=== PATIENT | male | born 1940 | race Caucasian/White ===

== ENCOUNTER 2016-08-28 15:28 | Outpatient (CLI) | payer MEDICARE, BC, OTHER | END 2016-08-28 15:29 | disposition home or self-care (01) | DX: I25.10 Atherosclerotic heart disease of native coronary artery without angina pectoris (principal); C61 Malignant neoplasm of prostate ==

== ENCOUNTER 2017-08-19 16:10 | Inpatient (IN) | payer MEDICARE, OTHER, BC ==
[2017-08-19 17:09] LABS: BASOPHILS % (AUTO) 1.3 %; EOSINOPHILS % (AUTO) 0.7 %; HGB - HEMOGLOBIN 10.3 g/dL (14.0-18.0); LYMPHOCYTES # (AUTO) 0.6 10^3/uL (1.5-3.5); LYMPHOCYTES % (AUTO) 43.7 %; MEAN CORPUSCULAR HEMOGLOBIN 32.7 pg (27.0-31.0); MEAN CORPUSCULAR HGB CONC 35.9 g/dL (32.0-36.0); MEAN PLATELET VOLUME 7.6 fL (7.4-11.4); MONOCYTES # (AUTO) 0.5 10^3/uL (0.0-1.0); MONOCYTES % (AUTO) 40.3 %; PLT - PLATELET COUNT 195 10^3/uL (130-450); RED BLOOD COUNT 3.16 10^6/uL (4.70-6.10); RED CELL DISTRIBUTION WIDTH 15.1 % (12.0-15.0)
[2017-08-19 17:10] LABS: ALBUMIN 3.8 g/dL (3.2-5.5); ALBUMIN/GLOBULIN RATIO 1.2 (1.0-2.2); BILIRUBIN,TOTAL 0.9 mg/dL (0.2-1.0); CALCIUM 8.9 mg/dL (8.5-10.3); CREATININE 0.6 mg/dL (0.6-1.2); TOTAL PROTEIN 6.9 g/dL (6.7-8.2)
[2017-08-19 17:12] LABS: NEUTROPHILS # (AUTO) 0.2 10^3/uL (1.5-6.6); WHITE BLOOD COUNT 1.3 x10^3/uL (4.8-10.8)
[2017-08-19] MEDS ORDERED: SODIUM CHLORIDE 0.9% 1,000 ML IV ONE ×2 (17:19)
[2017-08-19] MEDS ORDERED: PIPERACILLIN/TAZOBACTAM 4.5 GM in SODIUM CHLORIDE 0.9% MINIBAG 100 ML IV STA (17:21)
[2017-08-19 17:37] LABS: PLATELET ESTIMATE, MANUAL NORMAL (130-450,000) (NORMAL); PLATELET MORPHOLOGY 2+ GIANT PLATELETS (NORMAL)
--- NOTE | 2017-08-19 17:37 | XRAY Report ---
EXAM: CHEST RADIOGRAPHY EXAM DATE: 08/19/2017 04:30 PM. CLINICAL HISTORY: Fever, status post chemotherapy. COMPARISON: 04/02/2017. TECHNIQUE: 2 views. FINDINGS: Lungs/Pleura: Patchy bilateral lower lobe opacities are noted. No large effusions or pneumothorax. Mediastinum: Stable cardiac silhouette and previous sternotomy. Other: None. IMPRESSION: 1. Stable sternotomy and cardiac silhouette. 2. Platelike densities at both lung bases may represent atelectasis. However, given fever, unable to exclude infiltrates. No large effusions or pneumothorax are noted. [facility] Referring Provider Line: [phone] SITE ID: [id number]
--- NOTE | 2017-08-19 17:44 | ED Physician Documentation ---
History of Present Illness - Stated complaint Stated Complaint: HIGH TEMP/HOT COLD FLASHES - Chief complaint Chief Complaint: Fever - History obtained from History obtained from: Patient, Family - History of Present Illness Timing: Today Pain level max: 0 Pain level now: 0 Improved by: nothing Worsened by: nothing - Additonal information Additional information: Patient is a 76-year-old gentleman with a history of prostate cancer, currently undergoing chemotherapy. Last chemotherapy was 10 days ago. Had a fever of 101 at home today. Has had cough as well. Sent in for evaluation by Dr. Gallegos, oncology. Review of Systems Ten Systems: 10 systems reviewed and negative Constitutional: reports: Fever, Chills Nose: reports: Rhinorrhea / runny nose, Congestion Respiratory: reports: Cough GI: denies: Abdominal Pain, Vomiting, Diarrhea Skin: denies: Rash Musculoskeletal: denies: Neck pain, Back pain Neurologic: reports: Generalized weakness. denies: Focal weakness, Numbness, Headache PD PAST MEDICAL HISTORY - Past Medical History Past Medical History: Yes Cardiovascular: High cholesterol, Coronary artery disease Respiratory: None Neuro: None Endocrine/Autoimmune: None GI: None : Benign prostate hypertrophy, Frequency HEENT: None, Other Psych: None Musculoskeletal: Chronic back pain Derm: None Other Past Medical History: no teeth - Past Surgical History Past Surgical History: Yes HEENT: Tonsil/Adenoidectomy - Present Medications Home Medications: Ambulatory Orders Medication Instructions Recorded Confirmed Aspirin [Aspirin EC] 81 mg PO DAILY 09/03/16 08/19/17 Atorvastatin [Lipitor] 40 mg PO QPM 09/03/16 08/19/17 Metoprolol Succinate [Toprol Xl] 12.5 mg PO DAILY 09/03/16 08/19/17 Ropinirole HCl [Requip] 3 mg PO DAILY 09/03/16 08/19/17 - Allergies Allergies/Adverse Reactions: Allergies Allergy/AdvReac Type Severity Reaction Status Date / Time No Known Drug Allergies Allergy Verified 12/03/16 13:35 - Social History Does the pt smoke?: No Smoking Status: Former smoker Does the pt drink ETOH?: Yes Does the pt have substance abuse?: No - Immunizations Immunizations are current?: No - POLST Patient has POLST: No PD ED PE NORMAL - Vitals Vital signs reviewed: Yes - General General: Alert and oriented X 3, No acute distress - HEENT HEENT: PERRL, Moist mucous membranes - Neck Neck: Supple, no meningeal sign - Cardiac Cardiac: RRR, Strong equal pulses - Respiratory Respiratory: No respiratory distress (rhonchi B) - Abdomen Abdomen: Soft, Non tender, Non distended - Back Back: No CVA TTP - Derm Derm: Warm and dry, No rash - Extremities Extremities: No edema, No calf tenderness / cord - Neuro Neuro: Alert and oriented X 3 - Psych Psych: Normal mood, Normal affect Results - Vitals Vitals: Vital Signs - 24 hr 08/19/17 08/19/17 16:23 16:53 Temperature 37.9 C H 37.2 C Heart Rate 100 100 Respiratory 20 20 Rate Blood Pressure 140/58 H 134/65 H O2 Saturation 94 97 Oxygen O2 Source Room air - Labs Labs: Laboratory Tests 08/19/17 08/19/17 08/19/17 16:45 16:45 16:51 WBC 1.3 L* RBC 3.16 L Hgb 10.3 L Hct 28.8 L MCV 91.0 MCH 32.7 H MCHC 35.9 RDW 15.1 H Plt Count 195 MPV 7.6 Neut # 0.2 L* Lymph # 0.6 L [place] # 0.5 Eos # 0.0 Baso # 0.0 Absolute Nucleated RBC 0.00 Nucleated RBC % 0.3 Manual Slide Review Indicated Platelet Estimate NORMAL (130-450,000) Platelet Morphology 2+ GIANT PLATELETS RBC Morph Micro Appear 1+ POIKILOCYTOSIS Sodium 136 Potassium 3.3 L Chloride 105 Carbon Dioxide 24 Anion Gap 7.0 BUN 11 Creatinine 0.6 Estimated GFR (MDRD) 132 Glucose 171 H Lactic Acid 2.3 H Calcium 8.9 Total Bilirubin 0.9 AST 22 ALT 34 Alkaline Phosphatase 84 Total Protein 6.9 Albumin 3.8 Globulin 3.1 Albumin/Globulin Ratio 1.2 Lipase 33 - Rads (name of study) cxr Radiology: Prelim report reviewed, EMP read contemporaneously, See rad report ( Stable sternotomy and cardiac silhouette. Platelike densities at both lung bases may represent atelectasis. However, given fever, unable to exclude infiltrates. No large effusions or pneumothorax are noted. ) PD MEDICAL DECISION MAKING - ED course Complexity details: reviewed old records, reviewed results, re-evaluated patient , considered differential, d/w patient, d/w family, d/w technology applications consultant ED course: Patient is a 76-year-old gentleman who presents to the emergency department with neutropenic fever. Appears to have pneumonia on chest x-ray. Given Zosyn 4.5 g IV. Blood cultures drawn. IV fluids given. Discussed the case with the hospitalist who accepts. This document was made in part using voice recognition software. While efforts are made to proofread this document, sound alike and grammatical errors may occur. Departure - Departure Disposition: 66 [facility] DC/Xfer Clinical Impression: Neutropenic fever Pneumonia Qualifiers: Pneumonia type: due to unspecified organism Laterality: right Lung location: lower lobe of lung Qualified Code(s): J18.1 - Lobar pneumonia, unspecified organism Condition: Stable Discharge Date/Time: 08/19/17 19:09
[2017-08-19] MEDS ORDERED: TEMAZEPAM 15 MG CAPSULE PO PRN (18:14)
[2017-08-19] MEDS ORDERED: oxyCODONE 5 MG TABLET PO PRN (18:14)
[2017-08-19 18:25] LABS: BILIRUBIN,URINE NEGATIVE (NEGATIVE); GLUCOSE, URINE (UA) NEGATIVE (NEGATIVE); KETONES,URINE (UA) NEGATIVE (NEGATIVE); LEUKOCYTE ESTERASE, URINE NEGATIVE (NEGATIVE); NITRITE,URINE NEGATIVE (NEGATIVE); OCCULT BLOOD,URINE NEGATIVE (NEGATIVE); PH,URINE 5.5 PH (5.0-7.5); PROTEIN,URINE NEGATIVE (NEGATIVE); UROBILINOGEN,URINE 0.2 (NORMAL) E.U./dL (NORMAL)
[2017-08-19 18:37] LABS: CLARITY,URINE CLEAR (CLEAR)
[2017-08-19] MEDS ORDERED: CEFEPIME 1 GM in SODIUM CHLORIDE 0.9% MINIBAG 100 ML IV SCH (19:00)
[2017-08-19] MEDS ORDERED: VANCOMYCIN WEIGHT BASED (PHA COMPOUNDING) IV SCH (19:00)
--- NOTE | 2017-08-19 19:34 | HISTORY & PHYSICAL EXAMINATION ---
Chief Complaint - Chief Complaint Chief Complaint: fever, chills History of Present Illness - Admitted From Admitted From:: Home - History Obtained From Records Reviewed: yes History obtained from: patient, ER Physician - History of Present Illness HPI Comment/Other: Mr Miguel Negrete is a pleasant 76 year old gentleman with a history of hypertension and hypercholesterolemia as well as restless leg syndrome who unfortunately also has prostate cancer. He has been receiving chemotherapy for his prostate cancer and his last dose of chemotherapy was 10 days ago. Patient noticed that he had some bleeding per rectum secondary to hemorrhoids about 3 days ago and then the next day he developed a fever. He took some aspirin and the fever went away but the fever came back today along with chills and spiking temperature so the patient came to the emergency department. He was found to be severely neutropenic with a white blood cell count of 1.3 and a neutrophil count of 300. He will be admitted for the neutropenic fever and placed on IV antibiotics. History - Past Medical History Cardiovascular: reports: High cholesterol, Coronary artery disease Respiratory: reports: None Neuro: reports: None Endocrine/Autoimmune: reports: None GI: reports: None : reports: Benign prostate hypertrophy, Frequency, Other (Prostate cancer) HEENT: reports: None, Other Psych: reports: None Musculoskeletal: reports: Chronic back pain Derm: reports: None MRSA Hx?: No Other Past Medical History: no teeth - Past Surgical History HEENT: reports: Tonsil/Adenoidectomy - Family & Social History Family History: Mother: (Mother of old age), Father: , Cancer (Father of prostate cancer), Brother: , Cancer, Other family : Hyperlipidemia, Hypertension Living arrangement: At home Living Situation: With family - Substance History Use: Uses substance without health or social issues: NONE Abuse: Recurrent use of substance despite neg consequences: NONE Dependence: Experiences withdrawal or developed tolerances: NONE - POLST Patient has POLST: No POLST Status: Full Code Meds/Allgy - Home Medications Home Medications: Ambulatory Orders Medication Instructions Recorded Confirmed Aspirin [Aspirin EC] 81 mg PO DAILY 09/03/16 08/19/17 Atorvastatin [Lipitor] 40 mg PO QPM 09/03/16 08/19/17 Metoprolol Succinate [Toprol Xl] 12.5 mg PO DAILY 09/03/16 08/19/17 Ropinirole HCl [Requip] 3 mg PO DAILY 09/03/16 08/19/17 - Allergies Allergies/Adverse Reactions: Allergies Allergy/AdvReac Type Severity Reaction Status Date / Time No Known Drug Allergies Allergy Verified 12/03/16 13:35 Review of Systems - Constitutional Constitutional: reports: Fever, Chills, Malaise, Poor appetite. denies: Fatigue , Weakness, Diaphoresis - Eyes Eyes: denies: Pain, Irritation, Blurred vision, Dipolpia - Ears, Nose & Throat Ears, Nose & Throat: denies: Ear pain, Hearing loss, Hearing aids, Tinnitus, Vertigo, Nasal pain, Nasal discharge - Cardiovascular Cariovascular: denies: Palpitations, Chest pain, Edema, Syncope - Respiratory Respiratory: denies: Cough, Sputum production, Wheezing, Hemoptysis, Orthopnea - Gastrointestinal Gastrointestinal: denies: Abdominal pain, Abdominal distention, Constipation, Diarrhea, Change in bowel habits, Rectal bleeding - Genitourinary Genitourinary: denies: Dysuria, Frequency, Urgency, Hematuria - Musculoskeletal Musculoskeletal: denies: Muscle pain, Back pain, Muscle aches, Stiffness - Integumentary Integumentary: denies: Rash, Pruritis, Lesions, Dryness - Neurological Neurological: denies: General weakness, Focal weakness, Headache, Dizziness - Psychiatric Psychiatric: denies: Depression, Anxiety, Suicidal, Hallucinations - Endocrine Endocrine: denies: Polyuria, Polydypsia, Polyphagia - Hematologic/Lymphatic Hematologic/Lymphatic: denies: Anemia, Bruising, Petechiae, Lymphadenopathy - All Other Systems All Other Systems: reports: Reviewed and negative Exam - Vital Signs Reviewed Vital Signs: Yes Vital Signs: Vital Signs x48h Pulse Resp BP Pulse Ox 08/19/17 19:03 91 30 H 134/65 H 95 - Physical Exam General Appearance: positive: No acute distress, Alert Eyes Bilateral: positive: Normal inspection, PERRL, EOMI, No lid inflammation, No scleral icterus, Other (Conjunctiva is pale) ENT: positive: ENT inspection nml, Pharynx nml, No signs of dehydration Neck: positive: Nml inspection, Thyroid nml, No JVD, Trachea midline. negative : Thyromegaly Respiratory: positive: Chest non-tender, No respiratory distress, Breath sounds nml. negative: Wheezes, Rales, Rhonchi Cardiovascular: positive: Regular rate & rhythm, No murmur, No gallop Peripheral Pulses: positive: 1+ Abdomen: positive: Non-tender, No organomegaly, Nml bowel sounds, No distention. negative: Guarding, Rebound Back: positive: Nml inspection. negative: CVA tenderness (R), CVA tenderness (L ) Skin: positive: Color nml, No rash, Warm, Dry. negative: Cyanosis Extremities: positive: Non-tender, Full ROM, Nml appearance Neurologic/Psychiatric: positive: Oriented x3, CN's nml (2-12), Motor nml, Sensation nml, Mood/affect nml Conclusion/Plan - Problem List (1) Neutropenic fever Conclusion/Plan: The patient's white blood cell count is 1.3 and his neutrophil count is 300. We will start the patient on cefepime and vancomycin for the neutropenic fever. If it is allowed, we will give the patient a dose of Granix to help boost his immune system. (2) Pneumonia Conclusion/Plan: The chest x-ray is not positive for pneumonia but cannot be ruled out. We will be treating the patient with cefepime and vancomycin which should cover any type of pneumonia the patient has. We will repeat chest x-ray in a day or 2. Qualifiers: Pneumonia type: due to unspecified organism Laterality: right Lung location: lower lobe of lung Qualified Code(s): J18.1 - Lobar pneumonia, unspecified organism (3) Hypertension Conclusion/Plan: Fairly well-managed, continue metoprolol (4) Hyperlipidemia Conclusion/Plan: Presumably well-managed, continue Lipitor (5) Restless leg syndrome Conclusion/Plan: Continue ropinirole. - Lab Results Lab results reviewed: Yes Fish Bones: 08/19/17 16:45 08/19/17 16:45 - Diagnostic Imaging Results Diagnostic Imaging Results: positive: Final report reviewed Diagnostic Imaging Results Comments: EXAM: CHEST RADIOGRAPHY EXAM DATE: 08/19/2017 04:30 PM. CLINICAL HISTORY: Fever, status post chemotherapy. COMPARISON: 04/02/2017. TECHNIQUE: 2 views. FINDINGS: Lungs/Pleura: Patchy bilateral lower lobe opacities are noted. No large effusions or pneumothorax. Mediastinum: Stable cardiac silhouette and previous sternotomy. Other: None. IMPRESSION: 1. Stable sternotomy and cardiac silhouette. 2. Platelike densities at both lung bases may represent atelectasis. However, given fever, unable to exclude infiltrates. No large effusions or pneumothorax are noted. Core Measures - Anticipated LOS I expect patient to be DC'd or transferred within 96 hours.: Yes - DVT/VTE - Prophylaxis VTE/DVT Device ordered at admit?: Yes
[2017-08-19] MEDS ORDERED: VANCOMYCIN INJ 1 GM, VANCOMYCIN INJ 250 MG in SODIUM CHLORIDE 0.9% 250 ML IV SCH (20:00)
[2017-08-19] MEDS: CEFEPIME 2 GM in SODIUM CHLORIDE 0.9% MINIBAG 100 ML IV SCH (20:20)
[2017-08-19] MEDS: D5.45NS W/20 MEQ KCL 1,000 ML IV SCH (20:20)
[2017-08-19] MEDS: SODIUM CHLORIDE FLUSH 0.9% 10 ML SYRINGE IVP PRN (20:21)
[2017-08-19] MEDS: VANCOMYCIN INJ 1 GM, VANCOMYCIN INJ 250 MG in SODIUM CHLORIDE 0.9% 250 ML IV SCH (21:31)
[2017-08-19] MEDS: ATORVASTATIN 10 MG TABLET PO SCH (21:34)
[2017-08-20] MEDS: SODIUM CHLORIDE FLUSH 0.9% 10 ML SYRINGE IVP SCH ×3 (00:44→17:12)
[2017-08-20] MEDS: CEFEPIME 2 GM in SODIUM CHLORIDE 0.9% MINIBAG 100 ML IV SCH ×3 (03:15→18:46)
[2017-08-20] MEDS ORDERED: SODIUM CHLORIDE 0.9% 250 ML IV ONE (08:14)
[2017-08-20] MEDS: METOPROLOL SUCCINATE 25 MG TABLET PO SCH (08:22)
[2017-08-20] MEDS: ASPIRIN EC 81 MG TABLET PO SCH (08:22)
[2017-08-20] MEDS: VANCOMYCIN INJ 1 GM, VANCOMYCIN INJ 250 MG in SODIUM CHLORIDE 0.9% 250 ML IV SCH ×2 (08:22→20:03)
[2017-08-20] MEDS: POLYETHYLENE GLYCOL 3350 17 GM PACKET PO SCH (08:43)
[2017-08-20 08:57] LABS: BASOPHILS % (AUTO) 1.4 %; EOSINOPHILS % (AUTO) 1.8 %; HGB - HEMOGLOBIN 9.5 g/dL (14.0-18.0); LYMPHOCYTES # (AUTO) 0.7 10^3/uL (1.5-3.5); LYMPHOCYTES % (AUTO) 49.2 %; MEAN CORPUSCULAR HEMOGLOBIN 31.8 pg (27.0-31.0); MEAN CORPUSCULAR HGB CONC 34.8 g/dL (32.0-36.0); MEAN CORPUSCULAR VOLUME 91.6 fL (80.0-94.0); MEAN PLATELET VOLUME 7.4 fL (7.4-11.4); MONOCYTES # (AUTO) 0.5 10^3/uL (0.0-1.0); MONOCYTES % (AUTO) 35.1 %; NEUTROPHILS % (AUTO) 12.5 %; PLT - PLATELET COUNT 188 10^3/uL (130-450); RED BLOOD COUNT 2.97 10^6/uL (4.70-6.10)
[2017-08-20 09:01] LABS: NEUTROPHILS # (AUTO) 0.2 10^3/uL (1.5-6.6); WHITE BLOOD COUNT 1.5 x10^3/uL (4.8-10.8)
[2017-08-20 09:13] LABS: MAGNESIUM 1.8 mg/dL (1.7-2.8); PHOSPHORUS 2.2 mg/dL (2.5-4.6)
[2017-08-20 09:36] LABS: ALBUMIN 3.4 g/dL (3.2-5.5); ALBUMIN/GLOBULIN RATIO 1.2 (1.0-2.2); ALKALINE PHOSPHATASE 61 IU/L (42-121); ALT ALANINE AMINOTRANSFERASE 28 IU/L (10-60); AST ASPARTATE AMINOTRANSFERASE 19 IU/L (10-42); BILIRUBIN,TOTAL 0.9 mg/dL (0.2-1.0); BUN - BLOOD UREA NITROGEN 7 mg/dL (6-20); CALCIUM 8.4 mg/dL (8.5-10.3); CARBON DIOXIDE - CO2 24 mmol/L (21-32); CHLORIDE 106 mmol/L (101-111); CREATININE 0.5 mg/dL (0.6-1.2); GFR - MDRD 163 (>89); GLUCOSE 124 mg/dL (70-100); SODIUM 135 mmol/L (135-145); TOTAL PROTEIN 6.2 g/dL (6.7-8.2)
[2017-08-20] MEDS: D5.45NS W/20 MEQ KCL 1,000 ML IV SCH (10:10)
[2017-08-20 10:46] LABS: DIFFERENTIAL COMMENT MANUAL=AUTO DIFF; PLATELET ESTIMATE, MANUAL NORMAL (130-450,000) (NORMAL)
[2017-08-20] MEDS ORDERED: ACETAMINOPHEN 325 MG TABLET PO PRN (10:53)
[2017-08-20] MEDS: POTASSIUM CHLORIDE 20 MEQ TABLET PO SCH (11:13)
[2017-08-20] MEDS: NEUTRA-PHOS 250 MG TABLET PO SCH ×3 (11:13→17:11)
--- NOTE | 2017-08-20 16:13 | PROVIDER PROGRESS NOTE ---
Assessment/Plan - Problem List (1) Neutropenic fever Assessment/Plan: The patient's white blood cell count is 1.3 and his neutrophil count is 200. Patient was started on cefepime and vancomycin for the neutropenic fever. No fevers overnight last fever was 14:30 on 08/19/17 and was 37.9 WBC improved this am but neutophil count still 200 Continue IV cefepime and vancomycin till patient is afebrile for 24 hours and neutrophil count trending up LIkely source of infection is pneumonia (2) Pneumonia Conclusion/Plan: The chest x-ray is not positive for pneumonia but cannot be ruled out. We will be treating the patient with cefepime and vancomycin which should cover any type of pneumonia the patient has. We will repeat chest x-ray in a day or 2. No O2 requirements but neutropenic fever and cough Qualifiers: Pneumonia type: due to unspecified organism Laterality: right Lung location: lower lobe of lung Qualified Code(s): J18.1 - Lobar pneumonia, unspecified organism (3) Hypertension Conclusion/Plan: Fairly well-managed, continue metoprolol (4) Hyperlipidemia Conclusion/Plan: Presumably well-managed, continue Lipitor (5) Restless leg syndrome Conclusion/Plan: Continue ropinirole. - Current Meds Current Meds: Current Medications Generic Name Dose Route Start Last Admin Trade Name Freq PRN Reason Stop Dose Admin Acetaminophen 650 mg 08/20/17 10:53 08/20/17 11:13 Tylenol PO 650 mg Q4HR PRN Administration Pain or Fever > 38C (100.4F) Aspirin 81 mg 08/20/17 09:00 08/20/17 08:22 Ecotrin PO 81 mg DAILY EMPERATRIZ Administration Atorvastatin Calcium 40 mg 08/19/17 21:00 08/19/17 21:34 Lipitor PO 40 mg QPM EMPERATRIZ Administration Potassium Chloride/Dextrose/Sod Cl 1,000 mls @ 100 mls/hr 08/19/17 19:00 10:10 D5.45ns W/20 Meq Kcl IV 100 mls/hr .Q10H EMPERATRIZ Administration Cefepime HCl 2 gm/ Sodium 100 mls @ 200 mls/hr 08/19/17 19:00 08/20/17 11:45 Chloride IV Infused Q8H EMPERATRIZ Infusion Vancomycin HCl 1 gm/ 250 mls @ 167 mls/hr 08/19/17 20:00 04/17/18 10:10 Vancomycin HCl 250 mg/ Sodium IV Infused Chloride Q12H EMPERATRIZ Infusion Metoprolol Succinate 12.5 mg 08/20/17 09:00 08/20/17 08:22 Toprol Xl PO 12.5 mg DAILY EMPERATRIZ Administration Polyethylene Glycol 17 gm 08/20/17 09:00 08/20/17 08:43 Miralax PO 17 gm DAILY EMPERATRIZ Administration Potassium Chloride 20 meq 08/20/17 11:00 08/20/17 11:13 K-Dur PO 20 meq DAILYWM EMPERATRIZ Administration Sodium Chloride 10 ml 08/19/17 18:14 08/19/17 20:21 Normal Saline Flush 0.9% IVP 10 ml PRN PRN Administration NEEDED PER PROVIDER ORDERS Sodium Chloride 10 ml 08/20/17 01:00 08/20/17 08:22 Normal Saline Flush 0.9% IVP 10 ml 0100,0900,1700 EMPERATRIZ Administration Sodium Phosphate 250 mg 08/20/17 11:00 08/20/17 13:01 K-Phos Neutral PO Not Given TIDWM EMPERATRIZ - Lab Result Lab results reviewed: Yes Fish Bone Diagrams: 08/20/17 08:47 08/20/17 08:47 - Diagnostic Imaging Results Diagnostic Imaging Results: Final report reviewed - Additional Planning Condition/Complexity: Guarded My Orders: My Active Orders 08/20/17 10:53 Acetaminophen [Tylenol] 650 mg PO Q4HR PRN 08/20/17 11:00 Neutra-Phos [K-Phos Neutral] 250 mg PO TIDWM Potassium Chloride [K-Dur] 20 meq PO DAILYWM 08/20/17 Lunch Neutropenic (Low Microbial) Diet [DIET] 08/21/17 05:00 CBC - COMP BLD CT W/AUTO DIFF [HEME] DAILYLAB CMP, RFLX TO IONIZED CA IF [CHEM] DAILYLAB MAGNESIUM [CHEM] DAILYLAB PHOSPHORUS [CHEM] DAILYLAB 08/21/17 06:00 PSA FREE AND TOTAL [IAI] Routine 08/22/17 05:00 CBC - COMP BLD CT W/AUTO DIFF [HEME] DAILYLAB CMP, RFLX TO IONIZED CA IF [CHEM] DAILYLAB MAGNESIUM [CHEM] DAILYLAB PHOSPHORUS [CHEM] DAILYLAB 08/23/17 05:00 CBC - COMP BLD CT W/AUTO DIFF [HEME] DAILYLAB CMP, RFLX TO IONIZED CA IF [CHEM] DAILYLAB MAGNESIUM [CHEM] DAILYLAB PHOSPHORUS [CHEM] DAILYLAB 08/24/17 05:00 CBC - COMP BLD CT W/AUTO DIFF [HEME] DAILYLAB CMP, RFLX TO IONIZED CA IF [CHEM] DAILYLAB MAGNESIUM [CHEM] DAILYLAB PHOSPHORUS [CHEM] DAILYLAB Plan Discussed with:: Patient, Family Time Spent: 31-60 minutes Subjective - Subjective Patient Reports: Feeling Better, Cough, Fever (None since yesterday), Other (No shortness of breath) Nursing Reports: No Complaints Objective Vital Signs: Vital Signs - 24 hr 08/19/17 08/19/17 08/20/17 19:03 19:20 00:00 Temperature 37.1 C 36.7 C Heart Rate 91 Heart Rate [ 91 83 Brachial] Respiratory 30 H 20 20 Rate Blood Pressure 134/65 H Blood Pressure 107/60 117/56 L [Right Brachial artery] O2 Saturation 95 96 96 08/20/17 08/20/17 08:00 15:13 Temperature 36.8 C 36.7 C Heart Rate Heart Rate [ 76 71 Brachial] Respiratory 20 18 Rate Blood Pressure Blood Pressure 110/57 L 119/69 [Right Brachial artery] O2 Saturation 96 96 Oxygen O2 Source Room air I&O (Last 24 Hrs): Intake and Output Totals x24h 08/18/17 08/19/17 08/20/17 23:59 23:59 23:59 Intake Total 3839.496 9690.001 Balance 6475.045 9344.001 General: Alert, Oriented x3, Cooperative, No acute distress HEENT: Atraumatic, PERRLA, EOMI, Other (Dry) Neck: Supple, No JVD, No thyromegaly, +2 carotid pulse wo bruit, No LAD Lymphatic: no adenopathy Neuro: Alert, Non Focal, CN 2-12 Grossly Intact, Oriented Times 3 Cardiovascular: Regular rate, Normal S1, Normal S2, No murmurs Respiratory: Chest non-tender, No respiratory distress, Breath sounds nml Abdomen: Normal bowel sounds, Soft, No tenderness, No hepatospenomegaly Extremities: No clubbing, No cyanosis, No edema, Normal pulses Skin: No rashes, No breakdown - Results Results: Laboratory Results WBC 1.5 x10^3/uL (4.8-10.8) L* 08/20/17 08:47 RBC 2.97 10^6/uL (4.70-6.10) L 08/20/17 08:47 Hgb 9.5 g/dL (14.0-18.0) L 08/20/17 08:47 Hct 27.2 % (42.0-52.0) L 08/20/17 08:47 MCV 91.6 fL (80.0-94.0) 08/20/17 08:47 MCH 31.8 pg (27.0-31.0) H 08/20/17 08:47 MCHC 34.8 g/dL (32.0-36.0) 08/20/17 08:47 RDW 15.0 % (12.0-15.0) 08/20/17 08:47 Plt Count 188 10^3/uL (130-450) 08/20/17 08:47 MPV 7.4 fL (7.4-11.4) 08/20/17 08:47 Neut # 0.2 10^3/uL (1.5-6.6) L* 08/20/17 08:47 Lymph # 0.7 10^3/uL (1.5-3.5) L 08/20/17 08:47 [place] # 0.5 10^3/uL (0.0-1.0) 08/20/17 08:47 Eos # 0.0 10^3/uL (0.0-0.7) 08/20/17 08:47 Baso # 0.0 10^3/uL (0.0-0.1) 08/20/17 08:47 Absolute Nucleated RBC 0.00 x10^3/uL 08/20/17 08:47 Band Neuts % (Manual) Not Reportable 08/20/17 08:47 Abnorm Lymph % (Manual) Not Reportable 08/20/17 08:47 Nucleated RBC % 0.1 /100WBC 08/20/17 08:47 Neutrophils # (Manual) Not Reportable 08/20/17 08:47 Lymphocytes # (Manual) Not Reportable 08/20/17 08:47 Monocytes # (Manual) Not Reportable 08/20/17 08:47 Eosinophils # (Manual) Not Reportable 08/20/17 08:47 Basophils # (Manual) Not Reportable 08/20/17 08:47 Differential Comment MANUAL=AUTO DIFF 08/20/17 08:47 Manual Slide Review Indicated 08/19/17 16:45 Platelet Estimate NORMAL (130-450,000) (NORMAL) 08/20/17 08:47 Platelet Morphology 1+ GIANT PLATELETS (NORMAL) 1+ LARGE PLATELETS (NORMAL) 08/20/17 08:47 Platelet Morphology 1+ GIANT PLATELETS (NORMAL) 1+ LARGE PLATELETS (NORMAL) 08/20/17 08:47 RBC Morph Micro Appear 1+ ANISOCYTOSIS (NORMAL) 1+ POIKILOCYTOSIS (NORMAL) 08/19/17 16:45 RBC Morph Micro Appear 2+ ANISOCYTOSIS (NORMAL) 1+ TEARDROP CELLS (NORMAL) 1 + OVALOCYTES (NORMAL) 08/20/17 08:47 RBC Morph Micro Appear 2+ ANISOCYTOSIS (NORMAL) 1+ TEARDROP CELLS (NORMAL) 1 + OVALOCYTES (NORMAL) 08/20/17 08:47 RBC Morph Micro Appear 2+ ANISOCYTOSIS (NORMAL) 1+ TEARDROP CELLS (NORMAL) 1 + OVALOCYTES (NORMAL) 08/20/17 08:47 Sodium 135 mmol/L (135-145) 08/20/17 08:47 Potassium 3.2 mmol/L (3.5-5.0) L 08/20/17 08:47 Chloride 106 mmol/L (101-111) 08/20/17 08:47 Carbon Dioxide 24 mmol/L (21-32) 08/20/17 08:47 Anion Gap 5.0 (6-13) L 08/20/17 08:47 BUN 7 mg/dL (6-20) 08/20/17 08:47 Creatinine 0.5 mg/dL (0.6-1.2) L 08/20/17 08:47 Estimated GFR (MDRD) 163 (>89) 08/20/17 08:47 Glucose 124 mg/dL (70-100) H 08/20/17 08:47 Lactic Acid 1.7 mmol/L (0.5-2.2) 08/20/17 08:47 Calcium 8.4 mg/dL (8.5-10.3) L 08/20/17 08:47 Ionized Calcium NO 08/20/17 08:47 Phosphorus 2.2 mg/dL (2.5-4.6) L 08/20/17 08:47 Magnesium 1.8 mg/dL (1.7-2.8) 08/20/17 08:47 Total Bilirubin 0.9 mg/dL (0.2-1.0) 08/20/17 08:47 AST 19 IU/L (10-42) 08/20/17 08:47 ALT 28 IU/L (10-60) 08/20/17 08:47 Alkaline Phosphatase 61 IU/L (42-121) 08/20/17 08:47 Total Protein 6.2 g/dL (6.7-8.2) L 08/20/17 08:47 Albumin 3.4 g/dL (3.2-5.5) 08/20/17 08:47 Globulin 2.8 g/dL (2.1-4.2) 08/20/17 08:47 Albumin/Globulin Ratio 1.2 (1.0-2.2) 08/20/17 08:47 Lipase 33 U/L (22-51) 08/19/17 16:45 Urine Color YELLOW 08/19/17 18:22 Urine Clarity CLEAR (CLEAR) 08/19/17 18:22 Urine pH 5.5 PH (5.0-7.5) 08/19/17 18:22 Ur Specific [place] >=1.030 (1.002-1.030) H 08/19/17 18:22 Urine Protein NEGATIVE mg/dL (NEGATIVE) 08/19/17 18:22 Urine Glucose (UA) NEGATIVE mg/dL (NEGATIVE) 08/19/17 18:22 Urine Ketones NEGATIVE mg/dL (NEGATIVE) 08/19/17 18:22 Urine Occult Blood NEGATIVE (NEGATIVE) 08/19/17 18:22 Urine Nitrite NEGATIVE (NEGATIVE) 08/19/17 18:22 Urine Bilirubin NEGATIVE (NEGATIVE) 08/19/17 18:22 Urine Urobilinogen 0.2 (NORMAL) E.U./dL (NORMAL) 08/19/17 18:22 Ur Leukocyte Esterase NEGATIVE (NEGATIVE) 08/19/17 18:22 Ur Microscopic Review NOT INDICATED 08/19/17 18:22 Urine Culture Comments NOT INDICATED 08/19/17 18:22
[2017-08-20] MEDS ORDERED: ONDANSETRON 4 MG/2 ML VIAL IVP PRN (18:29)
[2017-08-20] MEDS ORDERED: PROCHLORPERAZINE 10 MG/2 ML VIAL IVP PRN (18:29)
[2017-08-20] MEDS: rOPINIRole 1 MG TABLET PO SCH (20:02)
[2017-08-20] MEDS: ATORVASTATIN 10 MG TABLET PO SCH (20:02)
[2017-08-21] MEDS: D5.45NS W/20 MEQ KCL 1,000 ML IV SCH ×4 (00:23→21:38)
[2017-08-21] MEDS: SODIUM CHLORIDE FLUSH 0.9% 10 ML SYRINGE IVP SCH ×3 (00:24→08:06)
[2017-08-21] MEDS: CEFEPIME 2 GM in SODIUM CHLORIDE 0.9% MINIBAG 100 ML IV SCH ×3 (03:17→19:26)
[2017-08-21 07:52] LABS: VANCOMYCIN,TROUGH 11.5 ug/mL (5.0-15.0)
[2017-08-21 07:54] LABS: BASOPHILS % (AUTO) 1.4 %; EOSINOPHILS % (AUTO) 1.1 %; HGB - HEMOGLOBIN 10.5 g/dL (14.0-18.0); LYMPHOCYTES % (AUTO) 37.5 %; MEAN CORPUSCULAR HEMOGLOBIN 32.1 pg (27.0-31.0); MEAN CORPUSCULAR HGB CONC 34.8 g/dL (32.0-36.0); MEAN PLATELET VOLUME 7.3 fL (7.4-11.4); MONOCYTES % (AUTO) 39.7 %; NEUTROPHILS % (AUTO) 20.3 %; PLT - PLATELET COUNT 241 10^3/uL (130-450); RED BLOOD COUNT 3.28 10^6/uL (4.70-6.10); RED CELL DISTRIBUTION WIDTH 14.5 % (12.0-15.0)
[2017-08-21 07:55] LABS: ALBUMIN 3.7 g/dL (3.2-5.5); ALBUMIN/GLOBULIN RATIO 1.3 (1.0-2.2); ALKALINE PHOSPHATASE 63 IU/L (42-121); ALT ALANINE AMINOTRANSFERASE 31 IU/L (10-60); AST ASPARTATE AMINOTRANSFERASE 22 IU/L (10-42); BILIRUBIN,TOTAL 0.9 mg/dL (0.2-1.0); BUN - BLOOD UREA NITROGEN 5 mg/dL (6-20); CALCIUM 8.8 mg/dL (8.5-10.3); CARBON DIOXIDE - CO2 23 mmol/L (21-32); CHLORIDE 109 mmol/L (101-111); CREATININE 0.5 mg/dL (0.6-1.2); GFR - MDRD 163 (>89); GLUCOSE 104 mg/dL (70-100); MAGNESIUM 1.6 mg/dL (1.7-2.8); PHOSPHORUS 2.9 mg/dL (2.5-4.6); SODIUM 140 mmol/L (135-145); TOTAL PROTEIN 6.5 g/dL (6.7-8.2)
[2017-08-21] MEDS ORDERED: VANCOMYCIN INJ 1 GM, VANCOMYCIN INJ 500 MG in SODIUM CHLORIDE 0.9% 250 ML IV SCH (08:00)
[2017-08-21] MEDS ORDERED: VANCOMYCIN INJ 1 GM, VANCOMYCIN INJ 500 MG in SODIUM CHLORIDE 0.9% 500 ML IV SCH (08:29)
[2017-08-21 08:31] LABS: WHITE BLOOD COUNT 1.7 x10^3/uL (4.8-10.8)
[2017-08-21 08:36] LABS: BAND NEUTROPHILS % (MANUAL) 0 %
[2017-08-21 08:37] LABS: ABNORMAL LYMPHS % (MANUAL) 2 %; BASOPHILS % (MANUAL) 1 %; LYMPHOCYTES # (MANUAL) 0.7 10^3/uL (1.5-3.5); LYMPHOCYTES % (MANUAL) 40 %; MONOCYTES # (MANUAL) 0.6 10^3/uL (0.0-1.0); NEUTROPHILS # (MANUAL) 0.3 10^3/uL (1.5-6.6); NEUTROPHILS % (MANUAL) 17 %
[2017-08-21 08:38] LABS: DIFFERENTIAL COMMENT MANUAL DIFFERENTIAL; OTHER CELLS % (MANUAL) 2 %; PLATELET ESTIMATE, MANUAL NORMAL (130-450,000) (NORMAL); PLATELET MORPHOLOGY NORMAL APPEARANCE (NORMAL)
[2017-08-21] MEDS: VANCOMYCIN INJ 1 GM, VANCOMYCIN INJ 500 MG in SODIUM CHLORIDE 0.9% 500 ML IV SCH ×2 (08:45→20:14)
[2017-08-21] MEDS: NEUTRA-PHOS 250 MG TABLET PO SCH ×3 (09:01→15:59)
[2017-08-21] MEDS: POLYETHYLENE GLYCOL 3350 17 GM PACKET PO SCH (09:02)
[2017-08-21] MEDS: POTASSIUM CHLORIDE 20 MEQ TABLET PO SCH (09:02)
[2017-08-21] MEDS: METOPROLOL SUCCINATE 25 MG TABLET PO SCH (09:02)
[2017-08-21] MEDS: ASPIRIN EC 81 MG TABLET PO SCH (09:02)
[2017-08-21 09:03] LABS: PSA FREE 2.06 ng/mL (0.16-2.81); PSA TOTAL 27.58 ng/mL (0.000-2.000)
--- NOTE | 2017-08-21 17:57 | PROVIDER PROGRESS NOTE ---
Assessment/Plan - Problem List (1) Neutropenic fever Assessment/Plan: The patient's white blood cell count is 1.7 and his neutrophil count is 300 this am. Patient was started on cefepime and vancomycin for the neutropenic fever. Last fever was 14:30 on 08/19/17 and was 37.9 Neutophil count improved to 300 today but would still like to see it higher before patient is discharged Continue IV cefepime and vancomycin till neutrophil count trending up higher LIkely source of infection is pneumonia (2) Pneumonia Conclusion/Plan: The chest x-ray is not positive for pneumonia but cannot be ruled out. We will be treating the patient with cefepime and vancomycin which should cover any type of pneumonia the patient has. We will repeat chest x-ray tomorrow am No O2 requirements but neutropenic fever and cough Stable Qualifiers: Pneumonia type: due to unspecified organism Laterality: right Lung location: lower lobe of lung Qualified Code(s): J18.1 - Lobar pneumonia, unspecified organism (3) Hypertension Conclusion/Plan: Fairly well-managed, continue metoprolol (4) Hyperlipidemia Conclusion/Plan: Presumably well-managed, continue Lipitor (5) Restless leg syndrome Conclusion/Plan: Continue ropinirole. - Current Meds Current Meds: Current Medications Generic Name Dose Route Start Last Admin Trade Name Freq PRN Reason Stop Dose Admin Acetaminophen 650 mg 08/20/17 10:53 08/20/17 11:13 Tylenol PO 650 mg Q4HR PRN Administration Pain or Fever > 38C (100.4F) Aspirin 81 mg 08/20/17 09:00 08/21/17 09:02 Ecotrin PO 81 mg DAILY EMPERATRIZ Administration Potassium Chloride/Dextrose/Sod Cl 1,000 mls @ 100 mls/hr 08/19/17 19:00 15:54 D5.45ns W/20 Meq Kcl IV Not Given .Q10H EMPERATRIZ Cefepime HCl 2 gm/ Sodium 100 mls @ 200 mls/hr 08/19/17 19:00 08/21/17 13:25 Chloride IV Infused Q8H EMPERATRIZ Infusion Vancomycin HCl 1 gm/ 500 mls @ 167 mls/hr 08/21/17 08:00 08/21/17 11:45 Vancomycin HCl 500 mg/ Sodium IV Infused Chloride Q12H EMPERATRIZ Infusion Metoprolol Succinate 12.5 mg 08/20/17 09:00 08/21/17 09:02 Toprol Xl PO 12.5 mg DAILY EMPERATRIZ Administration Polyethylene Glycol 17 gm 08/20/17 09:00 08/21/17 09:02 Miralax PO 17 gm DAILY EMPERATRIZ Administration Potassium Chloride 20 meq 08/20/17 11:00 08/21/17 09:02 K-Dur PO 20 meq DAILYWM EMPERATRIZ Administration Prochlorperazine Edisylate 10 mg 08/20/17 18:29 08/20/17 18:43 Compazine Inj IVP 10 mg Q4HR PRN Administration Nausea / Vomiting Ropinirole HCl 3 mg 08/20/17 21:00 08/20/17 20:02 Requip PO 3 mg QPM EMPERATRIZ Administration Sodium Chloride 10 ml 08/19/17 18:14 08/19/17 20:21 Normal Saline Flush 0.9% IVP 10 ml PRN PRN Administration NEEDED PER PROVIDER ORDERS Sodium Chloride 10 ml 08/20/17 01:00 08/21/17 08:06 Normal Saline Flush 0.9% IVP Not Given 0100,0900,1700 EMPERATIRZ Sodium Phosphate 250 mg 08/20/17 11:00 08/21/17 15:59 K-Phos Neutral PO 250 mg TIDWM EMPERATRIZ Administration - Lab Result Lab results reviewed: Yes Fish Bone Diagrams: 08/21/17 07:33 08/21/17 07:33 - Diagnostic Imaging Results Diagnostic Imaging Results: Final report reviewed - Additional Planning Condition/Complexity: Stable My Orders: My Active Orders 08/20/17 18:29 Ondansetron Inj [Zofran Inj] 4 mg IVP Q4HR PRN Prochlorperazine Inj [Compazine Inj] 10 mg IVP Q4HR PRN 08/22/17 05:00 CBC - COMP BLD CT W/AUTO DIFF [HEME] DAILYLAB CMP, RFLX TO IONIZED CA IF [CHEM] DAILYLAB MAGNESIUM [CHEM] DAILYLAB PHOSPHORUS [CHEM] DAILYLAB 08/22/17 19:30 VANCOMYCIN TROUGH [CHEM] Timed 08/23/17 05:00 CBC - COMP BLD CT W/AUTO DIFF [HEME] DAILYLAB CMP, RFLX TO IONIZED CA IF [CHEM] DAILYLAB MAGNESIUM [CHEM] DAILYLAB PHOSPHORUS [CHEM] DAILYLAB 08/24/17 05:00 CBC - COMP BLD CT W/AUTO DIFF [HEME] DAILYLAB CMP, RFLX TO IONIZED CA IF [CHEM] DAILYLAB MAGNESIUM [CHEM] DAILYLAB PHOSPHORUS [CHEM] DAILYLAB Plan Discussed with:: Patient Time Spent: 31-60 minutes Subjective - Subjective Patient Reports: Other (No fevers last night. No diarrhea. Cough is stable. Feels weak but better every day.) Nursing Reports: No Complaints Objective Vital Signs: Vital Signs - 24 hr 08/21/17 08/21/17 08/21/17 00:00 09:36 15:54 Temperature 37.1 C 36.4 C L 37.0 C Heart Rate [ 84 77 68 Brachial] Respiratory 20 20 18 Rate Blood Pressure 117/61 133/61 H 135/97 H [Right Brachial artery] O2 Saturation 94 97 98 Oxygen O2 Source Room air I&O (Last 24 Hrs): Intake and Output Totals x24h 08/19/17 08/20/17 08/21/17 23:59 23:59 23:59 Intake Total 1982.669 8829.001 2630.000 Output Total 575 Balance 7075.963 1924.001 2055.000 General: Alert, Oriented x3, Cooperative, No acute distress HEENT: Atraumatic, PERRLA, EOMI, Mucous membr. moist/pink Neck: Supple, No JVD, No thyromegaly, +2 carotid pulse wo bruit, No LAD Lymphatic: no adenopathy Neuro: Alert, Non Focal, CN 2-12 Grossly Intact, Oriented Times 3 Cardiovascular: Regular rate, Normal S1, Normal S2, No murmurs Respiratory: Chest non-tender, No respiratory distress, Rhonchi (Bases) Abdomen: Normal bowel sounds, Soft, No tenderness, No hepatospenomegaly, No masses Extremities: No clubbing, No cyanosis, No edema, Normal pulses Skin: No rashes, No breakdown - Results Results: Laboratory Results WBC 1.7 x10^3/uL (4.8-10.8) L* 08/21/17 07:33 RBC 3.28 10^6/uL (4.70-6.10) L 08/21/17 07:33 Hgb 10.5 g/dL (14.0-18.0) L 08/21/17 07:33 Hct 30.2 % (42.0-52.0) L 08/21/17 07:33 MCV 92.0 fL (80.0-94.0) 08/21/17 07:33 MCH 32.1 pg (27.0-31.0) H 08/21/17 07:33 MCHC 34.8 g/dL (32.0-36.0) 08/21/17 07:33 RDW 14.5 % (12.0-15.0) 08/21/17 07:33 Plt Count 241 10^3/uL (130-450) 08/21/17 07:33 MPV 7.3 fL (7.4-11.4) L 08/21/17 07:33 Neut # Not Reportable 08/21/17 07:33 Lymph # Not Reportable 08/21/17 07:33 [place] # Not Reportable 08/21/17 07:33 Eos # Not Reportable 08/21/17 07:33 Baso # Not Reportable 08/21/17 07:33 Absolute Nucleated RBC Not Reportable 08/21/17 07:33 Total Counted 100 08/21/17 07:33 Band Neuts % (Manual) 0 % (0-10) 08/21/17 07:33 Abnorm Lymph % (Manual) 2 % 08/21/17 07:33 Other Cells % 2 % 08/21/17 07:33 Nucleated RBC % Not Reportable 08/21/17 07:33 Neutrophils # (Manual) 0.3 10^3/uL (1.5-6.6) L* 08/21/17 07:33 Lymphocytes # (Manual) 0.7 10^3/uL (1.5-3.5) L 08/21/17 07:33 Monocytes # (Manual) 0.6 10^3/uL (0.0-1.0) 08/21/17 07:33 Eosinophils # (Manual) 0.0 10^3/uL (0-0.7) 08/21/17 07:33 Basophils # (Manual) 0.0 10^3/uL (0-0.1) 08/21/17 07:33 Differential Comment MANUAL DIFFERENTIAL 08/21/17 07:33 Manual Slide Review Indicated 08/21/17 07:33 Platelet Estimate NORMAL (130-450,000) (NORMAL) 08/21/17 07:33 Platelet Morphology 1+ GIANT PLATELETS (NORMAL) 1+ LARGE PLATELETS (NORMAL) 08/20/17 08:47 Platelet Morphology NORMAL APPEARANCE (NORMAL) 08/21/17 07:33 RBC Morph Micro Appear 2+ ANISOCYTOSIS (NORMAL) 1+ TEARDROP CELLS (NORMAL) 1 + OVALOCYTES (NORMAL) 08/20/17 08:47 RBC Morph Micro Appear 2+ ANISOCYTOSIS (NORMAL) 1+ TEARDROP CELLS (NORMAL) 1 + OVALOCYTES (NORMAL) 08/20/17 08:47 RBC Morph Micro Appear 2+ ANISOCYTOSIS (NORMAL) 1+ TEARDROP CELLS (NORMAL) 1 + OVALOCYTES (NORMAL) 08/20/17 08:47 RBC Morph Micro Appear 1+ ANISOCYTOSIS (NORMAL) 1+ POLYCHROMASIA (NORMAL) 08/21/17 07:33 RBC Morph Micro Appear 1+ ANISOCYTOSIS (NORMAL) 1+ POLYCHROMASIA (NORMAL) 08/21/17 07:33 Sodium 140 mmol/L (135-145) 08/21/17 07:33 Potassium 3.2 mmol/L (3.5-5.0) L 08/21/17 07:33 Chloride 109 mmol/L (101-111) 08/21/17 07:33 Carbon Dioxide 23 mmol/L (21-32) 08/21/17 07:33 Anion Gap 8.0 (6-13) 08/21/17 07:33 BUN 5 mg/dL (6-20) L 08/21/17 07:33 Creatinine 0.5 mg/dL (0.6-1.2) L 08/21/17 07:33 Estimated GFR (MDRD) 163 (>89) 08/21/17 07:33 Glucose 104 mg/dL (70-100) H 08/21/17 07:33 Lactic Acid 1.7 mmol/L (0.5-2.2) 08/20/17 08:47 Calcium 8.8 mg/dL (8.5-10.3) 08/21/17 07:33 Ionized Calcium NO 08/21/17 07:33 Phosphorus 2.9 mg/dL (2.5-4.6) 08/21/17 07:33 Magnesium 1.6 mg/dL (1.7-2.8) L 08/21/17 07:33 Total Bilirubin 0.9 mg/dL (0.2-1.0) 08/21/17 07:33 AST 22 IU/L (10-42) 08/21/17 07:33 ALT 31 IU/L (10-60) 08/21/17 07:33 Alkaline Phosphatase 63 IU/L (42-121) 08/21/17 07:33 Total Protein 6.5 g/dL (6.7-8.2) L 08/21/17 07:33 Albumin 3.7 g/dL (3.2-5.5) 08/21/17 07:33 Globulin 2.8 g/dL (2.1-4.2) 08/21/17 07:33 Albumin/Globulin Ratio 1.3 (1.0-2.2) 08/21/17 07:33 Lipase 33 U/L (22-51) 08/19/17 16:45 Prostate Specific Ag 27.580 ng/mL (0.000-2.000) H 08/21/17 07:33 Free PSA 2.060 ng/mL (0.16-2.81) 08/21/17 07:33 % Free PSA Calc 7 % (25-100) L 08/21/17 07:33 Urine Color YELLOW 08/19/17 18:22 Urine Clarity CLEAR (CLEAR) 08/19/17 18:22 Urine pH 5.5 PH (5.0-7.5) 08/19/17 18:22 Ur Specific [place] >=1.030 (1.002-1.030) H 08/19/17 18:22 Urine Protein NEGATIVE mg/dL (NEGATIVE) 08/19/17 18:22 Urine Glucose (UA) NEGATIVE mg/dL (NEGATIVE) 08/19/17 18:22 Urine Ketones NEGATIVE mg/dL (NEGATIVE) 08/19/17 18:22 Urine Occult Blood NEGATIVE (NEGATIVE) 08/19/17 18:22 Urine Nitrite NEGATIVE (NEGATIVE) 08/19/17 18:22 Urine Bilirubin NEGATIVE (NEGATIVE) 08/19/17 18:22 Urine Urobilinogen 0.2 (NORMAL) E.U./dL (NORMAL) 08/19/17 18:22 Ur Leukocyte Esterase NEGATIVE (NEGATIVE) 08/19/17 18:22 Ur Microscopic Review NOT INDICATED 08/19/17 18:22 Urine Culture Comments NOT INDICATED 08/19/17 18:22 Last Dose Date UNK 08/21/17 07:33 Last Dose Time K 08/21/17 07:33 Vancomycin Trough 11.5 ug/mL (5.0-15.0) 08/21/17 07:33
[2017-08-21] MEDS: rOPINIRole 1 MG TABLET PO SCH (20:14)
[2017-08-21] MEDS ORDERED: ATORVASTATIN 40 MG TABLET PO SCH (21:00)
[2017-08-22] MEDS: CEFEPIME 2 GM in SODIUM CHLORIDE 0.9% MINIBAG 100 ML IV SCH ×2 (03:32→13:00)
[2017-08-22 04:46] LABS: BASOPHILS % (AUTO) 0.9 %; EOSINOPHILS % (AUTO) 0.9 %; HGB - HEMOGLOBIN 10.1 g/dL (14.0-18.0); LYMPHOCYTES % (AUTO) 38.7 %; MEAN CORPUSCULAR HEMOGLOBIN 31.8 pg (27.0-31.0); MEAN CORPUSCULAR HGB CONC 34.7 g/dL (32.0-36.0); MEAN CORPUSCULAR VOLUME 91.8 fL (80.0-94.0); MEAN PLATELET VOLUME 7.3 fL (7.4-11.4); NEUTROPHILS % (AUTO) 20.5 %; PLT - PLATELET COUNT 268 10^3/uL (130-450); RED BLOOD COUNT 3.18 10^6/uL (4.70-6.10); RED CELL DISTRIBUTION WIDTH 15.2 % (12.0-15.0); WHITE BLOOD COUNT 2.5 x10^3/uL (4.8-10.8)
[2017-08-22] MEDS: SODIUM CHLORIDE FLUSH 0.9% 10 ML SYRINGE IVP SCH ×2 (04:54→09:04)
[2017-08-22 04:59] LABS: NEUTROPHILS # (AUTO) 0.5 10^3/uL (1.5-6.6)
[2017-08-22 05:02] LABS: ALBUMIN 3.4 g/dL (3.2-5.5); ALBUMIN/GLOBULIN RATIO 1.2 (1.0-2.2); ALKALINE PHOSPHATASE 59 IU/L (42-121); ALT ALANINE AMINOTRANSFERASE 30 IU/L (10-60); AST ASPARTATE AMINOTRANSFERASE 21 IU/L (10-42); BUN - BLOOD UREA NITROGEN 5 mg/dL (6-20); CALCIUM 8.8 mg/dL (8.5-10.3); CARBON DIOXIDE - CO2 24 mmol/L (21-32); CHLORIDE 109 mmol/L (101-111); CREATININE 0.6 mg/dL (0.6-1.2); GFR - MDRD 132 (>89); GLUCOSE 102 mg/dL (70-100); MAGNESIUM 1.6 mg/dL (1.7-2.8); PHOSPHORUS 3.6 mg/dL (2.5-4.6); SODIUM 142 mmol/L (135-145); TOTAL PROTEIN 6.3 g/dL (6.7-8.2)
[2017-08-22 06:00] LABS: PLATELET ESTIMATE, MANUAL NORMAL (130-450,000) (NORMAL); PLATELET MORPHOLOGY NORMAL APPEARANCE (NORMAL)
[2017-08-22] MEDS: D5.45NS W/20 MEQ KCL 1,000 ML IV SCH (06:00)
[2017-08-22] MEDS: SODIUM CHLORIDE FLUSH 0.9% 10 ML SYRINGE IVP PRN (06:10)
--- NOTE | 2017-08-22 07:14 | XRAY Report ---
EXAM: CHEST RADIOGRAPHY EXAM DATE: 08/22/2017 06:19 AM. CLINICAL HISTORY: Follow up on pneumonia. COMPARISON: 08/19/2017. TECHNIQUE: 1 view. FINDINGS: Lungs/Pleura: Mild bibasilar linear opacities have not significantly changed compared to prior allowi ng for differences in technique. No focal dense consolidation. No pneumothorax or definite pleural ef fusion. Mediastinum: Cardiac silhouette is normal in size. Other: Postsurgical changes from median sternotomy and CABG. IMPRESSION: No significant change from prior. [facility] Referring Provider Line: [phone] SITE ID: [id number]
--- NOTE | 2017-08-22 07:59 | Discharge Plan ---
Discharge Plan Disposition: Home, Self Care Condition: Fair Prescriptions: Levofloxacin [Levaquin] 500 mg PO DAILY #7 tablet Diet: Regular Activity Restrictions: No Restrictions Shower Restrictions: No Driving Restrictions: No Weight Bearing: Full Weight Additional Instructions or Follow Up instructions: You were hospitalized for neutropenic fever and the source of your fever was found to be a pneumonia. You have not had any further fevers for more than 24 hours and your neutrophil count is up to 500 now. You are well enough to go home. I am prescribing you 7 additional days of oral antibiotics with levaquin which you will take daily for 7 days. I recommend that you see your PCP once you have completed your course of treatment and that you follow up with your oncologist as previously scheduled. Please take full precautions when you go back home to avoid any sick contacts and wear a mask when you go out in public as you are still neutropenic. No Smoking: If you smoke, Please STOP! Call for help. Follow-up with: Ty Tejeda MD [Primary Care Provider] -
[2017-08-22] MEDS: VANCOMYCIN INJ 1 GM, VANCOMYCIN INJ 500 MG in SODIUM CHLORIDE 0.9% 500 ML IV SCH (09:05)
[2017-08-22] MEDS: NEUTRA-PHOS 250 MG TABLET PO SCH ×2 (09:12→12:23)
[2017-08-22] MEDS: ASPIRIN EC 81 MG TABLET PO SCH (09:13)
[2017-08-22] MEDS: METOPROLOL SUCCINATE 25 MG TABLET PO SCH (09:13)
[2017-08-22] MEDS: POTASSIUM CHLORIDE 20 MEQ TABLET PO SCH (09:13)
[2017-08-22] MEDS: POLYETHYLENE GLYCOL 3350 17 GM PACKET PO SCH (09:14)
--- NOTE | 2017-08-22 11:26 | DISCHARGE SUMMARY ---
Discharge Summary Admit Date: 08/19/17 Discharge Date: 08/22/17 Discharging Provider: Douglas Landon MD Primary Care Provider: Ty Tejeda MD Code Status: Attempt Resuscitation Condition at Discharge: Fair Discharge Disposition: 01 Home, Self Care - DIAGNOSES Admission Diagnoses: 1. Neutropenic fever 2. Lobar pneumonia, unspecified organism 3. Hypertension 4. Hyperlipidemia 5. Restless leg syndrome Discharge Diagnoses with Status of Each Condition: 1. Neutropenic fever: Improving 2. Lobar pneumonia, unspecified organism: Stable 3. Hypertension: Stable 4. Hyperlipidemia: Stable 5. Restless leg syndrome: Stable - HPI History of Present Illness: Mr Miguel Negrete is a pleasant 76 year old gentleman with a history of hypertension and hypercholesterolemia as well as restless leg syndrome who unfortunately also has prostate cancer. He has been receiving chemotherapy for his prostate cancer and his last dose of chemotherapy was 10 days ago. Patient noticed that he had some bleeding per rectum secondary to hemorrhoids about 3 days ago and then the next day he developed a fever. He took some aspirin and the fever went away but the fever came back today along with chills and spiking temperature so the patient came to the emergency department. He was found to be severely neutropenic with a white blood cell count of 1.3 and a neutrophil count of 300. He will be admitted for the neutropenic fever and placed on IV antibiotics. - HOSPITAL COURSE Hospital Course: The patient was hospitalized for neutropenic fever as he had a neutrophil count of 200 on presentation with a fever of 37.9. The patient's source of neutropenic fever was felt to be a pneumonia. The patient was placed on broad- spectrum antibiotics with IV vancomycin and IV cefepime. Over the course of his hospitalization the patient had no further episodes of fever. The patient' s neutrophil count slowly improved to 500 over the course of 3 days. Given that the patient's coughing had improved and neutrophil count was adequately improving the patient was discharged home on oral antibiotics to continue treatment for 7 days. The patient's blood cultures were negative. While the patient was hospitalized he was seen by his oncologist Dr. Gallegos and will continue with treatment for his metastatic prostate cancer as an outpatient. The patient was in stable condition at the time of discharge. - ALLERGIES Allergies/Adverse Reactions: Allergies Allergy/AdvReac Type Severity Reaction Status Date / Time No Known Drug Allergies Allergy Verified 07/31/17 13:35 - MEDICATIONS Home Medications: Ambulatory Orders Medication Instructions Recorded Confirmed Aspirin [Aspirin EC] 81 mg PO DAILY 09/03/16 08/19/17 Atorvastatin [Lipitor] 40 mg PO QPM 09/03/16 08/19/17 Metoprolol Succinate [Toprol Xl] 12.5 mg PO DAILY 09/03/16 08/19/17 Ropinirole HCl [Requip] 3 mg PO DAILY 09/03/16 08/19/17 Levofloxacin [Levaquin] 500 mg PO DAILY #7 tablet 08/22/17 - PHYSICAL EXAM AT DISCHARGE General Appearance: positive: No acute distress, Alert Eyes Bilateral: positive: Normal inspection, PERRL, EOMI, No lid inflammation, Conjunctivae nml, No scleral icterus ENT: positive: ENT inspection nml, Pharynx nml, No signs of dehydration. negative: Purulent nasal drainage, Pharyngeal erythema, Oral lesions Neck: positive: Nml inspection, Thyroid nml, No JVD, Trachea midline. negative : Lymphadenopathy (R), Lymphadenopathy (L), Carotid bruit Respiratory: positive: Chest non-tender, No respiratory distress, Rhonchi ( Bibasilar) Cardiovascular: positive: Regular rate & rhythm, No murmur, No gallop Peripheral Pulses: positive: 2+ Abdomen: positive: Non-tender, No organomegaly, Nml bowel sounds, No distention. negative: Guarding, Rebound, Hepatomegaly Back: positive: Nml inspection. negative: CVA tenderness (R), CVA tenderness (L ) Skin: positive: No rash, Warm. negative: Cyanosis, Diaphoresis, Pallor Extremities: positive: Non-tender, Full ROM, Nml appearance, No pedal edema Neurologic/Psychiatric: positive: Oriented x3, CN's nml (2-12), Motor nml, Sensation nml, Mood/affect nml - LABS Result Diagrams: 08/22/17 04:18 08/22/17 04:18 Other Lab Results: Laboratory Results WBC 2.5 x10^3/uL (4.8-10.8) L 08/22/17 04:18 RBC 3.18 10^6/uL (4.70-6.10) L 08/22/17 04:18 Hgb 10.1 g/dL (14.0-18.0) L 08/22/17 04:18 Hct 29.1 % (42.0-52.0) L 08/22/17 04:18 MCV 91.8 fL (80.0-94.0) 08/22/17 04:18 MCH 31.8 pg (27.0-31.0) H 08/22/17 04:18 MCHC 34.7 g/dL (32.0-36.0) 08/22/17 04:18 RDW 15.2 % (12.0-15.0) H 08/22/17 04:18 Plt Count 268 10^3/uL (130-450) 08/22/17 04:18 MPV 7.3 fL (7.4-11.4) L 08/22/17 04:18 Neut # 0.5 10^3/uL (1.5-6.6) L* 08/22/17 04:18 Lymph # 1.0 10^3/uL (1.5-3.5) L 08/22/17 04:18 [place] # 1.0 10^3/uL (0.0-1.0) 08/22/17 04:18 Eos # 0.0 10^3/uL (0.0-0.7) 08/22/17 04:18 Baso # 0.0 10^3/uL (0.0-0.1) 08/22/17 04:18 Absolute Nucleated RBC 0.00 x10^3/uL 08/22/17 04:18 Total Counted 100 08/21/17 07:33 Band Neuts % (Manual) 0 % (0-10) 08/21/17 07:33 Abnorm Lymph % (Manual) 2 % 08/21/17 07:33 Other Cells % 2 % 08/21/17 07:33 Nucleated RBC % 0.2 /100WBC 08/22/17 04:18 Neutrophils # (Manual) 0.3 10^3/uL (1.5-6.6) L* 08/21/17 07:33 Lymphocytes # (Manual) 0.7 10^3/uL (1.5-3.5) L 08/21/17 07:33 Monocytes # (Manual) 0.6 10^3/uL (0.0-1.0) 08/21/17 07:33 Eosinophils # (Manual) 0.0 10^3/uL (0-0.7) 08/21/17 07:33 Basophils # (Manual) 0.0 10^3/uL (0-0.1) 08/21/17 07:33 Differential Comment MANUAL DIFFERENTIAL 08/21/17 07:33 Manual Slide Review Indicated 08/22/17 04:18 Platelet Estimate NORMAL (130-450,000) (NORMAL) 08/22/17 04:18 Platelet Morphology NORMAL APPEARANCE (NORMAL) 08/21/17 07:33 Platelet Morphology NORMAL APPEARANCE (NORMAL) 08/22/17 04:18 RBC Morph Micro Appear 2+ ANISOCYTOSIS (NORMAL) 1+ TEARDROP CELLS (NORMAL) 1 + OVALOCYTES (NORMAL) 08/20/17 08:47 RBC Morph Micro Appear 2+ ANISOCYTOSIS (NORMAL) 1+ TEARDROP CELLS (NORMAL) 1 + OVALOCYTES (NORMAL) 08/20/17 08:47 RBC Morph Micro Appear 1+ ANISOCYTOSIS (NORMAL) 1+ POLYCHROMASIA (NORMAL) 08/21/17 07:33 RBC Morph Micro Appear 1+ ANISOCYTOSIS (NORMAL) 1+ POLYCHROMASIA (NORMAL) 08/21/17 07:33 RBC Morph Micro Appear 1+ ANISOCYTOSIS (NORMAL) 1+ POLYCHROMASIA (NORMAL) 1+ OVALOCYTES (NORMAL) 08/22/17 04:18 RBC Morph Micro Appear 1+ ANISOCYTOSIS (NORMAL) 1+ POLYCHROMASIA (NORMAL) 1+ OVALOCYTES (NORMAL) 08/22/17 04:18 RBC Morph Micro Appear 1+ ANISOCYTOSIS (NORMAL) 1+ POLYCHROMASIA (NORMAL) 1+ OVALOCYTES (NORMAL) 08/22/17 04:18 Sodium 142 mmol/L (135-145) 08/22/17 04:18 Potassium 3.4 mmol/L (3.5-5.0) L 08/22/17 04:18 Chloride 109 mmol/L (101-111) 08/22/17 04:18 Carbon Dioxide 24 mmol/L (21-32) 08/22/17 04:18 Anion Gap 9.0 (6-13) 08/22/17 04:18 BUN 5 mg/dL (6-20) L 08/22/17 04:18 Creatinine 0.6 mg/dL (0.6-1.2) 08/22/17 04:18 Estimated GFR (MDRD) 132 (>89) 08/22/17 04:18 Glucose 102 mg/dL (70-100) H 08/22/17 04:18 Lactic Acid 1.7 mmol/L (0.5-2.2) 08/20/17 08:47 Calcium 8.8 mg/dL (8.5-10.3) 08/22/17 04:18 Ionized Calcium NO 08/22/17 04:18 Phosphorus 3.6 mg/dL (2.5-4.6) 08/22/17 04:18 Magnesium 1.6 mg/dL (1.7-2.8) L 08/22/17 04:18 Total Bilirubin 1.0 mg/dL (0.2-1.0) 08/22/17 04:18 AST 21 IU/L (10-42) 08/22/17 04:18 ALT 30 IU/L (10-60) 08/22/17 04:18 Alkaline Phosphatase 59 IU/L (42-121) 08/22/17 04:18 Total Protein 6.3 g/dL (6.7-8.2) L 08/22/17 04:18 Albumin 3.4 g/dL (3.2-5.5) 08/22/17 04:18 Globulin 2.9 g/dL (2.1-4.2) 08/22/17 04:18 Albumin/Globulin Ratio 1.2 (1.0-2.2) 08/22/17 04:18 Lipase 33 U/L (22-51) 08/19/17 16:45 Prostate Specific Ag 27.580 ng/mL (0.000-2.000) H 08/21/17 07:33 Free PSA 2.060 ng/mL (0.16-2.81) 08/21/17 07:33 % Free PSA Calc 7 % (25-100) L 08/21/17 07:33 Urine Color YELLOW 08/19/17 18:22 Urine Clarity CLEAR (CLEAR) 08/19/17 18:22 Urine pH 5.5 PH (5.0-7.5) 08/19/17 18:22 Ur Specific [place] >=1.030 (1.002-1.030) H 08/19/17 18:22 Urine Protein NEGATIVE mg/dL (NEGATIVE) 08/19/17 18:22 Urine Glucose (UA) NEGATIVE mg/dL (NEGATIVE) 08/19/17 18:22 Urine Ketones NEGATIVE mg/dL (NEGATIVE) 08/19/17 18:22 Urine Occult Blood NEGATIVE (NEGATIVE) 08/19/17 18:22 Urine Nitrite NEGATIVE (NEGATIVE) 08/19/17 18:22 Urine Bilirubin NEGATIVE (NEGATIVE) 08/19/17 18:22 Urine Urobilinogen 0.2 (NORMAL) E.U./dL (NORMAL) 08/19/17 18:22 Ur Leukocyte Esterase NEGATIVE (NEGATIVE) 08/19/17 18:22 Ur Microscopic Review NOT INDICATED 08/19/17 18:22 Urine Culture Comments NOT INDICATED 08/19/17 18: Last Dose Date UNK 08/21/17 07:33 Last Dose Time UNK 08/21/17 07:33 Vancomycin Trough 11.5 ug/mL (5.0-15.0) 08/21/17 07:33 - DIAGNOSTIC IMAGING Diagnostic Imaging Results: Final report reviewed Diagnostic Imaging Results Comments: Chest x-ray Impression: 1. Stable sternotomy and cardiac silhouette 2. Platelike densities at both lung bases may represent atelectasis. However given fever unable to exclude infiltrates. No large effusion or pneumothorax is noted Chest x-ray 08/22/2017 Impression: No significant change from prior x-ray. - FOLLOW UP Follow Up: The patient was admitted for neutropenic fever secondary to pneumonia. The patient was treated with IV antibiotics while hospitalized until patient's neutrophil count improved to 500. He is now being discharged with oral antibiotics and will continue treatment with Levaquin for 7 additional days. The patient will follow up with his primary care physician and oncologist as previously scheduled. - TIME SPENT Time Spent in Discharge (Minutes): 45
[2017-08-22 15:59] VITALS: BP 153/71
--- NOTE | 2017-08-29 14:27 | ONCOLOGY / HEMATOLOGY ---
DATE OF SERVICE: 08/21/2017 Physician: Jaz Gallegos MD [facility] MEDICAL ONCOLOGY/HEMATOLOGY INPATIENT CONSULT NOTE ASSESSMENT AND PLAN 1. 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 Patient was recently started on docetaxel. He received his second dose of the treatment on 08/09/2017. Unfortunately patient developed neutropenia and now is admitted in the hospital for neutropenic fever. Patient's PSA has declined, which is a good sign as well. 2. Neutropenic fever. Management per primary team. Agree with continuing on cefepime until patient defervesces. Plan: Patient will return to clinic in a week with labs if patient is discharged. Going forward, he will need G-CSF support with future cycles, which would include Neulasta or Neupogen. 3. Anemia secondary to chemotherapy. We will continue to follow. 4. Osteonecrosis, stable at this point. CHIEF COMPLAINT/HISTORY OF PRESENT ILLNESS: Patient has been admitted to the hospital for neutropenic fever. Reports that his fevers are much better since admission. He denies any diarrhea or constipation. He denies any cough at this time. He denies any shortness of breath on exertion. REVIEW OF SYSTEMS: As per HPI. All others negative. PHYSICAL EXAMINATION VITAL SIGNS: Reviewed as per chart. HEENT: Pallor present. Oral mucosa moist. No ulcerations. LYMPHATIC: No cervical or supraclavicular lymphadenopathy noted. LUNGS: Clear to auscultation bilaterally. HEART: S1, S2 heard. Regular rhythm. EXTREMITIES: Arthritic changes present. No clubbing or cyanosis. CARDIOVASCULAR: No lower extremity edema present. SKIN: Dry. No bruising. NEUROLOGIC: No focal findings. PAST MEDICAL HISTORY, FAMILY HISTORY: Reviewed and unchanged. I spent 40 minutes, more than 50% of which was to face in direct patient consultation and formulating a treatment plan for his known history of castration-resistant prostate cancer and the recent neutropenic fever. TD: 08/27/2017 02:55
== END 2017-08-22 16:00 | disposition home or self-care (01) | DRG 808 ==
LOC: ED 16:10 → MS3 18:14
PROVIDERS: ADMIT Hospitalist; ATTEND Internal Medicine
DX: D70.9 Neutropenia, unspecified (principal); D70.3 Neutropenia due to infection; J18.1 Lobar pneumonia, unspecified organism; R50.81 Fever presenting with conditions classified elsewhere; I10 Essential (primary) hypertension; E78.5 Hyperlipidemia, unspecified; Z87.891 Personal history of nicotine dependence; G25.81 Restless legs syndrome; C61 Malignant neoplasm of prostate; I25.10 Atherosclerotic heart disease of native coronary artery without angina pectoris; Z79.899 Other long term (current) drug therapy; Z79.82 Long term (current) use of aspirin
CPT/HCPCS: 36415; 71045; 71046; 80053; 81001; 81003; 83605; 83690; 83735; 84100; 84154; 85025; 87040; 87086; 96365; 99233; 99284; 99285

== ENCOUNTER 2017-12-19 09:59 | Day surgery (SDC) | payer MEDICARE, OTHER ==
[~2017-12-19 09:59] MED LIST: BRIMONIDINE 0.2% OPHTH DROPS 5 ML ONE; BSS/LIDOCAINE/EPINEPHRINE 1 ML SYRINGE ONE; EPINEPHrine 1 MG/ML AMP ONE; TIMOLOL 0.5% OPHTH DROPS ONE; TRIAMCIN/MOXIFLOX OPHTHALMIC 0.6 ML VIAL IO ONE; VANCOMYCIN OPHTHALMI 8MG/0.8ML 8 MG/0.8 ML SYRINGE IO ONE
[2017-12-19] MEDS ORDERED: LACTATED RINGERS 500 ML IV ONE (10:38)
[2017-12-19] MEDS ORDERED: PROPARACAINE 0.5% OPHTH DROPS 15 ML ONE (12:17)
[2017-12-19] MEDS ORDERED: MIDAZOLAM 2 MG/2 ML VIAL IVP ONE (12:30)
[2017-12-19] MEDS ORDERED: PROPOFOL 200 MG/20 ML VIAL IVP ONE (12:30)
[2017-12-19] MEDS ORDERED: PROPARACAINE 0.5% OPHTH DROPS 15 ML RIGHTEYE ONE (12:44)
[2017-12-19] MEDS ORDERED: CHONDR SULF/HYALURONATE SYRINGE IO ONE (12:44)
[2017-12-19] MEDS ORDERED: BSS/LIDOCAINE/EPINEPHRINE 1 ML SYRINGE IO ONE (12:44)
[2017-12-19] MEDS ORDERED: TRIAMCIN/MOXIFLOX/VANCO 1 ML VIAL IO ONE (12:45)
[2017-12-19 13:17] VITALS: BP 123/68
--- NOTE | 2017-12-19 23:47 | OPERATIVE REPORT ---
DATE OF SERVICE: 12/19/2017 Physician: Alejandro Soler MD PREOPERATIVE DIAGNOSIS: Traumatic hyphema right eye not clearing since a little over a week ago. POSTOPERATIVE DIAGNOSIS: Traumatic hyphema right eye not clearing since a little over a week ago. PROCEDURE PERFORMED: Anterior chamber washout with use of vitrector. SURGEON: Alejandro Soler MD ANESTHESIA: Monitored anesthesia care. COMPLICATIONS: None. OPERATIVE INDICATIONS: This is a 77-year-old man who experienced a traumatic hyphema early last week and was seen by me later in the week for vision loss. He had light perception vision only and a near 8 ball hyphema with just a little bit of anterior chamber clear superiorly. By earlier this week, it was determined that his chamber was not going to clear and he was also having some high pressures. There's the additional concern for corneal staining from blood breakdown products, so it was elected to do an anterior chamber washout. He consented concerning risks and benefits and he expressed a desire to proceed with the procedure. OPERATIVE PROCEDURE: The patient was taken to OR #3 and placed under monitored anesthesia care. A surgical timeout was conducted confirming correct patient, correct procedure, and correct surgical site. Two 1.0mm side ports were created with a 1.0mm Keratome superiorly and inferiorly through which Shugarcaine was injected. There was some small amount of clearing near the wound sites. Viscoat was also injected and that cleared a little bit more, but there was obviously some parts that were more clotted. A larger 2.4 mm wound was made temporally through which the coaxial I&A handpiece was placed and this cleared some loose blood. There was still a large clot that would not come out , so the vitrector was used through the 2 side ports and, using the I/A cut setting, removed the clot that would not come out through the wounds. Once that was accomplished, we went back to I/A to remove the viscoelastic materials in the eye and remove any remaining liquid blood. There did not appear to be any active bleeding. There were clumps of pigment on the lens and there was not a very good view through the lens. I think there was already some yellow staining of the cornea and there also appears to be a cataract. Approximately 0.4 mL of a mixture of triamcinolone, moxifloxacin and vancomycin was injected subconjunctivally in the superior quadrant for infection and inflammation prophylaxis. The patient was then taken from the operating room in good condition and given postop instructions. His daughter was also advised to have him continue all drops and pills being taken prior to surgery. TD: 12/19/2017 13:03 RENNY
== END 2017-12-19 10:00 | disposition home or self-care (01) ==
LOC: SDS 09:59
PROVIDERS: ATTEND Ophthalmology
PROC: 08923ZZ Drainage of Right Anterior Chamber, Percutaneous Approach (ICD-10-PCS; principal; 2017-12-19 11:00)
DX: S05.11XA Contusion of eyeball and orbital tissues, right eye, initial encounter (principal); I25.10 Atherosclerotic heart disease of native coronary artery without angina pectoris; C61 Malignant neoplasm of prostate; N40.0 Benign prostatic hyperplasia without lower urinary tract symptoms; E78.5 Hyperlipidemia, unspecified; G25.81 Restless legs syndrome; M54.9 Dorsalgia, unspecified; G89.29 Other chronic pain; Z79.52 Long term (current) use of systemic steroids; Z79.891 Long term (current) use of opiate analgesic; Z79.899 Other long term (current) drug therapy; Z87.891 Personal history of nicotine dependence; Z95.5 Presence of coronary angioplasty implant and graft
CPT/HCPCS: 65930; A9270; J3490

== ENCOUNTER 2018-02-27 08:10 | Day surgery (SDC) | payer MEDICARE, OTHER ==
[~2018-02-27 08:10] MED LIST changes: +CYCLOPENTOLATE 1% OPHTH DROPS 2 ML ONE; +KETOROLAC 0.45% OPHTH DROPS ONE; +PHENYLEPHRINE 2.5% OPHTH 2 ML DROPS ONE; +PROPARACAINE 0.5% OPHTH DROPS 15 ML ONE; -VANCOMYCIN OPHTHALMI 8MG/0.8ML 8 MG/0.8 ML SYRINGE IO ONE
[2018-02-27] MEDS ORDERED: KETOROLAC 0.45% OPHTH DROPS RIGHTEYE ONE (09:05)
[2018-02-27] MEDS ORDERED: CYCLOPENTOLATE 1% OPHTH DROPS 2 ML RIGHTEYE ONE (09:05)
[2018-02-27] MEDS ORDERED: PHENYLEPHRINE 2.5% OPHTH 2 ML DROPS RIGHTEYE ONE (09:05)
[2018-02-27] MEDS ORDERED: PROPARACAINE 0.5% OPHTH DROPS 15 ML RIGHTEYE ONE ×2 (09:05→10:06)
--- NOTE | 2018-02-27 09:14 | ANESTHESIA ---
Pre-Anesthesia VS, & Labs - Diagnosis Right senile combined cataract - Procedure Right phaco with IOL implant Height 5 ft 5 in Body Mass Index 36.6 - NPO >8 hours - Lab Results Lab results reviewed: No Home Medications and Allergies Atorvastatin [Lipitor] 40 mg PO QPM 09/03/16 Metoprolol Succinate [Toprol Xl] 12.5 mg PO DAILY 09/03/16 Ropinirole HCl [Requip] 3 mg PO DAILY 09/03/16 oxyCODONE [Roxicodone] 5 mg PO DAILY 12/18/17 Allergies/Adverse Reactions: Allergies Allergy/AdvReac Type Severity Reaction Status Date / Time No Known Drug Allergies Allergy Verified 12/19/17 10:44 Anes History & Medical History - Anesthetic History Anesthesia Complications: reports: No previous complications Family history of Anesthesia Complications: Denies Family history of Malignant Hyperthermia: Denies - Medical History Cardiovascular: reports: High cholesterol, Coronary artery disease Pulmonary: reports: None Gastrointestinal: reports: None Urinary: reports: Benign prostate hypertrophy, Frequency Neuro: reports: None Musculoskeletal: reports: Chronic back pain Endocrine/Autoimmune: reports: None Blood Disorders: reports: None Skin: reports: None Smoking Status: Former smoker Psychosocial: reports: No issues indicated - Surgical History Eyes Ears Nose Throat (EENT): Tonsil/Adenoidectomy Cardiothoracic: CABG - Other History Other History: Currently receiving chemo Exam General: Alert, Oriented x3 Dental: Other (Edentulous) Mouth Opening: Greater than 4 Fingerbreadths Neck Mobility: Normal Mallampati classification: II Plan Anesthesia Type: MAC Consent for Procedure(s) Verified and Reviewed: Yes Code Status: Attempt Resuscitation ASA classification: 3-Severe systemic disease Is this case an emergency?: No
[2018-02-27] MEDS ORDERED: LACTATED RINGERS 500 ML IV ONE (09:15)
[2018-02-27] MEDS ORDERED: MIDAZOLAM 2 MG/2 ML VIAL IVP ONE (10:00)
[2018-02-27] MEDS ORDERED: VANCOMYCIN OPHTHALMI 8MG/0.8ML 8 MG/0.8 ML SYRINGE IO ONE ×2 (10:04→10:30)
[2018-02-27] MEDS ORDERED: BRIMONIDINE 0.2% OPHTH DROPS 5 ML OPTH ONE (10:05)
[2018-02-27] MEDS ORDERED: TIMOLOL 0.5% OPHTH DROPS OPTH ONE (10:05)
[2018-02-27] MEDS ORDERED: CHONDR SULF/HYALURONATE SYRINGE IO ONE (10:05)
[2018-02-27] MEDS ORDERED: EPINEPHrine 1 MG/ML AMP IR ONE (10:05)
[2018-02-27] MEDS ORDERED: BSS/LIDOCAINE/EPINEPHRINE 1 ML SYRINGE IO ONE ×2 (10:06)
[2018-02-27 10:42] VITALS: BP 114/65
--- NOTE | 2018-02-27 12:15 | OPERATIVE REPORT ---
DATE OF SERVICE: 02/27/2018 Physician: Alejandro Soler MD PREOPERATIVE DIAGNOSIS: Visually significant cataract right eye following a a spontaneous hyphema in early December 2017, requiring anterior chamber washout in the OR. This was his first cataract surgery. POSTOPERATIVE DIAGNOSIS: Visually significant cataract right eye following a a spontaneous hyphema in early December 2017, requiring anterior chamber washout in the OR. This was his first cataract surgery. PROCEDURE: Phacoemulsification with posterior chamber intraocular lens implant, right eye. SURGEON: Alejandro Soler MD ANESTHESIA: Monitored anesthesia care. COMPLICATIONS: None. OPERATIVE INDICATIONS: This is a 77-year-old man with progressive vision loss in the right eye due to a 3+ nuclear sclerotic, 2+ anterior capsular cataract, an epiretinal membrane, and corneal blood staining from hyphema. Best corrected visual acuity was 20/200 with glare to count fingers vision in the right eye. Indications for surgery were overall decrease in vision, difficulty seeing words on the computer screen, difficulty reading, difficulty driving in low light or at night, difficulty driving at night because of headlights from other vehicles, difficulty with glare or bright lights in any situation, difficulty tracking a golf ball and decreased acuity with firearms. He was consented at length concerning risks and benefits of cataract surgery, after which he expressed a desire to proceed with surgery. OPERATIVE PROCEDURE: The patient was taken to OR #3 and placed under monitored anesthesia care. A surgical timeout was conducted confirming correct patient, correct procedure, and correct surgical site. He was given topical anesthesia and prepped and draped in the usual sterile fashion. The eye was entered at the 12 and 9 o'clock positions. Intracameral Shugarcaine was injected into the anterior chamber, followed by Viscoat. The pupil dilated very well despite what appeared to be several iris/lens synechae. There was a little bit of visualization challenge due to blood staining in the inferonasal quadrant, but it was adequate and there was a good red reflex. A continuous-tear curvilinear capsulorrhexis was performed. The nucleus was hydrodissected and phacoemulsified. Cortex was evacuated using automated infusion and aspiration. Provisc was injected into the capsular bag and an 18.0 diopter intraocular lens inserted into the bag. Approximately 0.8 mL of a mixture of triamcinolone, moxifloxacin, and vancomycin was injected subconjunctivally into the superior quadrant for infection and inflammation prophylaxis. I and A was used to evacuate the viscoelastic material. The eye was inflated to physiologic pressure using balanced salt solution and found to be watertight. The patient was taken from the operating room in good condition and given postop instructions. TD: 02/27/2018 10:32 MTDD
== END 2018-02-27 08:11 | disposition home or self-care (01) ==
LOC: SDS 08:10
PROVIDERS: ATTEND Ophthalmology
PROC: 08RJ3JZ Replacement of Right Lens with Synthetic Substitute, Percutaneous Approach (ICD-10-PCS; principal; 2018-02-27 10:00)
DX: H25.811 Combined forms of age-related cataract, right eye (principal); I25.10 Atherosclerotic heart disease of native coronary artery without angina pectoris; N40.1 Benign prostatic hyperplasia with lower urinary tract symptoms; R35.0 Frequency of micturition; C61 Malignant neoplasm of prostate; E78.00 Pure hypercholesterolemia, unspecified; Z95.5 Presence of coronary angioplasty implant and graft
CPT/HCPCS: 66984; A9270; J3490; V2632

== ENCOUNTER 2018-03-24 09:04 | Outpatient (CLI) | payer MEDICARE, OTHER ==
[2018-03-24] MEDS ORDERED: IOPAMIDOL-300 100 ML VIAL ONE (09:12)
[2018-03-24] MEDS ORDERED: IOVERSOL 320 50 ML VIAL ONE (09:12)
[2018-03-24] MEDS ORDERED: IOPAMIDOL-300 100 ML VIAL IVP ONE (10:11)
[2018-03-24] MEDS ORDERED: IOVERSOL 320 50 ML VIAL PO ONE (10:17)
--- NOTE | 2018-03-24 12:31 | CT Report ---
Reason: PROSTATE CANCER Procedure Date: 03/24/2018 Accession Number: [id number] / [id number] Procedure: CT - Abdomen/Pelvis W/ CPT Code: FULL RESULT: EXAM: CT ABDOMEN AND PELVIS EXAM DATE: 03/24/2018 10:07 AM. CLINICAL HISTORY: Prostate cancer. COMPARISONS: ABDOMEN/PELVIS W/ 10/19/2017 9:05 AM. TECHNIQUE: Routine helical CT imaging was performed through the abdomen and pelvis. IV contrast: ISOVUE 300 100mL. Enteric contrast: Yes. Reconstructions: Coronal and sagittal. In accordance with CT protocol optimization, one or more of the following dose reduction techniques were utilized for this exam: automated exposure control, adjustment of mA and/or KV based on patient size, or use of iterative reconstructive technique. FINDINGS: Lung Bases: Unremarkable. Liver: Normal. No masses. Gallbladder/Bile Ducts: Unremarkable. Spleen: Normal. Pancreas: Normal. Adrenal Glands: Normal. Kidneys: Normal. No masses or hydronephrosis. Peritoneal Cavity/Bowel: Normal. No free fluid, free air or adenopathy. No masses or acute inflammatory process. Pelvic Organs: Normal. The bladder and visualized pelvic organs are within normal limits. Vasculature: No aneurysms or other significant abnormality. Bones: Redemonstration of osteoblastic skeletal metastases, similar in size and distribution to before. Other: None. IMPRESSION: Redemonstration of skeletal osteoblastic metastases, similar to prior. No visceral metastatic disease. RADIA
--- NOTE | 2018-03-24 14:12 | Nuclear Medicine Report ---
Reason: PROSTATE CANCER Procedure Date: 03/24/2018 Accession Number: [id number] / [id number] Procedure: NM - Bone Whole Body CPT Code: FULL RESULT: EXAM: BONE SCAN EXAM DATE: 03/24/2018 12:35 PM. CLINICAL HISTORY: PROSTATE CANCER. COMPARISON: BONE SCAN 04/02/2017 1:17 PM CHEST W/ 03/24/2018 10:02 AM ABDOMEN/PELVIS W/ 03/24/2018 10:02 AM CHEST W/ 10/19/2017 9:05 AM. TECHNIQUE: Following the intravenous administration of 33.4 mCi of technetium 99m MDP and an appropriate delay, a whole-body scan was performed in anterior and posterior projections. Site-specific spot views of the region of interest were obtained in various projections. FINDINGS: Normal renal radiotracer uptake and bladder activity. Normal soft tissue activity. Overall normal osseous uptake. Moderate mandibular uptake may relate to dental disease. Similar tiny focus of increased uptake at the anterior right sixth rib costochondral margin. Similar subtle focal uptake at the left posterior fifth rib. New mild focal uptake at the medial left posterior fourth rib. Overall similar multifocal thoracic and lumbar spinal uptake most pronounced at T12 and L3. Similar intensely increased uptake at the left sacrum and posterior iliac bone. IMPRESSION: 1. Evidence of multifocal osseous metastatic disease as before. 2. New mild focal uptake at the medial left posterior fourth rib. Otherwise largely stable disease. RADIA
--- NOTE | 2018-03-24 15:45 | CT Report ---
Reason: PROSTATE CANCER Procedure Date: 03/24/2018 Accession Number: [id number] / [id number] Procedure: CT - Chest W/ CPT Code: FULL RESULT: EXAM: CT CHEST EXAM DATE: 03/24/2018 10:07 AM. CLINICAL HISTORY: Prostate cancer. COMPARISONS: ABDOMEN/PELVIS W/ 10/19/2017 9:05 AM CHEST W/ 10/19/2017 9:05 AM. TECHNIQUE: Routine helical CT imaging was performed through the chest. IV contrast: 100 mL Isovue 300. Reconstructions: Coronal and sagittal. In accordance with CT protocol optimization, one or more of the following dose reduction techniques were utilized for this exam: automated exposure control, adjustment of mA and/or KV based on patient size, or use of iterative reconstructive technique. FINDINGS: Lungs/Pleura: Posterior pleural thickening versus dependent changes are again noted. Previously followed 3 mm right basilar nodularity is not seen on image 52 series 4, stable. Previously followed 2 mm left apical nodule is now found on image 10 and stable. No suspicious nodules, bronchial thickening, consolidation, or edema. Pulmonary vasculature is normal. No pericardial or pleural effusion. No pneumothorax. Mediastinum: Calcifications of the aortic arch as well as post-CABG changes are stable. Cardiac size is unchanged. There is no pericardial effusion. There is no mediastinal, axillary or thoracic lymphadenopathy. Bones: Osteoblastic metastases are similar in size and distribution to the previous study. Visualized Abdomen: See separate dictation. Other: None. IMPRESSION: Redemonstration of skeletal metastatic disease. No evidence of soft tissue metastases to the thorax. RADIA
== END 2018-03-24 09:05 | disposition home or self-care (01) ==
LOC: DI 09:04
PROVIDERS: ATTEND Internal Medicine
DX: C61 Malignant neoplasm of prostate (principal); C79.51 Secondary malignant neoplasm of bone
CPT/HCPCS: 71260; 74177; 78306; Q9967

== ENCOUNTER 2018-04-02 10:28 | Outpatient (CLI) | payer MEDICARE, OTHER ==
[2018-04-02 19:15] LABS: BASOPHILS # (AUTO) 0.1 10^3/uL (0.0-0.1); BASOPHILS % (AUTO) 0.9 %; EOSINOPHILS % (AUTO) 0.1 %; LYMPHOCYTES # (AUTO) 0.8 10^3/uL (1.5-3.5); LYMPHOCYTES % (AUTO) 9.5 %; MEAN CORPUSCULAR HEMOGLOBIN 32.9 pg (27.0-31.0); MEAN CORPUSCULAR HGB CONC 32.6 g/dL (32.0-36.0); MEAN PLATELET VOLUME 7.7 fL (7.4-11.4); MONOCYTES # (AUTO) 1.1 10^3/uL (0.0-1.0); NEUTROPHILS # (AUTO) 6.4 10^3/uL (1.5-6.6); NEUTROPHILS % (AUTO) 76.5 %; PLT - PLATELET COUNT 226 10^3/uL (130-450); RED BLOOD COUNT 3.35 10^6/uL (4.70-6.10); RED CELL DISTRIBUTION WIDTH 18.2 % (12.0-15.0); WHITE BLOOD COUNT 8.4 x10^3/uL (4.8-10.8)
[2018-04-02 19:28] LABS: ALBUMIN 4.1 g/dL (3.2-5.5); ALBUMIN/GLOBULIN RATIO 1.6 (1.0-2.2); ALKALINE PHOSPHATASE 74 IU/L (42-121); ALT ALANINE AMINOTRANSFERASE 21 IU/L (10-60); AST ASPARTATE AMINOTRANSFERASE 20 IU/L (10-42); BILIRUBIN,TOTAL 0.5 mg/dL (0.2-1.0); BUN - BLOOD UREA NITROGEN 22 mg/dL (6-20); CALCIUM 9.8 mg/dL (8.5-10.3); CARBON DIOXIDE - CO2 25 mmol/L (21-32); CHLORIDE 105 mmol/L (101-111); CHOL/HDL RATIO 3.8 (<5.0); CHOLESTEROL 169 mg/dL; CREATININE 0.7 mg/dL (0.6-1.2); GFR - MDRD 110 (>89); GLUCOSE 103 mg/dL (70-100); HDL CHOLESTEROL 44 mg/dL; LDL CHOLESTEROL,CALCULATED 89 mg/dL; SODIUM 138 mmol/L (135-145); TOTAL PROTEIN 6.6 g/dL (6.7-8.2); VLDL CHOLESTEROL 36 mg/dL
== END 2018-04-02 23:59 | disposition home or self-care (01) ==
LOC: LAB.WCP 10:28
PROVIDERS: ATTEND Family Medicine
DX: E87.1 Hypo-osmolality and hyponatremia (principal); I25.10 Atherosclerotic heart disease of native coronary artery without angina pectoris
CPT/HCPCS: 36415; 80053; 80061; 83721; 85025

== ENCOUNTER 2018-04-03 08:00 | Outpatient (CLI) | payer MEDICARE, OTHER ==
[2018-04-03 20:30] LABS: FERRITIN 579.8 ng/mL (23.9-336.2)
[2018-04-03 20:34] LABS: FOLATE 9.77 ng/mL (5.90 - >24.8)
[2018-04-03 20:49] LABS: % IRON SATURATION 12 % (20-50); IRON 43 ug/dL (45-182); TOTAL IRON BINDING CAPACITY 358 ug/dL (250-450); TRANSFERRIN 256 mg/dL (180-329)
== END 2018-04-03 23:59 | disposition home or self-care (01) ==
LOC: LAB.WCP 08:00
PROVIDERS: ATTEND Family Medicine
DX: D64.9 Anemia, unspecified (principal)
CPT/HCPCS: 36415; 82607; 82728; 82746; 83540; 84466

== ENCOUNTER 2018-04-07 11:04 | Outpatient (CLI) | payer MEDICARE, OTHER ==
[2018-04-07 20:01] LABS: % IRON SATURATION 11 % (20-50); IRON 39 ug/dL (45-182); TOTAL IRON BINDING CAPACITY 365 ug/dL (250-450); TRANSFERRIN 261 mg/dL (180-329)
== END 2018-04-07 11:05 | disposition home or self-care (01) ==
LOC: LAB.WCP 11:04
PROVIDERS: ATTEND Family Medicine
DX: D64.9 Anemia, unspecified (principal)
CPT/HCPCS: 36415; 83540; 84466

== ENCOUNTER 2018-07-17 07:28 | Day surgery (SDC) | payer MEDICARE, OTHER ==
[~2018-07-17 07:28] MED LIST changes: -CYCLOPENTOLATE 1% OPHTH DROPS 2 ML ONE; -EPINEPHrine 1 MG/ML AMP ONE; -KETOROLAC 0.45% OPHTH DROPS ONE; -PHENYLEPHRINE 2.5% OPHTH 2 ML DROPS ONE; -PROPARACAINE 0.5% OPHTH DROPS 15 ML ONE; +VANCOMYCIN OPHTHALMI 8MG/0.8ML 8 MG/0.8 ML SYRINGE IO ONE
[2018-07-17] MEDS ORDERED: CYCLOPENTOLATE 1% OPHTH DROPS 2 ML LEFTEYE ONE (07:46)
[2018-07-17] MEDS ORDERED: KETOROLAC 0.45% OPHTH DROPS LEFTEYE ONE (07:46)
[2018-07-17] MEDS ORDERED: PHENYLEPHRINE 2.5% OPHTH 2 ML DROPS LEFTEYE ONE (07:46)
[2018-07-17] MEDS ORDERED: PROPARACAINE 0.5% OPHTH DROPS 15 ML LEFTEYE ONE (07:46)
--- NOTE | 2018-07-17 07:47 | ANESTHESIA ---
Pre-Anesthesia VS, & Labs - Diagnosis left nuclear sclerotic cataract - Procedure left extraction cataract with lens implant Vital Signs: Temp Pulse Resp BP Pulse Ox 37.3 C 64 18 105/67 98 07/17/18 07:34 07/17/18 07:34 07/17/18 07:34 07/17/18 07:34 07/17/18 07:34 Height 5 ft 5 in Weight (kg) 81.8 kg Body Mass Index 34.7 - NPO >8 hours Home Medications and Allergies Atorvastatin [Lipitor] 40 mg PO QPM 09/03/16 Metoprolol Succinate [Toprol Xl] 12.5 mg PO DAILY 09/03/16 Ropinirole HCl [Requip] 3 mg PO DAILY 09/03/16 oxyCODONE [Roxicodone] 5 mg PO DAILY 12/18/17 Morphine Sulfate [Ms Contin] 15 mg PO BID 05/14/18 Allergies/Adverse Reactions: Allergies Allergy/AdvReac Type Severity Reaction Status Date / Time No Known Drug Allergies Allergy Verified 12/19/17 10:44 Anes History & Medical History - Anesthetic History Anesthesia Complications: reports: No previous complications Family history of Anesthesia Complications: Denies Family history of Malignant Hyperthermia: Denies - Medical History Cardiovascular: reports: High cholesterol, Coronary artery disease Pulmonary: reports: None Gastrointestinal: reports: None Urinary: reports: Benign prostate hypertrophy, Frequency Neuro: reports: None Musculoskeletal: reports: Chronic back pain Endocrine/Autoimmune: reports: None Blood Disorders: reports: None Skin: reports: None Smoking Status: Former smoker - Surgical History Eyes Ears Nose Throat (EENT): Tonsil/Adenoidectomy Cardiothoracic: CABG Exam General: Alert Dental: Other (no teeth) Mouth Openin Fingerbreadth Neck Mobility: Normal Mallampati classification: II Thyromental Distance: greater than 6 cm Respiratory: Lungs clear, Normal breath sounds, No respiratory distress, No accessory muscle use Cardiovascular: Normal S1, Normal S2 Mental/Cognitive Status: Alert/Oriented X3, Normal for patient Plan Anesthesia Type: MAC Consent for Procedure(s) Verified and Reviewed: No Code Status: Attempt Resuscitation ASA classification: 2-Mild systemic disease Is this case an emergency?: No
[2018-07-17] MEDS ORDERED: LACTATED RINGERS 500 ML IV ONE (07:57)
[2018-07-17] MEDS ORDERED: CHONDR SULF/HYALURONATE SYRINGE IO ONE (08:08)
[2018-07-17] MEDS ORDERED: EPINEPHrine 1 MG/ML AMP IVP ONE (08:08)
[2018-07-17] MEDS ORDERED: BRIMONIDINE 0.2% OPHTH DROPS 5 ML OPTH ONE (08:08)
[2018-07-17] MEDS ORDERED: BSS/LIDOCAINE/EPINEPHRINE 1 ML SYRINGE IO ONE (08:09)
[2018-07-17] MEDS ORDERED: TRIAMCIN/MOXIFLOX OPHTHALMIC 0.6 ML VIAL IO ONE (08:09)
[2018-07-17] MEDS ORDERED: TIMOLOL 0.5% OPHTH DROPS OPTH ONE (08:09)
[2018-07-17] MEDS ORDERED: MIDAZOLAM 2 MG/2 ML VIAL IVP ONE (08:09)
[2018-07-17] MEDS ORDERED: VANCOMYCIN OPHTHALMI 8MG/0.8ML 8 MG/0.8 ML SYRINGE IO ONE (08:13)
--- NOTE | 2018-07-17 09:01 | OPERATIVE REPORT ---
DATE OF SERVICE: 07/17/2018 Physician: Alejandro Soler MD PREOPERATIVE DIAGNOSIS: Complex, visually significant cataract, left eye. Complex due to poorly dilated pupil requiring mechanical expansion. Cataract surgery was performed on the right eye on 02/27/2018. POSTOPERATIVE DIAGNOSIS: Complex, visually significant cataract, left eye. Complex due to poorly dilated pupil requiring mechanical expansion. Cataract surgery was performed on the right eye on 02/27/2018. PROCEDURE: Phacoemulsification with posterior chamber intraocular lens implant, left eye. SURGEON: Alejandro Soler MD ANESTHESIA: Monitored anesthesia care. COMPLICATIONS: None. OPERATIVE INDICATIONS: This is a 77-year-old man with progressive vision loss in the left eye due to 2+ nuclear sclerotic cataract. Best corrected visual acuity was 20/25 with glare to 20/60 in the left eye. Indications for surgery were overall decrease in vision, difficulty seeing words on a computer screen, difficulty reading, difficulty seeing words, closed captions or game scores on TV, difficulty driving in low light or night, difficulty driving at night because of headlights from other vehicles, difficulty with glare or bright lights in any situation, and decrease of acuity with firearms. He was consented at length concerning the risks and benefits of cataract surgery, after which he expressed a desire to proceed with surgery. OPERATIVE PROCEDURE: The patient was taken to OR #3 and placed under monitored anesthesia care. A surgical timeout was conducted confirming correct patient, correct procedure, and correct surgical site. He was given topical anesthesia and prepped and draped in the usual sterile fashion. The eye was entered at the 6 and 3 o'clock positions. Intracameral Shugarcaine was injected into the anterior chamber followed by Viscoat. A 7.0 mm Malyugin ring was injected into the anterior chamber and engaged the pupil margin at four points in order to expand the pupil. A continuous-tear curvilinear capsulorrhexis was performed. The nucleus was hydrodissected and phacoemulsified. The cortex was evacuated using automated infusion and aspiration (I&A). Provisc was injected in the capsular bag and an 18.0 diopter intraocular lens inserted in the bag. Approximately 0.8 mL of a mixture of triamcinolone, moxifloxacin and vancomycin was injected subconjunctivally in the superior quadrant for infection and inflammation prophylaxis. The Malyugin ring was then disengaged from the pupil margin and removed from the anterior chamber. I&A was used to evacuate the viscoelastic materials. The eye was inflated to physiologic pressure using balanced salt solution and found to be watertight. The patient was taken from the operating room in good condition and given postoperative instructions. TD: 07/17/2018 08:38 MTDMable
[2018-07-17 09:34] VITALS: BP 122/72
== END 2018-07-17 07:29 | disposition home or self-care (01) ==
LOC: SDS 07:28
PROVIDERS: ATTEND Ophthalmology
PROC: 08RK3JZ Replacement of Left Lens with Synthetic Substitute, Percutaneous Approach (ICD-10-PCS; principal; 2018-07-17 08:30)
DX: E11.36 Type 2 diabetes mellitus with diabetic cataract (principal); H25.12 Age-related nuclear cataract, left eye; N40.1 Benign prostatic hyperplasia with lower urinary tract symptoms; R35.0 Frequency of micturition; E78.00 Pure hypercholesterolemia, unspecified; I25.10 Atherosclerotic heart disease of native coronary artery without angina pectoris; G89.29 Other chronic pain; M54.9 Dorsalgia, unspecified; Z87.891 Personal history of nicotine dependence; Z95.1 Presence of aortocoronary bypass graft
CPT/HCPCS: 66982; A9270; V2632

== ENCOUNTER 2018-08-20 10:46 | Emergency (ER) | payer MEDICARE, OTHER ==
[2018-08-20] MEDS ORDERED: BUFFERED LIDOCAINE 10 ML SYRINGE SUBQ STA (11:27)
--- NOTE | 2018-08-20 12:15 | ED Physician Documentation ---
PD HPI SKIN - Stated complaint Stated Complaint: CHIN INFECTION - Chief complaint Chief Complaint: Wound - History obtained from History obtained from: Patient - History of Present Illness Timing - onset: How many days ago (4) Timing - duration: Days (4) Timing - details: Gradual onset, Still present Location: Face Quality / character: Painful, Discolored, Swelling Associated symptoms: Facial swelling. No: Fever, Myalgias, Joint pain Contributing factors: Other (prior abscess) Similar symptoms before: Diagnosis (abscess) Recently seen: Clinic - Additional information Additional information: 77-year-old male with history of prostate cancer has not had any chemotherapy over the past 2 months and he is now developed an abscess on his chin. He has had this happen to him one time previously this time he waited to see his oncologist and is sent to the emergency department for incision and drainage. Review of Systems Constitutional: denies: Fever Eyes: denies: Decreased vision Ears: denies: Ear pain Nose: denies: Congestion Throat: denies: Sore throat Respiratory: denies: Cough GI: denies: Vomiting Skin: reports: Other (chin swelling and redness) PD PAST MEDICAL HISTORY - Past Medical History Past Medical History: Yes Cardiovascular: High cholesterol, Coronary artery disease Respiratory: None Neuro: None Endocrine/Autoimmune: None GI: None : Benign prostate hypertrophy, Frequency, Other HEENT: Chronic hearing loss, Other Psych: None Musculoskeletal: Chronic back pain Derm: None Other Past Medical History: prostate cancer - Past Surgical History Past Surgical History: Yes Cardiovascular: CABG HEENT: Tonsil/Adenoidectomy - Present Medications Home Medications: Ambulatory Orders Medication Instructions Recorded Confirmed Atorvastatin [Lipitor] 40 mg PO QPM 09/03/16 08/20/18 Metoprolol Succinate [Toprol Xl] 12.5 mg PO DAILY 09/03/16 08/20/18 Ropinirole HCl [Requip] 3 mg PO DAILY 09/03/16 08/20/18 oxyCODONE [Roxicodone] 5 mg PO DAILY 12/18/17 08/20/18 Morphine Sulfate [Ms Contin] 15 mg PO BID 05/14/18 08/20/18 Sulfamethoxazole/Trimethoprim 20 ml PO BID #280 ml 08/20/18 [Sulfatrim Pediatric Suspension] - Allergies Allergies/Adverse Reactions: Allergies Allergy/AdvReac Type Severity Reaction Status Date / Time No Known Drug Allergies Allergy Verified 08/20/18 10:52 - Social History Does the pt smoke?: No Smoking Status: Former smoker Does the pt drink ETOH?: Yes ETOH Use: Beer Does the pt have substance abuse?: No - Immunizations Immunizations are current?: Yes Immunizations: TDAP current <10years - POLST Patient has POLST: No POLST Status: Full Code PD ED PE NORMAL - Vitals Vital signs reviewed: Yes (normal ) - General General: Alert and oriented X 3, No acute distress, Well developed/nourished - HEENT HEENT: Atraumatic, PERRL, EOMI, Other (There is swelling to the entire chin from mental to mental and to the lower lip. There is a central area to the left that has come to a head and looks like the scar from a prior I&D. The area is firm except for the central head which is fluctuant. ) - Neck Neck: Supple, no meningeal sign, No bony TTP - Respiratory Respiratory: No respiratory distress - Derm Derm: Normal color, Warm and dry - Extremities Extremities: No deformity, No edema - Neuro Neuro: Alert and oriented X 3, inseamer 2-12 intact, No motor deficit, No sensory deficit, Normal speech Eye Opening: Spontaneous Motor: Obeys Commands Verbal: Oriented GCS Score: 15 - Psych Psych: Normal mood, Normal affect Results - Vitals Vitals: Vital Signs - 24 hr 08/20/18 10:50 Temperature 36.5 C Heart Rate 80 Respiratory 18 Rate Blood Pressure 119/66 O2 Saturation 95 Oxygen O2 Source Room air Procedures - Abscess I&D (location) chin Preparation: Confirmed with ultrasound (central head has drainable fluid collection. The rest of the chin is uniform and without fluid collection.), Lidocaine 1% Incision: Incised with scalpel, Purulent drainage, Loculations broken, Irrigated, Culture obtained Other: Pt tolerated well, Dressing applied, Antibiotic prescribed PD MEDICAL DECISION MAKING - ED course Complexity details: reviewed old records, considered differential, d/w patient ED course: 77-year-old male with a abscess on his chin has the abscess incised and drained he tolerates this well a culture is obtained we will place him on some Septra he is not able to swallow pills right now and we will use some liquid. Departure - Departure Disposition: 01 Home, Self Care Clinical Impression: Abscess Condition: Stable Instructions: ED Abscess IandD Follow-Up: Ty Tejeda MD [Primary Care Provider] - Prescriptions: Sulfamethoxazole/Trimethoprim [Sulfatrim Pediatric Suspension] 20 ml PO BID #280 ml
[2018-08-20 12:32] VITALS: BP 122/68
== END 2018-08-20 12:32 | disposition home or self-care (01) ==
LOC: ED 10:46
DX: L02.01 Cutaneous abscess of face (principal); E78.00 Pure hypercholesterolemia, unspecified; C61 Malignant neoplasm of prostate; I25.10 Atherosclerotic heart disease of native coronary artery without angina pectoris; Z95.1 Presence of aortocoronary bypass graft; Z87.891 Personal history of nicotine dependence
CPT/HCPCS: 10060; 87070; 87205; 99283

== ENCOUNTER 2018-08-26 11:59 | Outpatient (CLI) | payer MEDICARE, OTHER ==
[~2018-08-26 11:59] MED LIST changes: -BRIMONIDINE 0.2% OPHTH DROPS 5 ML ONE; -BSS/LIDOCAINE/EPINEPHRINE 1 ML SYRINGE ONE; +IOVERSOL 320 100 ML VIAL IVP ONE; +IOVERSOL 320 50 ML VIAL ONE; -TIMOLOL 0.5% OPHTH DROPS ONE; -TRIAMCIN/MOXIFLOX OPHTHALMIC 0.6 ML VIAL IO ONE; -VANCOMYCIN OPHTHALMI 8MG/0.8ML 8 MG/0.8 ML SYRINGE IO ONE
[2018-08-26] MEDS ORDERED: IOVERSOL 320 50 ML VIAL ONE (12:18)
[2018-08-26] MEDS ORDERED: IOVERSOL 320 100 ML VIAL IVP ONE ×2 (12:18→14:51)
[2018-08-26] MEDS ORDERED: IOVERSOL 320 50 ML VIAL PO ONE (14:51)
--- NOTE | 2018-08-26 15:41 | CT Report ---
Reason: PROSTATE CANCER Procedure Date: 08/26/2018 Accession Number: [id number] / [id number] Procedure: CT - Abdomen/Pelvis W CPT Code: FULL RESULT: EXAM: CT ABDOMEN AND PELVIS EXAM DATE: 08/26/2018 01:22 PM. CLINICAL HISTORY: Prostate cancer. COMPARISONS: ABDOMEN/PELVIS W/ 03/24/2018 10:02 AM. TECHNIQUE: Routine helical CT imaging was performed through the abdomen and pelvis. IV contrast: OptiRay 320 100mL. Enteric contrast: No. Reconstructions: Coronal and sagittal. In accordance with CT protocol optimization, one or more of the following dose reduction techniques were utilized for this exam: automated exposure control, adjustment of mA and/or KV based on patient size, or use of iterative reconstructive technique. FINDINGS: Lung Bases: Unremarkable. Liver: Normal. No masses. Gallbladder/Bile Ducts: Unremarkable. Spleen: Normal. Pancreas: Normal. Adrenal Glands: Normal. Kidneys: Normal. No masses or hydronephrosis. Peritoneal Cavity/Bowel: There is no bowel obstruction, free air or free fluid. No abdominal lymphadenopathy by size criteria. Pelvic Organs: Appearance of the prostate is similar to the previous examination. No pelvic lymphadenopathy is detected. Vasculature: Moderate atherosclerosis without aneurysm. Bones: Diffuse osseous sclerotic metastases are again seen with a similar appearance to the previous exam. Other: None. IMPRESSION: Redemonstration of osteoblastic osseous metastatic disease, similar in appearance to prior. No visceral metastases are detected. RADIA
--- NOTE | 2018-08-26 16:21 | CT Report ---
Reason: PROSTATE CANCER Procedure Date: 08/26/2018 Accession Number: [id number] / [id number] Procedure: CT - CHEST W CPT Code: FULL RESULT: EXAM: CT CHEST EXAM DATE: 08/26/2018 01:31 PM. CLINICAL HISTORY: Prostate cancer. COMPARISONS: ABDOMEN/PELVIS W03/24/2018 10:02 AM CHEST W03/24/2018 10:02 AM. TECHNIQUE: Routine helical CT imaging was performed through the chest. IV contrast: None. Reconstructions: Coronal and sagittal. In accordance with CT protocol optimization, one or more of the following dose reduction techniques were utilized for this exam: automated exposure control, adjustment of mA and/or KV based on patient size, or use of iterative reconstructive technique. FINDINGS: Lungs/Pleura: There is a 2 mm nodule in the right lower lobe image 36 series 3, appearance suggestive of tree-in-bud opacities. Similarly, best seen on image 20 series 11 is a nodular cluster in peribronchovascular distribution in the right upper lobe, also felt to be tree-in-bud opacities and likely infectious/inflammatory, seen on regular images 29 series 3. There is a stable 5 mm nodule in the right upper lobe anteriorly on image 36. There is a new 3 mm nodule in the left upper lobe on image 34. There is a stable 3 mm nodule in the left lower lobe on image 42. There is no pleural effusion or pneumothorax. Mediastinum: While the main pulmonary artery is within normal limits for caliber, the left pulmonary artery measures up to 2.5 cm and the right pulmonary artery up to 2.4 cm, enlarged. The aorta demonstrates moderate atherosclerotic disease, and postsurgical changes including median sternotomy are identified. There are at least mild coronary calcifications. There is no pericardial effusion. There is no hilar, axillary or mediastinal lymphadenopathy by size criteria. Bones: Similar appearance of previously identified metastatic disease. Visualized Abdomen: See separate report. Other: None. IMPRESSION: Scattered small pulmonary nodules as described. The predominant impression is that of a combination of small stable nodules and inflammatory/infectious tree-in-bud opacities, attention on follow-up. RADIA
== END 2018-08-26 12:00 | disposition home or self-care (01) ==
LOC: DI 11:59
PROVIDERS: ATTEND Internal Medicine
DX: C61 Malignant neoplasm of prostate (principal); C79.51 Secondary malignant neoplasm of bone; R91.8 Other nonspecific abnormal finding of lung field
CPT/HCPCS: 71260; 74177; Q9967

== ENCOUNTER 2018-09-01 09:49 | Outpatient (CLI) | payer MEDICARE, OTHER ==
--- NOTE | 2018-09-01 15:13 | Nuclear Medicine Report ---
Reason: PROSTATE CANCER Procedure Date: 09/01/2018 Accession Number: [id number] / [id number] Procedure: NM - Bone Whole Body CPT Code: FULL RESULT: EXAM: BONE SCAN EXAM DATE: 09/01/2018 02:17 PM. CLINICAL HISTORY: PROSTATE CANCER. COMPARISON: BONE SCAN 03/24/2018 12:05 PM ABDOMEN/PELVIS W/ 08/26/2018 1:22 PM CHEST W/ 08/26/2018 1:22 PM. TECHNIQUE: Following the intravenous administration of 32.4 mCi of technetium 99m MDP and an appropriate delay, a whole-body scan was performed in anterior and posterior projections. No spot views are submitted for interpretation. FINDINGS: Exam Quality: Normal overall osseous radiotracer uptake. Physiological tracer uptake in bilateral collecting systems. Skull: Persistent intensely increased uptake in the mandible. Intensely increased activity around the left maxillary sinus shows a greater degree of uptake compared to prior. Thorax: Stable tiny focus of increased uptake at the costosternal junction of the right anterior sixth rib. Stable tiny focus of increased uptake in the left posterior medial fourth rib. Pelvis: Stable intensely increased uptake on the left side of the sacrum and in the left posterior iliac bone. Unchanged moderate to intensely increased activity around the right sacroiliac joint. Spine: Persistent scant. Foci of increased uptake in the spine, most notably in T12 and L3. Extremities: New focal area of intensely increased uptake in the mid shaft of the right femur. IMPRESSION: 1. New focus of intensely increased uptake in the mid shaft of the right femur, presumed metastasis. 2. Other metastatic lesions noted on prior bone scan appear relatively stable. 3. Increased activity around the left maxillary sinus, suspect sinus disease. RADIA ADDENDUM: 09/02/18 09:12 The patient had right femur radiographs taken after this bone scan showing the presence of a fracture, presumed pathologic fracture.
== END 2018-09-01 09:50 | disposition home or self-care (01) ==
LOC: DI 09:49
PROVIDERS: ATTEND Internal Medicine
DX: C61 Malignant neoplasm of prostate (principal); C79.51 Secondary malignant neoplasm of bone
CPT/HCPCS: 78306

== ENCOUNTER 2018-09-01 13:54 | Outpatient (CLI) | payer MEDICARE, OTHER ==
--- NOTE | 2018-09-01 14:46 | XRAY Report ---
Reason: RIGHT FEMUR PAIN Procedure Date: 09/01/2018 Accession Number: [id number] / [id number] Procedure: XR - Femur 2V RT CPT Code: FULL RESULT: EXAM: RIGHT FEMUR RADIOGRAPHY EXAM DATE: 09/01/2018 02:13 PM. CLINICAL HISTORY: RIGHT FEMUR PAIN. Prostate cancer COMPARISON: Bone scan 09/01/2018 and 03/24/2018. TECHNIQUE: 2 views. FINDINGS: Bones: There is a nondisplaced presumed pathologic fracture in the proximal mid shaft right femur with associated periosteal reaction. Joints: The hip and knee joints are anatomically aligned. Soft Tissues: Vascular calcification. IMPRESSION: Nondisplaced probably pathologic fracture proximal mid shaft right femur. Results discussed with the patient and JAZMINE Richards. Patient is directed to the emergency room. RADIA
== END 2018-09-01 13:55 | disposition home or self-care (01) ==
LOC: DI 13:54
PROVIDERS: ATTEND Internal Medicine
DX: R93.7 Abnormal findings on diagnostic imaging of other parts of musculoskeletal system (principal); C61 Malignant neoplasm of prostate; C79.51 Secondary malignant neoplasm of bone; M79.651 Pain in right thigh

== ENCOUNTER 2018-09-01 14:42 | Inpatient (IN) | payer MEDICARE, OTHER ==
--- NOTE | 2018-09-01 16:54 | ED Physician Documentation ---
PD HPI LOWER EXT INJURY - Stated complaint Stated Complaint: RT LEG PAIN - Chief complaint Chief Complaint: Ext Problem - History obtained from History obtained from: Patient - History of Present Illness PD HPI LOW EXT INJURY LOCATION: Right, Hip (Patient states he has had pain in the right hip and thigh for a week or 2 or longer. He states it worsened this past week. Is not aware of any abrupt fall or injury. He does have history of prostate cancer and had been evaluated recently for concern of metastases given not elevating PSA level. He had a CT scan of the trunk last week and today had a scheduled bone scan. There is apparently a abnormality in the right femur and he had a x-ray ordered through the [facility] clinic providers. This found a nondisplaced oblique midshaft femur fracture. He was referred to the ER from imaging department for orthopedic consultation and further treatment.), Upper leg Type of injury: Twist. No: Fall Where injury occurred: Home (He states he is been getting around with a walker at home to help with weightbearing due to pain in the right thigh and hip. He has had back pain chronically. He states he has been unable to get up and down stairs and having to crawl because his right leg hurts too much with that type of pressure on it. This is been for the past week or so.) Timing - onset: How many weeks ago (a few days to a week of worse pain, some pain right thigh for few weeks.) Timing - duration: Weeks Timing - details: Gradual onset, Still present Improved by: Rest, Immobilization Worsened by: Moving, Other (weight bearing) Associated symptoms: No: Weakness, Numbness, Swelling Contributing factors: No: Anticoagulated Similar symptoms before: Has not had sx before Recently seen: Clinic ([facility] Clinic and Oncologist) Review of Systems Constitutional: denies: Fever, Chills Nose: denies: Rhinorrhea / runny nose, Congestion Throat: denies: Sore throat Cardiac: denies: Chest pain / pressure, Palpitations Respiratory: denies: Dyspnea, Cough GI: denies: Abdominal Pain, Nausea, Vomiting, Diarrhea : denies: Incontinent Skin: denies: Lesions, Abrasion (s), Laceration (s) Musculoskeletal: reports: Back pain (ongoing) Neurologic: denies: Generalized weakness, Focal weakness, Numbness PD PAST MEDICAL HISTORY - Past Medical History Cardiovascular: High cholesterol, Coronary artery disease Respiratory: None Neuro: None Endocrine/Autoimmune: None GI: None : Benign prostate hypertrophy, Frequency, Other (porstate cancer for about 12 years. Prior chemo and RT/ implants. Recent increase in PSA so concern of worsening CA or mets.) HEENT: Chronic hearing loss, Other Psych: None Musculoskeletal: Chronic back pain Derm: None - Past Surgical History Past Surgical History: Yes Cardiovascular: CABG HEENT: Tonsil/Adenoidectomy - Present Medications Home Medications: Ambulatory Orders Medication Instructions Recorded Confirmed Atorvastatin [Lipitor] 40 mg PO QPM 09/03/16 09/01/18 Ropinirole HCl [Requip] 3 mg PO DAILY 09/03/16 09/01/18 oxyCODONE [Roxicodone] 5 mg PO DAILY PRN 12/18/17 09/01/18 Morphine Sulfate [Ms Contin] 15 mg PO BID 05/14/18 09/01/18 Brimonidine Tartrate/Timolol 09/01/18 [Combigan 0.2%-0.5% Eye Drops] Dorzolamide HCl 09/01/18 Travoprost 0.004% Ophth Drops 09/01/18 [Travatan Z] - Allergies Allergies/Adverse Reactions: Allergies Allergy/AdvReac Type Severity Reaction Status Date / Time No Known Drug Allergies Allergy Verified 08/20/18 10:52 - Social History Does the pt smoke?: No Smoking Status: Never smoker Does the pt drink ETOH?: Yes Does the pt have substance abuse?: No - Immunizations Immunizations are current?: Yes Immunizations: TDAP current <10years - POLST Patient has POLST: No POLST Status: Full Code PD ED PE NORMAL - Vitals Vital signs reviewed: Yes - General General: Alert and oriented X 3, No acute distress, Well developed/nourished - HEENT HEENT: Moist mucous membranes, Pharynx benign - Neck Neck: Supple, no meningeal sign, No adenopathy - Cardiac Cardiac: RRR, No murmur - Respiratory Respiratory: Clear bilaterally - Abdomen Abdomen: Soft, Non tender - Back Back: No spinal TTP - Derm Derm: Normal color, Warm and dry - Extremities Extremities: No edema, No calf tenderness / cord, Other (right mid thigh with some tenderness to deep palpation. ROM of the thigh and hip not fully examined with known femur fracture. ) - Neuro Neuro: Alert and oriented X 3, No motor deficit, No sensory deficit, Normal speech Results - Vitals Vitals: Vital Signs - 24 hr 09/01/18 15:00 Temperature 36.6 C Heart Rate 88 Respiratory 16 Rate Blood Pressure 110/62 O2 Saturation 99 Oxygen O2 Source Room air - Labs Labs: Laboratory Tests 09/01/18 09/01/18 17:40 17:40 WBC 9.5 RBC 4.19 L Hgb 12.2 L Hct 37.0 L MCV 88.3 MCH 29.0 MCHC 32.9 RDW 15.2 H Plt Count 369 MPV 7.0 L Neut # (Auto) 7.7 H Lymph # (Auto) 1.2 L Steuben # (Auto) 0.6 Eos # (Auto) 0.0 Baso # (Auto) 0.0 Absolute Nucleated RBC 0.00 Nucleated RBC % 0.0 PT 13.1 H INR 1.2 APTT 33.0 - Rads (name of study) right femur xray Radiology: Prelim report reviewed (This showed a spiral midshaft femur fracture with some bony periosteal lifting and some increased density suggestive of pathologic fracture. There may be some early bone healing taken place at the site as well.), See rad report PD MEDICAL DECISION MAKING - ED course Complexity details: reviewed results, considered differential, d/w patient, d/w fitness consultant (I talked with Dr. White who said he would treat the fracture with intramedullary nail as it is unlikely to heal well otherwise. He refers to the medicine service. I talked with the hospitalist who will have the patient in the hospital for general medical care and consult orthopedics.) Departure - Departure Disposition: 66 [facility] DC/Xfer Clinical Impression: Prostate cancer Right femoral shaft fracture Qualifiers: Encounter type: initial encounter Fracture type: closed Fracture morphology: spiral Fracture alignment: nondisplaced Qualified Code(s): S72.344A - Nondisplaced spiral fracture of shaft of right femur, initial encounter for closed fracture Condition: Stable Record reviewed to determine appropriate education?: Yes
[2018-09-01] MEDS ORDERED: HYDROcod/ACETAM 5/325 MG TABLET PO PRN ×2 (17:47→18:49)
[2018-09-01] MEDS ORDERED: HYDROmorphone 0.5 MG/0.5 ML SYRINGE IVP PRN ×2 (17:47→18:49)
[2018-09-01] MEDS ORDERED: TEMAZEPAM 15 MG CAPSULE PO PRN ×2 (17:47→18:49)
[2018-09-01] MEDS ORDERED: SODIUM CHLORIDE FLUSH 0.9% 10 ML SYRINGE IVP PRN ×2 (17:47→18:49)
[2018-09-01] MEDS ORDERED: PROCHLORPERAZINE 10 MG/2 ML VIAL IVP PRN ×2 (17:47→18:49)
[2018-09-01] MEDS ORDERED: ACETAMINOPHEN 325 MG TABLET PO PRN ×2 (17:47→18:49)
[2018-09-01 17:48] LABS: BASOPHILS % (AUTO) 0.4 %; EOSINOPHILS % (AUTO) 0.4 %; HGB - HEMOGLOBIN 12.2 g/dL (14.0-18.0); LYMPHOCYTES # (AUTO) 1.2 10^3/uL (1.5-3.5); LYMPHOCYTES % (AUTO) 12.2 %; MEAN CORPUSCULAR HGB CONC 32.9 g/dL (32.0-36.0); MEAN CORPUSCULAR VOLUME 88.3 fL (80.0-94.0); MONOCYTES # (AUTO) 0.6 10^3/uL (0.0-1.0); MONOCYTES % (AUTO) 6.4 %; NEUTROPHILS # (AUTO) 7.7 10^3/uL (1.5-6.6); NEUTROPHILS % (AUTO) 80.6 %; PLT - PLATELET COUNT 369 10^3/uL (130-450); RED BLOOD COUNT 4.19 10^6/uL (4.70-6.10); RED CELL DISTRIBUTION WIDTH 15.2 % (12.0-15.0); WHITE BLOOD COUNT 9.5 x10^3/uL (4.8-10.8)
[2018-09-01 17:53] LABS: INR 1.2 (0.8-1.2); PT - PROTHROMBIN TIME 13.1 secs (9.9-12.6)
[2018-09-01] MEDS ORDERED: D5NS W/20 MEQ KCL 1,000 ML IV SCH (18:00)
[2018-09-01 18:26] LABS: ALBUMIN 3.8 g/dL (3.2-5.5); ALBUMIN/GLOBULIN RATIO 0.9 (1.0-2.2); BILIRUBIN,TOTAL 0.8 mg/dL (0.2-1.0); CALCIUM 9.7 mg/dL (8.5-10.3); CREATININE 0.6 mg/dL (0.6-1.2); MAGNESIUM 2.3 mg/dL (1.7-2.8); TOTAL PROTEIN 7.9 g/dL (6.7-8.2)
--- NOTE | 2018-09-01 18:47 | XRAY Report ---
Reason: CABG Hx, pre-op for hip surgery Procedure Date: 09/01/2018 Accession Number: [id number] / [id number] Procedure: XR - Chest 1 View X-Ray CPT Code: 90285 FULL RESULT: EXAM: CHEST RADIOGRAPHY EXAM DATE: 09/01/2018 06:21 PM. CLINICAL HISTORY: CABG history. Pre-op for hip surgery. COMPARISON: CHEST 1 VIEW 08/22/2017 6:07 AM. TECHNIQUE: 1 view. FINDINGS: Lungs/Pleura: No focal opacities evident. No pleural effusion. No pneumothorax. Mediastinum: Prior CABG Within exam limitations, the cardiomediastinal contour is normal. Other: No osseous abnormality identified. IMPRESSION: Prior CABG, otherwise unremarkable single view chest. RADIA
[2018-09-01] MEDS: D5NS W/20 MEQ KCL 1,000 ML IV SCH (19:34)
[2018-09-01] MEDS: SODIUM CHLORIDE FLUSH 0.9% 10 ML SYRINGE IVP SCH (19:35)
[2018-09-01] MEDS ORDERED: POTASSIUM CHLORIDE 20 MEQ TABLET PO SCH (19:40)
[2018-09-01 19:46] LABS: BILIRUBIN,URINE NEGATIVE (NEGATIVE); GLUCOSE, URINE (UA) NEGATIVE (NEGATIVE); KETONES,URINE (UA) NEGATIVE (NEGATIVE); LEUKOCYTE ESTERASE, URINE NEGATIVE (NEGATIVE); NITRITE,URINE NEGATIVE (NEGATIVE); OCCULT BLOOD,URINE NEGATIVE (NEGATIVE); PH,URINE 5.5 PH (5.0-7.5); PROTEIN,URINE NEGATIVE (NEGATIVE); UROBILINOGEN,URINE 0.2 (NORMAL) E.U./dL (NORMAL)
[2018-09-01 19:49] LABS: CLARITY,URINE CLEAR (CLEAR)
[2018-09-01] MEDS: MORPHINE ER 15 MG TABLET PO SCH (20:24)
[2018-09-01] MEDS: ATORVASTATIN 40 MG TABLET PO SCH (20:24)
[2018-09-01] MEDS: FAMOTIDINE 20 MG TABLET PO SCH (20:24)
[2018-09-01] MEDS: BRIMONIDINE TARTRATE LEFTEYE SCH (20:30)
[2018-09-01] MEDS: TIMOLOL LEFTEYE SCH (20:30)
[2018-09-01] MEDS ORDERED: MORPHINE ER 15 MG TABLET PO SCH (21:00)
[2018-09-01] MEDS ORDERED: ATORVASTATIN 10 MG TABLET PO SCH (21:00)
[2018-09-01] MEDS ORDERED: rOPINIRole 1 MG TABLET PO SCH (21:00)
[2018-09-01] MEDS ORDERED: FAMOTIDINE 20 MG TABLET PO SCH (21:00)
--- NOTE | 2018-09-01 21:57 | CONSULTATION NOTE ---
Referring Provider Name of Referring Provider:: Donell Paige MD Consult Date: 09/01/18 Chief Complaint - Chief Complaint Chief Complaint: Asked to evaluate patient for right femur fracture History of Present Illness - Admitted From Admitted From:: [facility] - History Obtained From History obtained from: Patient and Dr. Donell Paige - History of Present Illness HPI Comment/Other: Miguel is a 77-year-old gentleman with metastatic prostate cancer who has had a number of days or weeks of right thigh pain. He says that getting around is been somewhat painful and points to the anterior right thigh as the location of that. He says that he was at the [facility] [place] earlier. He had been seeing his oncologist who sees him on a regular basis for his metastatic prostate cancer. He reportedly had a bone scan which was positive and then had an x-ray confirming right femur fracture. Patient denies other right lower extremity complaints at this time denies groin or knee pain on the right side. He says he normally gets around with a walker as a baseline. History - Past Medical History Cardiovascular: reports: High cholesterol, Coronary artery disease Respiratory: reports: None Neuro: reports: None Endocrine/Autoimmune: reports: None GI: reports: None : reports: Benign prostate hypertrophy (Please see medical record for further details.), Frequency, Other (Prostate CA) HEENT: reports: Chronic hearing loss, Other Psych: reports: None Musculoskeletal: reports: Chronic back pain Derm: reports: None MRSA Hx?: No - Past Surgical History Cardiovascular: reports: CABG HEENT: reports: Tonsil/Adenoidectomy - Family & Social History Family History: Mother: , Father: , Cancer, Brother: , Cancer, Other family: Hyperlipidemia, Hypertension - Substance History Use: Uses substance without health or social issues: NONE - POLST Patient has POLST: No POLST Status: Full Code Meds/Allgy - Home Medications Home Medications: Ambulatory Orders Medication Instructions Recorded Confirmed Atorvastatin [Lipitor] 40 mg PO QPM 09/03/16 09/01/18 Ropinirole HCl [Requip] 3 mg PO DAILY 09/03/16 09/01/18 oxyCODONE [Roxicodone] 5 mg PO DAILY PRN 12/18/17 09/01/18 Morphine Sulfate [Ms Contin] 15 mg PO BID 05/14/18 09/01/18 Brimonidine Tartrate/Timolol 1 drops LEFTEYE BID 09/01/18 09/01/18 [Combigan 0.2%-0.5% Eye Drops] Prednisolone Acetate/Pf 1 drops RIGHTEYE BID 09/01/18 09/01/18 [Prednisolone Acet 1% Eye Drop] - Allergies Allergies/Adverse Reactions: Allergies Allergy/AdvReac Type Severity Reaction Status Date / Time No Known Drug Allergies Allergy Verified 08/20/18 10:52 Exam - Vital Signs Vital Signs: Vital Signs x48h Temp Pulse Pulse Resp BP BP Pulse Ox 09/01/18 19:06 36.9 C 87 18 120/71 99 09/01/18 18:22 84 18 117/74 100 09/01/18 15:00 36.6 C 88 16 110/62 99 - Physical Exam Comments/Other: Patient well-developed gentleman examined in his hospital bed. He is in no acute distress. Patient's right lower extremity is able to flex and extend toes ankle knee and hip with no significant pain. He has no pain with logrolling of the right lower extremity. He has moderate tenderness to palpation of the mid femur/thigh on the right side no other thigh tenderness. No pain with hip flexion internal/external rotation no pain with knee exam with comfortable range of motion. Conclusion/Plan - Diagnosis Diagnosis: Right non-/minimally displaced diaphyseal femur fracture, likely pathologic. - Plan Plan: pt seen and examined. right femur pathalogic fracture. recommend right prophylactic cephalomedullary nail femur-likely saturday. plan to collaborate with Hospitalist MD and patients oncologist prior. Discussed risk benefits alternatives of operative and nonoperative treatment. Talked about his overall health conditions and his current treatment for prostate CA. We talked about potential operative risks including but not limited to infection wound problems nerve or blood vessel injury weakness pain stiffness decreased range motion decreased function worsening condition failure to "cure" patient's problem iatrogenic injury bleeding blood loss blood clot blood clot embolus positioning complications anesthetic complications including but not limited to major cardiovascular or neurovascular complications even . We also considered potential for spread of disease and local metastasis and potential risks associate with surgery and this. We will be in touch with the patient's oncologist as well as the hospitalist to get further input. We will await that input prior to proceeding to see if there is any particular recommendations from the oncology perspective. Nonetheless we would plan on proceeding with plans for using a suction irrigating aspirating reamer and collecting reamings for pathology. We discussed proposed plan with patient. His questions were answered. He verbalizes their understanding above verbalized wish to proceed with the treatment above. Informed consent was given. In the meantime would recommend continued hospitalist management pain control toe-touch weightbearing right lower extremity with full assistance and assistive device as necessary. dvt prophylaxis. IS q1h when awake. The procedure is right femur cephalo-medullary nail placement. - Lab Results Fish Bones: 09/02/18 05:33 09/02/18 05:33 - Diagnostic Imaging Results Diagnostic Imaging Results Comments: 2 views right femur x-rays 09/01/2018 showing a non-/minimally displaced mid diaphyseal fracture of the right femur with possible callus formation. Slight mottled appearance near fracture site. May represent pathologic fracture. Please see official report in chart.
--- NOTE | 2018-09-01 22:57 | HISTORY & PHYSICAL EXAMINATION ---
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 He has a history of prostate cancer, diagnosed about 12 years ago. He has had chemotherapy and radiation. The patient underwent new evaluation of the prostate cancer and had a bone scan that lit up on his leg, for which he underwent an x-ray today, and this found a pathologic fracture. He is being admitted electively for orthopedic management of the fracture of his right femur. The patient describes that about three or four months ago, he had severe trouble walking because of pain in that leg at the site, but over the past several days to one week, there has been no pain. He has, however, been on morphine on a scheduled dose for many weeks. The patient also has been compliant with his medications; denies any shortness of breath, chest pain, palpitations, syncope, leg edema. PAST MEDICAL HISTORY 1. CABG surgery 14 years ago. 2. Glaucoma. 3. Restless leg syndrome. 4. Prostate cancer. ALLERGIES: NONE. MEDICATIONS 1. Requip at night. 2. Metoprolol, unknown dose daily in the a.m. 3. Lipitor 40 mg every p.m. 4. Several eyedrops for glaucoma including prednisolone, Combigan. 5. Oxycodone 5 mg daily p.r.n. pain. 6. Morphine sulfate 15 mg b.i.d. scheduled. FAMILY HISTORY: No inherited diseases. SOCIAL HISTORY: He lives with his son and [id number] and several grandchildren. REVIEW OF SYSTEMS: A comprehensive review of systems was performed, and the pertinent positives are listed, the rest are negative. The patient does not remember having a stress test in over 5-10 years and had an angiogram when he was last here, which he thinks was about a year ago. PHYSICAL EXAMINATION GENERAL: Elderly white male. He is in no distress, supine in bed. VITAL SIGNS: Blood pressure 120/70, heart rate 85 in sinus rhythm, afebrile, room air saturation 99%. HEENT: Unremarkable. Moist oral mucosa, but he is edentulous. NECK: No JVD in a supine position. No carotid bruits. He has a scar under his chin where a skin biopsy was done recently. CHEST: Clear. HEART: Heart sounds normal. No murmur. ABDOMEN: Soft, positive bowel sounds, nontender. No organomegaly. EXTREMITIES: No clubbing, cyanosis, or edema. NEUROLOGIC: Grossly intact. LABORATORY DATA: Sodium 138, potassium 3.2, BUN 8, creatinine 0.6, glucose 159, magnesium 2.3. Normal liver tests and lipase. White blood count 9.5, hemoglobin 12.2 with MCV of 37, platelet count 369. INR 1.2. Urinalysis unremarkable. CHEST X-RAY: No active cardio or pulmonary disease. EKG: Normal sinus rhythm with flat T waves in the inferior leads and lateral leads. There is no previous EKG done here. IMPRESSION/DIAGNOSES 1. Pathologic fracture secondary to malignancy. 2. Femur fracture on the right. 3. Prostate cancer. 4. History of coronary artery bypass graft. 5. Glaucoma. 6. Restless leg syndrome. 7. Hypokalemia. 8. Anemia. PLAN 1. Obtain a resting LV evaluation with an Echo, given his history of bypass surgery and abnormal EKG T-waves. 2. Continue with his metoprolol, Lipitor, and glaucoma and restless leg medications. 3. This patient's revised cardiac risk index equals one risk factor; therefore, he is a 1% perioperative major cardiac risk. DEEP VENOUS THROMBOSIS PROPHYLAXIS: TRISTA stockings and SCDs. CODE STATUS: He is a FULL CODE. He specifically says that his daughter only is to make decisions about his code status, he himself will not decide anything. ATTESTATION: The patient is expected to be discharged or transferred to another facility within 96 hours: Yes. cc: MD Ty Mccarthy MD TD: 09/01/2018 21:23 MTDD
[2018-09-02] MEDS ORDERED: SODIUM CHLORIDE FLUSH 0.9% 10 ML SYRINGE IVP SCH (01:00)
[2018-09-02] MEDS: SODIUM CHLORIDE FLUSH 0.9% 10 ML SYRINGE IVP SCH ×3 (04:34→16:25)
[2018-09-02] MEDS: D5NS W/20 MEQ KCL 1,000 ML IV SCH ×2 (04:36→13:21)
[2018-09-02 05:58] LABS: BASOPHILS % (AUTO) 0.4 %; EOSINOPHILS % (AUTO) 0.5 %; HGB - HEMOGLOBIN 11.3 g/dL (14.0-18.0); LYMPHOCYTES # (AUTO) 1.4 10^3/uL (1.5-3.5); LYMPHOCYTES % (AUTO) 19.6 %; MEAN CORPUSCULAR HGB CONC 32.9 g/dL (32.0-36.0); MEAN CORPUSCULAR VOLUME 88.2 fL (80.0-94.0); MEAN PLATELET VOLUME 7.1 fL (7.4-11.4); MONOCYTES # (AUTO) 0.7 10^3/uL (0.0-1.0); MONOCYTES % (AUTO) 10.6 %; NEUTROPHILS # (AUTO) 4.8 10^3/uL (1.5-6.6); NEUTROPHILS % (AUTO) 68.9 %; PLT - PLATELET COUNT 313 10^3/uL (130-450); RED BLOOD COUNT 3.88 10^6/uL (4.70-6.10); RED CELL DISTRIBUTION WIDTH 15.4 % (12.0-15.0)
[2018-09-02 06:06] LABS: ALBUMIN/GLOBULIN RATIO 0.9 (1.0-2.2); BILIRUBIN,TOTAL 0.5 mg/dL (0.2-1.0); CALCIUM 8.8 mg/dL (8.5-10.3); CREATININE 0.6 mg/dL (0.6-1.2); TOTAL PROTEIN 6.2 g/dL (6.7-8.2)
[2018-09-02] MEDS ORDERED: oxyCODONE 5 MG TABLET PO PRN (08:29)
[2018-09-02] MEDS: MORPHINE ER 15 MG TABLET PO SCH ×2 (08:53→20:08)
[2018-09-02] MEDS: FAMOTIDINE 20 MG TABLET PO SCH ×2 (08:53→20:08)
[2018-09-02] MEDS: BRIMONIDINE TARTRATE LEFTEYE SCH ×2 (08:53→20:10)
[2018-09-02] MEDS: METOPROLOL SUCCINATE 25 MG TABLET PO SCH (08:53)
[2018-09-02] MEDS: TIMOLOL LEFTEYE SCH ×2 (08:53→20:10)
[2018-09-02] MEDS: POLYETHYLENE GLYCOL 3350 17 GM PACKET PO SCH (08:54)
[2018-09-02] MEDS ORDERED: POLYETHYLENE GLYCOL 3350 17 GM PACKET PO SCH (09:00)
[2018-09-02] MEDS: MULTIVITAMIN W/MINERALS TABLET PO SCH (12:07)
[2018-09-02] MEDS: CHOLECALCIFEROL 1,000 UNIT TABLET PO SCH (12:07)
[2018-09-02] MEDS: CALCIUM CARBONATE CHEW 500 MG TABLET PO SCH ×3 (12:07→20:17)
[2018-09-02] MEDS: rOPINIRole 1 MG TABLET PO PRN (13:19)
--- NOTE | 2018-09-02 13:43 | MISCELLANEOUS PROVIDER NOTE ---
Miscellaneous Provider Note - - Note: HPI: This is a 77-year-old white male with history of bypass surgery done 14 years ago when he presented with shortness of breath; he states he has no longer followed by nail tech, and he was even told recently to stop his lifelong aspirin. He has a history of prostate cancer, diagnosed about 12 years ago. He has had chemotherapy and radiation. The patient underwent new evaluation of the prostate cancer had a bone scan that lit up on his On his right leg which x-rays revealed a pathological fracture. He is being admitted electively for orthopedic management of the fracture of his right femur. The patient described that about 3 or 4 months ago, he had severe trouble walking because of pain in that leg at the site, but over the past several days to 1 week, there has been no pain. He has, however been on morphine on a scheduled dose for many weeks. The patient also has been compliant with his medications; denies any shortness of breath, chest pain, palpitations, syncope, leg edema, joint effusion, or micropapular rash. Subjective: Patient seen at bedside with low back pain and minimal to no right lower extremity pain at least for the most part is being addressed with his MS Contin and oxycodone without any acute events. Objective: Vital signs are hemodynamically stable afebrile slightly hypotensive with variable rates of 100/58 (89/43). RR 1890% O2 saturation on room air. Heart rate of 73 bpm. General: Patient in no acute respiratory distress speaking in full sentences malnourished. HEENT: Pupils equal round react light accommodation extraocular muscles are bilateral intact. NCAT. No buccal lesions. Neck: No JVD/trachea midline/no lesions CV/lungs: S1-S2 within normal limits. RRR. CTA BL Abdomen: Soft nontender nondistended possible sounds all quadrants no HSM next Extremities/skin: Right lower extremity is limited range of motion to abduction/adduction with some pain on elicitation of movement. Neuro: Grossly intact x-ray labs: Reviewed next BRAF imaging studies: Reviewed next Assessment/plan: 1. Pathological fracture secondary to malignancy 2. Femur fracture of the right secondary to #1 3. Metastatic prostate cancer next 4. History of coronary artery bypass graft next 5. Glaucoma 6. Restless leg syndrome 7. Anemia 8. Severe protein/calorie deficiency malnutrition (POA) he Plan: We will continue with medical management. Patient's cardiac risk stratification has been performed and patient is cleared for surgery. Patient will likely require nailing/pinning procedure to be done by Dr. Brown tomorrow a.m. N.p.o. after midnight, IV fluids and preoperative management. DVT prophylaxis with TRISTA stockings. Will continue with metoprolol, Lipitor and glaucoma and restless leg medications. Resting LV evaluation with an echo given the history of bypass surgery and abnormal EKG T waves. Optimize medical management, Nutritional management as patient is seen with severe protein calorie deficiency malnutrition with a weight loss and bedridden and reduced functional capacity as deemed for criteria (16% wt. loss in 5 months)-BMI of 28, along with serial CBCs for anemia. Control pain with existing MS Contin plus oxycodone which may play a factor in some hypotensive events. Postoperative management as deemed necessary and possible SNF/TCU plcmt. CODE STATUS full code. Daughter is the decision-maker about his CODE STATUS
[2018-09-02] MEDS: ZINC SULFATE 220 MG CAPSULE PO SCH (19:43)
[2018-09-02] MEDS: MIRTAZAPINE 15 MG TABLET PO SCH (20:08)
[2018-09-02] MEDS: ATORVASTATIN 40 MG TABLET PO SCH (20:08)
[2018-09-03] MEDS: D5NS W/20 MEQ KCL 1,000 ML IV SCH ×3 (00:03→14:47)
[2018-09-03] MEDS: SODIUM CHLORIDE FLUSH 0.9% 10 ML SYRINGE IVP SCH ×3 (00:04→19:05)
[2018-09-03 05:18] LABS: BASOPHILS % (AUTO) 0.5 %; EOSINOPHILS % (AUTO) 0.3 %; HGB - HEMOGLOBIN 10.5 g/dL (14.0-18.0); LYMPHOCYTES # (AUTO) 1.4 10^3/uL (1.5-3.5); LYMPHOCYTES % (AUTO) 25.6 %; MEAN CORPUSCULAR HEMOGLOBIN 29.1 pg (27.0-31.0); MEAN CORPUSCULAR HGB CONC 33.1 g/dL (32.0-36.0); MEAN CORPUSCULAR VOLUME 87.8 fL (80.0-94.0); MEAN PLATELET VOLUME 7.2 fL (7.4-11.4); MONOCYTES # (AUTO) 0.6 10^3/uL (0.0-1.0); NEUTROPHILS # (AUTO) 3.5 10^3/uL (1.5-6.6); NEUTROPHILS % (AUTO) 62.6 %; PLT - PLATELET COUNT 282 10^3/uL (130-450); RED CELL DISTRIBUTION WIDTH 15.4 % (12.0-15.0); WHITE BLOOD COUNT 5.5 x10^3/uL (4.8-10.8)
[2018-09-03 05:20] LABS: INR 1.1 (0.8-1.2); PT - PROTHROMBIN TIME 12.8 secs (9.9-12.6)
[2018-09-03 05:26] LABS: ALBUMIN 2.9 g/dL (3.2-5.5); CALCIUM 8.9 mg/dL (8.5-10.3); CREATININE 0.5 mg/dL (0.6-1.2); PHOSPHORUS 3.4 mg/dL (2.5-4.6)
[2018-09-03] MEDS: TIMOLOL LEFTEYE SCH ×2 (08:06→21:14)
[2018-09-03] MEDS: BRIMONIDINE TARTRATE LEFTEYE SCH ×2 (08:06→21:14)
[2018-09-03] MEDS: METOPROLOL SUCCINATE 25 MG TABLET PO SCH (08:10)
[2018-09-03] MEDS: MORPHINE ER 15 MG TABLET PO SCH ×2 (08:10→21:13)
[2018-09-03] MEDS: MAGNESIUM OXIDE 400 MG TABLET PO SCH (08:11)
[2018-09-03] MEDS: CALCIUM CARBONATE CHEW 500 MG TABLET PO SCH ×2 (08:12→21:13)
[2018-09-03] MEDS: MEGESTROL 400 MG/10 ML UDC PO SCH (08:12)
[2018-09-03] MEDS: CHOLECALCIFEROL 1,000 UNIT TABLET PO SCH (08:12)
[2018-09-03] MEDS: MULTIVITAMIN W/MINERALS TABLET PO SCH (08:12)
[2018-09-03] MEDS: FAMOTIDINE 20 MG TABLET PO SCH ×2 (08:12→21:13)
[2018-09-03] MEDS: POLYETHYLENE GLYCOL 3350 17 GM PACKET PO SCH (08:12)
[2018-09-03] MEDS: ZINC SULFATE 220 MG CAPSULE PO SCH (08:13)
--- NOTE | 2018-09-03 09:00 | ANESTHESIA ---
Pre-Anesthesia VS, & Labs - Diagnosis Diagnosis Right non-/minimally displaced diaphyseal femur fracture, likely pathologic. - Procedure Right femur nailing Vital Signs: Temp Pulse Resp BP Pulse Ox 36.9 C 63 18 104/57 L 96 09/03/18 08:00 09/03/18 08:00 09/03/18 08:00 09/03/18 08:00 09/03/18 08:00 Height 5 ft 5 in Weight (kg) 76.5 kg Body Mass Index 28.0 - NPO >8 hours - Lab Results Current Lab Results: Laboratory Tests 09/03/18 04:40: Sodium 142, Potassium 3.9, Chloride 107, Carbon Dioxide 26, Anion Gap 9.0, BUN 8, Creatinine 0.5 L, Estimated GFR (MDRD) 162, Glucose 126 H, Calcium 8.9, Phosphorus 3.4, Albumin 2.9 L 09/03/18 04:40: PT 12.8 H, INR 1.1 09/03/18 04:40: WBC 5.5, RBC 3.60 L, Hgb 10.5 L, Hct 31.6 L, MCV 87.8, MCH 29.1, MCHC 33.1, RDW 15.4 H, Plt Count 282, MPV 7.2 L, Neut # (Auto) 3.5, Lymph # (Aut o) 1.4 L, Wheeler # (Auto) 0.6, Eos # (Auto) 0.0, Baso # (Auto) 0.0, Absolute Nucleated RBC 0.00, Nucleated RBC % 0.0 09/02/18 05:33: Sodium 139, Potassium 3.7, Chloride 107, Carbon Dioxide 24, Anion Gap 8.0, BUN 8, Creatinine 0.6, Estimated GFR (MDRD) 131, Glucose 123 H, Calcium 8.8, Total Bilirubin 0.5, AST 19, ALT 19, Alkaline Phosphatase 62, Total Protein 6.2 L, Albumin 3.0 L, Globulin 3.2, Albumin/Globulin Ratio 0.9 L 09/02/18 05:33: WBC 7.0, RBC 3.88 L, Hgb 11.3 L, Hct 34.2 L, MCV 88.2, MCH 29.0, MCHC 32.9, RDW 15.4 H, Plt Count 313, MPV 7.1 L, Neut # (Auto) 4.8, Lymph # (Auto) 1.4 L, Wheeler # (Auto) 0.7, Eos # (Auto) 0.0, Baso # (Auto) 0.0, Absolute Nucleated RBC 0.01, Nucleated RBC % 0.1 09/01/18 17:40: Phosphorus 2.8 09/01/18 17:40: Sodium 138, Potassium 3.2 L, Chloride 99 L, Carbon Dioxide 25, Anion Gap 14.0 H, BUN 8, Creatinine 0.6, Estimated GFR (MDRD) 131, Glucose 159 H , Calcium 9.7, Magnesium 2.3, Total Bilirubin 0.8, AST 21, ALT 20, Alkaline Phosphatase 75, Total Protein 7.9, Albumin 3.8, Globulin 4.1, Albumin/Globulin Ratio 0.9 L, Lipase 47 09/01/18 17:40: PT 13.1 H, INR 1.2, APTT 33.0 09/01/18 17:40: WBC 9.5, RBC 4.19 L, Hgb 12.2 L, Hct 37.0 L, MCV 88.3, MCH 29.0, MCHC 32.9, RDW 15.2 H, Plt Count 369, MPV 7.0 L, Neut # (Auto) 7.7 H, Lymph # (Auto) 1.2 L, Wheeler # (Auto) 0.6, Eos # (Auto) 0.0, Baso # (Auto) 0.0, Absolute Nucleated RBC 0.00, Nucleated RBC % 0.0 Fish Bones: 09/03/18 04:40 09/03/18 04:40 Home Medications and Allergies Home Medications: Ambulatory Orders Brimonidine Tartrate/Timolol [Combigan 0.2%-0.5% Eye Drops] 1 drops LEFTEYE BID 09/01/18 Prednisolone Acetate/Pf [Prednisolone Acet 1% Eye Drop] 1 drops RIGHTEYE BID 09/01/18 Active Medications Acetaminophen (Tylenol) 650 mg PO Q4HR PRN PRN Reason: Pain or Fever > 38C (100.4F) Hydrocodone Bitart/Acetaminophen ([place] 5/325) 1 tab PO Q4HR PRN PRN Reason: Pain 5 to 7 Atorvastatin Calcium (Lipitor) 40 mg PO QPM EMPERATRIZ Last Admin: 09/02/18 20:08 Dose: 40 mg Calcium Carbonate/Glycine (Tums) 500 mg PO BID [facility] Last Admin: 09/03/18 08:12 Dose: Not Given Cholecalciferol (Vitamin D3) 1,000 unit PO DAILY [facility] Last Admin: 09/03/18 08:12 Dose: Not Given Famotidine (Pepcid) 20 mg PO BID [facility] Last Admin: 09/03/18 08:12 Dose: Not Given Hydromorphone HCl (Dilaudid Inj Syringe) 0.5 mg IVP Q2H PRN PRN Reason: Pain 8 to 10 Potassium Chloride/Dextrose/Sod Cl () 1,000 mls @ 100 mls/hr IV .Q10H [facility] Last Admin: 09/03/18 00:03 Dose: 100 mls/hr Magnesium Oxide (Mag Ox) 400 mg PO DAILYWM [facility] Last Admin: 09/03/18 08:11 Dose: Not Given Megestrol Acetate (Megace) 800 mg PO DAILY [facility] Last Admin: 09/03/18 08:12 Dose: Not Given Metoprolol Succinate (Toprol Xl) 25 mg PO DAILY [facility] Last Admin: 09/03/18 08:10 Dose: 25 mg Mirtazapine (Remeron) 15 mg PO QPM [facility] Last Admin: 09/02/18 20:08 Dose: 15 mg Morphine Sulfate () 15 mg PO BID [facility] Last Admin: 09/03/18 08:10 Dose: 15 mg Multivitamins/Minerals (Theragran M) 1 tab PO DAILYWM [facility] Last Admin: 09/03/18 08:12 Dose: Not Given (Brimonidine Tartrate/Timolol [ Combigan 0.2%-0.5% Eye Drops] Drops) 1 drops LEFTEYE BID [facility] Last Admin: 09/03/18 08:06 Dose: 1 drops [Prednisolone Acet 1 (% Eye Drop] 1 Drops)) 1 drops RIGHTEYE BID [facility] Last Admin: 09/03/18 08:07 Dose: 1 drops Oxycodone HCl (Roxicodone) 5 mg PO DAILY PRN PRN Reason: PAIN Polyethylene Glycol (Miralax) 17 gm PO DAILY [facility] Last Admin: 09/03/18 08:12 Dose: Not Given Prochlorperazine Edisylate (Compazine Inj) 10 mg IVP Q6HR PRN PRN Reason: Nausea / Vomiting Ropinirole HCl (Requip) 3 mg PO PRN PRN PRN Reason: Restlessness Last Admin: 09/02/18 13:19 Dose: 3 mg Sodium Chloride (Normal Saline Flush 0.9%) 10 ml IVP PRN PRN PRN Reason: NEEDED PER PROVIDER ORDERS Sodium Chloride (Normal Saline Flush 0.9%) 10 ml IVP 0100,0900,1700 [facility] Last Admin: 09/03/18 08:13 Dose: Not Given Temazepam (Restoril) 7.5 mg PO QPM PRN PRN Reason: Insomnia Zinc Sulfate () 220 mg PO DAILY [facility] Last Admin: 09/03/18 08:13 Dose: Not Given Atorvastatin [Lipitor] 40 mg PO QPM 09/03/16 Ropinirole HCl [Requip] 3 mg PO DAILY 09/03/16 oxyCODONE [Roxicodone] 5 mg PO DAILY PRN 12/18/17 Morphine Sulfate [Ms Contin] 15 mg PO BID 05/14/18 Brimonidine Tartrate/Timolol [Combigan 0.2%-0.5% Eye Drops] 1 drops LEFTEYE BID 09/01/18 Prednisolone Acetate/Pf [Prednisolone Acet 1% Eye Drop] 1 drops RIGHTEYE BID 09/01/18 Allergies/Adverse Reactions: Allergies Allergy/AdvReac Type Severity Reaction Status Date / Time No Known Drug Allergies Allergy Verified 08/20/18 10:52 Anes History & Medical History - Anesthetic History Anesthesia Complications: reports: No previous complications - Medical History Cardiovascular: reports: High cholesterol, Coronary artery disease Pulmonary: reports: None Gastrointestinal: reports: None Urinary: reports: Benign prostate hypertrophy (Please see medical record for further details.), Frequency, Other (Prostate CA) Neuro: reports: None Musculoskeletal: reports: Chronic back pain Endocrine/Autoimmune: reports: None Blood Disorders: reports: None Skin: reports: None Smoking Status: Former smoker (Quit 15 years ago) Psychosocial: reports: Alcohol (occassional), Other (chronic opioid use) - Surgical History Eyes Ears Nose Throat (EENT): Tonsil/Adenoidectomy Cardiothoracic: CABG Results - EKG Results EKG Comparison: Reviewed EKG - Echo Results Echo Results: Report reviewed Exam General: Alert, Oriented x3, Cooperative, No acute distress Dental: Other (edentulous) Mouth Openin Fingerbreadth Neck Mobility: Normal Mallampati classification: II Thyromental Distance: 4-6 cm Respiratory: Lungs clear, Normal breath sounds, No respiratory distress, No accessory muscle use Cardiovascular: Regular rate, Normal S1, Normal S2, No murmurs Mental/Cognitive Status: Alert/Oriented X3, Normal for patient Plan Anesthesia Type: General, Femoral Block (right) Regional Block: Per Surgeon's request for Post Op pain control Consent for Procedure(s) Verified and Reviewed: Yes Code Status: Attempt Resuscitation ASA classification: 3-Severe systemic disease Is this case an emergency?: No
--- NOTE | 2018-09-03 09:56 | MISCELLANEOUS PROVIDER NOTE ---
Miscellaneous Provider Note - - Note: HPI: This is a 77-year-old white male with history of bypass surgery done 14 years ago when he presented with shortness of breath; he states he has no longer followed by tin cutter, and he was even told recently to stop his lifelong aspirin. He has a history of prostate cancer, diagnosed about 12 years ago. He has had chemotherapy and radiation. The patient underwent new evaluation of the prostate cancer had a bone scan that lit up on his On his right leg which x-rays revealed a pathological fracture. He is being admitted electively for orthopedic management of the fracture of his right femur. The patient described that about 3 or 4 months ago, he had severe trouble walking because of pain in that leg at the site, but over the past several days to 1 week, there has been no pain. He has, however been on morphine on a scheduled dose for many weeks. The patient also has been compliant with his medications; denies any shortness of breath, chest pain, palpitations, syncope, leg edema, joint effusion, or micropapular rash. Subjective: Patient seen at bedside with no acute events and is scheduled for surgical correction of right femur pathological fracture. Objective: Vital signs are hemodynamically stable afebrile slightly hypotensive Blood pressure 104/57 (97/55), RR 18, 96% O2 saturation on room air, heart rate of 63 bpm. General: Patient in no acute respiratory distress speaking in full sentences, m alnourished. HEENT: Pupils equal round react light accommodation extraocular muscles are bilateral intact. NCAT. No buccal lesions. Neck: No JVD/trachea midline/no lesions CV/lungs: S1-S2 within normal limits. RRR. CTA BL Abdomen: Soft nontender nondistended possible sounds all quadrants no HSM next Extremities/skin: Right lower extremity is limited range of motion to abduction/adduction with some pain on elicitation of movement. Neuro: Grossly intact x-ray labs: Reviewed next BRAF imaging studies: Reviewed next Assessment/plan: 1. 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 Metastatic prostate cancer 4. History of CAD/CABG 5. Glaucoma 6. Restless leg syndrome 7. Anemia 8. Severe protein/calorie deficiency malnutrition (POA) 9. DVT prophylaxis, postoperatively Plan: We will continue with medical management. Patient's cardiac risk stratification has been performed and patient is cleared for surgery. Patient will likely require nailing/pinning procedure to be done by Dr. Brown this a.m. Post-op mgmt to be anticipated. IV fluids and preoperative management. DVT prop hylaxis with TRISTA stockings. Will continue with metoprolol, Lipitor and glaucoma and restless leg medications. Cardiac cabello the history of bypass surgery and abnormal EKG T wave flattening w/ essentially normal Echocardiogram on 09/01 shows EF of 60 to 65% with no valvular heart disease., in addition there is no MWA. Optimize medical management, Nutritional management as patient is seen with severe protein calorie deficiency malnutrition with a weight loss and bedridden and reduced functional capacity as deemed for criteria (16% wt. loss in 5 months)-BMI of 28, along with serial CBCs for anemia. Control pain with existing MS Contin plus oxycodone which may play a factor in some hypotensive events. Postoperative management as deemed necessary and possible SNF/TCU plcmt. Patient to be placed on Lovenox preferable for people that have cancer for DVT prophylaxis postoperatively. CODE STATUS full code. Daughter is the decision-maker about his CODE STATUS
[2018-09-03] MEDS ORDERED: LACTATED RINGERS 1,000 ML IV ONE ×2 (11:16→13:10)
--- NOTE | 2018-09-03 11:24 | PROVIDER PROGRESS NOTE ---
Objective - Vital Signs/Intake & Output Vital Signs: Vital Signs x48h Temp Pulse Resp BP Pulse Ox 09/03/18 08:00 36.9 C 63 18 104/57 L 96 Intake & Output: Intake & Output 08/31/18 09/01/18 09/02/18 09/03/18 23:59 23:59 23:59 23:59 Intake Total 150 3275.000 961.667 Output Total 390 2275 300 Balance -240 1000.000 661.667 - Lab Results Fish Bones: 09/03/18 04:40 09/03/18 04:40 Other Labs: Lab Results x24hrs 09/03/18 09/03/18 09/03/18 Range/Units 09:21 04:40 04:40 WBC (4.8-10.8) x10^3/uL RBC (4.70-6.10) 10^6/uL Hgb (14.0-18.0) g/dL Hct (42.0-52.0) % MCV (80.0-94.0) fL MCH (27.0-31.0) pg MCHC (32.0-36.0) g/dL RDW (12.0-15.0) % Plt Count (130-450) 10^3/uL MPV (7.4-11.4) fL Neut # (Auto) (1.5-6.6) 10^3/uL Lymph # (Auto) (1.5-3.5) 10^3/uL Teller # (Auto) (0.0-1.0) 10^3/uL Eos # (Auto) (0.0-0.7) 10^3/uL Baso # (Auto) (0.0-0.1) 10^3/uL Absolute Nucleated RBC x10^3/uL Nucleated RBC % /100WBC PT (9.9-12.6) secs INR (0.8-1.2) Sodium 142 (135-145) mmol/L Potassium 3.9 (3.5-5.0) mmol/L Chloride 107 (101-111) mmol/L Carbon Dioxide 26 (21-32) mmol/L Anion Gap 9.0 (6-13) BUN 8 (6-20) mg/dL Creatinine 0.5 L (0.6-1.2) mg/dL Estimated GFR (MDRD) 162 (>89) Glucose 126 H (70-100) mg/dL Calcium 8.9 (8.5-10.3) mg/dL Phosphorus 3.4 (2.5-4.6) mg/dL Albumin 2.9 L (3.2-5.5) g/dL Blood Type O POSITIVE Blood Type Recheck O POSITIVE Antibody Screen NEGATIVE 09/03/18 09/03/18 Range/Units 04:40 04:40 WBC 5.5 (4.8-10.8) x10^3/uL RBC 3.60 L (4.70-6.10) 10^6/uL Hgb 10.5 L (14.0-18.0) g/dL Hct 31.6 L (42.0-52.0) % MCV 87.8 (80.0-94.0) fL MCH 29.1 (27.0-31.0) pg MCHC 33.1 (32.0-36.0) g/dL RDW 15.4 H (12.0-15.0) % Plt Count 282 (130-450) 10^3/uL MPV 7.2 L (7.4-11.4) fL Neut # (Auto) 3.5 (1.5-6.6) 10^3/uL Lymph # (Auto) 1.4 L (1.5-3.5) 10^3/uL Teller # (Auto) 0.6 (0.0-1.0) 10^3/uL Eos # (Auto) 0.0 (0.0-0.7) 10^3/uL Baso # (Auto) 0.0 (0.0-0.1) 10^3/uL Absolute Nucleated RBC 0.00 x10^3/uL Nucleated RBC % 0.0 /100WBC PT 12.8 H (9.9-12.6) secs INR 1.1 (0.8-1.2) Sodium (135-145) mmol/L Potassium (3.5-5.0) mmol/L Chloride (101-111) mmol/L Carbon Dioxide (21-32) mmol/L Anion Gap (6-13) BUN (6-20) mg/dL Creatinine (0.6-1.2) mg/dL Estimated GFR (MDRD) (>89) Glucose (70-100) mg/dL Calcium (8.5-10.3) mg/dL Phosphorus (2.5-4.6) mg/dL Albumin (3.2-5.5) g/dL Blood Type Blood Type Recheck Antibody Screen Assessment/Plan - Problem List (1) 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 He is indicated for cephalo-medullary nail placement. Appropriate precautions will be planned with reamer wet process assistant head miller aspirator. Biopsy will be sent. Risk benefits alternatives highlighted again with the patient and reviewed with the patient's daughter Marie and Marie's who is a. Questions were answered they verbalized their understanding agreement satisfaction the plan as outlined.
[2018-09-03] MEDS ORDERED: ceFAZolin 1 GM VIAL IV ONE (12:00)
[2018-09-03] MEDS ORDERED: MIDAZOLAM 2 MG/2 ML VIAL IVP ONE (12:00)
[2018-09-03] MEDS ORDERED: LIDOCAINE-MPF 2% 5 ML VIAL IM ONE (12:00)
[2018-09-03] MEDS ORDERED: fentaNYL 250 MCG/5 ML VIAL IVP ONE (12:00)
[2018-09-03] MEDS ORDERED: ACETAMINOPHEN 1,000 MG/100 ML 100 ML IV ONE (12:00)
[2018-09-03] MEDS ORDERED: ePHEDrine 50 MG/ML VIAL IVP ONE (12:00)
[2018-09-03] MEDS ORDERED: fentaNYL 100 MCG/2 ML VIAL IVP ONE (12:00)
[2018-09-03] MEDS ORDERED: PROPOFOL 200 MG/20 ML VIAL IVP ONE (12:00)
[2018-09-03] MEDS ORDERED: BUPIVACAINE 0.25%-EPI 1:200000 PF 30 ML VIAL SUBQ ONE (12:29)
[2018-09-03] MEDS ORDERED: SODIUM CHLORIDE FLUSH 0.9% 10 ML SYRINGE IVP PRN (13:35)
[2018-09-03] MEDS ORDERED: ACETAMINOPHEN 325 MG TABLET PO PRN (13:35)
[2018-09-03] MEDS ORDERED: PROCHLORPERAZINE 10 MG/2 ML VIAL IVP PRN (13:35)
[2018-09-03] MEDS ORDERED: ACETAMINOPHEN 1,000 MG/100 ML 100 ML IV PRN (13:35)
[2018-09-03] MEDS ORDERED: ONDANSETRON 4 MG/2 ML VIAL IVP PRN (13:35)
--- NOTE | 2018-09-03 14:58 | XRAY Report ---
Reason: FX FEMUR Procedure Date: 09/03/2018 Accession Number: [id number] / [id number] Procedure: XR - Femur 2V RT CPT Code: FULL RESULT: EXAM: RIGHT FEMUR RADIOGRAPHY EXAM DATE: 09/03/2018 01:11 PM. CLINICAL HISTORY: Right femur pathologic fracture. COMPARISON: 09/01/2018. TECHNIQUE: 2 views. FINDINGS: There is a long intramedullary brielle transfixing the shaft of the right femur. Periosteal reaction and new bone formation seen at the site of the pathologic fracture. Fracture appears anatomically aligned. IMPRESSION: No procedural related complications identified status post ORIF right femur. RADIA
--- NOTE | 2018-09-03 17:17 | IMMEDIATE POSTOPERATIVE NOTE ---
Immediate Postoperative Note - Procedure Note Procedure Date: 09/03/18 Pre-Op Diagnosis: Right pathologic diaphyseal femur fracture Procedure: Right femur cephalo-medullary nailing, intramedullary biopsy Post-Op Diagnosis: Same Primary Surgeon: Markel VELAZQUEZ Medical Records Secretary: SHARON Anesthesia Type: General LMA Complications: No complications Estimated Blood Loss (in cc): 150 Specimens and Cultures: Intramedullary bone reamings biopsy sent Plan of Care: Patient will return to hospital service. Have close orthopedic management. He will be foot flat partial weightbearing with ambulation assistance and assistive device right lower extremity. Dressings will be kept clean dry intact. He be on perioperative DVT prophylaxis and antibiotics. Incentive spirometer SCD boots also advised.
[2018-09-03] MEDS: rOPINIRole 1 MG TABLET PO PRN (18:04)
[2018-09-03] MEDS: ceFAZolin 2 GM in SODIUM CHLORIDE 0.9% MINIBAG 100 ML IV SCH (20:05)
[2018-09-03] MEDS: ATORVASTATIN 40 MG TABLET PO SCH (21:13)
[2018-09-03] MEDS: MIRTAZAPINE 15 MG TABLET PO SCH (21:13)
[2018-09-04] MEDS: SODIUM CHLORIDE FLUSH 0.9% 10 ML SYRINGE IVP SCH ×4 (00:33→23:55)
[2018-09-04] MEDS: D5NS W/20 MEQ KCL 1,000 ML IV SCH (01:13)
[2018-09-04] MEDS: ceFAZolin 2 GM in SODIUM CHLORIDE 0.9% MINIBAG 100 ML IV SCH (03:48)
[2018-09-04 05:02] LABS: BASOPHILS % (AUTO) 0.1 %; HGB - HEMOGLOBIN 9.8 g/dL (14.0-18.0); LYMPHOCYTES # (AUTO) 0.6 10^3/uL (1.5-3.5); MEAN CORPUSCULAR HEMOGLOBIN 29.8 pg (27.0-31.0); MEAN CORPUSCULAR HGB CONC 33.8 g/dL (32.0-36.0); MEAN CORPUSCULAR VOLUME 88.3 fL (80.0-94.0); MONOCYTES # (AUTO) 0.6 10^3/uL (0.0-1.0); MONOCYTES % (AUTO) 5.7 %; NEUTROPHILS # (AUTO) 9.4 10^3/uL (1.5-6.6); NEUTROPHILS % (AUTO) 88.2 %; PLT - PLATELET COUNT 287 10^3/uL (130-450); RED CELL DISTRIBUTION WIDTH 15.5 % (12.0-15.0); WHITE BLOOD COUNT 10.6 x10^3/uL (4.8-10.8)
[2018-09-04 05:13] LABS: ALBUMIN 2.8 g/dL (3.2-5.5); CREATININE 0.5 mg/dL (0.6-1.2); PHOSPHORUS 2.6 mg/dL (2.5-4.6)
[2018-09-04] MEDS ORDERED: MIDODRINE 2.5 MG TABLET PO PRN (07:17)
--- NOTE | 2018-09-04 08:40 | MISCELLANEOUS PROVIDER NOTE ---
Miscellaneous Provider Note - - Note: HPI: This is a 77-year-old white male with history of bypass surgery done 14 years ago when he presented with shortness of breath; he states he has no longer followed by surgical device sales representative, and he was even told recently to stop his lifelong aspirin. He has a history of prostate cancer, diagnosed about 12 years ago. He has had chemotherapy and radiation. The patient underwent new evaluation of the prostate cancer had a bone scan that lit up on his On his right leg which x-rays revealed a pathological fracture. He is being admitted electively for orthopedic management of the fracture of his right femur. The patient described that about 3 or 4 months ago, he had severe trouble walking because of pain in that leg at the site, but over the past several days to 1 week, there has been no pain. He has, however been on morphine on a scheduled dose for many weeks. The patient also has been compliant with his medications; denies any shortness of breath, chest pain, palpitations, syncope, leg edema, joint effusion, or maculopapular rash. Subjective: Patient seen at bedside with no acute events and is scheduled for surgical correction of right femur pathological fracture. Objective: Vital signs are hemodynamically stable afebrile slightly hypotensive Blood pressure 103/57 (96/54) RR 18, 96% O2 saturation on room air, heart rate of 64 bpm. General: Patient in no acute respiratory distress speaking in full sentences, malnourished. HEENT: Pupils equal round react light accommodation extraocular muscles are bilateral intact. NCAT. No buccal lesions. Neck: No JVD/trachea midline/no lesions CV/lungs: S1-S2 within normal limits. RRR. CTA BL Abdomen: Soft nontender nondistended possible sounds all quadrants no HSM next Extremities/skin: Right lower extremity Surgical site appears to be clean dry and intact with limited range of motion with no lesions present. Neuro: Grossly intact Imaging studies: Reviewed Labs: Reviewed Assessment/plan: 1. 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 Metastatic prostate cancer 4. History of CAD/CABG 5. Glaucoma 6. Restless leg syndrome 7. Anemia, decreased H/H 8. Severe protein/calorie deficiency malnutrition (POA) 9. DVT prophylaxis, postoperatively Plan: We will continue with Postoperative care with medical management. CBC monitoring for anemia which may have been some losses intraoperatively. Will transfuse under a liberal protocol of less than 8 g/dL. Optimize medical management for patient's underlying coronary artery disease with a history of C ABG in the past, daily aspirin Lipitor to continue. Nutritional management as patient is seen with severe protein calorie deficiency malnutrition with a weight loss and bedridden and reduced functional capacity as deemed for criteria (16% wt. loss in 5 months)-BMI of 28. H/H trending as this has been downtrending and likely intraoperative losses. Control pain with existing MS Contin plus oxycodone which may play a factor in some hypotensive events. Postoperative management as deemed necessary and possible SNF/TCU plcmt. Lovenox for DVT prophylaxis. CODE STATUS full code. Daughter is the decision-maker about his CODE STATUS
[2018-09-04] MEDS: FAMOTIDINE 20 MG TABLET PO SCH ×2 (09:21→20:23)
[2018-09-04] MEDS: CALCIUM CARBONATE CHEW 500 MG TABLET PO SCH ×2 (09:21→20:24)
[2018-09-04] MEDS: CHOLECALCIFEROL 1,000 UNIT TABLET PO SCH (09:21)
[2018-09-04] MEDS: METOPROLOL SUCCINATE 25 MG TABLET PO SCH (09:22)
[2018-09-04] MEDS: ZINC SULFATE 220 MG CAPSULE PO SCH (09:22)
[2018-09-04] MEDS: MAGNESIUM OXIDE 400 MG TABLET PO SCH (09:22)
[2018-09-04] MEDS: BRIMONIDINE TARTRATE LEFTEYE SCH ×2 (09:23→20:24)
[2018-09-04] MEDS: TIMOLOL LEFTEYE SCH ×2 (09:23→20:24)
[2018-09-04] MEDS: MEGESTROL 400 MG/10 ML UDC PO SCH (09:23)
[2018-09-04] MEDS: MULTIVITAMIN W/MINERALS TABLET PO SCH (09:23)
[2018-09-04] MEDS: MORPHINE ER 15 MG TABLET PO SCH ×2 (09:26→20:23)
[2018-09-04] MEDS: ENOXAPARIN 40 MG/0.4 ML SYRINGE SUBQ SCH (09:26)
[2018-09-04] MEDS: POLYETHYLENE GLYCOL 3350 17 GM PACKET PO SCH (09:26)
[2018-09-04 11:31] LABS: % IRON SATURATION 10 % (20-50); IRON 24 ug/dL (45-182); TOTAL IRON BINDING CAPACITY 237 ug/dL (250-450); TRANSFERRIN 169 mg/dL (180-329)
[2018-09-04] MEDS: rOPINIRole 1 MG TABLET PO PRN ×2 (13:58→20:23)
--- NOTE | 2018-09-04 17:03 | PROVIDER PROGRESS NOTE ---
Subjective - Prog Note Date Prog Note Date: 09/04/18 Prog Note Time: 07:30 - Subjective Pt reports feeling: Improved (Miguel 77 or gentleman p.o. day #1 after right femur cephalo-medullary nail placement and intramedullary biopsy.) Objective - Vital Signs/Intake & Output Vital Signs: Vital Signs x48h Temp Pulse Pulse Resp BP BP Pulse Ox 09/04/18 16:02 36.8 C 76 24 100/50 L 96 09/04/18 13:02 36.9 C 85 16 104/55 L 94 09/04/18 12:45 81 106/66 Intake & Output: Intake & Output 09/01/18 09/02/18 09/03/18 09/04/18 23:59 23:59 23:59 23:59 Intake Total 150 3275.000 2745.001 2221.667 Output Total 390 2275 800 2050 Balance -240 9343.324 5206.001 171.667 - Lab Results Fish Bones: 09/04/18 04:30 09/04/18 04:30 Other Labs: Lab Results x24hrs 09/04/18 09/04/18 09/04/18 Range/Units 05:00 04:30 04:30 WBC 10.6 (4.8-10.8) x10^3/uL RBC 3.30 L (4.70-6.10) 10^6/uL Hgb 9.8 L (14.0-18.0) g/dL Hct 29.1 L (42.0-52.0) % MCV 88.3 (80.0-94.0) fL MCH 29.8 (27.0-31.0) pg MCHC 33.8 (32.0-36.0) g/dL RDW 15.5 H (12.0-15.0) % Plt Count 287 (130-450) 10^3/uL MPV 7.0 L (7.4-11.4) fL Neut # (Auto) 9.4 H (1.5-6.6) 10^3/uL Lymph # (Auto) 0.6 L (1.5-3.5) 10^3/uL [place] # (Auto) 0.6 (0.0-1.0) 10^3/uL Eos # (Auto) 0.0 (0.0-0.7) 10^3/uL Baso # (Auto) 0.0 (0.0-0.1) 10^3/uL Absolute Nucleated RBC 0.00 x10^3/uL Nucleated RBC % 0.0 /100WBC Sodium 141 (135-145) mmol/L Potassium 4.4 (3.5-5.0) mmol/L Chloride 107 (101-111) mmol/L Carbon Dioxide 26 (21-32) mmol/L Anion Gap 8.0 (6-13) BUN 8 (6-20) mg/dL Creatinine 0.5 L (0.6-1.2) mg/dL Estimated GFR (MDRD) 162 (>89) Glucose 136 H (70-100) mg/dL Calcium 9.0 (8.5-10.3) mg/dL Phosphorus 2.6 (2.5-4.6) mg/dL Iron 24 L (45-182) ug/dL TIBC 237 L (250-450) ug/dL % Saturation 10 L (20-50) % Transferrin 169 L (180-329) mg/dL Albumin 2.8 L (3.2-5.5) g/dL - Other Results/Comments Other Results/Comments: Right lower extremity remains neurovascular unchanged distally thigh calf soft. He has mild mid thigh tenderness his operative dressings thigh and knee clean dry and intact is able to initiate flexion-extension of ankle and knee as well as hip gentle range of motion no pain. 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 He had intramedullary biopsy as well. I recommend foot flat weightbearing right lower extremity ambulating with assistance and assistive device as necessary. I recommend being out of bed with physical therapy and the nursing staff as well. Continue IS, analgesia, mechanical and chemical DVT prophylaxis per hospitalist. We continue to await input from Dr. Gallegos regarding any other adjuvant treatment indicated in this perioperative period.
[2018-09-04] MEDS: ATORVASTATIN 40 MG TABLET PO SCH (20:23)
[2018-09-04] MEDS ORDERED: MIRTAZAPINE 15 MG TABLET PO SCH (21:00)
[2018-09-05 05:12] LABS: BASOPHILS # (AUTO) 0.1 10^3/uL (0.0-0.1); BASOPHILS % (AUTO) 0.7 %; EOSINOPHILS % (AUTO) 0.1 %; HGB - HEMOGLOBIN 9.2 g/dL (14.0-18.0); LYMPHOCYTES # (AUTO) 1.2 10^3/uL (1.5-3.5); LYMPHOCYTES % (AUTO) 10.9 %; MEAN CORPUSCULAR HEMOGLOBIN 29.6 pg (27.0-31.0); MEAN CORPUSCULAR HGB CONC 33.3 g/dL (32.0-36.0); MEAN CORPUSCULAR VOLUME 88.8 fL (80.0-94.0); MEAN PLATELET VOLUME 7.7 fL (7.4-11.4); MONOCYTES # (AUTO) 1.1 10^3/uL (0.0-1.0); MONOCYTES % (AUTO) 10.2 %; NEUTROPHILS # (AUTO) 8.5 10^3/uL (1.5-6.6); NEUTROPHILS % (AUTO) 78.1 %; PLT - PLATELET COUNT 224 10^3/uL (130-450); RED CELL DISTRIBUTION WIDTH 15.5 % (12.0-15.0); WHITE BLOOD COUNT 10.9 x10^3/uL (4.8-10.8)
[2018-09-05 05:32] LABS: ALBUMIN 2.5 g/dL (3.2-5.5); CALCIUM 8.8 mg/dL (8.5-10.3); CREATININE 0.6 mg/dL (0.6-1.2); PHOSPHORUS 2.5 mg/dL (2.5-4.6)
[2018-09-05 07:50] VITALS: BP 118/62
[2018-09-05] MEDS ORDERED: FERROUS SULFATE 325 MG TABLET PO SCH (08:00)
--- NOTE | 2018-09-05 09:02 | Discharge Plan ---
Discharge Plan Disposition: 01 Home, Self Care Condition: Good Prescriptions: Calcium Carbonate [Tums (Calcium Carbonate 500mg)] 500 mg PO BID #60 tablet Cholecalciferol (Vitamin D3) [Vitamin D3] 1,000 unit PO DAILY #30 capsule Ferrous Sulfate 325 mg PO TID #90 tablet Magnesium Oxide [Mag Ox] 400 mg PO DAILYWM #60 tablet Metoprolol Succinate [Toprol Xl] 12.5 mg PO BID #30 tablet Mirtazapine [Remeron] 7.5 mg PO QPM #30 tablet Diet: Regular Shower Restrictions: No Driving Restrictions: Yes Assistance Devices: Wheelchair Weight Bearing: per Ortho orders Instruction Topics: Fx Femur Ch, Anemia, Cancer Prostate Additional Instructions or Follow Up instructions: You were admitted for a pathologic fracture to the right femur which was repaired by orthopedic surgeon Dr. Brown. He will continue on current morphine that you take at home with oxycodone for pain management. He will also continue to follow the postoperative instructions given to you by orthopedic service and continue with outpatient physical therapy to obtain more strength, balance, and improve gait with range of motion to the affected right side of your hip. In addition, multiple medications such as the narcotics that you are taking may cause some sleepiness, dizziness, and may increase risk of your falls. You were also prescribed iron pills as well as other supplementation such as vitamin D, magnesium, as well as calcium as these were deficient throughout your hospital stay. He will return to your regular doctor in about 1 or 2 weeks as well as to see your orthopedic surgeon that operated on you as scheduled. Pt counseled regarding expected course and signs and symptoms for which I believe an urgent re-evaluation would be necessary. Pt with good understanding and agreement to plan. Follow-Up Care: Outpatient Rehab - PT No Smoking: If you smoke, Please STOP! Call for help. Follow-up with: Jaz Gallegos MD [Primary Care Provider] - 2 Weeks (Post hospital discharge follow-up 1 to 2 weeks) Corwin Gaytan MD [Provider Admit Priv/Credential] - (Post hospital discharge follow-up as scheduled)
--- NOTE | 2018-09-05 09:10 | DISCHARGE SUMMARY ---
"Discharge Summary Admit Date: 09/01/18 Discharge Date: 09/05/18 Discharging Provider: Dr. Owens Primary Care Provider: Jaz Gallegos Code Status: Attempt Resuscitation Condition at Discharge: Good Discharge Disposition: 01 Home, Self Care - DIAGNOSES Admission Diagnoses: 1. 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 Metastatic prostate cancer 4. History of CAD/CABG 5. Glaucoma 6. Restless leg syndrome 7. Anemia 8. Severe protein/calorie deficiency malnutrition (POA) Discharge Diagnoses with Status of Each Condition: 1. Pathological fracture secondary to malignancy s/p repair, stable 2. 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 Metastatic prostate cancer, Stable 4. History of CAD/CABG, Stable 5. Glaucoma, Stable 6. Restless leg syndrome, Stable 7. Iron deficiency Anemia, Stable 8. 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 He has a history of prostate cancer, diagnosed about 12 years ago. He has had chemotherapy and radiation. The patient underwent new evaluation of the prostate cancer had a bone scan that lit up on his On his right leg which x-rays revealed a pathological fracture. He is being admitted electively for orthopedic management of the fracture of his right femur. The patient described that about 3 or 4 months ago, he had severe trouble walking because of pain in that leg at the site, but over the past several days to 1 week, there has been no pain. He has, however been on morphine on a scheduled dose for many weeks. The patient also has been compliant with his medications; denies any shortness of breath, chest pain, palpitations, syncope, leg edema, joint effusion, or maculopapular rash. - CONSULTS | PROCEDURES Consultations: Dr Gaytan, orthopedic surgeon Procedures: day #2 after right femur cephalo-medullary nail placement and intramedullary biopsy. - HOSPITAL COURSE Hospital Course: This is a pleasant 77-year-old white male with a remote CABG/CAD history, metastatic prostate cancer for 12 years, recently had a bone scan which il luminated at the femur with an x-ray showing a pathologic right femur fracture. Patient had been somewhat symptomatic for 1 month but pain was blunted with his current morphine and oxycodone that he has been taking at home. He was admitted for cephalo-medullary pending by orthopedic surgeon which performed a right femur fracture repair with this type of procedure along with intramedullary biopsy. Postoperatively patient had some decreased in hemoglobin and was found to be iron deficient. Iron supplementation was initiated. Patient had transient narcotic induced hypotension along with some drug-induced effects of Toprol-XL which was titrated down. Patient had supplementation with vitamin D as well as calcium carbonate and pain control with avoiding drug-induced hypotension which was addressed with midodrine plus IV fluids PRN. Patient did well postoperatively day #2 and physical therapy recommended outpatient physical therapy to continue with improvement of gait, range of motion, balance and strengthening. - ALLERGIES Allergies/Adverse Reactions: Allergies Allergy/AdvReac Type Severity Reaction Status Date / Time No Known Drug Allergies Allergy Verified 08/20/18 10:52 - MEDICATIONS Home Medications: Ambulatory Orders Medication Instructions Recorded Confirmed Atorvastatin [Lipitor] 40 mg PO QPM 09/03/16 09/01/18 Ropinirole HCl [Requip] 3 mg PO DAILY 09/03/16 09/01/18 oxyCODONE [Roxicodone] 5 mg PO DAILY PRN 12/18/17 09/01/18 Morphine Sulfate [Ms Contin] 15 mg PO BID 05/14/18 09/01/18 Brimonidine Tartrate/Timolol 1 drops LEFTEYE BID 09/01/18 09/01/18 [Combigan 0.2%-0.5% Eye Drops] Prednisolone Acetate/Pf 1 drops RIGHTEYE BID 09/01/18 09/01/18 [Prednisolone Acet 1% Eye Drop] Calcium Carbonate [Tums (Calcium 500 mg PO BID #60 tablet 09/05/18 Carbonate 500mg)] Cholecalciferol (Vitamin D3) 1,000 unit PO DAILY #30 capsule 09/05/18 [Vitamin D3] Ferrous Sulfate 325 mg PO TID #90 tablet 09/05/18 Magnesium Oxide [Mag Ox] 400 mg PO DAILYWM #60 tablet 09/05/18 Metoprolol Succinate [Toprol Xl] 12.5 mg PO BID #30 tablet 09/05/18 Mirtazapine [Remeron] 7.5 mg PO QPM #30 tablet 09/05/18 - PHYSICAL EXAM AT DISCHARGE General Appearance: positive: No acute distress, Alert Eyes Bilateral: positive: Normal inspection, PERRL, EOMI ENT: positive: ENT inspection nml, Pharynx nml, No signs of dehydration Neck: positive: Nml inspection, Thyroid nml, No JVD Respiratory: positive: Chest non-tender, No respiratory distress, Breath sounds nml Cardiovascular: positive: Regular rate & rhythm, No murmur, No gallop Peripheral Pulses: positive: 2+ Abdomen: positive: Non-tender Skin: positive: Color nml, No rash Extremities: positive: Nml appearance, Other (Right surgical site is clean dry and intact) Neurologic/Psychiatric: positive: Oriented x3, CN's nml (2-12) - LABS Result Diagrams: 09/05/18 04:50 09/05/18 04:50 - DIAGNOSTIC IMAGING Diagnostic Imaging Results: Final report reviewed - FOLLOW UP Follow Up: Will follow-up with PCP in 1 to 2 weeks. Will follow with orthopedic service and approximately 2 to 3 weeks or as scheduled - TIME SPENT Time Spent in Discharge (Minutes): 35"
[2018-09-05] MEDS: MORPHINE ER 15 MG TABLET PO SCH (09:30)
[2018-09-05] MEDS: MULTIVITAMIN W/MINERALS TABLET PO SCH (11:21)
[2018-09-05] MEDS: FAMOTIDINE 20 MG TABLET PO SCH (11:21)
[2018-09-05] MEDS: CALCIUM CARBONATE CHEW 500 MG TABLET PO SCH (11:21)
[2018-09-05] MEDS: CHOLECALCIFEROL 1,000 UNIT TABLET PO SCH (11:22)
[2018-09-05] MEDS: MAGNESIUM OXIDE 400 MG TABLET PO SCH (11:22)
[2018-09-05] MEDS: ZINC SULFATE 220 MG CAPSULE PO SCH (11:23)
[2018-09-05] MEDS: METOPROLOL SUCCINATE 25 MG TABLET PO SCH (11:23)
[2018-09-05] MEDS: ENOXAPARIN 40 MG/0.4 ML SYRINGE SUBQ SCH (11:23)
[2018-09-05] MEDS: BRIMONIDINE TARTRATE LEFTEYE SCH (11:24)
[2018-09-05] MEDS: TIMOLOL LEFTEYE SCH (11:24)
[2018-09-05] MEDS: MEGESTROL 400 MG/10 ML UDC PO SCH (11:25)
[2018-09-05] MEDS: SODIUM CHLORIDE FLUSH 0.9% 10 ML SYRINGE IVP SCH (11:25)
[2018-09-05] MEDS: POLYETHYLENE GLYCOL 3350 17 GM PACKET PO SCH (11:25)
--- NOTE | 2018-09-05 11:58 | PROVIDER PROGRESS NOTE ---
Subjective - Prog Note Date Prog Note Date: 09/05/18 - Subjective Pt reports feeling: Improved (Miguel says overall he is doing well has occasional soreness but denies significant pain and says he has been up with therapy walking around with assistive device.) Objective - Vital Signs/Intake & Output Vital Signs: Vital Signs x48h Temp Pulse Resp BP Pulse Ox 09/05/18 07:49 36.9 C 73 20 118/62 96 09/05/18 04:40 37.0 C 71 16 106/57 L 95 Intake & Output: Intake & Output 09/02/18 09/03/18 09/04/18 09/05/18 23:59 23:59 23:59 23:59 Intake Total 3275.000 2745.001 2739.667 440 Output Total 2275 800 2750 700 Balance 5437.443 0044.001 -10.333 -260 - Lab Results Fish Bones: 09/05/18 04:50 09/05/18 04:50 Other Labs: Lab Results x24hrs 09/05/18 09/05/18 Range/Units 04:50 04:50 WBC 10.9 H (4.8-10.8) x10^3/uL RBC 3.10 L (4.70-6.10) 10^6/uL Hgb 9.2 L (14.0-18.0) g/dL Hct 27.5 L (42.0-52.0) % MCV 88.8 (80.0-94.0) fL MCH 29.6 (27.0-31.0) pg MCHC 33.3 (32.0-36.0) g/dL RDW 15.5 H (12.0-15.0) % Plt Count 224 (130-450) 10^3/uL MPV 7.7 (7.4-11.4) fL Neut # (Auto) 8.5 H (1.5-6.6) 10^3/uL Lymph # (Auto) 1.2 L (1.5-3.5) 10^3/uL [place] # (Auto) 1.1 H (0.0-1.0) 10^3/uL Eos # (Auto) 0.0 (0.0-0.7) 10^3/uL Baso # (Auto) 0.1 (0.0-0.1) 10^3/uL Absolute Nucleated RBC 0.01 x10^3/uL Nucleated RBC % 0.0 /100WBC Sodium 139 (135-145) mmol/L Potassium 4.1 (3.5-5.0) mmol/L Chloride 103 (101-111) mmol/L Carbon Dioxide 26 (21-32) mmol/L Anion Gap 10.0 (6-13) BUN 10 (6-20) mg/dL Creatinine 0.6 (0.6-1.2) mg/dL Estimated GFR (MDRD) 131 (>89) Glucose 140 H (70-100) mg/dL Calcium 8.8 (8.5-10.3) mg/dL Phosphorus 2.5 (2.5-4.6) mg/dL Albumin 2.5 L (3.2-5.5) g/dL - Other Results/Comments Other Results/Comments: Right lower extremity remains neurovascular unchanged distally he is able to flex and extend ankle and knee as well as do a straight leg raise with no significant pain. Passive hip motion he denies pain with that. Dressings are clean dry and intact. Thigh and calf soft compartment cabello. 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 I recommend foot flat partial weightbearing with assistance and assistive device as necessary. I recommend follow-up in approximately 10 days. Other management per medical hospitalist. Patient should be on DVT prophylaxis as appropriate. He will have appropriate analgesics. They will notify us prior to follow-up visit should problems or questions arise. Patient's questions were answered rationale for the approach reviewed verbalize agreement satisfaction the plan.
--- NOTE | 2018-09-05 12:12 | OPERATIVE REPORT ---
DATE OF SERVICE: 09/03/2018 Physician: Corwin Gaytan MD PREOPERATIVE DIAGNOSIS: Right pathologic femoral diaphysis fracture. POSTOPERATIVE DIAGNOSIS: Right pathologic femoral diaphysis fracture. PROCEDURE 1. Right femur cephalomedullary nailing. 2. Right femur intramedullary biopsy. SURGEON: Corwin Gaytan MD DIETITIAN TEACHING: None. ANESTHESIA PROVIDER: [employer] CRNA ANESTHESIA: General anesthesia, LMA. FLUIDS: 1000 mL lactated Ringer's. ESTIMATED BLOOD LOSS: Less than 50 mL. PREOPERATIVE ANTIBIOTICS: Two grams weight-based IV Ancef. COMPRESSION DEVICE: Contralateral left calf SCD boot. INTRAOPERATIVE COMPLICATIONS: None noted. BIOPSY SENT: Intramedullary reamings of right femoral canal. ORTHOPEDIC IMPLANTS 1. Jaelyn Natural Nail system 5 mm cortical screw x 42.5. 2. Jaelyn Natural Nail CMN femoral nail, 125 degree, 11.5 mm diameter, 36 cm length. 3. Jaelyn Natural Nail lag screw, 10.5 mm x 100 mm length. 4. Jaelyn Natural Nail 5 mm cortical screw, 3.5 mm x 37.5 mm. SPECIAL INSTRUMENTS USED: XGraph device for reaming, irrigating, aspirating and obtaining biopsy, as well as decreasing risk of local spread. HISTORY OF PRESENT ILLNESS AND INDICATIONS: Patient is a 77-year-old gentleman with known metastatic prostate CA. He had a number of days of right thigh pain, is found to have a pathologic right femoral fracture, is indicated for prophylactic right femoral cephalomedullary nailing. Discussed risks, benefits, and alternatives with the patient, as well as the patient's daughter, Marie. I went to good detail regarding risks, benefits, alternatives including potential risks including but not limited to bleeding, wound problems, nerve or blood vessel injury, numbness, tingling, weakness, pain, stiffness, decreased range of motion, decreased function, worsening of condition, iatrogenic injury, blood loss, blood clot, blood clot embolus, positioning complications, anesthetic complications including but not limited to major cardiovascular neurovascular complications or , local or distant spread, increased distribution of disease, need for additional procedures, potential failure of procedure. Patient and patient's daughter verbalized their understanding of the above and verbalized their wish to proceed with operative treatment. Informed consent is given. DESCRIPTION OF PROCEDURE: On 09/03/2018, patient is identified in his hospital room after appropriate preanesthetic evaluation and hospitalist optimization. His right thigh is identified and signed. He is then brought to the operating room. Preoperative antibiotics are given. Patient is placed gently on the operating table. After general anesthesia is administered, then he is placed on a fracture table with head, neck, and extremities positioned safely in anatomically safe positions. This would help avoid peripheral nerve stretch and compression. Patient's contralateral left lower extremity is placed in a maximal safe zone of abduction, internal rotation, and hip flexion on a padded leg rest with SCD boot in place. This is held carefully. Patient's right lower extremity is placed in a well-padded foot rest with no particular traction or reduction maneuver performed. At this time, patient's right thigh all the way down to his knees is prepped first with Hibiclens solution, then ChloraPrep, and prepped and draped in the usual sterile fashion. At this point, surgical pause identifies the right femur as operative site. At this point, a small incision is made just above the greater trochanter, so that a guide pin could be brought to the tip of the trochanter at the junction of the anterior and middle thirds. This guide pin is then driven into the intramedullary aspect of the femur. Incision is extended, and then an entering reamer is used. At this point, a spade-tipped guidewire is placed down to the knee, measured, and then the TESSY device is used for reaming, irrigating and aspirating to decrease the risk of local spread, as well as to obtain an intramedullary biopsy of the reamings, using a suction trap; 13 mm is reamed carefully in a stepwise advance and retract type approach. This is based on preoperative measurements, such that an 11.5 mm nail could be placed. Once the reaming is performed, copious irrigation of the proximal wound and evacuation of this is performed to decrease the risk of bony debris in this area. At this point, the appropriate nail is advanced to the appropriate depth, at which point the additional incision for the head screw is made such that a trocar could be brought up against the lateral aspect of the femur, followed by a guide pin into approximately center-center position in the head, such that the tip apex distance would be less than 25. This is over-reamed, and then a head screw is placed. After this, and after removal of the ball-tipped guidewire, which is prior to placing of the head screw, a locking nut is placed from the top of the nail, at which point the guide is removed. At this point, the hip is abducted and perfect ramona technique is used to place 2 distal locking bolts. Care is taken to avoid over penetration of the second cortex. This is done through small incisions, and once these are placed, appropriate maintenance of fracture position as well as appropriate hardware position, which is extraarticular, is confirmed using fluoroscopic imaging in multiple planes. Final images are taken. The wounds are copiously irrigated and then closed in a layered fashion, distal closed using 2-0 Vicryl and joe; more proximal closed with 0 Vicryl, 2-0 Vicryl, and joe. Skin is washed and dried. Silver-based dressing is applied, and then a Sof-Rol is placed around the knee with Jordi wrap to be removed day #1. Patient tolerated the procedure well. Instrument and sponge counts are correct. Patient is transferred to the recovery room in stable condition. Patient will return to the hospitalist service for close hospitalist management and close orthopedic management. He would be on perioperative antibiotics and perioperative DVT prophylaxis, mechanical and chemical. He would be foot-flat weightbearing with assistance and assistive device regarding right lower extremity. Of note, Dr. Gallegos, the patient's oncologist's office, has also been contacted for input regarding any adjuvant therapy that they would recommend, such as potential radiation in the perioperative period to decrease the risk of spread in the operative area. Patient's family is attempted to be identified after procedure and unavailable. Patient will follow up with postoperative plan as reviewed with the patient and the patient's family preoperatively. TD: 09/05/2018 08:47 RENNY
== END 2018-09-05 12:55 | disposition home or self-care (01) | DRG 477 ==
LOC: ED 14:42 → MS2 17:47 → ED 18:30
PROVIDERS: ADMIT Internal Medicine; ATTEND Family Medicine
PROC: 0QB63ZX Excision of Right Upper Femur, Percutaneous Approach, Diagnostic (ICD-10-PCS; 2018-09-03)
PROC: 0QH606Z Insertion of Intramedullary Internal Fixation Device into Right Upper Femur, Open Approach (ICD-10-PCS; principal; 2018-09-03 09:45)
DX: M84.451A Pathological fracture, right femur, initial encounter for fracture (principal); M84.551A Pathological fracture in neoplastic disease, right femur, initial encounter for fracture; E43 Unspecified severe protein-calorie malnutrition; C79.9 Secondary malignant neoplasm of unspecified site; C61 Malignant neoplasm of prostate; E78.00 Pure hypercholesterolemia, unspecified; I25.10 Atherosclerotic heart disease of native coronary artery without angina pectoris; Z95.1 Presence of aortocoronary bypass graft; N40.1 Benign prostatic hyperplasia with lower urinary tract symptoms; R35.0 Frequency of micturition; Z92.21 Personal history of antineoplastic chemotherapy; H91.90 Unspecified hearing loss, unspecified ear; G89.29 Other chronic pain; M54.9 Dorsalgia, unspecified; H40.9 Unspecified glaucoma; G25.81 Restless legs syndrome; D50.9 Iron deficiency anemia, unspecified; Z68.28 Body mass index [BMI] 28.0-28.9, adult; Z92.3 Personal history of irradiation; E87.6 Hypokalemia
CPT/HCPCS: 36415; 71045; 73552; 78306; 80053; 80069; 81003; 83540; 83690; 83735; 84100; 84466; 85025; 85610; 85730; 86850; 86900; 86901; 93005; 93306; 97116; 97161; 99283; 99284; A9270; J0131; J1650; J3010; J7120; 81001; 87086

== ENCOUNTER 2019-01-20 10:59 | Outpatient (CLI) | payer MEDICARE, OTHER ==
[2019-01-20] MEDS ORDERED: IOVERSOL 320 50 ML VIAL ONE (11:22)
[2019-01-20] MEDS ORDERED: IOVERSOL 320 100 ML VIAL IVP ONE ×2 (11:22→16:17)
[2019-01-20] MEDS ORDERED: IOVERSOL 320 50 ML VIAL PO ONE (16:17)
--- NOTE | 2019-01-21 11:09 | Nuclear Medicine Report ---
Reason: PROSTATE CA Procedure Date: 01/20/2019 Accession Number: [id number] / [id number] Procedure: NM - Bone Whole Body CPT Code: FULL RESULT: EXAM: BONE SCAN EXAM DATE: 01/20/2019 11:02 AM. CLINICAL HISTORY: Prostate CA. COMPARISON: BONE SCAN 09/01/2018 1:00 PM ABDOMEN/PELVIS W/ 01/20/2019 12:27 PM CHEST W/ 01/20/2019 12:27 PM ABDOMEN/PELVIS W/ 08/26/2018 1:22 PM CHEST W/ 08/26/2018 1:22 PM FEMUR 2V RT 09/01/2018 2:00 PM. TECHNIQUE: Following the intravenous administration of 33 mCi of technetium 99m MDP and an appropriate delay, a whole-body scan was performed in anterior and posterior projections. Site-specific spot views of the region of interest were obtained in various projections. FINDINGS: Exam Quality: Normal overall osseous radiotracer uptake. Physiological tracer uptake in bilateral collecting systems. Skull: There is intensely increased uptake in the anterior mandible, similar to prior. Increased uptake in left maxillary sinus region also appears similar to prior. Thorax: Stable small focus of increased uptake in the right anterior sixth rib. Stable tiny focus of increased uptake in the left posterior medial fourth rib. Pelvis: Persistent intensely increased uptake on the left side of the sacrum and in the posterior left iliac bone. No significant change in moderately increased uptake around the right sacroiliac joint. Spine: Persistent scattered foci of increased uptake in the spine, most notably in T12 and L3. Extremities: Persistent focal intensely increased uptake in the midshaft of the right femur. Interval placement of a right femur intramedullary nail with mildly increased uptake around the proximal portion. 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 RADIA
--- NOTE | 2019-01-21 12:18 | CT Report ---
Reason: PROSTATE CA Procedure Date: 01/20/2019 Accession Number: [id number] / [id number] Procedure: CT - CHEST W CPT Code: FULL RESULT: EXAM: CT CHEST EXAM DATE: 01/20/2019 12:35 PM. CLINICAL HISTORY: PROSTATE CA. COMPARISONS: ABDOMEN/PELVIS W/ 08/26/2018 1:22 PM BONE SCAN 01/20/2019 1:56 PM CHEST W/ 08/26/2018 1:22 PM. TECHNIQUE: Routine helical CT imaging was performed through the chest. IV contrast: 120 cc Optiray 320. Reconstructions: Coronal and sagittal. In accordance with CT protocol optimization, one or more of the following dose reduction techniques were utilized for this exam: automated exposure control, adjustment of mA and/or KV based on patient size, or use of iterative reconstructive technique. FINDINGS: Lungs/Pleura: A few 5 mm or smaller nodules are stable, for example series 3 image 34 right upper and lower lobes. No new suspicious nodules are seen. No pleural effusion or pneumothorax. Previously seen tree-in-bud type presumed inflammatory change grossly stable, for example right lung 07/30. Mediastinum: Post CABG. No pathologic adenopathy or masses. Enlarged right and left pulmonary arteries stable to minimally increased. Bones: Widespread blastic metastatic disease as before. IMPRESSION: 1.Stable chest CT compared with 08/26/2018. 2. No significant new findings are noted. 3. 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 4. Prominent right and left main pulmonary arteries stable to minimally increased in size. 5. Stable changes of CABG, a few scattered nonspecific pulmonary nodules measuring under 5 mm, and minimal tree-in-bud inflammatory changes. RADIA
--- NOTE | 2019-01-21 13:05 | CT Report ---
Reason: PROSTATE CA Procedure Date: 01/20/2019 Accession Number: [id number] / [id number] Procedure: CT - Abdomen/Pelvis W CPT Code: FULL RESULT: EXAM: CT ABDOMEN AND PELVIS EXAM DATE: 01/20/2019 12:35 PM. CLINICAL HISTORY: PROSTATE CA. COMPARISONS: ABDOMEN/PELVIS W/ 08/26/2018 1:22 PM ABDOMEN/PELVIS W/ 03/24/2018 10:02 AM. TECHNIQUE: Routine helical CT imaging was performed through the abdomen and pelvis. IV contrast: OPTI 320 100ML. Enteric contrast: No. Reconstructions: Coronal and sagittal. In accordance with CT protocol optimization, one or more of the following dose reduction techniques were utilized for this exam: automated exposure control, adjustment of mA and/or KV based on patient size, or use of iterative reconstructive technique. FINDINGS: Liver: Question new low-attenuation lesions segment 7 measuring 7 mm (07/11, 10/01) and segment 3 measuring 8 mm (07/14, 09/17). Gallbladder/Bile Ducts: Unremarkable. Spleen: Normal. Pancreas: Normal. Adrenal Glands: Stable left adrenal fullness Kidneys: Normal. No masses or hydronephrosis. Peritoneal Cavity/Bowel: No free fluid, free air or adenopathy. No masses or acute inflammatory process. Pelvic Organs: The bladder is unremarkable. Stable prostate. Vasculature: Extensive vascular calcification. No aneurysms. Bones: Extensive blastic metastatic disease to bone similar to previous. Changes of prior ORIF right hip. Other: None. IMPRESSION: Extensive blastic metastatic disease to bone similar to 08/26/2018. Question 2 new sub-centimeter lesions within the liver. Stable left adrenal fullness. No pathologic adenopathy. [facility]
== END 2019-01-20 11:00 | disposition home or self-care (01) ==
LOC: DI 10:59
PROVIDERS: ATTEND Internal Medicine Hematology & Oncology
DX: C61 Malignant neoplasm of prostate (principal); C79.51 Secondary malignant neoplasm of bone; R91.8 Other nonspecific abnormal finding of lung field; Z95.1 Presence of aortocoronary bypass graft; K76.9 Liver disease, unspecified
CPT/HCPCS: 71260; 74177; 78306; Q9967

== ENCOUNTER 2019-02-26 21:50 | Outpatient (CLI) | payer MEDICARE, OTHER | END 2019-02-26 21:51 | disposition critical access hospital (66) | LOC: EMS 21:50 | PROVIDERS: ATTEND Surgery | DX: R55 Syncope and collapse (principal); R53.1 Weakness | CPT/HCPCS: A0425; A0427 ==

== ENCOUNTER 2019-02-26 22:03 | Emergency (ER) | payer MEDICARE, OTHER ==
[2019-02-26 22:34] LABS: BASOPHILS % (AUTO) 0.3 %; EOSINOPHILS # (AUTO) 0.1 10^3/uL (0.0-0.7); EOSINOPHILS % (AUTO) 1.4 %; HGB - HEMOGLOBIN 9.6 g/dL (14.0-18.0); LYMPHOCYTES # (AUTO) 1.1 10^3/uL (1.5-3.5); LYMPHOCYTES % (AUTO) 12.6 %; MEAN CORPUSCULAR HEMOGLOBIN 30.9 pg (27.0-31.0); MEAN CORPUSCULAR HGB CONC 33.1 g/dL (32.0-36.0); MEAN CORPUSCULAR VOLUME 93.2 fL (80.0-94.0); MEAN PLATELET VOLUME 8.9 fL (7.4-11.4); MONOCYTES # (AUTO) 0.9 10^3/uL (0.0-1.0); MONOCYTES % (AUTO) 10.6 %; NEUTROPHILS # (AUTO) 6.5 10^3/uL (1.5-6.6); NEUTROPHILS % (AUTO) 74.5 %; PLT - PLATELET COUNT 183 10^3/uL (130-450); RED BLOOD COUNT 3.11 10^6/uL (4.70-6.10); RED CELL DISTRIBUTION WIDTH 14.3 % (12.0-15.0); WHITE BLOOD COUNT 8.7 x10^3/uL (4.8-10.8)
[2019-02-26 22:49] LABS: ALBUMIN 3.1 g/dL (3.2-5.5); ALBUMIN/GLOBULIN RATIO 1.1 (1.0-2.2); BILIRUBIN,TOTAL 0.4 mg/dL (0.2-1.0); CALCIUM 8.6 mg/dL (8.5-10.3); CREATININE 0.7 mg/dL (0.6-1.2); TOTAL PROTEIN 5.8 g/dL (6.7-8.2)
[2019-02-26] MEDS ORDERED: POTASSIUM CHLORIDE 20 MEQ TABLET PO STA (22:50)
--- NOTE | 2019-02-26 23:35 | CT Report ---
Reason: collapse fall neck pain confusion Procedure Date: 02/26/2019 Accession Number: [id number] / [id number] Procedure: CT - HEAD WO CPT Code: FULL RESULT: EXAM: CT HEAD EXAM DATE: 02/26/2019 11:07 PM. CLINICAL HISTORY: Collapse fall neck pain confusion. COMPARISON: None. TECHNIQUE: Multiaxial CT images were obtained from the foramen magnum to the vertex. Reformats: Sagittal and coronal. IV contrast: None. In accordance with CT protocol optimization, one or more of the following dose reduction techniques were utilized for this exam: automated exposure control, adjustment of mA and/or KV based on patient size, or use of iterative reconstructive technique. FINDINGS: Parenchyma: No intraparenchymal hemorrhage. No evidence of mass, midline shift or CT findings of acute territorial infarction. Cummins-white differentiation is distinct. Extraaxial Spaces: No subdural or epidural collections identified. Ventricles: No hydrocephalus Sinuses: Left maxillary sinus is opacified. Small amount of fluid in the right maxillary sinus. Bones: No evidence of acute fracture or calvarial defect. Other: Left frontal soft tissue hematoma/swelling. IMPRESSION: No acute intracranial abnormalities. Opacification of the left maxillary sinus and air-fluid level in the right maxillary sinus. Correlation as to the presence of sinusitis. [facility]
--- NOTE | 2019-02-26 23:42 | XRAY Report ---
Reason: chest pain Procedure Date: 02/26/2019 Accession Number: [id number] / [id number] Procedure: XR - Chest 1 View X-Ray CPT Code: 67375 FULL RESULT: EXAM: CHEST RADIOGRAPHY EXAM DATE: 02/26/2019 11:19 PM. CLINICAL HISTORY: Chest pain. COMPARISON: CHEST 1 VIEW 09/01/2018 6:06 PM. TECHNIQUE: 1 view. FINDINGS: Lungs/Pleura: No alveolar consolidation or pleural effusion seen. No pneumothorax. Large lung volumes. Mediastinum: Within exam limitations, the cardiomediastinal contour is normal. Other: Status post median sternotomy. IMPRESSION: 1. Large lung volumes. No acute abnormality seen. 2. Median sternotomy. [facility]
--- NOTE | 2019-02-26 23:43 | XRAY Report ---
Reason: pain to upper scapula Procedure Date: 02/26/2019 Accession Number: [id number] / [id number] Procedure: XR - Shoulder 3 View RT CPT Code: FULL RESULT: EXAM: RIGHT SHOULDER RADIOGRAPHY EXAM DATE: 02/26/2019 11:20 PM. CLINICAL HISTORY: Pain to upper scapula. COMPARISON: None. TECHNIQUE: 3 views. FINDINGS: Bones: Irregularity of the acromion on 2 out of the 3 views concerning for fracture. No other fractures identified. Joints: Glenohumeral and acromioclavicular joints congruent. Soft tissues: Calcific focus adjacent to the greater tuberosity of the proximal right humerus which can be seen with calcific tendinosis. IMPRESSION: 1. Irregularity of the acromion on 2 out of the 3 views concerning for fracture. Recommend further evaluation with CT scan of the shoulder to better characterize this finding. 2. No other fractures identified. 3. Calcific focus adjacent to the greater tuberosity of the proximal right humerus which can be seen with calcific tendinosis. [facility]
[2019-02-26] MEDS ORDERED: SODIUM CHLORIDE 0.9% 1,000 ML IV ONE ×2 (23:45)
--- NOTE | 2019-02-27 00:14 | ED Physician Documentation ---
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 He was tended to by his family who notes that earlier in the day he was up making breakfast for the family and feeling quite well. After this fall he is not feeling well and arrives to the emergency department pale and complaining of pain in his right shoulder and elbow. He states that he has developed a cough today and this evening began to feel ill from the cough. The patient does not have a recollection of what happened in the bathroom. He defers history to his daughter. Initially he has complaints only of pain in his right shoulder and denies pain in his neck until this is specifically palpated. Review of Systems Constitutional: reports: Myalgias, Fatigue. denies: Fever Eyes: denies: Decreased vision Ears: denies: Ear pain Nose: denies: Rhinorrhea / runny nose, Congestion Throat: denies: Sore throat Cardiac: denies: Chest pain / pressure, Palpitations Respiratory: reports: Cough. denies: Dyspnea GI: denies: Abdominal Pain, Nausea, Vomiting : denies: Dysuria, Frequency Skin: denies: Rash Musculoskeletal: reports: Neck pain, Joint pain. denies: Back pain Neurologic: reports: Generalized weakness, Numbness, Altered mental status, Head injury, LOC. denies: Focal weakness, Difficulty speaking PD PAST MEDICAL HISTORY - Past Medical History Past Medical History: Yes Cardiovascular: High cholesterol, Coronary artery disease Respiratory: None Neuro: None Endocrine/Autoimmune: None GI: None : Benign prostate hypertrophy, Frequency, Other HEENT: Chronic hearing loss, Other Psych: None Musculoskeletal: Chronic back pain Derm: None - Past Surgical History Past Surgical History: Yes Ortho: Other Cardiovascular: CABG HEENT: Tonsil/Adenoidectomy - Present Medications Home Medications: Ambulatory Orders Medication Instructions Recorded Confirmed Atorvastatin [Lipitor] 40 mg PO QPM 09/03/16 01/27/19 Ropinirole HCl [Requip] 3 mg PO DAILY 09/03/16 01/27/19 oxyCODONE [Roxicodone] 5 mg PO DAILY PRN 12/18/17 01/27/19 Morphine Sulfate [Ms Contin] 15 mg PO BID 05/14/18 01/27/19 Brimonidine Tartrate/Timolol 1 drops LEFTEYE BID 09/01/18 01/27/19 [Combigan 0.2%-0.5% Eye Drops] Prednisolone Acetate/Pf 1 drops RIGHTEYE BID 09/01/18 01/27/19 [Prednisolone Acet 1% Eye Drop] Calcium Carbonate [Tums (Calcium 500 mg PO BID #60 tablet 09/05/18 01/27/19 Carbonate 500mg)] Cholecalciferol (Vitamin D3) 1,000 unit PO DAILY #30 capsule 09/05/18 01/27/19 [Vitamin D3] Ferrous Sulfate 325 mg PO TID #90 tablet 09/05/18 01/27/19 Magnesium Oxide [Mag Ox] 400 mg PO DAILYWM #60 tablet 09/05/18 01/27/19 Metoprolol Succinate [Toprol Xl] 12.5 mg PO BID #30 tablet 09/05/18 01/27/19 Mirtazapine [Remeron] 7.5 mg PO QPM #30 tablet 09/05/18 01/27/19 - Allergies Allergies/Adverse Reactions: Allergies Allergy/AdvReac Type Severity Reaction Status Date / Time No Known Drug Allergies Allergy Verified 02/26/19 22:06 - Social History Does the pt smoke?: No Smoking Status: Never smoker Does the pt drink ETOH?: Yes Does the pt have substance abuse?: No - Immunizations Immunizations are current?: Yes Immunizations: TDAP current <10years - POLST Patient has POLST: No POLST Status: Full Code PD ED PE NORMAL - Vitals Vital signs reviewed: Yes (normal ) - General General: Other (pale appearing male with a vacant stare and flat affect defers to his daughter for history) - HEENT HEENT: Atraumatic, PERRL, EOMI - Neck Neck: Supple, no meningeal sign, Other (There is midline bony point tenderness to the mid cervical spine. ) - Cardiac Cardiac: RRR, No murmur - Respiratory Respiratory: No respiratory distress, Other (diminished breath sounds. ) - Abdomen Abdomen: Soft, Non tender - Back Back: No CVA TTP, No spinal TTP - Derm Derm: Normal color, Warm and dry, No rash - Extremities Extremities: No deformity, No edema - Neuro Neuro: Alert and oriented X 3, balance screwhead polisher 2-12 intact, No motor deficit, Normal speech, Other (The patient is complaining of numbness to his entire body below his neck. ) Eye Opening: Spontaneous Motor: Obeys Commands Verbal: Oriented GCS Score: 15 - Psych Psych: Normal mood, Normal affect Results - Vitals Vitals: Vital Signs - 24 hr 02/26/19 02/26/19 02/27/19 22:06 23:21 00:20 Temperature 36.6 C Heart Rate 62 59 L 53 L Respiratory 16 17 16 Rate Blood Pressure 105/68 94/55 L O2 Saturation 96 100 100 02/27/19 02/27/19 00:24 00:56 Temperature Heart Rate 59 L Respiratory 16 16 Rate Blood Pressure O2 Saturation 100 Oxygen O2 Source Room air - EKG (time done) 2225 Rate: Rate (enter#) (60) Rhythm: NSR Intervals: Prolonged HI, Wide QRS QRS: Low voltage Compare to prior EKG: Changed from prior EKG (SPT 09-01-2018 the lateral T-wave flattening has resolved. ) Computer interpretation: Agree with computer - Labs Labs: Laboratory Tests 02/26/19 02/26/19 02/26/19 22:28 22:28 22:28 WBC 8.7 RBC 3.11 L Hgb 9.6 L Hct 29.0 L MCV 93.2 MCH 30.9 MCHC 33.1 RDW 14.3 Plt Count 183 MPV 8.9 Neut # (Auto) 6.5 Lymph # (Auto) 1.1 L [place] # (Auto) 0.9 Eos # (Auto) 0.1 Baso # (Auto) 0.0 Absolute Nucleated RBC 0.00 Nucleated RBC % 0.0 Sodium 138 Potassium 3.1 L Chloride 109 Carbon Dioxide 22 Anion Gap 7.0 BUN 16 Creatinine 0.7 Estimated GFR (MDRD) 110 Glucose 123 H Lactic Acid 1.3 Calcium 8.6 Total Bilirubin 0.4 AST 16 ALT 14 Alkaline Phosphatase 55 Total Protein 5.8 L Albumin 3.1 L Globulin 2.7 Albumin/Globulin Ratio 1.1 Lipase 40 - Rads (name of study) head CT Radiology: Prelim report reviewed (Impression: No acute intracranial abnormalities. 2 Opacified opacification of the left maxillary sinus and air- fluid levels in the right maxillary sinus. Correlation as to the presence of sinusitis.), EMP read indepedently, See rad report chest Radiology: Prelim report reviewed (Impression: 1. Large lung volumes. No acute abnormality seen. 2. Median sternotomy.), EMP read indepedently, See rad report shoulder Radiology: Prelim report reviewed, EMP read indepedently, See rad report CT cervical spine Radiology: Prelim report reviewed (Impression: 1. Likely unstable acute cervical spine fracture including right C5 C7 posterior tension band disruption. Disruption of the right C5-C6 and right C6-C7 facet joints and fractures involving C6 posterior elements, right C6 inferior facet, and likely posterior C6 vertebral body. Scars2. Displacement of posterior element fractures results in moderate central canal narrowing at the C5-C6 level. 3 Fractures involve right C6 transverse foramen. CT angiogram may be performed to evaluate for vertebral artery injury. 4 Probable nondisplaced fractures involving left superior C6 vertebral body. 5 Possible widening of left C5-C6 disc space may represent anterior ligamentous injury.6. Sclerosis of C4, C5 and C6 vertebral elements concerning for metastatic disease. Sclerosis of mandible with lytic components concerning for chronic osteomyelitis. Anterior wedging of T1 vertebral body (50% height loss anteriorly) may represent remote compression fracture. ), EMP read indepedently, See rad report PD MEDICAL DECISION MAKING - ED course Complexity details: reviewed old records, reviewed results, re-evaluated patient, considered differential, d/w patient, d/w family ED course: 78-year-old male with metastatic prostate cancer with bony metastases and a prior pathologic fracture appears to have fractures of his scapula and cervical spine with some posterior encroachment on the spinal canal and numbness to his entire body And transfer to the trauma center is sought. 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 He is administered decadron and rocephin as well as saline. Departure - Departure Disposition: 02 Transfer Acute Care Hosp Clinical Impression: Prostate cancer Pathologic fracture of cervical vertebra Qualifiers: Encounter type: initial encounter Qualified Code(s): M84.48XA - Pathological fracture, other site, initial encounter for fracture Pathologic fracture of scapula Qualifiers: Encounter type: initial encounter Laterality: right Qualified Code(s): M84.411A - Pathological fracture, right shoulder, initial encounter for fracture Sinusitis Qualifiers: Sinusitis location: maxillary Chronicity: acute Recurrence: not specified as recurrent Qualified Code(s): J01.00 - Acute maxillary sinusitis, unspecified
[2019-02-27] MEDS ORDERED: cefTRIAXone 1 GM in SODIUM CHLORIDE 0.9% MINIBAG 100 ML IV STA (00:28)
[2019-02-27] MEDS ORDERED: DEXAMETHASONE 10 MG/ML VIAL IVP STA (00:28)
--- NOTE | 2019-02-27 00:31 | CT Report ---
Reason: fall neck pain Procedure Date: 02/26/2019 Accession Number: [id number] / [id number] Procedure: CT - CERVICAL SPINE WO CPT Code: FULL RESULT: EXAM: CT CERVICAL SPINE WITHOUT CONTRAST DATE: 02/26/2019 11:07 PM. HISTORY: Fall neck pain, history of prostate cancer with bony metastatic disease. COMPARISONS: BONE SCAN 01/20/2019 1:56 PM. TECHNIQUE: Thin-section axial images were acquired of the cervical spine without contrast. Post-processing: Coronal and sagittal reformats. Other: None. In accordance with CT protocol optimization, one or more of the following dose reduction techniques were utilized for this exam: automated exposure control, adjustment of mA and/or KV based on patient size, or use of iterative reconstructive technique. FINDINGS: Bones: There is sclerosis of the C4, C5, and C6 vertebral bodies. There is sclerosis of right C4 and C5 articular masses. There is sclerosis of anterior mandible with destructive changes in the mental region. Interspace Levels/Facets: There is widening of right C5-C6 facet. There is anterior displacement of right C6 facet on C7. There is a fracture of the C6 spinous process, right lamina, and right facet. There is bone fragment adjacent to posterior aspect of C6 vertebral body. AOspine cervical spine classification system type B2. Fracture lines extend through right C6 transverse process. Probable nondisplaced fractures involving left superior C6 vertebral body (series 7, image 36). Fragments related to C6 posterior element fractures result in moderate central canal narrowing at the C5-C6 level. Fractures result in moderate right C5-C6 neural foraminal narrowing. There is moderate left C2-C3 facet hypertrophy with mild left neural foraminal narrowing. Other disk levels are unremarkable. Other: The paravertebral and prevertebral soft tissues are unremarkable. The lung apices are clear. IMPRESSION: 1. Likely unstable acute cervical spine fractures including right C5-C7 posterior tension band disruption. Disruption of right C5-C6 and right C6-C7 facet joints and fractures involving C6 posterior elements, right C6 inferior facet, and likely posterior C6 vertebral body. Scars 2. Displacement of posterior element fractures results in moderate central canal narrowing at the C5-C6 level. 3. Fractures involve right C6 transverse foramen. CT angiogram may be performed to evaluate for vertebral artery injury. 4. Probable nondisplaced fractures involving left superior C6 vertebral body. 5. Possible widening of left C5-C6 disk space may represent anterior ligamentous injury. 6. Sclerosis of C4, C5, and C6 vertebral elements concerning for metastatic disease. 7. Sclerosis of mandible with lytic components concerning for chronic osteomyelitis. 8. An anterior wedging of T1 vertebral body (15% height loss anteriorly) may represent remote compression fracture. [facility] The call report notification system was initiated by Dr. Riccardo Medina at 12:05 AM on 02/27/2019. The above call report findings were discussed with Dr. Hernandez by Dr. Riccardo Medina at 12:09 AM on 02/27/2019.
[2019-02-27] MEDS ORDERED: ONDANSETRON 4 MG/2 ML VIAL IVP STA (00:41)
[2019-02-27] MEDS ORDERED: ONDANSETRON 4 MG/2 ML VIAL ONE (00:54)
[2019-02-27 02:04] VITALS: BP 93/58
[2019-02-27] MEDS ORDERED: KETOROLAC 30 MG/ML VIAL IVP STA (02:26)
== END 2019-02-27 02:55 | disposition short-term general hospital (02) ==
LOC: EDUNIT# → ED 22:03
DX: M84.58XA Pathological fracture in neoplastic disease, other specified site, initial encounter for fracture (principal); M84.511A Pathological fracture in neoplastic disease, right shoulder, initial encounter for fracture; J01.00 Acute maxillary sinusitis, unspecified; R20.0 Anesthesia of skin; M87.180 Osteonecrosis due to drugs, jaw; T50.995A Adverse effect of other drugs, medicaments and biological substances, initial encounter; W18.30XA Fall on same level, unspecified, initial encounter; Y92.002 Bathroom of unspecified non-institutional (private) residence as the place of occurrence of the external cause; L08.9 Local infection of the skin and subcutaneous tissue, unspecified; L98.8 Other specified disorders of the skin and subcutaneous tissue; C61 Malignant neoplasm of prostate; C79.51 Secondary malignant neoplasm of bone; Z19.2 Hormone resistant malignancy status; Z95.1 Presence of aortocoronary bypass graft; Z79.891 Long term (current) use of opiate analgesic
CPT/HCPCS: 36415; 70450; 71045; 72125; 73030; 80053; 83605; 83690; 85025; 87040; 93005; 96365; 96375; 99285; A9270

== ENCOUNTER 2019-07-31 14:38 | Outpatient (CLI) | payer MEDICARE, OTHER | END 2019-07-31 14:39 | disposition critical access hospital (66) | LOC: EMS 14:38 | PROVIDERS: ATTEND Surgery | DX: R50.9 Fever, unspecified (principal); R05 Cough; R31.9 Hematuria, unspecified | CPT/HCPCS: A0425; A0429 ==

== ENCOUNTER 2019-07-31 14:56 | Inpatient (IN) | payer MEDICARE, OTHER ==
[2019-07-31] MEDS ORDERED: ONDANSETRON 4 MG/2 ML VIAL IVP STA (15:18)
[2019-07-31] MEDS ORDERED: SODIUM CHLORIDE 0.9% 1,000 ML IV ONE ×2 (15:18→16:31)
[2019-07-31 15:33] LABS: BASOPHILS % (AUTO) 0.4 %; EOSINOPHILS % (AUTO) 0.8 %; HGB - HEMOGLOBIN 7.3 g/dL (14.0-18.0); MEAN CORPUSCULAR HEMOGLOBIN 29.8 pg (27.0-31.0); MEAN CORPUSCULAR HGB CONC 31.9 g/dL (32.0-36.0); MEAN CORPUSCULAR VOLUME 93.5 fL (80.0-94.0); MEAN PLATELET VOLUME 8.9 fL (7.4-11.4); MONOCYTES % (AUTO) 21.8 %; NEUTROPHILS % (AUTO) 45.1 %; PLT - PLATELET COUNT 113 10^3/uL (130-450); RED BLOOD COUNT 2.45 10^6/uL (4.70-6.10); RED CELL DISTRIBUTION WIDTH 18.9 % (12.0-15.0)
[2019-07-31 15:35] LABS: ABNORMAL LYMPHS % (MANUAL) 0 %
[2019-07-31 15:44] LABS: ALBUMIN 3.6 g/dL (3.2-5.5); ALBUMIN/GLOBULIN RATIO 1.3 (1.0-2.2); BILIRUBIN,TOTAL 0.4 mg/dL (0.2-1.0); CALCIUM 9.3 mg/dL (8.5-10.3); CREATININE 0.6 mg/dL (0.6-1.2); MAGNESIUM 2.3 mg/dL (1.7-2.8); TOTAL PROTEIN 6.4 g/dL (6.7-8.2)
[2019-07-31 15:49] LABS: BAND NEUTROPHILS % (MANUAL) 20 %; DIFFERENTIAL COMMENT MANUAL DIFFERENTIAL; LYMPHOCYTES # (MANUAL) 1.1 10^3/uL (1.5-3.5); LYMPHOCYTES % (MANUAL) 21 %; MONOCYTES # (MANUAL) 1.1 10^3/uL (0.0-1.0); MYELOCYTES % (MANUAL) 1 %; PLATELET ESTIMATE, MANUAL DECREASED (<130,000) (NORMAL); PLATELET MORPHOLOGY NORMAL APPEARANCE (NORMAL)
[2019-07-31 16:03] LABS: GLUCOSE, URINE (UA) NEGATIVE (NEGATIVE); KETONES,URINE (UA) NEGATIVE (NEGATIVE); LEUKOCYTE ESTERASE, URINE TRACE (NEGATIVE); NITRITE,URINE NEGATIVE (NEGATIVE); OCCULT BLOOD,URINE LARGE (NEGATIVE); PROTEIN,URINE 30 mg/dL (NEGATIVE); UROBILINOGEN,URINE 0.2 (NORMAL) E.U./dL (NORMAL)
[2019-07-31 16:07] LABS: BILIRUBIN,URINE NEGATIVE (NEGATIVE); CLARITY,URINE CLOUDY (CLEAR); ICTOTEST,URINE NEGATIVE
[2019-07-31 16:14] LABS: AMORPHOUS SEDIMENT,UR Few /LPF; BACTERIA,URINE Many /HPF (None Seen); RBC,URINE TNTC /HPF (0-5); SQUAMOUS EPITHELIAL CELL,UR NONE SEEN (<= Few)
--- NOTE | 2019-07-31 16:28 | XRAY Report ---
Reason: chest pain Procedure Date: 07/31/2019 Accession Number: [id number] / [id number] Procedure: XR - Chest 1 View X-Ray CPT Code: 51976 Final Report FULL RESULT: EXAM: CHEST RADIOGRAPHY EXAM DATE: 07/31/2019 03:38 PM. CLINICAL HISTORY: Chest pain. COMPARISON: CHEST 1 VIEW 02/26/2019 11:03 PM. TECHNIQUE: 1 view. FINDINGS: Lungs/Pleura: There is new vascular prominence/congestion and increased interstitial markings. Focal right basilar and probable right infrahilar infiltrate or atelectasis. No pleural effusion. No pneumothorax. Mediastinum: Normal heart size. Changes of median sternotomy redemonstrated. Other: Partial demonstration of lower cervical spine surgical fusion. IMPRESSION: 1. Increased vascular prominence/congestion and increased interstitial markings. 2. Mild focal opacities within the right lower lung could represent atelectasis or infiltrate, pneumonia not excluded. [facility]
[2019-07-31] MEDS ORDERED: FAMOTIDINE 20 MG/2 ML VIAL IVP STA (16:31)
[2019-07-31 16:39] LABS: % IRON SATURATION 9 % (20-50); IRON 26 ug/dL (45-182); TOTAL IRON BINDING CAPACITY 294 ug/dL (250-450); TRANSFERRIN 210 mg/dL (180-329)
[2019-07-31] MEDS ORDERED: AZITHROMYCIN INJ 500 MG in SODIUM CHLORIDE 0.9% 250 ML IV STA (16:49)
[2019-07-31] MEDS ORDERED: cefTRIAXone 1 GM VIAL IVP STA (16:49)
[2019-07-31] MEDS ORDERED: cefTRIAXone 250 MG VIAL ONE (17:01)
--- NOTE | 2019-07-31 17:08 | ED Physician Documentation ---
PD HPI URI - Stated complaint Stated Complaint: COUGH - Chief complaint Chief Complaint: Resp - History obtained from History obtained from: Patient - History of Present Illness Timing - onset: How many days ago (5-6) Timing duration: Days (5-6) Timing details: Gradual onset, Still present (He has had a cough with some fevers and general malaise and poor appetite for 5 or 6 days. This is worsening slowly. He has had increased weakness. He had nausea and vomiting today without diarrhea. He denied any melena. 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 He has good home support with family and a visiting nurse and home health but was referred to the ER for hypoxic and low blood pressure. Blood pressure reportedly 80s at home but it was 90s systolic on arrival here.) Review of Systems Constitutional: reports: Fever, Chills, Myalgias, Fatigue (feeling very tired ri ght now; had not slept well.) Nose: reports: Congestion. denies: Rhinorrhea / runny nose Throat: denies: Sore throat Respiratory: reports: Cough GI: reports: Nausea, Vomiting (today) : reports: Other (indwelling burns.). denies: Dysuria Skin: denies: Rash, Lesions Musculoskeletal: reports: Back pain (chronic from thoracic fracture years ago). denies: Neck pain, Extremity swelling Neurologic: reports: Focal weakness (chronic right arm and leg.), Altered mental status (somnolent) Psychiatric: denies: Depressed Endocrine: reports: Weight loss, Easy bruising / bleeding Immunocompromised: denies: Chemotherapy PD PAST MEDICAL HISTORY - Past Medical History Cardiovascular: High cholesterol, Coronary artery disease, Other (no CHF; had stents/CABG years ago.) Respiratory: None Neuro: None Endocrine/Autoimmune: None GI: None : Benign prostate hypertrophy, Frequency, Other HEENT: Chronic hearing loss, Other Psych: None Musculoskeletal: Paraplegia, Chronic back pain Derm: None - Past Surgical History Past Surgical History: Yes Ortho: Other Cardiovascular: CABG HEENT: Tonsil/Adenoidectomy - Present Medications Home Medications: Ambulatory Orders Medication Instructions Recorded Confirmed Atorvastatin [Lipitor] 40 mg PO QPM 09/03/16 01/27/19 Ropinirole HCl [Requip] 3 mg PO DAILY 09/03/16 01/27/19 Brimonidine Tartrate/Timolol 1 drops LEFTEYE BID 09/01/18 01/27/19 [Combigan 0.2%-0.5% Eye Drops] Calcium Carbonate [Tums (Calcium 500 mg PO BID #60 tablet 09/05/18 01/27/19 Carbonate 500mg)] Cholecalciferol (Vitamin D3) 1,000 unit PO DAILY #30 capsule 09/05/18 01/27/19 [Vitamin D3] Mirtazapine [Remeron] 7.5 mg PO QPM #30 tablet 09/05/18 01/27/19 Aspirin 07/31/19 Baclofen 10 mg PO 07/31/19 Gabapentin 300 mg PO 07/31/19 - Allergies Allergies/Adverse Reactions: Allergies Allergy/AdvReac Type Severity Reaction Status Date / Time No Known Drug Allergies Allergy Verified 07/31/19 15:33 - Social History Does the pt smoke?: No Smoking Status: Never smoker Does the pt drink ETOH?: Yes Does the pt have substance abuse?: No - Family History Family history: denies: CAD, Sudden - Immunizations Immunizations are current?: Yes Immunizations: TDAP current <10years - POLST Patient has POLST: No POLST Status: Full Code PD ED PE NORMAL - Vitals Vital signs reviewed: Yes - General General: Alert and oriented X 3, Well developed/nourished - HEENT HEENT: Ears normal, Moist mucous membranes, Pharynx benign - Neck Neck: Supple, no meningeal sign, No adenopathy - Cardiac Cardiac: RRR, No murmur, No rub - Respiratory Respiratory: No respiratory distress. No: Clear bilaterally (He has congested sounds with coarse breath sounds in the right midlung and lower lung houser. There is some expiratory wheezing noted diffusely but a little bit more on the right. No work of breathing and no retractions.) - Abdomen Abdomen: Soft, Non tender - Rectal Rectal: Other (Brown to slightly cain stool in the vault and its does not appear melanotic. Guaiac test is obtained.) - Back Back: No CVA TTP - Derm Derm: Normal color, Warm and dry - Extremities Extremities: No edema, No calf tenderness / cord - Neuro Neuro: Other (Right arm weakness and contraction in a flexed position. Slight edema in the hand. The right leg also has some flexion and weakness consistent with his prior hemiplegia. The left arm and leg have good range of motion. There is no edema noted in the legs and no calf tenderness.) Eye Opening: Spontaneous Motor: Obeys Commands Verbal: Oriented GCS Score: 15 Results - Vitals Vitals: Vital Signs - 24 hr 07/31/19 07/31/19 07/31/19 15:00 15:32 16:02 Temperature 37.1 C Heart Rate 86 88 82 Respiratory 16 15 17 Rate Blood Pressure 94/44 L 97/48 L 96/66 O2 Saturation 92 94 99 07/31/19 07/31/19 07/31/19 16:09 16:55 16:56 Temperature Heart Rate 88 Respiratory 15 Rate Blood Pressure 95/47 L O2 Saturation 88 L 75 L 94 07/31/19 17:00 Temperature Heart Rate 86 Respiratory 14 Rate Blood Pressure 104/55 L O2 Saturation 94 Oxygen O2 Source Nasal cannula - EKG (time done) 15:38 Rate: Rate (enter#) (85) Rhythm: NSR [place]: Normal Intervals: Normal MT QRS: Normal Ischemia: Normal ST segments. No: ST elevation c/w ischemia, ST depression - Labs Labs: Microbiology 07/31/19 15:50 Occult Blood - Final Stool Laboratory Tests 07/31/19 07/31/19 07/31/19 14:10 14:10 14:10 WBC 5.0 RBC 2.45 L Hgb 7.3 L Hct 22.9 L MCV 93.5 MCH 29.8 MCHC 31.9 L RDW 18.9 H Plt Count 113 L MPV 8.9 Neut # (Auto) Not Reportable Lymph # (Auto) Not Reportable [place] # (Auto) Not Reportable Eos # (Auto) Not Reportable Baso # (Auto) Not Reportable Absolute Nucleated RBC Not Reportable Total Counted 100 Band Neuts % (Manual) 20 H Abnorm Lymph % (Manual) 0 Myelocytes % 1 H Nucleated RBC % Not Reportable Neutrophils # (Manual) 2.9 Lymphocytes # (Manual) 1.1 L Monocytes # (Manual) 1.1 H Eosinophils # (Manual) 0.0 Basophils # (Manual) 0.0 Nucleated RBCs 6 Differential Comment MANUAL DIFFERENTIAL Manual Slide Review Indicated WBC Morphology NORMAL APPEARANCE Platelet Estimate DECREASED (<130,000) Platelet Morphology NORMAL APPEARANCE RBC Morph Micro Appear 1+ POLYCHROMASIA Sodium 135 Potassium 4.0 Chloride 101 Carbon Dioxide 22 Anion Gap 12.0 BUN 23 H Creatinine 0.6 Estimated GFR (MDRD) 131 Glucose 115 H Lactic Acid Calcium 9.3 Magnesium 2.3 Iron TIBC % Saturation Transferrin Total Bilirubin 0.4 AST 41 ALT 37 Alkaline Phosphatase 115 B-Natriuretic Peptide 163 H Total Protein 6.4 L Albumin 3.6 Globulin 2.8 Albumin/Globulin Ratio 1.3 Lipase 32 Urine Color Urine Clarity Urine pH Ur Specific [place] Urine Protein Urine Glucose (UA) Urine Ketones Urine Occult Blood Urine Nitrite Urine Bilirubin Urine Urobilinogen Ur Leukocyte Esterase Urine RBC Urine WBC Ur Squamous Epith Cells Amorphous Sediment Urine Bacteria Ur Microscopic Review Urine Culture Comments Influenza A (Rapid) Influenza B (Rapid) 07/31/19 07/31/19 07/31/19 14:10 14:10 15:20 WBC RBC Hgb Hct MCV MCH MCHC RDW Plt Count MPV Neut # (Auto) Lymph # (Auto) [place] # (Auto) Eos # (Auto) Baso # (Auto) Absolute Nucleated RBC Total Counted Band Neuts % (Manual) Abnorm Lymph % (Manual) Myelocytes % Nucleated RBC % Neutrophils # (Manual) Lymphocytes # (Manual) Monocytes # (Manual) Eosinophils # (Manual) Basophils # (Manual) Nucleated RBCs Differential Comment Manual Slide Review WBC Morphology Platelet Estimate Platelet Morphology RBC Morph Micro Appear Sodium Potassium Chloride Carbon Dioxide Anion Gap BUN Creatinine Estimated GFR (MDRD) Glucose Lactic Acid 2.5 H Calcium Magnesium Iron 26 L TIBC 294 % Saturation 9 L Transferrin 210 Total Bilirubin AST ALT Alkaline Phosphatase B-Natriuretic Peptide Total Protein Albumin Globulin Albumin/Globulin Ratio Lipase Urine Color DARK YELLOW Urine Clarity CLOUDY Urine pH 8.0 H Ur Specific [place] 1.015 Urine Protein 30 H Urine Glucose (UA) NEGATIVE Urine Ketones NEGATIVE Urine Occult Blood LARGE H Urine Nitrite NEGATIVE Urine Bilirubin NEGATIVE Urine Urobilinogen 0.2 (NORMAL) Ur Leukocyte Esterase TRACE H Urine RBC TNTC H Urine WBC 6-10 H Ur Squamous Epith Cells NONE SEEN Amorphous Sediment Few Urine Bacteria Many H Ur Microscopic Review INDICATED Urine Culture Comments INDICATED Influenza A (Rapid) Influenza B (Rapid) 07/31/19 15:38 WBC RBC Hgb Hct MCV MCH MCHC RDW Plt Count MPV Neut # (Auto) Lymph # (Auto) [place] # (Auto) Eos # (Auto) Baso # (Auto) Absolute Nucleated RBC Total Counted Band Neuts % (Manual) Abnorm Lymph % (Manual) Myelocytes % Nucleated RBC % Neutrophils # (Manual) Lymphocytes # (Manual) Monocytes # (Manual) Eosinophils # (Manual) Basophils # (Manual) Nucleated RBCs Differential Comment Manual Slide Review WBC Morphology Platelet Estimate Platelet Morphology RBC Morph Micro Appear Sodium Potassium Chloride Carbon Dioxide Anion Gap BUN Creatinine Estimated GFR (MDRD) Glucose Lactic Acid Calcium Magnesium Iron TIBC % Saturation Transferrin Total Bilirubin AST ALT Alkaline Phosphatase B-Natriuretic Peptide Total Protein Albumin Globulin Albumin/Globulin Ratio Lipase Urine Color Urine Clarity Urine pH Ur Specific [place] Urine Protein Urine Glucose (UA) Urine Ketones Urine Occult Blood Urine Nitrite Urine Bilirubin Urine Urobilinogen Ur Leukocyte Esterase Urine RBC Urine WBC Ur Squamous Epith Cells Amorphous Sediment Urine Bacteria Ur Microscopic Review Urine Culture Comments Influenza A (Rapid) Negative Influenza B (Rapid) Negative - Rads (name of study) chest xray Radiology: Prelim report reviewed (Prior scarring in the right lower lobe, when compared to prior ones. However there is new infiltrate appearing in the right lower lobe. No diffuse changes.), EMP read contemporaneously, See rad report PD MEDICAL DECISION MAKING - ED course Complexity details: re-evaluated patient (Desaturates into the 86 to 88% range without oxygen. Went as low as upper 70s transiently but may have been poor [place]. He does seem to need extra oxygen though he states at home his oxygen level is not typically very high anyway in the low 90s. He is hypotensive as well. He does sound sick with the apparent pneumonia. This could be bacterial or viral so will cover with antibiotics as well. He had been vomiting and likely under hydrated but at least his creatinine is good. He is quite anemic with guaiac negative stool. Given the current respiratory difficulties, would likely benefit from having a higher hemoglobin around 9 rather than 7 but I will defer that to the hospitalist. At this point he seems sick in many ways and needs further care that cannot be provided at home.), considered differential, d/w patient, d/w independent marketing consultant (Hospitalist) Departure - Departure Disposition: 66 [facility] DC/Xfer Clinical Impression: Hypoxemia, Transient hypotension, Severe anemia Pneumonia Qualifiers: Pneumonia type: due to unspecified organism Laterality: right Lung location: lower lobe of lung Qualified Code(s): J18.9 - Pneumonia, unspecified organism Nausea and vomiting Qualifiers: Vomiting type: unspecified Vomiting Intractability: non-intractable Qualified Code(s): R11.2 - Nausea with vomiting, unspecified Condition: Stable Record reviewed to determine appropriate education?: Yes
[2019-07-31] MEDS ORDERED: SODIUM CHLORIDE 0.9% 250 ML IV ONE (17:11)
[2019-07-31] MEDS ORDERED: ONDANSETRON 4 MG/2 ML VIAL IVP PRN (17:32)
--- NOTE | 2019-07-31 17:56 | HISTORY & PHYSICAL EXAMINATION ---
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 Pt has had a cough for a couple weeks, last night he developed a fever. He has a caregiver who has exposure to COVID-unsure of exact contact. Caregiver's Covid 19 test is pending and not confirmed. He has increased weakness. pt report He had nausea and vomiting today without diarrhea and denied any melena or blood stool. He was reported to have lower BP 80 at home. pt has been on wheelchair and bedbound due to prior hemiplegia from a thoracic fracture. CXR reveals increased vascular prominence/congestion and increased interstitial markings, mild focal opacities within the right lower lung could represent atelectasis or infiltrate. Pt's HGB is 7.3 today. pt had 9.6 on 02/2019. pt's occult blood test is negative today. Pt denies vomiting or cough of blood. pt denies chest pain, abdominal pain. pt is afebrile, BP initial was 94/44 with 92% sat on room air. UA indicate UTI. ER ordered Covid 19 test and is pending. pt was admitted in medical floor now for further evaluation and treatment. discussed the care goal with pt, pt request full code for his code status History - Past Medical History Cardiovascular: reports: High cholesterol, Coronary artery disease, Other (no CH F; had stents/CABG years ago.) Respiratory: reports: None Neuro: reports: None Endocrine/Autoimmune: reports: None GI: reports: None : reports: Benign prostate hypertrophy, Frequency, Other HEENT: reports: Chronic hearing loss, Other Psych: reports: None Musculoskeletal: reports: Paraplegia, Chronic back pain Derm: reports: None MRSA Hx?: No - Past Surgical History Ortho: reports: Other Cardiovascular: reports: CABG HEENT: reports: Tonsil/Adenoidectomy - Family & Social History Family History: Mother: , Father: , Cancer, Brother: , Cancer, Other family: Hyperlipidemia, Hypertension Family History Comment/Other: pt report his father and brothe both from cancer, he did not know much about his mother condition. Social History Notes: he denies cigarette smoking, alcohol and drug problem - Substance History Use: Uses substance without health or social issues: NONE - POLST Patient has POLST: No POLST Status: Full Code Meds/Allgy - Home Medications Home Medications: Ambulatory Orders Medication Instructions Recorded Confirmed Atorvastatin [Lipitor] 40 mg PO QPM 09/03/16 01/27/19 Ropinirole HCl [Requip] 3 mg PO DAILY 09/03/16 01/27/19 Brimonidine Tartrate/Timolol 1 drops LEFTEYE BID 09/01/18 01/27/19 [Combigan 0.2%-0.5% Eye Drops] Calcium Carbonate [Tums (Calcium 500 mg PO BID #60 tablet 09/05/18 01/27/19 Carbonate 500mg)] Cholecalciferol (Vitamin D3) 1,000 unit PO DAILY #30 capsule 09/05/18 01/27/19 [Vitamin D3] Mirtazapine [Remeron] 7.5 mg PO QPM #30 tablet 09/05/18 01/27/19 Aspirin 07/31/19 Baclofen 10 mg PO 07/31/19 Gabapentin 300 mg PO 07/31/19 - Allergies Allergies/Adverse Reactions: Allergies Allergy/AdvReac Type Severity Reaction Status Date / Time No Known Drug Allergies Allergy Verified 07/31/19 15:33 Review of Systems - Constitutional Constitutional: reports: Fatigue, Fever, Chills, Malaise. denies: Weakness, Poor appetite, Diaphoresis, Night sweats - Eyes Eyes: denies: Pain, Blurred vision, Spots in vision, Field loss, Vision loss, Dipolpia - Ears, Nose & Throat Ears, Nose & Throat: denies: Ear pain, Vertigo, Nasal discharge, Nosebleeds, Nasal obstruction, Mouth lesions, Bleeding gums - Cardiovascular Cariovascular: reports: Exertional dyspnea, Decr. exercise tolerance. denies: Irregular heart rate, Palpitations, Chest pain, Edema, Lightheadedness, Syncope - Respiratory Respiratory: reports: Cough, SOB with exertion. denies: Sputum production, Wheezing, Snoring, Hemoptysis, Orthopnea, SOB at rest - Gastrointestinal Gastrointestinal: reports: Nausea, Vomiting. denies: Abdominal pain, Abdominal distention, Constipation, Diarrhea, Change in bowel habits, Rectal bleeding, Black stools, Bloody stools, Bile emesis, Dale blood emesis, Coffee grounds emesis, Reflux/heartburn - Genitourinary Genitourinary: denies: Dysuria - Musculoskeletal Musculoskeletal: denies: Muscle pain, Muscle aches - Integumentary Integumentary: denies: Rash, Lesions, Lumps - Neurological Neurological: denies: General weakness, Focal weakness, Headache, Dizziness, Numbness, Pre-existing deficit, Seizures, Incoordination, Slurred speech - Psychiatric Psychiatric: denies: Depression, Suicidal, Delusions, Hallucinations, Homicidal - Endocrine Endocrine: denies: Polyuria - Hematologic/Lymphatic Hematologic/Lymphatic: reports: Anemia. denies: Petechiae, Blood clots Exam - Vital Signs Vital Signs: Vital Signs x48h Temp Pulse Resp BP Pulse Ox 07/31/19 17:00 86 14 104/55 L 94 07/31/19 16:56 88 15 95/47 L 94 07/31/19 16:55 75 L 07/31/19 16:09 88 L 07/31/19 16:02 82 17 96/66 99 07/31/19 15:32 88 15 97/48 L 94 07/31/19 15:00 37.1 C 86 16 94/44 L 92 - Physical Exam General Appearance: positive: No acute distress, Alert. negative: Lethargic Eyes Bilateral: positive: Normal inspection, PERRL, No lid inflammation ENT: positive: ENT inspection nml, Pharynx nml, No signs of dehydration. negative: Purulent nasal drainage Neck: positive: Nml inspection, Thyroid nml, No JVD, Trachea midline. negative: Thyromegaly, Lymphadenopathy (R), Lymphadenopathy (L), Stiff neck, Tracheal deviation Respiratory: positive: Chest non-tender, Rhonchi. negative: No respiratory distress, Breath sounds nml, Wheezes, Rales Cardiovascular: positive: Regular rate & rhythm, No murmur, No gallop. negative : Irregularly irregular, Extrasystoles, Tachycardia, Bradycardia, Systolic murmur, Diastolic murmur Peripheral Pulses: positive: 2+ Abdomen: positive: Non-tender, No organomegaly, Nml bowel sounds, No distention. negative: Tenderness, Guarding, Rebound Back: positive: Nml inspection Skin: positive: Color nml, No rash, Warm, Dry. negative: Cyanosis, Diaphoresis, Pallor Extremities: positive: Non-tender. negative: Calf tenderness, Keely's sign/cords Neurologic/Psychiatric: positive: Oriented x3. negative: Weakness, Sensory loss, Facial droop, Slurred/abnml speech Conclusion/Plan - Problem List (1) Pneumonia Conclusion/Plan: pt report he had fever at home, pt present cough, CXR reveals right lower infiltrate. ER order Covid 19, will followup. Because it is unilateral right lower infiltrate, consult bacterial infection as well. pt was treated with Azithromycin and Rocephin in ER, we will continue to use. Blood culture is ordered. Gently IVF, supplement of O2 as needed Qualifiers: Pneumonia type: due to unspecified organism Laterality: right Lung location: lower lobe of lung Qualified Code(s): J18.9 - Pneumonia, unspecified organism (2) Respiratory failure with hypoxia Conclusion/Plan: pt present 75% in room air in the initial ER admission. Pt has pneumonia, severe anemia, Covid 19 test result is pending. pt also present continue antibiotics, supplement of O2 as needed order ECHO, pt also present pulmonary congestion (3) UTI (urinary tract infection) Conclusion/Plan: UA reveals UTI, pt is treated with Rocephi, UA culture is pending now. (4) Nausea and vomiting Conclusion/Plan: intractable nasuea and vomiting, it may be caused by gastritis, current infection or metastatic prostate cancer. plan: IVF, anti-emetics, lab monitor Qualifiers: Vomiting type: unspecified Vomiting Intractability: non-intractable Qualified Code(s): R11.2 - Nausea with vomiting, unspecified (5) Prostate cancer metastatic to bone Conclusion/Plan: pt has hx of Prostate cancer metastatic to bone, and followup by Dr. Escobar. advise pt continue followup, will resume home meds after confirmed by pharmacy (6) Severe anemia Conclusion/Plan: pt's HGB is 7.3 now, but pt's occult test is negative. Iron study reveal iron deficiency. pt also denies vomiting of blood plan: order iron pill, H&H monitor. (7) Hx of coronary artery disease Conclusion/Plan: stable, pt denies chest pain. pt has hx of CAD, will resume home meds, continue Tele monitor - Lab Results Fish Bones: 07/31/19 14:10 07/31/19 14:10 Core Measures - Anticipated LOS I expect patient to be DC'd or transferred within 96 hours.: Yes - Stroke - Rehab Assessment Rehab services assessment to be ordered?: Yes - AMI - Statin at Admit Aspirin Prescribed on Admit: Yes
[2019-07-31 18:31] LABS: ABG BASE EXCESS -2.2 mmol/L (-2.0-3.0); ABG HCO3 22.2 mmol/L (22.0-26.0); ABG OXYGEN SATURATION 92 % (94-98); ABG PCO2 36 mmHg (34-45); ABG PH 7.41 (7.35-7.45); ABG PO2 66 mmHg (80-100); ABG TCO2 23.3 MMOL/L (21.0-29.0); ALLEN TEST POSITIVE
[2019-07-31] MEDS ORDERED: SODIUM CHLORIDE 0.9% 1,000 ML IV SCH (23:45)
[2019-08-01 01:28] LABS: HGB - HEMOGLOBIN 7.2 g/dL (14.0-18.0)
[2019-08-01] MEDS: SODIUM CHLORIDE 0.9% 1,000 ML IV SCH ×2 (01:37→17:49)
[2019-08-01] MEDS: SODIUM CHLORIDE FLUSH 0.9% 10 ML SYRINGE IVP SCH ×3 (01:45→16:41)
[2019-08-01] MEDS: ACETAMINOPHEN 325 MG TABLET PO PRN ×3 (02:09→19:39)
[2019-08-01 06:34] LABS: BASOPHILS % (AUTO) 0.4 %; EOSINOPHILS % (AUTO) 0.5 %; LYMPHOCYTES % (AUTO) 23.4 %; MEAN CORPUSCULAR HEMOGLOBIN 28.5 pg (27.0-31.0); MEAN CORPUSCULAR HGB CONC 29.8 g/dL (32.0-36.0); MEAN CORPUSCULAR VOLUME 95.5 fL (80.0-94.0); MEAN PLATELET VOLUME 9.2 fL (7.4-11.4); MONOCYTES % (AUTO) 15.9 %; NEUTROPHILS % (AUTO) 52.6 %; PLT - PLATELET COUNT 105 10^3/uL (130-450); RED BLOOD COUNT 2.46 10^6/uL (4.70-6.10); WHITE BLOOD COUNT 5.6 x10^3/uL (4.8-10.8)
[2019-08-01 06:38] LABS: CALCIUM 8.5 mg/dL (8.5-10.3); CREATININE 0.6 mg/dL (0.6-1.2)
[2019-08-01] MEDS: SODIUM CHLORIDE FLUSH 0.9% 10 ML SYRINGE IVP PRN (07:00)
[2019-08-01] MEDS: PANTOPRAZOLE 40 MG VIAL IVP SCH (07:00)
[2019-08-01] MEDS ORDERED: SODIUM CHLORIDE 0.9% 500 ML IV ONE (07:07)
[2019-08-01] MEDS ORDERED: FUROSEMIDE 20 MG/2 ML VIAL IVP PRN (07:10)
[2019-08-01 07:17] LABS: ABNORMAL LYMPHS % (MANUAL) 2 %; BAND NEUTROPHILS % (MANUAL) 28 %; BASOPHILS # (MANUAL) 0.1 10^3/uL (0-0.1); BASOPHILS % (MANUAL) 1 %; EOSINOPHILS # (MANUAL) 0.1 10^3/uL (0-0.7); LYMPHOCYTES # (MANUAL) 1.5 10^3/uL (1.5-3.5); LYMPHOCYTES % (MANUAL) 25 %; MONOCYTES # (MANUAL) 0.5 10^3/uL (0.0-1.0); MYELOCYTES % (MANUAL) 4 %
[2019-08-01 07:23] LABS: DIFFERENTIAL COMMENT MANUAL DIFFERENTIAL; PLATELET ESTIMATE, MANUAL DECREASED (<130,000) (NORMAL); PLATELET MORPHOLOGY NORMAL APPEARANCE (NORMAL)
[2019-08-01] MEDS: GABAPENTIN 300 MG CAPSULE PO SCH ×3 (08:39→21:27)
[2019-08-01] MEDS: FERROUS SULFATE 325 MG TABLET PO SCH (08:39)
[2019-08-01] MEDS: ASPIRIN CHEW 81 MG TABLET PO SCH (08:39)
[2019-08-01] MEDS: ENOXAPARIN 40 MG/0.4 ML SYRINGE SUBQ SCH (08:39)
[2019-08-01] MEDS: cefTRIAXone 1 GM in SODIUM CHLORIDE 0.9% MINIBAG 100 ML IV SCH (11:04)
[2019-08-01] MEDS: AZITHROMYCIN INJ 500 MG in SODIUM CHLORIDE 0.9% 250 ML IV SCH (11:06)
--- NOTE | 2019-08-01 15:28 | PROVIDER PROGRESS NOTE ---
Assessment/Plan - Problem List (1) CAP (community acquired pneumonia) Assessment/Plan: Her had a fever and cough for several days at home, finally came in when got N/V. He is on empiric iv antibx Zithro and Ceftriaxone for a RLL PNA Will add Mucinex for pulm toilet. Await any culture results, if specimen sent (2) Respiratory failure with hypoxia Assessment/Plan: He had a fever and cough for several days at home. His caregiver was exposed to someone that was COVID pos, apparently. COVID testing on this pt is pending, so empiric isolation orders are in place. Continue supplemental O2 Would start Hydroxychloroquin if he is confirmed COVID pos. (3) UTI (urinary tract infection) Assessment/Plan: Ceftriaxone empiric tx Await urine and blood cx results (4) Anemia Assessment/Plan: He got blood transfusion and Lasix Follow H/H daily Transfuse if <7 Will recheck stool with a guiac test (5) Chronic indwelling Echevarria catheter Assessment/Plan: For a neurogenic bladder, which is related to his hemiplegia (6) Hemiplegia Assessment/Plan: From T-spine pathology that occurred many years ago. Isabela has a caregiver for this reason (7) Hx of coronary artery disease Assessment/Plan: Continue his home meds. Daily ASA would be temporarily stopped if stool tests heme pos (8) Prostate cancer metastatic to bone Assessment/Plan: As per Hx (9) Nausea and vomiting Qualifiers: Vomiting type: unspecified Vomiting Intractability: non-intractable Qualified Code(s): R11.2 - Nausea with vomiting, unspecified Assessment/Plan: Resolved and he is requesting a solid diet. Will advance diet today. - Current Meds Current Meds: Current Medications Generic Name Dose Route Start Last Admin Trade Name Freq PRN Reason Stop Dose Admin Acetaminophen 650 mg 07/31/19 17:32 08/01/19 14:20 Tylenol PO 650 mg Q4HR PRN Administration Pain 1 to 4 Aspirin 81 mg 08/01/19 09:00 08/01/19 08:39 St Shiv Aspirin PO 81 mg DAILY EMPERATRIZ Administration Enoxaparin Sodium 40 mg 08/01/19 09:00 08/01/19 08:39 Lovenox SUBQ 40 mg DAILY EMPERATRIZ Administration Ferrous Sulfate 325 mg 08/01/19 08:00 08/01/19 08:39 Feosol PO 325 mg DAILYWM EMPERATRIZ Administration Furosemide 20 mg 08/01/19 07:10 08/01/19 11:04 Lasix Inj 20mg Vial IVP 08/02/19 07:09 20 mg ONCE PRN Administration Between units Gabapentin 300 mg 08/01/19 08:00 08/01/19 13:09 Neurontin PO 300 mg TID EMPERATRIZ Administration Azithromycin 500 mg/ Sodium 250 mls @ 250 mls/hr 08/01/19 09:00 08/01/19 12:15 Chloride IV 08/02/19 09:59 Infused DAILY EMPERATRIZ Infusion Ceftriaxone Sodium 1 gm/ 100 mls @ 200 mls/hr 08/01/19 09:00 08/01/19 11:39 Sodium Chloride IV 08/04/19 09:29 Infused DAILY EMPERATRIZ Infusion Sodium Chloride 1,000 mls @ 83.3 mls/hr 07/31/19 23:45 08/01/19 11:40 Normal Saline 0.9% IV 08/01/19 23:45 83.3 mls/hr .Q12H1M EMPERATRIZ Infusion Ondansetron HCl 4 mg 07/31/19 17:32 08/01/19 01:46 Zofran Inj IVP 4 mg Q6HR PRN Administration Nausea / Vomiting Pantoprazole Sodium 40 mg 08/01/19 07:00 08/01/19 07:00 Protonix IVP 40 mg QDAC EMPERATRIZ Administration Sodium Chloride 10 ml 07/31/19 17:32 08/01/19 07:00 Normal Saline Flush 0.9% IVP 10 ml PRN PRN Administration NEEDED PER PROVIDER ORDERS Sodium Chloride 10 ml 08/01/19 01:00 08/01/19 11:06 Normal Saline Flush 0.9% IVP 10 ml 0100,0900,1700 EMPERATRIZ Administration - Lab Result Fish Bone Diagrams: 08/01/19 06:05 08/01/19 06:05 - Additional Planning My Orders: My Active Orders 08/01/19 11:56 Telemetry-Discontinue [RC] .ONCE 08/01/19 Dinner Cardiac Diet [DIET] Subjective - Subjective Patient Reports: Feeling Better, Cough (spits his phlegm into a basin on his knees), Other (Wanted to know "what all the tubes of blood taken were for".) Objective Vital Signs: Vital Signs - 24 hr 07/31/19 07/31/19 07/31/19 15:32 16:02 16:09 Temperature Heart Rate 88 82 Heart Rate [ Brachial] Heart Rate [ Monitoring electrodes] Respiratory 15 17 Rate Blood Pressure 97/48 L 96/66 Blood Pressure [Left Brachial artery] Blood Pressure [Right Brachial artery] O2 Saturation 94 99 88 L 07/31/19 07/31/19 07/31/19 16:55 16:56 17:00 Temperature Heart Rate 88 86 Heart Rate [ Brachial] Heart Rate [ Monitoring electrodes] Respiratory 15 14 Rate Blood Pressure 95/47 L 104/55 L Blood Pressure [Left Brachial artery] Blood Pressure [Right Brachial artery] O2 Saturation 75 L 94 94 07/31/19 07/31/19 07/31/19 18:25 19:00 20:43 Temperature 36.6 C 37.3 C Heart Rate 71 Heart Rate [ Brachial] Heart Rate [ 99 101 H Monitoring electrodes] Respiratory 24 18 20 Rate Blood Pressure 114/61 Blood Pressure [Left Brachial artery] Blood Pressure 103/51 L 96/62 [Right Brachial artery] O2 Saturation 92 98 95 08/01/19 08/01/19 08/01/19 01:00 03:20 06:28 Temperature 37.5 C 37.8 C H Heart Rate Heart Rate [ 96 92 89 Brachial] Heart Rate [ Monitoring electrodes] Respiratory 16 16 Rate Blood Pressure Blood Pressure 95/45 L 89/41 L 86/37 L [Left Brachial artery] Blood Pressure [Right Brachial artery] O2 Saturation 94 94 08/01/19 08/01/19 08/01/19 08:00 08:33 08:45 Temperature 36.8 C 36.8 C 36.7 C Heart Rate 87 88 Heart Rate [ 87 Brachial] Heart Rate [ Monitoring electrodes] Respiratory 18 18 18 Rate Blood Pressure 88/43 L 91/38 L Blood Pressure [Left Brachial artery] Blood Pressure 92/42 L [Right Brachial artery] O2 Saturation 95 08/01/19 08/01/19 10:53 12:58 Temperature 36.8 C 37.2 C Heart Rate 86 Heart Rate [ 86 Brachial] Heart Rate [ Monitoring electrodes] Respiratory 18 18 Rate Blood Pressure 99/44 L Blood Pressure 97/40 L [Left Brachial artery] Blood Pressure [Right Brachial artery] O2 Saturation 94 Oxygen O2 Source Nasal cannula I&O (Last 24 Hrs): Intake and Output Totals x24h 03/26/20 03/27/20 03/28/20 23:59 23:59 23:59 Intake Total 2300 1626.722 Output Total 400 700 Balance 1900 926.722 General: Alert, Oriented x3 HEENT: Mucous membr. moist/pink Neck: Supple Neuro: Alert, Other (hemiplegia) Cardiovascular: Regular rate Respiratory: No respiratory distress, Other (No stethascope available for exam of lungs) Abdomen: Soft Extremities: No edema - Results Results: Laboratory Results WBC 5.6 x10^3/uL (4.8-10.8) 08/01/19 06:05 RBC 2.46 10^6/uL (4.70-6.10) L 08/01/19 06:05 Hgb 7.0 g/dL (14.0-18.0) L* 08/01/19 06:05 Hct 23.5 % (42.0-52.0) L 08/01/19 06:05 MCV 95.5 fL (80.0-94.0) H 08/01/19 06:05 MCH 28.5 pg (27.0-31.0) 08/01/19 06:05 MCHC 29.8 g/dL (32.0-36.0) L 08/01/19 06:05 RDW 19.0 % (12.0-15.0) H 08/01/19 06:05 Plt Count 105 10^3/uL (130-450) L 08/01/19 06:05 MPV 9.2 fL (7.4-11.4) 08/01/19 06:05 Neut # (Auto) Not Reportable 08/01/19 06:05 Lymph # (Auto) Not Reportable 08/01/19 06:05 [place] # (Auto) Not Reportable 08/01/19 06:05 Eos # (Auto) Not Reportable 08/01/19 06:05 Baso # (Auto) Not Reportable 08/01/19 06:05 Absolute Nucleated RBC Not Reportable 08/01/19 06:05 Total Counted 100 08/01/19 06:05 Band Neuts % (Manual) 28 % (0-10) H 08/01/19 06:05 Abnorm Lymph % (Manual) 2 % 08/01/19 06:05 Myelocytes % 4 % (-0) H 08/01/19 06:05 Nucleated RBC % Not Reportable 08/01/19 06:05 Neutrophils # (Manual) 3.2 10^3/uL (1.5-6.6) 08/01/19 06:05 Lymphocytes # (Manual) 1.5 10^3/uL (1.5-3.5) 08/01/19 06:05 Monocytes # (Manual) 0.5 10^3/uL (0.0-1.0) 08/01/19 06:05 Eosinophils # (Manual) 0.1 10^3/uL (0-0.7) 08/01/19 06:05 Basophils # (Manual) 0.1 10^3/uL (0-0.1) 08/01/19 06:05 Nucleated RBCs 6 % 07/31/19 14:10 Differential Comment MANUAL DIFFERENTIAL 08/01/19 06:05 Manual Slide Review Indicated 07/31/19 14:10 WBC Morphology NORMAL APPEARANCE (NORMAL) 08/01/19 06:05 Platelet Estimate DECREASED (<130,000) (NORMAL) 08/01/19 06:05 Platelet Morphology NORMAL APPEARANCE (NORMAL) 08/01/19 06:05 RBC Morph Micro Appear 1+ ANISOCYTOSIS (NORMAL) 1+ POLYCHROMASIA (NORMAL) 07/31/19 14:10 RBC Morph Micro Appear 1+ MICROCYTOSIS (NORMAL) 1+ POLYCHROMASIA (NORMAL) 08/01/19 06:05 RBC Morph Micro Appear 1+ MICROCYTOSIS (NORMAL) 1+ POLYCHROMASIA (NORMAL) 08/01/19 06:05 Bld Gas Analysis Time 18107/31/19 18:14 Sample Site LEFT RADIAL 07/31/19 18:14 ABG pH 7.41 (7.35-7.45) 07/31/19 18:14 ABG pCO2 36 mmHg (34-45) 07/31/19 18:14 ABG pO2 66 mmHg (80-100) L 07/31/19 18:14 ABG HCO3 22.2 mmol/L (22.0-26.0) 07/31/19 18:14 ABG Total CO2 23.3 MMOL/L (21.0-29.0) 07/31/19 18:14 ABG O2 Saturation 92 % (94-98) L 07/31/19 18:14 ABG Base Excess -2.2 mmol/L (-2.0-3.0) L 07/31/19 18:14 Darin Test POSITIVE 07/31/19 18:14 O2 Delivery Device NASAL CANNULA 07/31/19 18:14 O2 Liters/Min 2.00 LPM 07/31/19 18:14 Sodium 134 mmol/L (135-145) L 08/01/19 06:05 Potassium 3.5 mmol/L (3.5-5.0) 08/01/19 06:05 Chloride 105 mmol/L (101-111) 08/01/19 06:05 Carbon Dioxide 22 mmol/L (21-32) 08/01/19 06:05 Anion Gap 7.0 (6-13) 08/01/19 06:05 BUN 23 mg/dL (6-20) H 08/01/19 06:05 Creatinine 0.6 mg/dL (0.6-1.2) 08/01/19 06:05 Estimated GFR (MDRD) 131 (>89) 08/01/19 06:05 Glucose 114 mg/dL (70-100) H 08/01/19 06:05 Lactic Acid 1.0 mmol/L (0.5-2.2) 08/01/19 01:15 Calcium 8.5 mg/dL (8.5-10.3) 08/01/19 06:05 Magnesium 2.3 mg/dL (1.7-2.8) 07/31/19 14:10 Iron 26 ug/dL (45-182) L 07/31/19 14:10 TIBC 294 ug/dL (250-450) 07/31/19 14:10 % Saturation 9 % (20-50) L 07/31/19 14:10 Transferrin 210 mg/dL (180-329) 07/31/19 14:10 Total Bilirubin 0.4 mg/dL (0.2-1.0) 07/31/19 14:10 AST 41 IU/L (10-42) 07/31/19 14:10 ALT 37 IU/L (10-60) 07/31/19 14:10 Alkaline Phosphatase 115 IU/L (42-121) 07/31/19 14:10 B-Natriuretic Peptide 284 pg/mL (5-100) H 08/01/19 06:05 Total Protein 6.4 g/dL (6.7-8.2) L 07/31/19 14:10 Albumin 3.6 g/dL (3.2-5.5) 07/31/19 14:10 Globulin 2.8 g/dL (2.1-4.2) 07/31/19 14:10 Albumin/Globulin Ratio 1.3 (1.0-2.2) 07/31/19 14:10 Lipase 32 U/L (22-51) 07/31/19 14:10 Urine Color DARK YELLOW 07/31/19 15:20 Urine Clarity CLOUDY (CLEAR) 07/31/19 15:20 Urine pH 8.0 PH (5.0-7.5) H 07/31/19 15:20 Ur Specific [place] 1.015 (1.002-1.030) 07/31/19 15:20 Urine Protein 30 mg/dL (NEGATIVE) H 07/31/19 15:20 Urine Glucose (UA) NEGATIVE mg/dL (NEGATIVE) 07/31/19 15:20 Urine Ketones NEGATIVE mg/dL (NEGATIVE) 07/31/19 15:20 Urine Occult Blood LARGE (NEGATIVE) H 07/31/19 15:20 Urine Nitrite NEGATIVE (NEGATIVE) 07/31/19 15:20 Urine Bilirubin NEGATIVE (NEGATIVE) 07/31/19 15:20 Urine Urobilinogen 0.2 (NORMAL) E.U./dL (NORMAL) 07/31/19 15:20 Ur Leukocyte Esterase TRACE (NEGATIVE) H 07/31/19 15:20 Urine RBC TNTC /HPF (0-5) H 07/31/19 15:20 Urine WBC 6-10 /HPF (0-3) H 07/31/19 15:20 Ur Squamous Epith Cells NONE SEEN (<= Few) 07/31/19 15:20 Amorphous Sediment Few /LPF 07/31/19 15:20 Urine Bacteria Many /HPF (None Seen) H 07/31/19 15:20 Ur Microscopic Review INDICATED 07/31/19 15:20 Urine Culture Comments INDICATED 07/31/19 15:20 Influenza A (Rapid) Negative (Negative) 07/31/19 15:38 Influenza B (Rapid) Negative (Negative) 07/31/19 15:38 Blood Type O POSITIVE 07/31/19 17:25 Antibody Screen NEGATIVE 07/31/19 17:25 Crossmatch IS Only See Detail 07/31/19 17:25 - Procedures Procedures: Procedures DRAINAGE OF RIGHT ANTERIOR CHAMBER, PERCUTANEOUS APPROACH (12/19/17) EXCISION OF RIGHT UPPER FEMUR, PERCUTANEOUS APPROACH, DIAGN (09/01/18) INSERTION OF INTRAMED FIX INTO R UP FEMUR, OPEN APPROACH (09/01/18) REPLACEMENT OF LEFT LENS WITH SYNTH SUB, PERC APPROACH (07/17/18) REPLACEMENT OF RIGHT LENS WITH SYNTH SUB, PERC APPROACH (02/27/18)
[2019-08-01 19:49] LABS: HGB - HEMOGLOBIN 7.7 g/dL (14.0-18.0); MEAN CORPUSCULAR HEMOGLOBIN 29.8 pg (27.0-31.0); MEAN CORPUSCULAR HGB CONC 31.7 g/dL (32.0-36.0); MEAN CORPUSCULAR VOLUME 94.2 fL (80.0-94.0); MEAN PLATELET VOLUME 9.3 fL (7.4-11.4); RED BLOOD COUNT 2.58 10^6/uL (4.70-6.10); RED CELL DISTRIBUTION WIDTH 18.5 % (12.0-15.0); WHITE BLOOD COUNT 6.5 x10^3/uL (4.8-10.8)
[2019-08-01] MEDS ORDERED: ATORVASTATIN 40 MG TABLET PO SCH (21:00)
[2019-08-02] MEDS: ACETAMINOPHEN 325 MG TABLET PO PRN ×2 (00:19→15:03)
[2019-08-02] MEDS ORDERED: LIDOCAINE PATCH 5% TOP PRN ×2 (06:22→06:45)
[2019-08-02 06:25] LABS: BASOPHILS % (AUTO) 0.3 %; EOSINOPHILS % (AUTO) 0.3 %; HGB - HEMOGLOBIN 7.7 g/dL (14.0-18.0); LYMPHOCYTES % (AUTO) 24.7 %; MEAN CORPUSCULAR HEMOGLOBIN 28.5 pg (27.0-31.0); MEAN CORPUSCULAR HGB CONC 30.8 g/dL (32.0-36.0); MEAN CORPUSCULAR VOLUME 92.6 fL (80.0-94.0); MEAN PLATELET VOLUME 8.7 fL (7.4-11.4); MONOCYTES % (AUTO) 14.2 %; NEUTROPHILS % (AUTO) 49.3 %; PLT - PLATELET COUNT 113 10^3/uL (130-450); RED CELL DISTRIBUTION WIDTH 18.6 % (12.0-15.0)
[2019-08-02 06:29] LABS: ABNORMAL LYMPHS % (MANUAL) 0 %
[2019-08-02 06:33] LABS: CALCIUM 8.4 mg/dL (8.5-10.3); CREATININE 0.6 mg/dL (0.6-1.2)
[2019-08-02] MEDS: PANTOPRAZOLE 40 MG VIAL IVP SCH (06:33)
[2019-08-02] MEDS: GABAPENTIN 300 MG CAPSULE PO SCH ×2 (06:33→13:28)
[2019-08-02] MEDS: SODIUM CHLORIDE FLUSH 0.9% 10 ML SYRINGE IVP PRN (06:40)
[2019-08-02] MEDS: SODIUM CHLORIDE FLUSH 0.9% 10 ML SYRINGE IVP SCH ×2 (06:41→09:52)
[2019-08-02 06:46] LABS: BAND NEUTROPHILS % (MANUAL) 16 %; LYMPHOCYTES % (MANUAL) 29 %; METAMYELOCYTES % (MANUAL) 2 %; MONOCYTES # (MANUAL) 0.3 10^3/uL (0.0-1.0); MYELOCYTES % (MANUAL) 6 %
[2019-08-02 06:49] LABS: DIFFERENTIAL COMMENT MANUAL DIFFERENTIAL; PLATELET ESTIMATE, MANUAL NORMAL (130-450,000) (NORMAL); PLATELET MORPHOLOGY NORMAL APPEARANCE (NORMAL)
[2019-08-02] MEDS ORDERED: CHOLECALCIFEROL 1,000 UNIT TABLET PO SCH (09:00)
[2019-08-02] MEDS: cefTRIAXone 1 GM in SODIUM CHLORIDE 0.9% MINIBAG 100 ML IV SCH (09:41)
[2019-08-02] MEDS: ENOXAPARIN 40 MG/0.4 ML SYRINGE SUBQ SCH (09:43)
[2019-08-02] MEDS: ASPIRIN CHEW 81 MG TABLET PO SCH (09:43)
[2019-08-02] MEDS: FERROUS SULFATE 325 MG TABLET PO SCH (09:43)
[2019-08-02] MEDS: AZITHROMYCIN INJ 500 MG in SODIUM CHLORIDE 0.9% 250 ML IV SCH (10:00)
[2019-08-02] MEDS ORDERED: SODIUM CHLORIDE 0.9% 500 ML ONE (10:12)
--- NOTE | 2019-08-02 12:33 | PROVIDER PROGRESS NOTE ---
Assessment/Plan - Problem List (1) CAP (community acquired pneumonia) Assessment/Plan: Will change the antibx coverage, to consolidate antibx for this and his UTI. Will use Levoflaoxacin, which will also treat his CAP. Mucinex for pulm toilet. His COVID test result is still pending, isolation precautions continue (2) Respiratory failure with hypoxia Assessment/Plan: Still requiring O2 supplemental. (3) UTI (urinary tract infection) Assessment/Plan: The urine cx grew Staph epidermidis and sens are avail. Will use Levoflaoxacin, which will also treat his CAP. (4) Anemia Qualifiers: Anemia type: iron deficiency Assessment/Plan: Hgb stable after the transfusion A guaic stool is still pending, in the ER it was apparently done and as neg. Ireon stores are low Will start iron replacement. No B12 and Folate levels were ordered yet, will order. Follow H/H daily. (5) Chronic indwelling Echevarria catheter Assessment/Plan: As per Hx (6) Hemiplegia Assessment/Plan: As per Hx. Wheelchair bound therefore no PT to be ordered here. (7) Restless leg syndrome Assessment/Plan: His Requip was restarted today (8) Hx of coronary artery disease Assessment/Plan: As per Hx. Currently the daily ASA treatment is still on hold in case of heme pos stool. (9) Prostate cancer metastatic to bone Assessment/Plan: As per Hx (10) Nausea and vomiting Qualifiers: Vomiting type: unspecified Vomiting Intractability: non-intractable Qualified Code(s): R11.2 - Nausea with vomiting, unspecified Assessment/Plan: Resolved and tolerated solid foods. Will change to po meds - Current Meds Current Meds: Current Medications Generic Name Dose Route Start Last Admin Trade Name Freq PRN Reason Stop Dose Admin Acetaminophen 650 mg 07/31/19 17:32 08/02/19 00:19 Tylenol PO 650 mg Q4HR PRN Administration Pain 1 to 4 Aspirin 81 mg 08/01/19 09:00 08/02/19 09:43 [facility] Shiv Aspirin PO 81 mg DAILY EMPERATRIZ Administration Atorvastatin Calcium 40 mg 08/01/19 21:00 08/01/19 21:26 Lipitor PO 40 mg QPM EMPERATRIZ Administration Cholecalciferol 1,000 unit 08/02/19 09:00 08/02/19 09:43 Vitamin D3 PO 1,000 unit DAILY EMPERATRIZ Administration Enoxaparin Sodium 40 mg 08/01/19 09:00 08/02/19 09:43 Lovenox SUBQ 40 mg DAILY EMPERATRIZ Administration Ferrous Sulfate 325 mg 08/01/19 08:00 08/02/19 09:43 Feosol PO 325 mg DAILYWM EMPERATRIZ Administration Gabapentin 300 mg 08/01/19 08:00 08/02/19 06:33 Neurontin PO 300 mg TID EMPERATRIZ Administration Lidocaine 1 patch 08/02/19 06:22 08/02/19 06:45 Lidoderm Patch TOP 1 patch DAILY PRN Administration PAIN Lidocaine 1 patch 08/02/19 06:45 08/02/19 06:52 Lidoderm Patch TOP 1 patch DAILY PRN Administration PAIN (Brimonidine 1 drops 08/01/19 21:00 08/02/19 10:26 Tartrate/Timolol [ LEFTEYE Not Given Combigan 0.2%-0.5% BID EMPERATRIZ Eye Drops] Ondansetron HCl 4 mg 07/31/19 17:32 08/01/19 01:46 Zofran Inj IVP 4 mg Q6HR PRN Administration Nausea / Vomiting Sodium Chloride 10 ml 07/31/19 17:32 08/02/19 06:40 Normal Saline Flush 0.9% IVP 10 ml PRN PRN Administration NEEDED PER PROVIDER ORDERS Sodium Chloride 10 ml 08/01/19 01:00 08/02/19 09:52 Normal Saline Flush 0.9% IVP 10 ml 0100,0900,1700 EMPERATRIZ Administration - Lab Result Fish Bone Diagrams: 08/02/19 06:00 08/02/19 06:00 - Additional Planning My Orders: My Active Orders 08/01/19 11:56 Telemetry-Discontinue [RC] .ONCE 08/01/19 21:00 Atorvastatin [Lipitor] 40 mg PO QPM Brimonidine Tartrate/Timolol [Combigan 0.2%-0.5% Eye Drops] 1 drops LEFTEYE BID 08/01/19 Dinner Cardiac Diet [DIET] 08/02/19 09:00 Cholecalciferol [Vitamin D3] 1,000 unit PO DAILY 08/02/19 13:00 Levofloxacin/D5W 750 mg/150 mL q24h levoFLOXacin 750 MG/150 ML [Levaquin 750 mg/150 ml] 750 mg in 150 ml IV Q24H 08/03/19 07:00 Pantoprazole [Protonix] 40 mg PO QDAC 08/03/19 09:00 rOPINIRole [Requip] 4 mg PO DAILY Subjective - Subjective Patient Reports: Other (No new complaints) Objective Vital Signs: Vital Signs - 24 hr 08/01/19 08/01/19 08/01/19 12:58 16:38 19:54 Temperature 37.2 C 37.4 C 36.6 C Heart Rate [ 86 101 H 84 Brachial] Respiratory 18 18 22 Rate Blood Pressure 97/40 L 99/43 L 100/51 L [Left Brachial artery] O2 Saturation 94 96 99 08/01/19 08/02/19 23:55 08:00 Temperature 37.7 C H 37.2 C Heart Rate [ 86 84 Brachial] Respiratory 18 18 Rate Blood Pressure 110/49 L 117/54 L [Left Brachial artery] O2 Saturation 96 95 Oxygen O2 Source Room air I&O (Last 24 Hrs): Intake and Output Totals x24h 07/31/19 08/01/19 08/02/19 23:59 23:59 23:59 Intake Total 2300 2190.000 1564 Output Total 400 700 200 Balance 1900 5883.847 1100 General: Alert HEENT: Mucous membr. moist/pink Neck: Supple Neuro: Alert, Other (Hemiplegia) Cardiovascular: Regular rate Respiratory: No respiratory distress, Other (On O2 n.c.) Extremities: No edema - Results Results: Laboratory Results WBC 7.0 x10^3/uL (4.8-10.8) 08/02/19 06:00 RBC 2.70 10^6/uL (4.70-6.10) L 08/02/19 06:00 Hgb 7.7 g/dL (14.0-18.0) L 08/02/19 06:00 Hct 25.0 % (42.0-52.0) L 08/02/19 06:00 MCV 92.6 fL (80.0-94.0) 08/02/19 06:00 MCH 28.5 pg (27.0-31.0) 08/02/19 06:00 MCHC 30.8 g/dL (32.0-36.0) L 08/02/19 06:00 RDW 18.6 % (12.0-15.0) H 08/02/19 06:00 Plt Count 113 10^3/uL (130-450) L 08/02/19 06:00 MPV 8.7 fL (7.4-11.4) 08/02/19 06:00 Neut # (Auto) Not Reportable 08/02/19 06:00 Lymph # (Auto) Not Reportable 08/02/19 06:00 [place] # (Auto) Not Reportable 08/02/19 06:00 Eos # (Auto) Not Reportable 08/02/19 06:00 Baso # (Auto) Not Reportable 08/02/19 06:00 Absolute Nucleated RBC Not Reportable 08/02/19 06:00 Total Counted 100 08/02/19 06:00 Band Neuts % (Manual) 16 % (0-10) H 08/02/19 06:00 Abnorm Lymph % (Manual) 0 % 08/02/19 06:00 Metamyelocytes % 2 % (-0) H 08/02/19 06:00 Myelocytes % 6 % (-0) H 08/02/19 06:00 Nucleated RBC % Not Reportable 08/02/19 06:00 Neutrophils # (Manual) 4.1 10^3/uL (1.5-6.6) 08/02/19 06:00 Lymphocytes # (Manual) 2.0 10^3/uL (1.5-3.5) 08/02/19 06:00 Monocytes # (Manual) 0.3 10^3/uL (0.0-1.0) 08/02/19 06:00 Eosinophils # (Manual) 0.0 10^3/uL (0-0.7) 08/02/19 06:00 Basophils # (Manual) 0.0 10^3/uL (0-0.1) 08/02/19 06:00 Nucleated RBCs 6 % 07/31/19 14:10 Differential Comment MANUAL DIFFERENTIAL 08/02/19 06:00 Manual Slide Review Indicated 07/31/19 14:10 WBC Morphology NORMAL APPEARANCE (NORMAL) 08/02/19 06:00 Platelet Estimate NORMAL (130-450,000) (NORMAL) 08/02/19 06:00 Platelet Morphology NORMAL APPEARANCE (NORMAL) 08/02/19 06:00 RBC Morph Micro Appear 1+ MICROCYTOSIS (NORMAL) 1+ POLYCHROMASIA (NORMAL) 08/01/19 06:05 RBC Morph Micro Appear 1+ MICROCYTOSIS (NORMAL) 1+ POLYCHROMASIA (NORMAL) 08/01/19 06:05 RBC Morph Micro Appear 1+ HYPOCHROMASIA (NORMAL) 1+ POLYCHROMASIA (NORMAL) 08/02/19 06:00 RBC Morph Micro Appear 1+ HYPOCHROMASIA (NORMAL) 1+ POLYCHROMASIA (NORMAL) 08/02/19 06:00 Bld Gas Analysis Time 18107/31/19 18:14 Sample Site LEFT RADIAL 07/31/19 18:14 ABG pH 7.41 (7.35-7.45) 07/31/19 18:14 ABG pCO2 36 mmHg (34-45) 07/31/19 18:14 ABG pO2 66 mmHg (80-100) L 07/31/19 18:14 ABG HCO3 22.2 mmol/L (22.0-26.0) 07/31/19 18:14 ABG Total CO2 23.3 MMOL/L (21.0-29.0) 07/31/19 18:14 ABG O2 Saturation 92 % (94-98) L 07/31/19 18:14 ABG Base Excess -2.2 mmol/L (-2.0-3.0) L 07/31/19 18:14 Darin Test POSITIVE 07/31/19 18:14 O2 Delivery Device NASAL CANNULA 07/31/19 18:14 O2 Liters/Min 2.00 LPM 07/31/19 18:14 Sodium 135 mmol/L (135-145) 08/02/19 06:00 Potassium 3.3 mmol/L (3.5-5.0) L 08/02/19 06:00 Chloride 108 mmol/L (101-111) 08/02/19 06:00 Carbon Dioxide 21 mmol/L (21-32) 08/02/19 06:00 Anion Gap 6.0 (6-13) 08/02/19 06:00 BUN 24 mg/dL (6-20) H 08/02/19 06:00 Creatinine 0.6 mg/dL (0.6-1.2) 08/02/19 06:00 Estimated GFR (MDRD) 131 (>89) 08/02/19 06:00 Glucose 100 mg/dL (70-100) 08/02/19 06:00 Lactic Acid 1.0 mmol/L (0.5-2.2) 08/01/19 01:15 Calcium 8.4 mg/dL (8.5-10.3) L 08/02/19 06:00 Magnesium 2.3 mg/dL (1.7-2.8) 07/31/19 14:10 Iron 26 ug/dL (45-182) L 07/31/19 14:10 TIBC 294 ug/dL (250-450) 07/31/19 14:10 % Saturation 9 % (20-50) L 07/31/19 14:10 Transferrin 210 mg/dL (180-329) 07/31/19 14:10 Total Bilirubin 0.4 mg/dL (0.2-1.0) 07/31/19 14:10 AST 41 IU/L (10-42) 07/31/19 14:10 ALT 37 IU/L (10-60) 07/31/19 14:10 Alkaline Phosphatase 115 IU/L (42-121) 07/31/19 14:10 B-Natriuretic Peptide 301 pg/mL (5-100) H 08/02/19 06:00 Total Protein 6.4 g/dL (6.7-8.2) L 07/31/19 14:10 Albumin 3.6 g/dL (3.2-5.5) 07/31/19 14:10 Globulin 2.8 g/dL (2.1-4.2) 07/31/19 14:10 Albumin/Globulin Ratio 1.3 (1.0-2.2) 07/31/19 14:10 Lipase 32 U/L (22-51) 07/31/19 14:10 Urine Color DARK YELLOW 07/31/19 15:20 Urine Clarity CLOUDY (CLEAR) 07/31/19 15:20 Urine pH 8.0 PH (5.0-7.5) H 07/31/19 15:20 Ur Specific [place] 1.015 (1.002-1.030) 07/31/19 15:20 Urine Protein 30 mg/dL (NEGATIVE) H 07/31/19 15:20 Urine Glucose (UA) NEGATIVE mg/dL (NEGATIVE) 07/31/19 15:20 Urine Ketones NEGATIVE mg/dL (NEGATIVE) 07/31/19 15:20 Urine Occult Blood LARGE (NEGATIVE) H 07/31/19 15:20 Urine Nitrite NEGATIVE (NEGATIVE) 07/31/19 15:20 Urine Bilirubin NEGATIVE (NEGATIVE) 07/31/19 15:20 Urine Urobilinogen 0.2 (NORMAL) E.U./dL (NORMAL) 07/31/19 15:20 Ur Leukocyte Esterase TRACE (NEGATIVE) H 07/31/19 15:20 Urine RBC TNTC /HPF (0-5) H 07/31/19 15:20 Urine WBC 6-10 /HPF (0-3) H 07/31/19 15:20 Ur Squamous Epith Cells NONE SEEN (<= Few) 07/31/19 15:20 Amorphous Sediment Few /LPF 07/31/19 15:20 Urine Bacteria Many /HPF (None Seen) H 07/31/19 15:20 Ur Microscopic Review INDICATED 07/31/19 15:20 Urine Culture Comments INDICATED 07/31/19 15:20 Influenza A (Rapid) Negative (Negative) 07/31/19 15:38 Influenza B (Rapid) Negative (Negative) 07/31/19 15:38 Blood Type O POSITIVE 07/31/19 17:25 Antibody Screen NEGATIVE 07/31/19 17:25 Crossmatch IS Only See Detail 07/31/19 17:25 - Procedures Procedures: Procedures DRAINAGE OF RIGHT ANTERIOR CHAMBER, PERCUTANEOUS APPROACH (12/19/17) EXCISION OF RIGHT UPPER FEMUR, PERCUTANEOUS APPROACH, DIAGN (09/01/18) INSERTION OF INTRAMED FIX INTO R UP FEMUR, OPEN APPROACH (09/01/18) REPLACEMENT OF LEFT LENS WITH SYNTH SUB, PERC APPROACH (07/17/18) REPLACEMENT OF RIGHT LENS WITH SYNTH SUB, PERC APPROACH (02/27/18)
[2019-08-02] MEDS ORDERED: levoFLOXacin 750 MG/150 ML 750 MG/150 ML BAG IV SCH (13:00)
--- NOTE | 2019-08-02 19:01 | Discharge Plan ---
Discharge Plan Problem Reviewed?: Yes Disposition: 06 Home Health Service Condition: Stable Prescriptions: Ferrous Sulfate 325 mg PO DAILY #30 tablet guaiFENesin [Mucinex] 600 mg PO BID #8 [id number].er.12h Lactobacillus Acidophilus [Acidophilus Lactobacilli] 1 each PO DAILY #4 capsule Levofloxacin [Levaquin] 750 mg PO DAILY #4 tablet Diet: Regular (Easily digestable foods) Activity Restrictions: Activity as Tolerated Shower Restrictions: No Assistance Devices: Wheelchair Instruction Topics: COVID-19 [facility] Department of Health, Flu and Cold: Nutrition, Prevention and Treatment Tips Health Concerns: You were admitted with fever, cough, possible coronavirus pneumonia versus bacterial pneumonia and urinary tract infection from staph epidermidis. Also you were severely anemic, needed a transfusion of blood. You are iron deficient and being prescribed daily iron replacement. You are being prescribed several more days of antibiotics to take with probiotics. All the new prescriptions were electronically sent to your [facility] pharmacy. Please follow the general isolation instructions and proper hygiene related to coronavirus. If you have new or worsening symptoms, call your PCP for advice or come to the ER. Plan of Treatment: As above. You should see your PCP in 5-10 days in hospital follow-up. Care Goals: Improvement in symptoms and stabilization are the goals. Assessment: Patient understands and is agreeable with the plan. No Smoking: If you smoke, Please STOP! Call for help. Follow-up with: Ty Tejeda MD [Primary Care Provider] -
--- NOTE | 2019-08-02 19:16 | DISCHARGE SUMMARY ---
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 Pt has had a cough for a couple weeks, last night he developed a fever. (He has a caregiver who had exposure to COVID-unsure of exact contact. Caregiver's Covid 19 test is pending and not confirmed). The pt has inc reased weakness and nausea and vomiting today without diarrhea and denied any melena or blood in stool. He was reported to have lower BP of 80 at home. pt has been on wheelchair and bedbound due to prior hemiplegia from a thoracic fracture. CXR in the ER reveals increased vascular prominence/congestion and increased interstitial markings, mild focal opacities within the right lower lung which could represent atelectasis or infiltrate. Pt's HGB is 7.3 today, it was 9.6 in Feb 2019. pt's occult blood test is negative today. Pt denies vomiting blood or coughing blood. pt denies chest pain, abdominal pain. pt is afebrile, BP initial was 94/44 with 92% sat on room air. UA indicated a UTI. ER ordered Covid 19 test and is pending. pt was admitted. - HOSPITAL COURSE Hospital Course: 1) N/V This was managed with anti-emetics the first day and it resolved. He requested his diet be advanced and he tolerated this. (2) CAP (community acquired pneumonia) He was put on empiric antibx coverage with Levofloxacin, to consolidate treatment for this and his UTI. He was put on Mucinex for pulm toilet. His COVID test result was still pending at discharge; he was on empiric isolation precautions while here. He was discharged with a prescription to use Mucinex, and to take Levofloxacin daily plus a probiotic for 4 more days. (3) Respiratory failure with hypoxia He required O2 supplemental for the first day, off by the time of discharge. (4) UTI (urinary tract infection) The urine cx grew Staph epidermidis. He requested to be discharged after dinner on 08/01/29, when he could eat and was comfortable breathing room air, and was sent home on empiric oral Levofloxacin. [Subsequent review of the sensitivities as this Discharge Summary is being written, shows that the Staph was resistant to Levofloxacin. However, Staph epidermidis may be a contaminant for this man with a chronic indwelling Echevarria]. (5) Anemia The patient was transfused 1 U PRBCs when the HGb dropped to 7 the next day. The Hgb remained stable after the transfusion at 7.7 twice. A guaic stool in the ER was apparently done and was neg. Iron stores were low, therefore he was discharged on oral iron replacement. (6) Chronic indwelling Echevarria catheter As per Hx (7) Hemiplegia As per Hx. He was wheelchair bound therefore no PT ordered here. (8) Restless leg syndrome His Requip was restarted (9) Prostate cancer metastatic to bone As per Hx (10) Hx of coronary artery disease As per Hx. - ALLERGIES Allergies/Adverse Reactions: Allergies Allergy/AdvReac Type Severity Reaction Status Date / Time No Known Drug Allergies Allergy Verified 07/31/19 15:33 - MEDICATIONS Home Medications: Ambulatory Orders Medication Instructions Recorded Confirmed Atorvastatin [Lipitor] 40 mg PO QPM 09/03/16 08/01/19 Brimonidine Tartrate/Timolol 1 drops LEFTEYE BID 09/01/18 01/27/19 [Combigan 0.2%-0.5% Eye Drops] Calcium Carbonate [Tums (Calcium 500 mg PO BID #60 tablet 09/05/18 01/27/19 Carbonate 500mg)] Cholecalciferol (Vitamin D3) 1,000 unit PO DAILY #30 capsule 09/05/18 08/01/19 [Vitamin D3] Aspirin 81 mg PO DAILY 07/31/19 08/01/19 Gabapentin 600 mg PO QID 07/31/19 Ropinirole HCl 4 mg PO DAILY 08/01/19 08/01/19 Sennosides [Senna] 17.2 mg PO BID 08/01/19 08/01/19 polyethylene glycoL 3350 17 gm PO DAILY 08/01/19 08/01/19 [Polyethylene Glycol 3350] Ferrous Sulfate 325 mg PO DAILY #30 tablet 08/02/19 Lactobacillus Acidophilus 1 each PO DAILY #4 capsule 08/02/19 [Acidophilus Lactobacilli] Levofloxacin [Levaquin] 750 mg PO DAILY #4 tablet 08/02/19 guaiFENesin [Mucinex] 600 mg PO BID #8 tab.er.12h 08/02/19 - PHYSICAL EXAM AT DISCHARGE General Appearance: positive: No acute distress, Alert Eyes Bilateral: positive: Normal inspection, EOMI ENT: positive: ENT inspection nml, No signs of dehydration Neck: positive: Nml inspection Respiratory: positive: No respiratory distress Cardiovascular: positive: Regular rate & rhythm Abdomen: positive: No distention, Other (Echevarria in place) Extremities: positive: No pedal edema Neurologic/Psychiatric: positive: Oriented x3, Other (Hemiplegia of R arm and leg) - LABS Result Diagrams: 08/02/19 06:00 08/02/19 06:00 - DIAGNOSTIC IMAGING Diagnostic Imaging Results: Final report reviewed - FOLLOW UP Follow Up: See PCP in approx. 1 week in hospital follow-up. - TIME SPENT Time Spent in Discharge (Minutes): 60
[2019-08-02 20:47] VITALS: BP 101/52
[2019-08-02] MEDS ORDERED: rOPINIRole 1 MG TABLET PO SCH (21:00)
[2019-08-03] MEDS ORDERED: PANTOPRAZOLE 40 MG TABLET PO SCH (07:00)
[2019-08-03] MEDS ORDERED: rOPINIRole 1 MG TABLET PO SCH (09:00)
== END 2019-08-02 20:40 | disposition home health service (06) | DRG 193 ==
LOC: EDUNIT# → ED 14:56 → MS2 17:32
PROVIDERS: ADMIT Nurse Practitioner Gerontology; ATTEND Internal Medicine
DX: J18.9 Pneumonia, unspecified organism (principal); D64.9 Anemia, unspecified; R09.02 Hypoxemia; J96.91 Respiratory failure, unspecified with hypoxia; I95.9 Hypotension, unspecified; G81.91 Hemiplegia, unspecified affecting right dominant side; N39.0 Urinary tract infection, site not specified; C79.51 Secondary malignant neoplasm of bone; R11.2 Nausea with vomiting, unspecified; C61 Malignant neoplasm of prostate; B95.7 Other staphylococcus as the cause of diseases classified elsewhere; D50.9 Iron deficiency anemia, unspecified; I10 Essential (primary) hypertension; G25.81 Restless legs syndrome; S22.009S Unspecified fracture of unspecified thoracic vertebra, sequela; I25.10 Atherosclerotic heart disease of native coronary artery without angina pectoris; E78.00 Pure hypercholesterolemia, unspecified; G89.29 Other chronic pain; M54.6 Pain in thoracic spine; N40.1 Benign prostatic hyperplasia with lower urinary tract symptoms; R35.0 Frequency of micturition; H91.90 Unspecified hearing loss, unspecified ear; Z79.82 Long term (current) use of aspirin; Z79.899 Other long term (current) drug therapy; Z99.3 Dependence on wheelchair; Z95.5 Presence of coronary angioplasty implant and graft; Z95.1 Presence of aortocoronary bypass graft
CPT/HCPCS: 36415; 36600; 71045; 80048; 80053; 81001; 82272; 82803; 83540; 83605; 83690; 83735; 83880; 84466; 85014; 85018; 85025; 85027; 86850; 86900; 86901; 86920; 87040; 87077; 87086; 87181; 87275; 87276; 93005; 93306; 96361; 96365; 96375; 99285; A9270; J1650; P9016; 81003

== ENCOUNTER 2019-08-02 20:48 | Outpatient (CLI) | payer MEDICARE, OTHER | END 2019-08-02 20:49 | disposition home or self-care (01) | LOC: EMS 20:48 | PROVIDERS: ATTEND Surgery | DX: R05 Cough (principal); Z20.828 Contact with and (suspected) exposure to other viral communicable diseases | CPT/HCPCS: A0425; A0428 ==

== ENCOUNTER 2019-09-14 10:06 | Outpatient (CLI) | payer MEDICARE, OTHER ==
[2019-09-14 13:27] LABS: BILIRUBIN,URINE NEGATIVE (NEGATIVE); GLUCOSE, URINE (UA) NEGATIVE (NEGATIVE); KETONES,URINE (UA) TRACE mg/dL (NEGATIVE); LEUKOCYTE ESTERASE, URINE TRACE (NEGATIVE); NITRITE,URINE POSITIVE (NEGATIVE); OCCULT BLOOD,URINE LARGE (NEGATIVE); PH,URINE 6.5 PH (5.0-7.5); PROTEIN,URINE 30 mg/dL (NEGATIVE); UROBILINOGEN,URINE 0.2 (NORMAL) E.U./dL (NORMAL)
[2019-09-14 13:28] LABS: CLARITY,URINE CLEAR (CLEAR)
[2019-09-14 13:59] LABS: BACTERIA,URINE Few /HPF (None Seen); RBC,URINE 0-5 /HPF (0-5); SQUAMOUS EPITHELIAL CELL,UR NONE SEEN (<= Few); WBC CLUMPS,URINE PRESENT
[2019-09-14 14:00] LABS: CRYSTALS,URINE 0-2 Calcium Oxalate /LPF
== END 2019-09-14 23:59 | disposition home or self-care (01) ==
LOC: LAB.WCP 10:06
PROVIDERS: ATTEND Family Medicine
DX: N31.9 Neuromuscular dysfunction of bladder, unspecified (principal)
CPT/HCPCS: 81001; 81003

== ENCOUNTER 2019-09-24 08:00 | Outpatient (CLI) | payer MEDICARE, OTHER ==
[2019-09-24 13:34] LABS: BILIRUBIN,URINE NEGATIVE (NEGATIVE); GLUCOSE, URINE (UA) NEGATIVE (NEGATIVE); KETONES,URINE (UA) TRACE mg/dL (NEGATIVE); LEUKOCYTE ESTERASE, URINE TRACE (NEGATIVE); NITRITE,URINE NEGATIVE (NEGATIVE); OCCULT BLOOD,URINE LARGE (NEGATIVE); PH,URINE 7.5 PH (5.0-7.5); PROTEIN,URINE 30 mg/dL (NEGATIVE); UROBILINOGEN,URINE 0.2 (NORMAL) E.U./dL (NORMAL)
[2019-09-24 13:44] LABS: CLARITY,URINE SL. CLOUDY (CLEAR)
[2019-09-24 14:04] LABS: BACTERIA,URINE None Seen /HPF (None Seen); SQUAMOUS EPITHELIAL CELL,UR NONE SEEN (<= Few)
== END 2019-09-24 23:59 | disposition home or self-care (01) ==
LOC: LAB.R 08:00
PROVIDERS: ATTEND Family Medicine
DX: N39.0 Urinary tract infection, site not specified (principal); N31.9 Neuromuscular dysfunction of bladder, unspecified
CPT/HCPCS: 81001; 81003; 87086

== ENCOUNTER 2019-10-30 15:19 | Outpatient (CLI) | payer MEDICARE, OTHER | END 2019-10-30 15:20 | disposition critical access hospital (66) | LOC: EMS 15:19 | PROVIDERS: ATTEND Surgery | DX: R05 Cough (principal); R53.1 Weakness; R39.89 Other symptoms and signs involving the genitourinary system | CPT/HCPCS: A0425; A0427 ==

== ENCOUNTER 2019-10-30 15:38 | Inpatient (IN) | payer MEDICARE, OTHER ==
[2019-10-30] MEDS ORDERED: SODIUM CHLORIDE 0.9% 1,000 ML IV STA (15:44)
--- NOTE | 2019-10-30 15:46 | ED Physician Documentation ---
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 from home with about a 5-day history of productive cough, shortness of breath, and poor oral intake.) Review of Systems Ten Systems: 10 systems reviewed and negative Constitutional: reports: Fatigue Nose: denies: Rhinorrhea / runny nose Respiratory: reports: Dyspnea, Cough GI: denies: Abdominal Pain, Nausea, Vomiting PD PAST MEDICAL HISTORY - Past Medical History Cardiovascular: High cholesterol, Coronary artery disease, Other (no CHF; had stents/CABG years ago.) Respiratory: None Neuro: None Endocrine/Autoimmune: None GI: None : Benign prostate hypertrophy, Frequency, Other HEENT: Chronic hearing loss, Other Psych: None Musculoskeletal: Paraplegia, Chronic back pain Derm: None - Past Surgical History Past Surgical History: Yes Ortho: Other Cardiovascular: CABG HEENT: Tonsil/Adenoidectomy - Present Medications Home Medications: Ambulatory Orders Medication Instructions Recorded Confirmed Atorvastatin [Lipitor] 40 mg PO QPM 09/03/16 08/01/19 Brimonidine Tartrate/Timolol 1 drops LEFTEYE BID 09/01/18 01/27/19 [Combigan 0.2%-0.5% Eye Drops] Calcium Carbonate [Tums (Calcium 500 mg PO BID #60 tablet 09/05/18 01/27/19 Carbonate 500mg)] Cholecalciferol (Vitamin D3) 1,000 unit PO DAILY #30 capsule 09/05/18 08/01/19 [Vitamin D3] Aspirin 81 mg PO DAILY 07/31/19 08/01/19 Gabapentin 600 mg PO QID 07/31/19 Ropinirole HCl 4 mg PO DAILY 08/01/19 08/01/19 Sennosides [Senna] 17.2 mg PO BID 08/01/19 08/01/19 polyethylene glycoL 3350 17 gm PO DAILY 08/01/19 08/01/19 [Polyethylene Glycol 3350] Ferrous Sulfate 325 mg PO DAILY #30 tablet 08/02/19 Lactobacillus Acidophilus 1 each PO DAILY #4 capsule 08/02/19 [Acidophilus Lactobacilli] Levofloxacin [Levaquin] 750 mg PO DAILY #4 tablet 08/02/19 guaiFENesin [Mucinex] 600 mg PO BID #8 tab.er.12h 08/02/19 - Allergies Allergies/Adverse Reactions: Allergies Allergy/AdvReac Type Severity Reaction Status Date / Time No Known Drug Allergies Allergy Verified 10/30/19 15:59 - Social History Does the pt smoke?: No Smoking Status: Never smoker Does the pt drink ETOH?: Yes Does the pt have substance abuse?: No - Immunizations Immunizations are current?: Yes Immunizations: TDAP current <10years - POLST Patient has POLST: No POLST Status: Full Code PD ED PE NORMAL - Vitals Vital signs reviewed: Yes - General General: Alert and oriented X 3, No acute distress - HEENT HEENT: PERRL, EOMI - Neck Neck: Supple, no meningeal sign, No bony TTP - Cardiac Cardiac: RRR, No murmur - Respiratory Respiratory: Other (He is rhonchorous everywhere except for the left lower lobe with a loud wet cough) - Abdomen Abdomen: Non tender - Back Back: Other (Chronic Echevarria in place) - Derm Derm: Normal color, Warm and dry - Neuro Neuro: Alert and oriented X 3, Other (He has minimal movement of the right arm and leg which he says is chronic from prior spinal cord injury. Better but not great movements of the left lower extremity and the left upper extremity has fairly normal motion.) Results - Vitals Vitals: Vital Signs - 24 hr 10/30/19 15:45 Temperature 36.7 C Heart Rate 92 Respiratory 28 H Rate Blood Pressure 98/58 L O2 Saturation 94 Oxygen O2 Source Room air - Labs Labs: Laboratory Tests 10/30/19 10/30/19 10/30/19 16:00 16:00 16:04 WBC 6.1 RBC 2.22 L Hgb 6.9 L* Hct 22.6 L MCV 101.8 H MCH 31.1 H MCHC 30.5 L RDW 20.3 H Plt Count 132 MPV 9.0 Neut # (Auto) 2.9 Lymph # (Auto) 1.4 L Monona # (Auto) 1.0 Eos # (Auto) 0.2 Baso # (Auto) 0.1 Absolute Nucleated RBC 0.51 Nucleated RBC % 8.3 Manual Slide Review Indicated WBC Morphology NORMAL APPEARANCE Platelet Estimate NORMAL (130-450,000) Platelet Morphology NORMAL APPEARANCE RBC Morph Micro Appear 1+ POLYCHROMASIA Sodium 138 Potassium 3.5 Chloride 106 Carbon Dioxide 21 Anion Gap 11.0 BUN 24 H Creatinine 0.5 L Estimated GFR (MDRD) 162 Glucose 112 H Lactic Acid 0.9 Calcium 9.3 Total Bilirubin 1.2 H AST 26 ALT 13 Alkaline Phosphatase 105 Total Protein 6.1 L Albumin 3.8 Globulin 2.3 Albumin/Globulin Ratio 1.7 Lipase 29 Urine Color Urine Clarity Urine pH Ur Specific Steward Urine Protein Urine Glucose (UA) Urine Ketones Urine Occult Blood Urine Nitrite Urine Bilirubin Urine Urobilinogen Ur Leukocyte Esterase Urine RBC Urine WBC Ur Squamous Epith Cells Urine Bacteria Ur Microscopic Review Urine Culture Comments 10/30/19 16:05 WBC RBC Hgb Hct MCV MCH MCHC RDW Plt Count MPV Neut # (Auto) Lymph # (Auto) Monona # (Auto) Eos # (Auto) Baso # (Auto) Absolute Nucleated RBC Nucleated RBC % Manual Slide Review WBC Morphology Platelet Estimate Platelet Morphology RBC Morph Micro Appear Sodium Potassium Chloride Carbon Dioxide Anion Gap BUN Creatinine Estimated GFR (MDRD) Glucose Lactic Acid Calcium Total Bilirubin AST ALT Alkaline Phosphatase Total Protein Albumin Globulin Albumin/Globulin Ratio Lipase Urine Color YELLOW Urine Clarity HAZY Urine pH 5.0 Ur Specific Steward >=1.030 H Urine Protein 100 H Urine Glucose (UA) NEGATIVE Urine Ketones 15 H Urine Occult Blood LARGE H Urine Nitrite POSITIVE H Urine Bilirubin NEGATIVE Urine Urobilinogen 1 (NORMAL) Ur Leukocyte Esterase SMALL H Urine RBC TNTC H Urine WBC 6-10 H Ur Squamous Epith Cells NONE SEEN Urine Bacteria Moderate H Ur Microscopic Review INDICATED Urine Culture Comments INDICATED PD MEDICAL DECISION MAKING - ED course ED course: 78-year-old gentleman with 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 Had low blood pressure at the outset which responded to fluid. Evidence of right greater than left-sided pneumonia. Also pyuria but note that he has a chronic indwelling Echevarria so this may be colonization. Blood cultures were obtained and he was administered Rocephin and Zithromax IV. Note made of his anemia but it seems like this is fairly chronic looking at old labs. Spoke with Dr. Lacey for admission at 4:52 PM. Departure - Departure Disposition: 66 [facility] DC/Xfer Clinical Impression: Severe anemia, Transient hypotension Hemiplegia Qualifiers: Hemiplegia type: unspecified type Hemiplegia etiology: non-cerebrovascular Hemiplegia laterality: right dominant side Qualified Code(s): G81.91 - Hemiplegia, unspecified affecting right dominant side CAP (community acquired pneumonia) Qualifiers: Laterality: unspecified laterality Qualified Code(s): J18.9 - Pneumonia, unspecified organism Condition: Serious
[2019-10-30 16:13] LABS: BASOPHILS # (AUTO) 0.1 10^3/uL (0.0-0.1); BASOPHILS % (AUTO) 0.8 %; EOSINOPHILS # (AUTO) 0.2 10^3/uL (0.0-0.7); EOSINOPHILS % (AUTO) 3.3 %; LYMPHOCYTES # (AUTO) 1.4 10^3/uL (1.5-3.5); LYMPHOCYTES % (AUTO) 22.1 %; MEAN CORPUSCULAR HEMOGLOBIN 31.1 pg (27.0-31.0); MEAN CORPUSCULAR HGB CONC 30.5 g/dL (32.0-36.0); MEAN CORPUSCULAR VOLUME 101.8 fL (80.0-94.0); MONOCYTES % (AUTO) 15.5 %; NEUTROPHILS # (AUTO) 2.9 10^3/uL (1.5-6.6); NEUTROPHILS % (AUTO) 46.8 %; PLT - PLATELET COUNT 132 10^3/uL (130-450); RED BLOOD COUNT 2.22 10^6/uL (4.70-6.10); RED CELL DISTRIBUTION WIDTH 20.3 % (12.0-15.0); WHITE BLOOD COUNT 6.1 x10^3/uL (4.8-10.8)
[2019-10-30 16:17] LABS: HGB - HEMOGLOBIN 6.9 g/dL (14.0-18.0)
[2019-10-30 16:23] LABS: BILIRUBIN,URINE NEGATIVE (NEGATIVE); GLUCOSE, URINE (UA) NEGATIVE (NEGATIVE); KETONES,URINE (UA) 15 mg/dL (NEGATIVE); LEUKOCYTE ESTERASE, URINE SMALL (NEGATIVE); NITRITE,URINE POSITIVE (NEGATIVE); OCCULT BLOOD,URINE LARGE (NEGATIVE); PROTEIN,URINE 100 mg/dL (NEGATIVE); UROBILINOGEN,URINE 1 (NORMAL) E.U./dL (NORMAL)
[2019-10-30 16:25] LABS: ALBUMIN 3.8 g/dL (3.2-5.5); ALBUMIN/GLOBULIN RATIO 1.7 (1.0-2.2); BILIRUBIN,TOTAL 1.2 mg/dL (0.2-1.0); CALCIUM 9.3 mg/dL (8.5-10.3); CREATININE 0.5 mg/dL (0.6-1.2); TOTAL PROTEIN 6.1 g/dL (6.7-8.2)
[2019-10-30 16:30] LABS: CLARITY,URINE HAZY (CLEAR)
--- NOTE | 2019-10-30 16:30 | XRAY Report ---
PROCEDURE: Chest 1 View X-Ray INDICATIONS: cough TECHNIQUE: One view of the chest was acquired. COMPARISON: 07/31/2019 FINDINGS: Surgical changes and devices: Median sternotomy wires are noted. Partially imaged cervical fusion vianey dware.. Lungs and pleura: Osseous structures of the patient's right hand projects over the periphery of the right upper lung zone and obscures underlying structures. There is patchy opacity of the right lung b ase and minimal patchy opacity of the left lung base. No pneumothorax or pleural effusion. No pleural effusions or pneumothorax. Lungs are clear. Mediastinum: Mediastinal contours appear normal. Heart size is normal. Bones and chest wall: No suspicious bony lesions. Overlying soft tissues appear unremarkable. IMPRESSION: Patchy bibasilar opacities more pronounced on the right favored to represent developing airspace dise ase/pneumonia. Concurrent atelectasis may be present. Recommend follow-up chest radiograph 4-6 weeks after treatment to document resolution of findings and /or return to baseline exam. Reviewed by: Dheeraj Gr MD on 10/30/2019 4:29 PM PDT Approved by: Dheeraj Gr MD on 10/30/2019 4:29 PM PDT Station ID: [id number]
[2019-10-30] MEDS ORDERED: AZITHROMYCIN INJ 500 MG in SODIUM CHLORIDE 0.9% 250 ML IV STA (16:32)
[2019-10-30] MEDS ORDERED: cefTRIAXone 2 GM in SODIUM CHLORIDE 0.9% MINIBAG 100 ML IV STA (16:32)
[2019-10-30 16:36] LABS: PLATELET ESTIMATE, MANUAL NORMAL (130-450,000) (NORMAL); PLATELET MORPHOLOGY NORMAL APPEARANCE (NORMAL)
[2019-10-30 16:40] LABS: RBC,URINE TNTC /HPF (0-5); SQUAMOUS EPITHELIAL CELL,UR NONE SEEN (<= Few)
[2019-10-30 16:41] LABS: BACTERIA,URINE Moderate /HPF (None Seen)
[2019-10-30] MEDS ORDERED: ONDANSETRON 4 MG/2 ML VIAL IVP PRN (17:08)
[2019-10-30] MEDS ORDERED: ACETAMINOPHEN 325 MG TABLET PO PRN (17:08)
--- NOTE | 2019-10-30 17:18 | HISTORY & PHYSICAL EXAMINATION ---
Chief Complaint - Chief Complaint Chief Complaint: cough and weakness History of Present Illness - Admitted From Admitted From:: ER - History Obtained From Records Reviewed: ER History obtained from: Pt - History of Present Illness HPI Comment/Other: Mr Miguel Negrete is a 78-year old gentleman with a history significance of metastatic prostate cancer who has been receiving chemotherapy for his prostate cancer and followup oncologist , hemiplegia/spinal cord injury, Brown- Squard syndrome, indwelling Echevarria, hypertension and hypercholesterolemia, CAD, restless leg syndrome, chronic anemia who present ER complain of cough, and weakness. pt seems very sick and profound weakness but pt is alert and oriented. pt report he had productive cough, increased weakness, decreased oral intake, and decreased urinary output for about 5 days. Pt has been bed bound. pt had indwelling catheter. Pt denies chest pain, abdominal pain, nausea and vomiting, fever, chills. pt Had low blood pressure at the outset in ER but he was responded to fluid perfusion. CXR reveals Evidence of right greater than left- sided pneumonia. UA analys Also reveal pyuria and UTI. he has a chronic indwelling Echevarria so it may be colonization. Route lab reveal pt has HGB 6.9. pt has hx of chronic anemia. Blood cultures were obtained in ER. ER ordered Covid 19 test and the test is pending. pt was admitted in medical floor now for further evaluation and treatment. Discussed the care goal with pt, pt request full code for his code status now. At the time, nurse is at the bedside. History - Past Medical History Cardiovascular: reports: High cholesterol, Coronary artery disease, Other (no CHF; had stents/CABG years ago.) Respiratory: reports: None Neuro: reports: None Endocrine/Autoimmune: reports: None GI: reports: None : reports: Benign prostate hypertrophy, Frequency, Other HEENT: reports: Chronic hearing loss, Other Psych: reports: None Musculoskeletal: reports: Paraplegia, Chronic back pain Derm: reports: None MRSA Hx?: No - Past Surgical History Ortho: reports: Other Cardiovascular: reports: CABG HEENT: reports: Tonsil/Adenoidectomy - Family & Social History Family History: Mother: , Father: , Cancer, Brother: , Cancer, Other family: Hyperlipidemia, Hypertension Family History Comment/Other: pt report his father and brothe both from cancer, he did not know much about his mother condition. Social History Notes: he denies cigarette smoking, alcohol and drug problem - Substance History Use: Uses substance without health or social issues: NONE - POLST Patient has POLST: No POLST Status: Full Code Meds/Allgy - Home Medications Home Medications: Ambulatory Orders Medication Instructions Recorded Confirmed Atorvastatin [Lipitor] 40 mg PO QPM 09/03/16 08/01/19 Brimonidine Tartrate/Timolol 1 drops LEFTEYE BID 09/01/18 01/27/19 [Combigan 0.2%-0.5% Eye Drops] Calcium Carbonate [Tums (Calcium 500 mg PO BID #60 tablet 09/05/18 01/27/19 Carbonate 500mg)] Cholecalciferol (Vitamin D3) 1,000 unit PO DAILY #30 capsule 09/05/18 08/01/19 [Vitamin D3] Aspirin 81 mg PO DAILY 07/31/19 08/01/19 Gabapentin 600 mg PO QID 07/31/19 Ropinirole HCl 4 mg PO DAILY 08/01/19 08/01/19 Sennosides [Senna] 17.2 mg PO BID 08/01/19 08/01/19 polyethylene glycoL 3350 17 gm PO DAILY 08/01/19 08/01/19 [Polyethylene Glycol 3350] Ferrous Sulfate 325 mg PO DAILY #30 tablet 08/02/19 Lactobacillus Acidophilus 1 each PO DAILY #4 capsule 08/02/19 [Acidophilus Lactobacilli] Levofloxacin [Levaquin] 750 mg PO DAILY #4 tablet 08/02/19 guaiFENesin [Mucinex] 600 mg PO BID #8 tab.er.12h 08/02/19 - Allergies Allergies/Adverse Reactions: Allergies Allergy/AdvReac Type Severity Reaction Status Date / Time No Known Drug Allergies Allergy Verified 10/30/19 15:59 Review of Systems - Constitutional Constitutional: reports: Fatigue, Weakness. denies: Fever, Chills, Malaise, Diaphoresis, Night sweats - Eyes Eyes: denies: Pain, Blurred vision, Spots in vision, Field loss, Vision loss, Dipolpia - Ears, Nose & Throat Ears, Nose & Throat: reports: Ear pain. denies: Vertigo, Nosebleeds, Postnasal drainage, Mouth lesions, Bleeding gums - Cardiovascular Cariovascular: denies: Irregular heart rate, Palpitations, Chest pain, Edema, Lightheadedness, Syncope - Respiratory Respiratory: reports: Cough. denies: Sputum production, Wheezing, Hemoptysis, Orthopnea, SOB at rest - Gastrointestinal Gastrointestinal: denies: Abdominal pain, Constipation, Diarrhea, Rectal bleeding, Black stools, Bloody stools, Nausea, Vomiting, Dale blood emesis, Coffee grounds emesis - Genitourinary Genitourinary: denies: Dysuria, Flank pain - Musculoskeletal Musculoskeletal: denies: Muscle pain, Muscle aches - Integumentary Integumentary: denies: Rash, Pruritis, Lumps - Neurological Neurological: reports: General weakness. denies: Focal weakness, Headache, Dizziness, Numbness, Seizures, Incoordination, Slurred speech - Psychiatric Psychiatric: denies: Suicidal, Delusions, Hallucinations, Homicidal - Endocrine Endocrine: denies: Polyuria, Polydypsia - Hematologic/Lymphatic Hematologic/Lymphatic: reports: Anemia, Recurrent infections Exam - Vital Signs Vital Signs: Vital Signs x48h Temp Pulse Resp BP Pulse Ox 10/30/19 17:00 97 24 120/58 L 93 10/30/19 15:45 36.7 C 92 28 H 98/58 L 94 - Physical Exam General Appearance: positive: No acute distress, Alert. negative: Lethargic Eyes Bilateral: positive: Normal inspection, PERRL, No lid inflammation ENT: positive: ENT inspection nml, Pharynx nml, Dry mucous membranes. negative: Purulent nasal drainage Neck: positive: Nml inspection, Thyroid nml, No JVD, Trachea midline. negative: Thyromegaly, Stiff neck, Tracheal deviation Respiratory: positive: Chest non-tender, No respiratory distress, Rhonchi. negative: Breath sounds nml, Wheezes, Rales Cardiovascular: positive: Regular rate & rhythm, No murmur, No gallop. negative: Tachycardia, Bradycardia, Systolic murmur, Diastolic murmur Peripheral Pulses: positive: 2+ Abdomen: positive: Non-tender, No organomegaly, Nml bowel sounds, No distention. negative: Tenderness, Guarding, Rebound Back: positive: Nml inspection Skin: positive: Warm, Dry. negative: Cyanosis, Diaphoresis, Pallor Extremities: positive: Non-tender. negative: Calf tenderness Neurologic/Psychiatric: positive: Oriented x3. negative: Facial droop, Slurred/abnml speech Conclusion/Plan - Problem List (1) CAP (community acquired pneumonia) Conclusion/Plan: Patient report he had cough for few days. Patient had no fever in the ER. Chest x-ray review multifocal pneumonia, right side severe more than left side. ER already ordered: covid 19 test and the test is pending, patient is on isolation room. We will treat and antibiotics cefepime,Pharmacy recommended new antibiotics of fosfomycin Which covers gram-positive pathogens including MRSA staph aureus. Continue intravenous IV fluids, continue vital signs and laboratory geneticist patient.Blood culture is pending Qualifiers: Laterality: unspecified laterality Qualified Code(s): J18.9 - Pneumonia, unspecified organism (2) UTI (urinary tract infection) Conclusion/Plan: Patient had a indwelling catheter Since he had spinal cord injury and neurogenic incontinence. Patient had a history of multiple urinary tract infection. Patient had a history of Staph infection before. Pharmacy recommended fosfomyosi n which primarily cover for bladder infection, and staph infection. UA culture is pending (3) Transient hypotension Conclusion/Plan: Patient had transient of hypotension at 98/58 in the ER but after ER gave 1 L of normal saline, patient's SBP was response to the 120. It seems from patient severely infection, we will closely monitor patient for sepsis. Continue antibiotics treated for underlying infection, continue vital signs and laboratory geneticist patient (4) Severe anemia Conclusion/Plan: Patient had a hemoglobin 6.9, patient has a chronic anemia. pt has hx of patient's pathogenic metastatic bone lesion from metastatic prostate cancer. Patient patient follow-up with his oncologist. Resume home ferrous pill. Patient present profound weakness, is likely from septic and significant anemia, patient will have 1 unit blood transfusion. We will continue laboratory geneticist patient (5) Chronic indwelling Echevarria catheter Conclusion/Plan: Patient has chronic urine indwelling Echevarria catheter. We will change new Echevarria catheter, we will continue Echevarria catheter care (6) Hemiplegia Conclusion/Plan: Patient has a history hemoperfusion, we will supportive to patient, And skin care by turning the patient every 2 hours for prevention skin pressure ulcers Qualifiers: Hemiplegia type: unspecified type Hemiplegia etiology: non-cerebrovascular Hemiplegia laterality: right dominant side Qualified Code(s): G81.91 - Hemiplegia, unspecified affecting right dominant side (7) Hx of coronary artery disease Conclusion/Plan: Patient denies chest pain, we will resume aspirin, we will order echo, Continue telemetry and vital signs monitor patient (8) Hyperlipidemia Conclusion/Plan: Patient has a history of hyperlipidemia, will resume home medication after confirmed by pharmacy (9) Prostate cancer metastatic to bone Conclusion/Plan: Patient has history of prostate cancer metastases to the bone, advise patient follow with Dr. Escobar his oncologist - Lab Results Fish Bones: 10/30/19 16:00 10/30/19 16:00 Core Measures - Anticipated LOS I expect patient to be DC'd or transferred within 96 hours.: Yes - DVT/VTE - Prophylaxis VTE/DVT Device ordered at admit?: Yes VTE/DVT Prophylaxis med ordered at admit?: Yes
[2019-10-30] MEDS ORDERED: FOSFOMYCIN TROMETHAMINE 3 GM PACKET PO SCH (18:00)
[2019-10-30] MEDS ORDERED: SODIUM CHLORIDE 0.9% 1,000 ML IV SCH ×2 (18:00)
[2019-10-30] MEDS ORDERED: SODIUM CHLORIDE 0.9% 500 ML IV ONE (18:41)
[2019-10-30] MEDS: SODIUM CHLORIDE 0.9% 1,000 ML IV SCH (19:23)
[2019-10-30] MEDS: GABAPENTIN 300 MG CAPSULE PO SCH (22:20)
[2019-10-30] MEDS: CEFEPIME 1 GM in SODIUM CHLORIDE 0.9% MINIBAG 100 ML IV SCH (22:20)
[2019-10-31] MEDS: SODIUM CHLORIDE FLUSH 0.9% 10 ML SYRINGE IVP SCH ×3 (01:49→16:06)
[2019-10-31 06:00] LABS: BASOPHILS # (AUTO) 0.1 10^3/uL (0.0-0.1); BASOPHILS % (AUTO) 1.1 %; EOSINOPHILS # (AUTO) 0.1 10^3/uL (0.0-0.7); EOSINOPHILS % (AUTO) 1.8 %; HGB - HEMOGLOBIN 7.6 g/dL (14.0-18.0); LYMPHOCYTES # (AUTO) 1.5 10^3/uL (1.5-3.5); LYMPHOCYTES % (AUTO) 22.3 %; MEAN CORPUSCULAR HEMOGLOBIN 30.8 pg (27.0-31.0); MEAN CORPUSCULAR HGB CONC 31.7 g/dL (32.0-36.0); MEAN CORPUSCULAR VOLUME 97.2 fL (80.0-94.0); MEAN PLATELET VOLUME 8.9 fL (7.4-11.4); MONOCYTES % (AUTO) 14.9 %; PLT - PLATELET COUNT 108 10^3/uL (130-450); RED BLOOD COUNT 2.47 10^6/uL (4.70-6.10); RED CELL DISTRIBUTION WIDTH 19.9 % (12.0-15.0); WHITE BLOOD COUNT 6.6 x10^3/uL (4.8-10.8)
[2019-10-31 06:11] LABS: CREATININE 0.4 mg/dL (0.6-1.2); MAGNESIUM 2.4 mg/dL (1.7-2.8); PHOSPHORUS 3.4 mg/dL (2.5-4.6)
[2019-10-31] MEDS: CEFEPIME 1 GM in SODIUM CHLORIDE 0.9% MINIBAG 100 ML IV SCH ×3 (06:21→21:32)
[2019-10-31] MEDS ORDERED: PANTOPRAZOLE 40 MG TABLET PO SCH (07:00)
[2019-10-31] MEDS: ASPIRIN CHEW 81 MG TABLET PO SCH (08:48)
[2019-10-31] MEDS: GABAPENTIN 300 MG CAPSULE PO SCH ×4 (08:48→20:22)
[2019-10-31] MEDS: FERROUS SULFATE 325 MG TABLET PO SCH (08:48)
[2019-10-31] MEDS: SACCHAROMYCES BOULARDII 250 MG CAPSULE PO SCH ×2 (08:49→16:26)
[2019-10-31] MEDS: SODIUM CHLORIDE 0.9% 1,000 ML IV SCH (08:54)
[2019-10-31] MEDS: ENOXAPARIN 40 MG/0.4 ML SYRINGE SUBQ SCH (08:55)
[2019-10-31] MEDS: metroNIDAZOLE 500 MG/100 ML 500 MG/100 ML BAG IV SCH ×2 (12:52→20:18)
--- NOTE | 2019-10-31 13:08 | PHARMACY PROGRESS NOTE ---
- Best Possible Medication History Admit Date and Time: 10/30/19 5664 Processed by: Pharmacy Medication History completed: Yes Secondary Source(s): Physician records, Pharmacy records, Insurance records As the person ultimately responsible for medication therapy, providers are able to order a medication from an existing home medication list in [facility] via the "Reconcile Routine" prior to Confirmation of that medication by high school learning support teacher. Such practice is discouraged except when the physician, in their clinical judgment, deems that a medical need exists for a medication without regard to previous use.
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
--- NOTE | 2019-10-31 15:12 | PHARMACY PROGRESS NOTE ---
- Therapy Status Vancomycin regimen day #: 1 Therapy status: Awaiting steady state Basis for treatment: Empirical Treatment indication: PNEUMONIA, SEPSIS Trough goal: 15-20 Concurrent antibiotics: CEFEPIME, METRONIDAZOLE - NOY Risk Risk level for Acute Kidney Injury: Moderate Acute Kidney Injury risk factors: Goal trough >15, Acute hypotensive event, Se psis - Monitoring and Recommendation Clinical response to treatment: I&O Previous 24 hours 10/29/19 10/30/19 10/31/19 23:59 23:59 23:59 Intake Total 2300 1820 Output Total 250 575 Balance 2050 1245 Lab Results 10/31/19 10/30/19 05:40 16:00 BUN 21 H 24 H Creatinine 0.4 L 0.5 L Estimated GFR (MDRD) 209 162 Cultures 10/30/19 16:05 Urine,Catheterized Urine Culture - Preliminary 10/30/19 19:10 Sputum Respiratory Culture - Preliminary Monitoring plan: Daily serum creatinine Next trough due prior to maintenance dose #: 4 Next trough due (date/time): 11/01 @1530 Areas for additional monitoring: IV to PO when appropriate, Therapy de- escalation based on culture results
[2019-10-31] MEDS ORDERED: VANCOMYCIN INJ 1 GM, VANCOMYCIN INJ 500 MG in SODIUM CHLORIDE 0.9% 500 ML IV ONE (16:00)
[2019-10-31] MEDS: D5NS W/20 MEQ KCL 1,000 ML IV SCH (20:08)
[2019-10-31] MEDS: rOPINIRole 1 MG TABLET PO SCH (20:22)
[2019-10-31] MEDS: SENNA 8.6 MG TABLET PO SCH (20:23)
[2019-10-31] MEDS: CALCIUM CARBONATE CHEW 500 MG TABLET PO SCH (20:23)
[2019-10-31] MEDS: ATORVASTATIN 40 MG TABLET PO SCH (20:23)
[2019-10-31] MEDS: DORZOLAMIDE 2% OPHTH DROPS EACHEYE SCH (20:23)
[2019-10-31] MEDS: BRINZOLAMIDE EACHEYE SCH (20:24)
[2019-10-31] MEDS: BRIMONIDINE TART EACHEYE SCH (20:24)
[2019-11-01] MEDS: SODIUM CHLORIDE FLUSH 0.9% 10 ML SYRINGE IVP SCH ×3 (00:03→17:21)
[2019-11-01] MEDS: VANCOMYCIN INJ 1 GM, VANCOMYCIN INJ 250 MG in SODIUM CHLORIDE 0.9% 250 ML IV SCH ×2 (04:27→16:15)
[2019-11-01] MEDS: metroNIDAZOLE 500 MG/100 ML 500 MG/100 ML BAG IV SCH ×3 (04:28→20:38)
[2019-11-01] MEDS: PANTOPRAZOLE 40 MG VIAL IVP SCH (06:08)
[2019-11-01] MEDS: CEFEPIME 1 GM in SODIUM CHLORIDE 0.9% MINIBAG 100 ML IV SCH ×3 (06:08→21:55)
[2019-11-01] MEDS: SODIUM CHLORIDE FLUSH 0.9% 10 ML SYRINGE IVP PRN (06:08)
[2019-11-01 06:09] LABS: BASOPHILS # (AUTO) 0.1 10^3/uL (0.0-0.1); EOSINOPHILS # (AUTO) 0.5 10^3/uL (0.0-0.7); EOSINOPHILS % (AUTO) 6.4 %; HGB - HEMOGLOBIN 7.6 g/dL (14.0-18.0); LYMPHOCYTES # (AUTO) 1.3 10^3/uL (1.5-3.5); MEAN CORPUSCULAR HEMOGLOBIN 31.3 pg (27.0-31.0); MEAN CORPUSCULAR HGB CONC 31.4 g/dL (32.0-36.0); MEAN CORPUSCULAR VOLUME 99.6 fL (80.0-94.0); MEAN PLATELET VOLUME 9.3 fL (7.4-11.4); MONOCYTES # (AUTO) 0.9 10^3/uL (0.0-1.0); MONOCYTES % (AUTO) 12.6 %; NEUTROPHILS # (AUTO) 3.4 10^3/uL (1.5-6.6); NEUTROPHILS % (AUTO) 47.4 %; PLT - PLATELET COUNT 109 10^3/uL (130-450); RED BLOOD COUNT 2.43 10^6/uL (4.70-6.10); RED CELL DISTRIBUTION WIDTH 19.8 % (12.0-15.0); WHITE BLOOD COUNT 7.2 x10^3/uL (4.8-10.8)
[2019-11-01 06:28] LABS: CALCIUM 8.8 mg/dL (8.5-10.3); CREATININE 0.4 mg/dL (0.6-1.2); MAGNESIUM 2.4 mg/dL (1.7-2.8)
[2019-11-01 06:49] LABS: FOLATE 4.98 ng/mL (5.90 - >24.8)
[2019-11-01] MEDS ORDERED: ASPIRIN CHEW 81 MG TABLET PO SCH (09:00)
[2019-11-01] MEDS ORDERED: FOLIC ACID INJ 1 MG in SODIUM CHLORIDE 0.9% 1,000 ML IV SCH (09:00)
[2019-11-01] MEDS ORDERED: FERROUS SULFATE 325 MG TABLET PO SCH (09:00)
[2019-11-01] MEDS: ENOXAPARIN 40 MG/0.4 ML SYRINGE SUBQ SCH (10:24)
[2019-11-01] MEDS: CHOLECALCIFEROL 25 MCG TABLET PO SCH (10:24)
[2019-11-01] MEDS: FERROUS SULFATE 325 MG TABLET PO SCH (10:24)
[2019-11-01] MEDS: SENNA 8.6 MG TABLET PO SCH ×2 (10:24→20:39)
[2019-11-01] MEDS: CALCIUM CARBONATE CHEW 500 MG TABLET PO SCH ×2 (10:24→20:38)
[2019-11-01] MEDS: ASPIRIN CHEW 81 MG TABLET PO SCH (10:24)
[2019-11-01] MEDS: SACCHAROMYCES BOULARDII 250 MG CAPSULE PO SCH ×2 (10:24→17:23)
[2019-11-01] MEDS: GABAPENTIN 300 MG CAPSULE PO SCH ×4 (10:24→20:38)
[2019-11-01] MEDS: DORZOLAMIDE 2% OPHTH DROPS EACHEYE SCH ×2 (10:42→20:46)
[2019-11-01] MEDS: BRINZOLAMIDE EACHEYE SCH ×2 (10:43→20:46)
[2019-11-01] MEDS: BRIMONIDINE TART EACHEYE SCH ×2 (10:43→20:46)
[2019-11-01] MEDS: POTASSIUM CHLOR 10 MEQ/100 ML 10 MEQ/100 ML BAG IV SCH ×4 (10:44→17:21)
--- NOTE | 2019-11-01 11:42 | PROVIDER PROGRESS NOTE ---
Assessment/Plan - Problem List (1) CAP (community acquired pneumonia) Qualifiers: Laterality: unspecified laterality Qualified Code(s): J18.9 - Pneumonia, unspecified organism Assessment/Plan: Continue with empiric antibiotics. Await sputum and blood culture results. (2) Aspiration pneumonia Assessment/Plan: His daytime nurse, Ahmet Ware and I watched if he could tolerate drinking thin liquids, water with a straw. He has a good swallowing mechanism, he coughed after every gulp. I explained that he needs a swallowing eval before we can change his thickened liquids and his pured diet. Speech therapist is here tomorrow (today Saturday). Continue IV antibiotics to cover anaerobes for aspiration. (3) UTI (urinary tract infection) Qualifiers: Indwelling urinary catheter type: indwelling urethral catheter Assessment/Plan: Await urinary culture and blood culture results. Continue empiric antibiotics (4) Chronic indwelling Echevarria catheter Assessment/Plan: This was changed to a fresh Echevarria after admission (5) Hypotension Assessment/Plan: He has "soft" blood pressure, no longer hypotensive, after 2 days of IV fluids. Continue IV fluids until he is able to take oral hydration adequately, this needs to await tomorrow swallowing eval (6) Hypokalemia Assessment/Plan: Replace via IV, in order to decrease any unnecessary p.o. intake Follow BMP daily (7) Severe anemia Assessment/Plan: He needed 1 unit of PRBCs at admission for hemoglobin of 6.9 which increased to 7.6 and remains at 7.6. B12 and folate levels were checked because of high MCV. He is folate deficient. We will order folate 1 mg daily, via IV. Continue iron replacement (8) Hemiplegia Qualifiers: Hemiplegia type: unspecified type Hemiplegia etiology: non-cerebrovascular Hemiplegia laterality: right dominant side Qualified Code(s): G81.91 - Hemiplegia, unspecified affecting right dominant side Assessment/Plan: As per Hx (9) Hx of coronary artery disease Assessment/Plan: As per Hx Continue daily ASA (10) Prostate cancer metastatic to bone Assessment/Plan: As per Hx His progresses was not known to his daughter, after I asked her about this yesterday (11) Hyperlipidemia Assessment/Plan: His Lipitor home dose continues - Current Meds Current Meds: Current Medications Generic Name Dose Route Start Last Admin Trade Name Freq PRN Reason Stop Dose Admin Aspirin 81 mg 10/31/19 09:00 11/01/19 10:24 [facility] Aspirin PO 81 mg DAILY EMPERATRIZ Administration Atorvastatin Calcium 40 mg 10/31/19 21:00 10/31/19 20:23 Lipitor PO 40 mg QPM EMPERATRIZ Administration Calcium Carbonate/Glycine 500 mg 10/31/19 21:00 11/01/19 10:24 Tums PO 500 mg BID EMPERATRIZ Administration Cholecalciferol 25 mcg 11/01/19 09:00 11/01/19 10:24 Vitamin D3 PO 25 mcg DAILY EMPERATRIZ Administration Dorzolamide HCl 1 drops 10/31/19 21:00 11/01/19 10:42 Trusopt 2% Ophth Drops EACHEYE 1 drops BID EMPERATRIZ Administration Enoxaparin Sodium 40 mg 10/31/19 09:00 11/01/19 10:24 Lovenox SUBQ 40 mg DAILY EMPERATRIZ Administration Ferrous Sulfate 325 mg 10/31/19 08:00 11/01/19 10:24 Feosol PO 325 mg DAILYWM EMPERATRIZ Administration Gabapentin 600 mg 10/30/19 22:00 11/01/19 10:24 Neurontin PO 600 mg QID EMPERATRIZ Administration Cefepime HCl 1 gm/ Sodium 100 mls @ 200 mls/hr 10/30/19 22:00 11/01/19 06:47 Chloride IV Infused TID EMPERATRIZ Infusion Metronidazole 500 mg in 100 mls @ 100 mls/hr 10/31/19 12:00 11/01/19 06:08 Flagyl 500 Mg/100 Ml IV Infused Q8H EMPERATRIZ Infusion Vancomycin HCl 1 gm/ 250 mls @ 167 mls/hr 11/01/19 04:00 11/01/19 06:08 Vancomycin HCl 250 mg/ Sodium IV Infused Chloride Q12H EMPERATRIZ Infusion Potassium Chloride/Dextrose/Sod Cl 1,000 mls @ 83.333 mls/hr 10/31/19 17:00 11/01/19 10:42 IV 11/01/19 16:59 Infused .Q12H EMPERATRIZ Infusion Potassium Chloride 10 meq in 100 mls @ 100 mls/hr 11/01/19 09:00 11/01/19 10:44 Potassium Chloride IV 11/01/19 12:59 100 mls/hr Q1H EMPERATRIZ Administration Folic Acid 1 mg/ Sodium 1,000.2 mls @ 100 mls/hr 11/01/19 09:00 11/01/19 10:42 Chloride IV 100 mls/hr DAILY EMPERATRIZ Administration Pantoprazole Sodium 40 mg 11/01/19 07:00 11/01/19 06:08 Protonix IVP 40 mg QDAC EMPERATRIZ Administration Brinzolamide/ 1 each 10/31/19 21:00 11/01/19 10:43 Brimonidine Tart [ EACHEYE Not Given Simbrinza 1%-0.2% BID EMPERATRIZ Eye Drops Ropinirole HCl 4 mg 10/31/19 21:00 10/31/19 20:22 Requip PO 4 mg QPM EMPERATRIZ Administration Saccharomyces Boulardii 250 mg 10/31/19 08:00 11/01/19 10:24 Florastor PO 250 mg BIDWM EMPERATRIZ Administration Senna 17.2 mg 10/31/19 21:00 11/01/19 10:24 Senokot PO 17.2 mg BID EMPERATRIZ Administration Sodium Chloride 10 ml 10/30/19 17:08 11/01/19 06:08 Normal Saline Flush 0.9% IVP 10 ml PRN PRN Administration NEEDED PER PROVIDER ORDERS Sodium Chloride 10 ml 10/31/19 01:00 11/01/19 10:24 Normal Saline Flush 0.9% IVP Not Given 0100,0900,1700 EMPERATRIZ - Lab Result Fish Bone Diagrams: 11/01/19 06:00 11/01/19 06:00 - Additional Planning My Orders: My Active Orders 10/31/19 12:00 metroNIDAZOLE 500 MG/100 ML [Flagyl 500 mg/100 ml] 500 mg in 100 ml IV Q8H 10/31/19 17:00 D5ns W/20 Meq KCl 1,000 ml IV 83.333 mls/hr 10/31/19 21:00 Atorvastatin [Lipitor] 40 mg PO QPM Calcium Carbonate [Tums] 500 mg PO BID Dorzolamide 2% Ophth Drops [Trusopt 2% Ophth Drops] 1 drops EACHEYE BID Patient Own Med [Patient Own Medication] 1 each EACHEYE BID Senna [Senokot] 17.2 mg PO BID rOPINIRole [Requip] 4 mg PO QPM 11/01/19 04:00 Vancomycin Inj [Vancomycin] 1 gm Vancomycin Inj 250 mg Sodium Chloride 0.9% [Normal Saline 0.9%] 250 ml IV Q12H 11/01/19 09:00 Cholecalciferol [Vitamin D3] 25 mcg PO DAILY Folic Acid Inj 1 mg Sodium Chloride 0.9% [Normal Saline 0.9%] 1,000 ml IV DAILY Potassium Chlor 10 Meq/100 ml [Potassium Chloride] 10 meq in 100 ml IV Q1H 11/01/19 10:13 Isolation - Discontinue [RC] .once 11/01/19 11:06 Miscellaenous Nursing Order [RC] ONCE 11/02/19 Clinical Swallow Evaluation [ST] Routine 11/02/19 15:30 VANCOMYCIN TROUGH [CHEM] Timed Subjective - Subjective Patient Reports: Other (Asking to drink regular thin consistency water.) Nursing Reports: Other (Has more energy, is more alert, is taking his diet) Objective Vital Signs: Vital Signs - 24 hr 10/31/19 10/31/19 11/01/19 16:06 20:05 01:00 Temperature 36.6 C 36.8 C 36.7 C Heart Rate [ 82 84 84 Brachial] Respiratory 24 24 20 Rate Blood Pressure 105/48 L [Left Brachial artery] Blood Pressure 100/53 L 99/48 L [Right Brachial artery] O2 Saturation 94 95 94 11/01/19 11/01/19 04:37 10:00 Temperature 36.6 C 36.9 C Heart Rate [ 82 85 Brachial] Respiratory 20 19 Rate Blood Pressure 101/50 L [Left Brachial artery] Blood Pressure 102/47 L [Right Brachial artery] O2 Saturation 93 94 Oxygen O2 Source Room air I&O (Last 24 Hrs): Intake and Output Totals x24h 10/30/19 10/31/19 11/01/19 23:59 23:59 23:59 Intake Total 2300 3354.444 1445.556 Output Total 250 750 200 Balance 2050 2604.444 1245.556 General: Alert, Oriented x3 HEENT: EOMI, Mucous membr. moist/pink Neck: Supple Neuro: Other (Right arm is contracted and both legs are paretic, right leg gets nonpainful hip spasm) Cardiovascular: Regular rate Respiratory: No respiratory distress, Rhonchi Abdomen: Soft Extremities: No edema - Results Results: Laboratory Results WBC 7.2 x10^3/uL (4.8-10.8) 11/01/19 06:00 RBC 2.43 10^6/uL (4.70-6.10) L 11/01/19 06:00 Hgb 7.6 g/dL (14.0-18.0) L 11/01/19 06:00 Hct 24.2 % (42.0-52.0) L 11/01/19 06:00 MCV 99.6 fL (80.0-94.0) H 11/01/19 06:00 MCH 31.3 pg (27.0-31.0) H 11/01/19 06:00 MCHC 31.4 g/dL (32.0-36.0) L 11/01/19 06:00 RDW 19.8 % (12.0-15.0) H 11/01/19 06:00 Plt Count 109 10^3/uL (130-450) L 11/01/19 06:00 MPV 9.3 fL (7.4-11.4) 11/01/19 06:00 Neut # (Auto) 3.4 10^3/uL (1.5-6.6) 11/01/19 06:00 Lymph # (Auto) 1.3 10^3/uL (1.5-3.5) L 11/01/19 06:00 [place] # (Auto) 0.9 10^3/uL (0.0-1.0) 11/01/19 06:00 Eos # (Auto) 0.5 10^3/uL (0.0-0.7) 11/01/19 06:00 Baso # (Auto) 0.1 10^3/uL (0.0-0.1) 11/01/19 06:00 Absolute Nucleated RBC 0.37 x10^3/uL 11/01/19 06:00 Nucleated RBC % 5.1 /100WBC 11/01/19 06:00 Manual Slide Review Indicated 10/30/19 16:00 WBC Morphology NORMAL APPEARANCE (NORMAL) 10/30/19 16:00 Platelet Estimate NORMAL (130-450,000) (NORMAL) 10/30/19 16:00 Platelet Morphology NORMAL APPEARANCE (NORMAL) 10/30/19 16:00 RBC Morph Micro Appear 1+ ANISOCYTOSIS (NORMAL) 1+ HYPOCHROMASIA (NORMAL) 1+ MACROCYTOSIS (NORMAL) 1+ POLYCHROMASIA (NORMAL) 10/30/19 16:00 RBC Morph Micro Appear 1+ ANISOCYTOSIS (NORMAL) 1+ HYPOCHROMASIA (NORMAL) 1+ MACROCYTOSIS (NORMAL) 1+ POLYCHROMASIA (NORMAL) 10/30/19 16:00 RBC Morph Micro Appear 1+ ANISOCYTOSIS (NORMAL) 1+ HYPOCHROMASIA (NORMAL) 1+ MACROCYTOSIS (NORMAL) 1+ POLYCHROMASIA (NORMAL) 10/30/19 16:00 RBC Morph Micro Appear 1+ ANISOCYTOSIS (NORMAL) 1+ HYPOCHROMASIA (NORMAL) 1+ MACROCYTOSIS (NORMAL) 1+ POLYCHROMASIA (NORMAL) 10/30/19 16:00 Sodium 140 mmol/L (135-145) 11/01/19 06:00 Potassium 3.1 mmol/L (3.5-5.0) L 11/01/19 06:00 Chloride 113 mmol/L (101-111) H 11/01/19 06:00 Carbon Dioxide 20 mmol/L (21-32) L 11/01/19 06:00 Anion Gap 7.0 (6-13) 11/01/19 06:00 BUN 16 mg/dL (6-20) 11/01/19 06:00 Creatinine 0.4 mg/dL (0.6-1.2) L 11/01/19 06:00 Estimated GFR (MDRD) 209 (>89) 11/01/19 06:00 Glucose 110 mg/dL (70-100) H 11/01/19 06:00 Lactic Acid 0.9 mmol/L (0.5-2.2) 10/30/19 16:04 Calcium 8.8 mg/dL (8.5-10.3) 11/01/19 06:00 Phosphorus 3.4 mg/dL (2.5-4.6) 10/31/19 05:40 Magnesium 2.4 mg/dL (1.7-2.8) 11/01/19 06:00 Iron 74 ug/dL (45-182) 11/01/19 06:00 TIBC 237 ug/dL (250-450) L 11/01/19 06:00 % Saturation 31 % (20-50) 11/01/19 06:00 Transferrin 169 mg/dL (180-329) L 11/01/19 06:00 Total Bilirubin 1.2 mg/dL (0.2-1.0) H 10/30/19 16:00 AST 26 IU/L (10-42) 10/30/19 16:00 ALT 13 IU/L (10-60) 10/30/19 16:00 Alkaline Phosphatase 105 IU/L (42-121) 10/30/19 16:00 Total Protein 6.1 g/dL (6.7-8.2) L 10/30/19 16:00 Albumin 3.8 g/dL (3.2-5.5) 10/30/19 16:00 Globulin 2.3 g/dL (2.1-4.2) 10/30/19 16:00 Albumin/Globulin Ratio 1.7 (1.0-2.2) 10/30/19 16:00 Lipase 29 U/L (22-51) 10/30/19 16:00 Vitamin B12 452 pg/mL (180-914) 11/01/19 06:00 Folate 4.98 ng/mL (5.90 - >24.8) L 11/01/19 06:00 Urine Color YELLOW 10/30/19 16:05 Urine Clarity HAZY (CLEAR) 10/30/19 16:05 Urine pH 5.0 PH (5.0-7.5) 10/30/19 16:05 Ur Specific [place] >=1.030 (1.002-1.030) H 10/30/19 16:05 Urine Protein 100 mg/dL (NEGATIVE) H 10/30/19 16:05 Urine Glucose (UA) NEGATIVE mg/dL (NEGATIVE) 10/30/19 16:05 Urine Ketones 15 mg/dL (NEGATIVE) H 10/30/19 16:05 Urine Occult Blood LARGE (NEGATIVE) H 10/30/19 16:05 Urine Nitrite POSITIVE (NEGATIVE) H 10/30/19 16:05 Urine Bilirubin NEGATIVE (NEGATIVE) 10/30/19 16:05 Urine Urobilinogen 1 (NORMAL) E.U./dL (NORMAL) 10/30/19 16:05 Ur Leukocyte Esterase SMALL (NEGATIVE) H 10/30/19 16:05 Urine RBC TNTC /HPF (0-5) H 10/30/19 16:05 Urine WBC 6-10 /HPF (0-3) H 10/30/19 16:05 Ur Squamous Epith Cells NONE SEEN (<= Few) 10/30/19 16:05 Urine Bacteria Moderate /HPF (None Seen) H 10/30/19 16:05 Ur Microscopic Review INDICATED 10/30/19 16:05 Urine Culture Comments INDICATED 10/30/19 16:05 Nasal Screen MRSA (PCR) NEGATIVE (NEGATIVE) 10/30/19 18:21 Coronavirus (PCR) NEGATIVE 10/30/19 16:06 Blood Type O POSITIVE 10/30/19 16:32 Antibody Screen NEGATIVE 10/30/19 16:32 Crossmatch IS Only See Detail 10/30/19 16:32 - Procedures Procedures: Procedures DRAINAGE OF RIGHT ANTERIOR CHAMBER, PERCUTANEOUS APPROACH (12/19/17) EXCISION OF RIGHT UPPER FEMUR, PERCUTANEOUS APPROACH, DIAGN (09/01/18) INSERTION OF INTRAMED FIX INTO R UP FEMUR, OPEN APPROACH (09/01/18) REPLACEMENT OF LEFT LENS WITH SYNTH SUB, PERC APPROACH (07/17/18) REPLACEMENT OF RIGHT LENS WITH SYNTH SUB, PERC APPROACH (02/27/18)
[2019-11-01] MEDS: D5NS W/20 MEQ KCL 1,000 ML IV SCH (15:21)
[2019-11-01] MEDS: ATORVASTATIN 40 MG TABLET PO SCH (20:38)
[2019-11-01] MEDS: rOPINIRole 1 MG TABLET PO SCH (20:38)
[2019-11-02] MEDS ORDERED: SODIUM CHLORIDE 0.9% 500 ML IV PRN (00:44)
[2019-11-02] MEDS: SODIUM CHLORIDE FLUSH 0.9% 10 ML SYRINGE IVP SCH ×3 (03:24→18:24)
[2019-11-02] MEDS: metroNIDAZOLE 500 MG/100 ML 500 MG/100 ML BAG IV SCH (03:40)
[2019-11-02] MEDS: VANCOMYCIN INJ 1 GM, VANCOMYCIN INJ 250 MG in SODIUM CHLORIDE 0.9% 250 ML IV SCH (04:46)
[2019-11-02 05:28] LABS: BASOPHILS % (AUTO) 0.6 %; EOSINOPHILS % (AUTO) 1.2 %; HGB - HEMOGLOBIN 7.5 g/dL (14.0-18.0); MEAN CORPUSCULAR HEMOGLOBIN 30.4 pg (27.0-31.0); MEAN CORPUSCULAR HGB CONC 30.6 g/dL (32.0-36.0); MEAN CORPUSCULAR VOLUME 99.2 fL (80.0-94.0); MEAN PLATELET VOLUME 9.1 fL (7.4-11.4); MONOCYTES % (AUTO) 11.3 %; NEUTROPHILS % (AUTO) 54.4 %; PLT - PLATELET COUNT 106 10^3/uL (130-450); RED BLOOD COUNT 2.47 10^6/uL (4.70-6.10); RED CELL DISTRIBUTION WIDTH 19.9 % (12.0-15.0)
[2019-11-02 05:37] LABS: CREATININE 0.4 mg/dL (0.6-1.2)
[2019-11-02 05:42] LABS: ABNORMAL LYMPHS % (MANUAL) 0 %
[2019-11-02 06:09] LABS: BAND NEUTROPHILS % (MANUAL) 4 %; BASOPHILS # (MANUAL) 0.1 10^3/uL (0-0.1); BASOPHILS % (MANUAL) 1 %; EOSINOPHILS # (MANUAL) 0.2 10^3/uL (0-0.7); LYMPHOCYTES # (MANUAL) 1.2 10^3/uL (1.5-3.5); LYMPHOCYTES % (MANUAL) 13 %; METAMYELOCYTES % (MANUAL) 1 %; MONOCYTES # (MANUAL) 0.8 10^3/uL (0.0-1.0); MYELOCYTES % (MANUAL) 8 %
[2019-11-02 06:11] LABS: PLATELET ESTIMATE, MANUAL DECREASED (<130,000) (NORMAL); PLATELET MORPHOLOGY NORMAL APPEARANCE (NORMAL)
[2019-11-02 06:12] LABS: DIFFERENTIAL COMMENT MANUAL DIFFERENTIAL
[2019-11-02] MEDS: CEFEPIME 1 GM in SODIUM CHLORIDE 0.9% MINIBAG 100 ML IV SCH (06:30)
[2019-11-02] MEDS: PANTOPRAZOLE 40 MG VIAL IVP SCH (06:30)
[2019-11-02] MEDS: SODIUM CHLORIDE FLUSH 0.9% 10 ML SYRINGE IVP PRN ×2 (06:30→06:36)
[2019-11-02] MEDS: FOLIC ACID INJ 1 MG in SODIUM CHLORIDE 0.9% 50 ML IV SCH (09:01)
[2019-11-02] MEDS: GABAPENTIN 300 MG CAPSULE PO SCH ×4 (09:02→20:32)
[2019-11-02] MEDS: ENOXAPARIN 40 MG/0.4 ML SYRINGE SUBQ SCH (09:02)
[2019-11-02] MEDS: DORZOLAMIDE 2% OPHTH DROPS EACHEYE SCH ×2 (09:02→20:33)
[2019-11-02] MEDS: FERROUS SULFATE 325 MG TABLET PO SCH (10:43)
[2019-11-02] MEDS: SACCHAROMYCES BOULARDII 250 MG CAPSULE PO SCH ×3 (10:43→20:32)
[2019-11-02] MEDS: CALCIUM CARBONATE CHEW 500 MG TABLET PO SCH ×2 (10:44→20:32)
[2019-11-02] MEDS: ASPIRIN CHEW 81 MG TABLET PO SCH (10:44)
[2019-11-02] MEDS: SENNA 8.6 MG TABLET PO SCH ×2 (10:44→20:33)
[2019-11-02] MEDS: CHOLECALCIFEROL 25 MCG TABLET PO SCH (10:44)
[2019-11-02] MEDS: BRINZOLAMIDE EACHEYE SCH ×2 (10:44→20:33)
[2019-11-02] MEDS: BRIMONIDINE TART EACHEYE SCH ×2 (10:44→20:33)
--- NOTE | 2019-11-02 11:28 | PROVIDER PROGRESS NOTE ---
Assessment/Plan - Problem List (1) Aspiration pneumonia Assessment/Plan: Patient presented with several days of a cough and bilateral infiltrates on CXR, which were first considered to be community-acquired pneumonia but as his history unraveled and we witnessed aspiration, this is more likely an aspiration pneumonia. Blood cultures are negative to date. His empiric IV Cefepime, Vanco and Flagyl will be changed to IV Unasyn for aspiration pneumonia coverage. Sputum culture result is pending. Follow WBC daily. Continue pulmonary toilet. (2) Dysphagia causing pulmonary aspiration with swallowing Assessment/Plan: Speech therapy saw the patient today for a bedside swallow eval. He cannot transfer a food or liquid bolus adequately into the esophagus, and has laryngeal abnormality and pharyngeal abnormality, therefore he indeed has risk for aspiration. The diet that was advised is: moist pured food, not thick pured food. Spoon thick liquids. Meds crushed in applesauce. Strict aspiration precautions. These will be ordered. Palliative Care consult to be done today, and will address whether he gets a PEG tube. (3) Severe protein-calorie malnutrition Assessment/Plan: This patient has nutrition intake of less than 50% of recommended for 2 weeks or more, weight loss of 20% in the last 12 months and is bedridden. Continue IV fluids for hydration and for some calories with the D5. Palliative Care consult to be done today, and will address whether he gets a PEG tube. 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 The UA was abnormal and culture was indicated. This may have been a colonized urine sample however the Unasyn will cover a UTI as well. (5) Chronic indwelling Echevarria catheter Assessment/Plan: As above (6) Severe anemia Assessment/Plan: He needed 1 unit of PRBCs at admission for hemoglobin of 6.9 which increased to 7.6 and plateaued. He was already on oral Iron supplements, on his home med list. B12 and folate levels were checked because of high MCV. He was folate deficient . Yesterday we started folate 1 mg daily, via IV. Continue iron replacement, if it can be crushed. Follow H/H daily. (7) Hemiplegia Qualifiers: Hemiplegia type: unspecified type Hemiplegia etiology: non-cerebrovascular Hemiplegia laterality: right dominant side Qualified Code(s): G81.91 - Hemiplegia, unspecified affecting right dominant side Assessment/Plan: As per Hx (8) Brown-Sequard syndrome Assessment/Plan: As per Hx (9) Prostate cancer metastatic to bone Assessment/Plan: He has stage IV prostate cancer, is followed at the [facility] clinic here. The daughter had told me that there was no prognosis discussed with him or the family, by the Oncologist. Palliative care consult was offered to him and the daughter and she wanted it. Norma Carney NP will meet with the daughter and the patient (and Speech Therapist, after his poor result in the swallowing eval) today. (10) Hx of coronary artery disease Assessment/Plan: Stable. Continue his aspirin. Statin was discontinued because of his very poor nutrition, low-fat intake already. (11) Hyperlipidemia Assessment/Plan: Statin was discontinued because of his very poor nutrition, low-fat intake already. (12) Hypotension Assessment/Plan: Resolved after iv hydration started. (13) Hypokalemia Assessment/Plan: Resolved with iv K riders. Follow BMP daily. - Current Meds Current Meds: Current Medications Generic Name Dose Route Start Last Admin Trade Name Freq PRN Reason Stop Dose Admin Aspirin 81 mg 10/31/19 09:00 11/02/19 10:44 [facility] Aspirin PO 81 mg DAILY EMPERATRIZ Administration Calcium Carbonate/Glycine 500 mg 10/31/19 21:00 11/02/19 10:44 Tums PO 500 mg BID EMPERATRIZ Administration Cholecalciferol 25 mcg 11/01/19 09:00 11/02/19 10:44 Vitamin D3 PO 25 mcg DAILY EMPERATRIZ Administration Dorzolamide HCl 1 drops 10/31/19 21:00 11/02/19 09:02 Trusopt 2% Ophth Drops EACHEYE 1 drops BID EMPERATRIZ Administration Enoxaparin Sodium 40 mg 10/31/19 09:00 11/02/19 09:02 Lovenox SUBQ 40 mg DAILY EMPERATRIZ Administration Ferrous Sulfate 325 mg 10/31/19 08:00 11/02/19 10:43 Feosol PO 325 mg DAILYWM EMPERATRIZ Administration Gabapentin 600 mg 10/30/19 22:00 11/02/19 09:02 Neurontin PO 600 mg QID EMPERATRIZ Administration Sodium Chloride 500 mls @ 0 mls/hr 11/02/19 00:44 11/02/19 03:23 Normal Saline 0.9% IV 20 mls/hr Q24H PRN Administration TKO RATE TKO Folic Acid 1 mg/ Sodium 50.2 mls @ 100.4 mls/hr 11/02/19 09:00 11/02/19 10:44 Chloride IV Infused DAILY EMPERATRIZ Infusion Ondansetron HCl 4 mg 10/30/19 17:08 11/02/19 07:56 Zofran Inj IVP 4 mg Q6HR PRN Administration Nausea / Vomiting Pantoprazole Sodium 40 mg 11/01/19 07:00 11/02/19 06:30 Protonix IVP 40 mg QDAC EMPERATRIZ Administration Brinzolamide/ 1 each 10/31/19 21:00 11/02/19 10:44 Brimonidine Tart [ EACHEYE Not Given Simbrinza 1%-0.2% BID EMPERATRIZ Eye Drops Ropinirole HCl 4 mg 10/31/19 21:00 11/01/19 20:38 Requip PO 4 mg QPM EMPERATRIZ Administration Saccharomyces Boulardii 250 mg 10/31/19 08:00 11/02/19 10:43 Florastor PO 250 mg BIDWM EMPERATRIZ Administration Senna 17.2 mg 10/31/19 21:00 11/02/19 10:44 Senokot PO 17.2 mg BID EMPERATRIZ Administration Sodium Chloride 10 ml 10/30/19 17:08 11/02/19 06:36 Normal Saline Flush 0.9% IVP 10 ml PRN PRN Administration NEEDED PER PROVIDER ORDERS Sodium Chloride 10 ml 10/31/19 01:00 11/02/19 10:44 Normal Saline Flush 0.9% IVP 10 ml 0100,0900,1700 EMPERATRIZ Administration - Lab Result Fish Bone Diagrams: 11/02/19 05:22 11/02/19 05:22 - Additional Planning My Orders: My Active Orders 11/01/19 11:06 Miscellaenous Nursing Order [RC] QSHIFT 11/02/19 Palliative Care Consult [CONS] Routine Clinical Swallow Evaluation [ST] Routine 11/02/19 09:00 Folic Acid Inj 1 mg Sodium Chloride 0.9% [Normal Saline 0.9%] 50 ml IV DAILY 11/02/19 10:13 Miscellaenous Nursing Order [RC] QSHIFT 11/02/19 Lunch Dysphagia Puree Diet [DIET] 11/02/19 12:00 Ampicillin/Sulbactam [Unasyn] 3 gm Sodium Chloride 0.9% Minibag [Normal Saline 0.9% Minibag] 100 ml IV Q6HR Subjective - Subjective Patient Reports: Resting Comfortably, Other (Voice is very soft and weak.) Objective Vital Signs: Vital Signs - 24 hr 11/01/19 11/01/19 11/01/19 13:00 16:46 20:14 Temperature 36.7 C 37.1 C 37.0 C Heart Rate [ 87 88 84 Brachial] Respiratory 19 24 24 Rate Blood Pressure 102/58 L [Left Brachial artery] Blood Pressure 103/58 L 105/56 L [Right Brachial artery] O2 Saturation 95 94 95 11/02/19 11/02/19 11/02/19 00:15 04:38 08:09 Temperature 36.7 C 36.7 C 36.8 C Heart Rate [ 88 91 103 H Brachial] Respiratory 18 18 16 Rate Blood Pressure 126/68 [Left Brachial artery] Blood Pressure 117/61 116/60 [Right Brachial artery] O2 Saturation 94 93 93 Oxygen O2 Source Room air I&O (Last 24 Hrs): Intake and Output Totals x24h 10/31/19 11/01/19 11/02/19 23:59 23:59 23:59 Intake Total 3354.444 3355.556 650.4 Output Total 750 600 300 Balance 2604.444 2755.556 350.4 General: Alert HEENT: Mucous membr. moist/pink Neck: Supple Neuro: Other (Right arm is contracted, both legs are paretic. Right leg gets restless leg spasms at the right hip frequently.) Cardiovascular: Regular rate Respiratory: No respiratory distress, Rhonchi Abdomen: Soft Extremities: No edema Comments/Notes: Pale skin, several ecchymoses - Results Results: Laboratory Results WBC 9.0 x10^3/uL (4.8-10.8) 11/02/19 05:22 RBC 2.47 10^6/uL (4.70-6.10) L 11/02/19 05:22 Hgb 7.5 g/dL (14.0-18.0) L 11/02/19 05:22 Hct 24.5 % (42.0-52.0) L 11/02/19 05:22 MCV 99.2 fL (80.0-94.0) H 11/02/19 05:22 MCH 30.4 pg (27.0-31.0) 11/02/19 05:22 MCHC 30.6 g/dL (32.0-36.0) L 11/02/19 05:22 RDW 19.9 % (12.0-15.0) H 11/02/19 05:22 Plt Count 106 10^3/uL (130-450) L 11/02/19 05:22 MPV 9.1 fL (7.4-11.4) 11/02/19 05:22 Neut # (Auto) Not Reportable 11/02/19 05:22 Lymph # (Auto) Not Reportable 11/02/19 05:22 [place] # (Auto) Not Reportable 11/02/19 05:22 Eos # (Auto) Not Reportable 11/02/19 05:22 Baso # (Auto) Not Reportable 11/02/19 05:22 Absolute Nucleated RBC Not Reportable 11/02/19 05:22 Total Counted 100 11/02/19 05:22 Band Neuts % (Manual) 4 % (0-10) 11/02/19 05:22 Abnorm Lymph % (Manual) 0 % 11/02/19 05:22 Metamyelocytes % 1 % (-0) H 11/02/19 05:22 Myelocytes % 8 % (-0) H 11/02/19 05:22 Nucleated RBC % Not Reportable 11/02/19 05:22 Neutrophils # (Manual) 5.9 10^3/uL (1.5-6.6) 11/02/19 05:22 Lymphocytes # (Manual) 1.2 10^3/uL (1.5-3.5) L 11/02/19 05:22 Monocytes # (Manual) 0.8 10^3/uL (0.0-1.0) 11/02/19 05:22 Eosinophils # (Manual) 0.2 10^3/uL (0-0.7) 11/02/19 05:22 Basophils # (Manual) 0.1 10^3/uL (0-0.1) 11/02/19 05:22 Nucleated RBCs 1 % 11/02/19 05:22 Differential Comment MANUAL DIFFERENTIAL 11/02/19 05:22 Manual Slide Review Indicated 10/30/19 16:00 WBC Morphology NORMAL APPEARANCE (NORMAL) 11/02/19 05:22 Platelet Estimate DECREASED (<130,000) (NORMAL) 11/02/19 05:22 Platelet Morphology NORMAL APPEARANCE (NORMAL) 11/02/19 05:22 RBC Morph Micro Appear 1+ POLYCHROMASIA (NORMAL) 1+ ANISOCYTOSIS (NORMAL) 1+ MACROCYTOSIS (NORMAL) 11/02/19 05:22 RBC Morph Micro Appear 1+ POLYCHROMASIA (NORMAL) 1+ ANISOCYTOSIS (NORMAL) 1+ MACROCYTOSIS (NORMAL) 11/02/19 05:22 RBC Morph Micro Appear 1+ POLYCHROMASIA (NORMAL) 1+ ANISOCYTOSIS (NORMAL) 1+ MACROCYTOSIS (NORMAL) 11/02/19 05:22 Sodium 139 mmol/L (135-145) 11/02/19 05:22 Potassium 3.5 mmol/L (3.5-5.0) 11/02/19 05:22 Chloride 113 mmol/L (101-111) H 11/02/19 05:22 Carbon Dioxide 17 mmol/L (21-32) L 11/02/19 05:22 Anion Gap 9.0 (6-13) 11/02/19 05:22 BUN 11 mg/dL (6-20) 11/02/19 05:22 Creatinine 0.4 mg/dL (0.6-1.2) L 11/02/19 05:22 Estimated GFR (MDRD) 209 (>89) 11/02/19 05:22 Glucose 123 mg/dL (70-100) H 11/02/19 05:22 Lactic Acid 0.9 mmol/L (0.5-2.2) 10/30/19 16:04 Calcium 9.0 mg/dL (8.5-10.3) 11/02/19 05:22 Phosphorus 3.4 mg/dL (2.5-4.6) 10/31/19 05:40 Magnesium 2.4 mg/dL (1.7-2.8) 11/01/19 06:00 Iron 74 ug/dL (45-182) 11/01/19 06:00 TIBC 237 ug/dL (250-450) L 11/01/19 06:00 % Saturation 31 % (20-50) 11/01/19 06:00 Transferrin 169 mg/dL (180-329) L 11/01/19 06:00 Total Bilirubin 1.2 mg/dL (0.2-1.0) H 10/30/19 16:00 AST 26 IU/L (10-42) 10/30/19 16:00 ALT 13 IU/L (10-60) 10/30/19 16:00 Alkaline Phosphatase 105 IU/L (42-121) 10/30/19 16:00 Total Protein 6.1 g/dL (6.7-8.2) L 10/30/19 16:00 Albumin 3.8 g/dL (3.2-5.5) 10/30/19 16:00 Globulin 2.3 g/dL (2.1-4.2) 10/30/19 16:00 Albumin/Globulin Ratio 1.7 (1.0-2.2) 10/30/19 16:00 Lipase 29 U/L (22-51) 10/30/19 16:00 Vitamin B12 452 pg/mL (180-914) 11/01/19 06:00 Folate 4.98 ng/mL (5.90 - >24.8) L 11/01/19 06:00 Urine Color YELLOW 10/30/19 16:05 Urine Clarity HAZY (CLEAR) 10/30/19 16:05 Urine pH 5.0 PH (5.0-7.5) 10/30/19 16:05 Ur Specific Bradley >=1.030 (1.002-1.030) H 10/30/19 16:05 Urine Protein 100 mg/dL (NEGATIVE) H 10/30/19 16:05 Urine Glucose (UA) NEGATIVE mg/dL (NEGATIVE) 10/30/19 16:05 Urine Ketones 15 mg/dL (NEGATIVE) H 10/30/19 16:05 Urine Occult Blood LARGE (NEGATIVE) H 10/30/19 16:05 Urine Nitrite POSITIVE (NEGATIVE) H 10/30/19 16:05 Urine Bilirubin NEGATIVE (NEGATIVE) 10/30/19 16:05 Urine Urobilinogen 1 (NORMAL) E.U./dL (NORMAL) 10/30/19 16:05 Ur Leukocyte Esterase SMALL (NEGATIVE) H 10/30/19 16:05 Urine RBC TNTC /HPF (0-5) H 10/30/19 16:05 Urine WBC 6-10 /HPF (0-3) H 10/30/19 16:05 Ur Squamous Epith Cells NONE SEEN (<= Few) 10/30/19 16:05 Urine Bacteria Moderate /HPF (None Seen) H 10/30/19 16:05 Ur Microscopic Review INDICATED 10/30/19 16:05 Urine Culture Comments INDICATED 10/30/19 16:05 Nasal Screen MRSA (PCR) NEGATIVE (NEGATIVE) 10/30/19 18:21 Coronavirus (PCR) NEGATIVE 10/30/19 16:06 Blood Type O POSITIVE 10/30/19 16:32 Antibody Screen NEGATIVE 10/30/19 16:32 Crossmatch IS Only See Detail 10/30/19 16:32 - Procedures Procedures: Procedures DRAINAGE OF RIGHT ANTERIOR CHAMBER, PERCUTANEOUS APPROACH (12/19/17) EXCISION OF RIGHT UPPER FEMUR, PERCUTANEOUS APPROACH, DIAGN (09/01/18) INSERTION OF INTRAMED FIX INTO R UP FEMUR, OPEN APPROACH (09/01/18) REPLACEMENT OF LEFT LENS WITH SYNTH SUB, PERC APPROACH (07/17/18) REPLACEMENT OF RIGHT LENS WITH SYNTH SUB, PERC APPROACH (02/27/18)
[2019-11-02] MEDS: AMPICILLIN/SULBACTAM 3 GM in SODIUM CHLORIDE 0.9% MINIBAG 100 ML IV SCH ×3 (12:00→23:56)
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
[2019-11-02] MEDS: rOPINIRole 1 MG TABLET PO SCH (20:32)
[2019-11-03] MEDS: SODIUM CHLORIDE FLUSH 0.9% 10 ML SYRINGE IVP SCH ×2 (00:01→09:34)
[2019-11-03 00:25] LABS: ABG BASE EXCESS -8.1 mmol/L (-2.0-3.0); ABG HCO3 18.1 mmol/L (22.0-26.0); ABG OXYGEN SATURATION 95 % (94-98); ABG PCO2 40 mmHg (34-45); ABG PH 7.28 (7.35-7.45); ABG PO2 90 mmHg (80-100); ABG TCO2 19.3 MMOL/L (21.0-29.0); ALLEN TEST POSITIVE
[2019-11-03 00:44] LABS: BASOPHILS # (AUTO) 0.1 10^3/uL (0.0-0.1); EOSINOPHILS # (AUTO) 0.1 10^3/uL (0.0-0.7); EOSINOPHILS % (AUTO) 0.7 %; HGB - HEMOGLOBIN 8.4 g/dL (14.0-18.0); LYMPHOCYTES # (AUTO) 1.6 10^3/uL (1.5-3.5); LYMPHOCYTES % (AUTO) 11.8 %; MEAN CORPUSCULAR HEMOGLOBIN 30.3 pg (27.0-31.0); MEAN CORPUSCULAR HGB CONC 29.9 g/dL (32.0-36.0); MEAN CORPUSCULAR VOLUME 101.4 fL (80.0-94.0); MONOCYTES # (AUTO) 1.2 10^3/uL (0.0-1.0); MONOCYTES % (AUTO) 8.7 %; NEUTROPHILS # (AUTO) 9.2 10^3/uL (1.5-6.6); NEUTROPHILS % (AUTO) 68.5 %; PLT - PLATELET COUNT 121 10^3/uL (130-450); RED BLOOD COUNT 2.77 10^6/uL (4.70-6.10); RED CELL DISTRIBUTION WIDTH 19.9 % (12.0-15.0); WHITE BLOOD COUNT 13.4 x10^3/uL (4.8-10.8)
[2019-11-03 00:56] LABS: CALCIUM 9.1 mg/dL (8.5-10.3); CREATININE 0.5 mg/dL (0.6-1.2); MAGNESIUM 2.4 mg/dL (1.7-2.8); PHOSPHORUS 2.8 mg/dL (2.5-4.6)
[2019-11-03 01:45] LABS: INR 1.3 (0.8-1.2); PT - PROTHROMBIN TIME 14.4 secs (9.9-12.6)
[2019-11-03] MEDS ORDERED: CEFEPIME 1 GM in SODIUM CHLORIDE 0.9% MINIBAG 100 ML IV SCH ×2 (02:00→09:00)
[2019-11-03] MEDS: SODIUM CHLORIDE FLUSH 0.9% 10 ML SYRINGE IVP PRN ×2 (02:09→05:43)
[2019-11-03] MEDS: metroNIDAZOLE 500 MG/100 ML 500 MG/100 ML BAG IV SCH ×2 (02:55→09:28)
[2019-11-03] MEDS ORDERED: VANCOMYCIN INJ 1 GM, VANCOMYCIN INJ 250 MG in SODIUM CHLORIDE 0.9% 250 ML IV SCH ×2 (03:00→16:00)
[2019-11-03] MEDS ORDERED: SODIUM CHLORIDE 0.9% 250 ML IV ONE ×2 (03:59)
[2019-11-03] MEDS ORDERED: VANCOMYCIN 1 GM VIAL ONE (03:59)
[2019-11-03] MEDS ORDERED: FUROSEMIDE 40 MG/4 ML VIAL IVP STA (05:02)
[2019-11-03] MEDS ORDERED: ACETAMINOPHEN 1,000 MG/100 ML 100 ML IV PRN (05:03)
[2019-11-03] MEDS: PANTOPRAZOLE 40 MG VIAL IVP SCH (05:43)
[2019-11-03 05:57] LABS: BASOPHILS # (AUTO) 0.5 10^3/uL (0.0-0.1); BASOPHILS % (AUTO) 1.7 %; EOSINOPHILS # (AUTO) 0.3 10^3/uL (0.0-0.7); HGB - HEMOGLOBIN 8.6 g/dL (14.0-18.0); LYMPHOCYTES # (AUTO) 7.7 10^3/uL (1.5-3.5); LYMPHOCYTES % (AUTO) 28.1 %; MEAN CORPUSCULAR HEMOGLOBIN 30.7 pg (27.0-31.0); MEAN CORPUSCULAR VOLUME 106.1 fL (80.0-94.0); MEAN PLATELET VOLUME 9.6 fL (7.4-11.4); MONOCYTES # (AUTO) 3.3 10^3/uL (0.0-1.0); MONOCYTES % (AUTO) 12.1 %; NEUTROPHILS # (AUTO) 12.8 10^3/uL (1.5-6.6); NEUTROPHILS % (AUTO) 46.3 %; PLT - PLATELET COUNT 202 10^3/uL (130-450); RED CELL DISTRIBUTION WIDTH 20.3 % (12.0-15.0); WHITE BLOOD COUNT 27.5 x10^3/uL (4.8-10.8)
[2019-11-03 06:07] LABS: CALCIUM 9.3 mg/dL (8.5-10.3); CREATININE 0.6 mg/dL (0.6-1.2)
[2019-11-03 06:26] LABS: PLATELET ESTIMATE, MANUAL NORMAL (130-450,000) (NORMAL); PLATELET MORPHOLOGY NORMAL APPEARANCE (NORMAL)
[2019-11-03] MEDS ORDERED: MORPHINE 2 MG/ML CARPUJECT IVP PRN (07:04)
--- NOTE | 2019-11-03 07:04 | PROVIDER PROGRESS NOTE ---
Russian Teacher Note - Russian Teacher Note Russian Teacher Note: I was called to the patient's bedside by his primary RN shortly after midnight due to patient becoming less responsive and now requiring 3 L of oxygen via nasal cannula. On my assessment, he would open up his eyes to his name but would quickly closes eyes again. He would not move his extremities when asked. His pupils were dilated at 4 mm in the left eye and 5 mm in the right eye. He had rhonchorous breath sounds bilaterally. He was also tachycardic with heart rates in the 110s. The patient's antibiotics had been de-escalate it to just Unasyn alone yesterday for aspiration pneumonia. I ordered a chest x-ray which showed worsening bilateral infiltrates concerning for bibasilar pneumonia as well as concerns for possible pulmonary vascular congestion. CT of the head was also obtained which showed no acute abnormalities but did show moderate bilateral mastoiditis. The patient then spiked a low-grade fever with a temperature of 38.2 C. Repeat labs were obtained which showed his white count had increased to 13.4 from 9.0 the prior day. His basic metabolic panel was relatively unremarkable except for a potassium of 3.3 and a bicarbonate of 17. His antibiotics were broadened back to vancomycin IV, cefepime IV, and Flagyl IV. A couple of hours later, I was called to bedside once again for increasing oxygen requirements as the patient had been placed on an oxymask. At this time, repeat labs were drawn to include a CBC, BMP, troponin, lactic. He was also administered 40 mg of Lasix IV. On my reassessment, he is more lethargic and is now no longer opening his eyes to command. I called his daughter to discuss his current condition as the patient is currently a full code. I informed her that at this point, he has had a rapid decline overnight and I would recommend transfer to intensive care unit for intubation if this is within the patient's goals of care. The patient had been evaluated by palliative care just yesterday but there were no changes made to his CODE STATUS. The patient has been here for aspiration pneumonia and was evaluated by speech therapy and was noted to have severe dysphagia. It was recommended he be placed on a pure diet with spoon thick liquids but there is also concern that this may not protect from aspiration and he may ultimately need a PEG tube. After my discussion with his daughter, she asked for me to call her back in 20 minutes after she discusses with her regarding how to proceed at this time.I called her back shortly after and the patient's daughter and had decided to pursue comfort measures. They will be coming in to the hospital as soon as possible to visit the patient. I told her we will continue with her current treatment until the visit but we will not escalate care. Once they arrive and spent time with the patient we can then transition him to comfort measures only. She is agreeable to this plan. At this time, the patient is quite lethargic in bed but appears comfortable. He remains on an oxymask.
--- NOTE | 2019-11-03 07:15 | CT Report ---
PROCEDURE: Head W/O Stroke Protocol INDICATIONS: Unresponsive. Neuro deficit. TECHNIQUE: Noncontrast 4.5 mm thick angled axial sections acquired from the foramen magnum to the vertex, with c oronal reformats. For radiation dose reduction, the following was used: automated exposure control, adjustment of mA and/or kV according to patient size. COMPARISON: 02/26/2019 FINDINGS: Image quality: Excellent. CSF spaces: Basal cisterns are patent. No extra-axial fluid collections. Ventricles are normal in size and shape. Brain: No midline shift. No intracranial masses or hemorrhage. Cummins-white matter interface is norm al. Skull and face: Calvarium and visualized facial bones are intact, without suspicious lesions. Sinuses: Mucosal thickening noted in the visualized left maxillary sinus. There is near complete opac ification of the mastoid air cells bilaterally. IMPRESSION: 1. No acute intracranial disease process. 2. Near complete opacification of mastoid air cells bilaterally concerning for mastoiditis. 3. Severe mucosal thickening involving the visualized left maxillary sinus. This study fulfills neurological imaging criteria for inclusion or exclusion of acute stroke therapie s based on available published neurological imaging guidelines. Reviewed by: Justyna Eng MD, PhD on 11/03/2019 7:13 AM PDT Approved by: Justyna Eng MD, PhD on 11/03/2019 7:13 AM PDT Station ID: [id number]
--- NOTE | 2019-11-03 07:35 | XRAY Report ---
PROCEDURE: Chest 1 View X-Ray INDICATIONS: Worsening hypoxia. Aspiration. TECHNIQUE: One view of the chest was acquired. COMPARISON: 07/31/2019 FINDINGS: Surgical changes and devices: Status post CABG procedure. Stable cervical spine fixation hardware. Lungs and pleura: Mild cephalization of the pulmonary vasculature. Small bilateral pleural effusions. Bibasilar opacities. Mediastinum: Mediastinal contours appear normal. Heart size is normal. Bones and chest wall: No suspicious bony lesions. Overlying soft tissues appear unremarkable. IMPRESSION: 1. CHF. 2. Small bilateral pleural effusions. 3. Bibasilar opacities which could represent compressive atelectasis, aspiration or pneumonia. Reviewed by: Justyna Eng MD, PhD on 11/03/2019 7:34 AM PDT Approved by: Justyna Eng MD, PhD on 11/03/2019 7:34 AM PDT Station ID: [id number]
--- NOTE | 2019-11-03 08:09 | PROVIDER PROGRESS NOTE ---
Subjective - Prog Note Date Prog Note Date: 11/03/19 Prog Note Time: 09:25 - Subjective Subjective: daughter and son in law in room now. so are his grandkids. he lives with them. they are understandably distraught, in tears, grieving at his deterioration Current Medications - Current Medications Current Medications: Active Medications Acetaminophen (Tylenol) 650 mg PO Q4HR PRN PRN Reason: Pain 1 to 4 Aspirin (St Shiv Aspirin) 81 mg PO DAILY [facility] Last Admin: 11/02/19 10:44 Dose: 81 mg Documented by: Calcium Carbonate/Glycine (Tums) 500 mg PO BID [facility] Last Admin: 11/02/19 20:32 Dose: 500 mg Documented by: Cholecalciferol (Vitamin D3) 25 mcg PO DAILY [facility] Last Admin: 11/02/19 10:44 Dose: 25 mcg Documented by: Dorzolamide HCl (Trusopt 2% Ophth Drops) 1 drops EACHEYE BID [facility] Last Admin: 11/02/19 20:33 Dose: 1 drops Documented by: Enoxaparin Sodium (Lovenox) 40 mg SUBQ DAILY [facility] Last Admin: 11/02/19 09:02 Dose: 40 mg Documented by: Ferrous Sulfate (Feosol) 325 mg PO DAILYWM [facility] Last Admin: 11/02/19 10:43 Dose: 325 mg Documented by: Gabapentin (Neurontin) 600 mg PO QID [facility] Last Admin: 11/02/19 20:32 Dose: 600 mg Documented by: Folic Acid 1 mg/ Sodium (Chloride) 50.2 mls @ 100.4 mls/hr IV DAILY [facility] Last Infusion: 11/02/19 10:44 Dose: Infused Documented by: Cefepime HCl 1 gm/ Sodium (Chloride) 100 mls @ 200 mls/hr IV BID [facility] Last Infusion: 11/03/19 03:00 Dose: Infused Documented by: Metronidazole (Flagyl 500 Mg/100 Ml) 500 mg in 100 mls @ 100 mls/hr IV Q8H [facility] Last Infusion: 11/03/19 04:06 Dose: Infused Documented by: Acetaminophen (Ofirmev) 100 mls @ 400 mls/hr IV Q6HR PRN PRN Reason: Pain or Fever > 38C (100.4F) Last Infusion: 11/03/19 06:28 Dose: Infused Documented by: Vancomycin HCl 1 gm/Vancomycin HCl 250 mg/ Sodium Chloride 250 mls @ 167 mls/hr IV Q12H [facility] Morphine Sulfate (Morphine (Carpuject)) 2 mg IVP Q1HR PRN PRN Reason: NEEDED PER PROVIDER ORDERS Ondansetron HCl (Zofran Inj) 4 mg IVP Q6HR PRN PRN Reason: Nausea / Vomiting Last Admin: 11/02/19 07:56 Dose: 4 mg Documented by: Pantoprazole Sodium (Protonix) 40 mg IVP QDAC [facility] Last Admin: 11/03/19 05:43 Dose: 40 mg Documented by: Brinzolamide/Brimonidine Tart [ Simbrinza 1%-0.2% Eye Drops 1 each EACHEYE BID [facility] Last Admin: 11/02/19 20:33 Dose: Not Given Documented by: Ropinirole HCl (Requip) 4 mg PO QPM [facility] Last Admin: 11/02/19 20:32 Dose: 4 mg Documented by: Saccharomyces Boulardii (Florastor) 250 mg PO BIDWM [facility] Last Admin: 11/02/19 20:32 Dose: 250 mg Documented by: Senna (Senokot) 17.2 mg PO BID [facility] Last Admin: 11/02/19 20:33 Dose: 17.2 mg Documented by: Sodium Chloride (Normal Saline Flush 0.9%) 10 ml IVP PRN PRN PRN Reason: NEEDED PER PROVIDER ORDERS Last Admin: 11/03/19 05:43 Dose: 10 ml Documented by: Sodium Chloride (Normal Saline Flush 0.9%) 10 ml IVP 0100,0900,1700 [facility] Last Admin: 11/03/19 00:01 Dose: Not Given Documented by: Atorvastatin [Lipitor] 40 mg PO QPM 09/03/16 Aspirin 81 mg PO DAILY 07/31/19 Gabapentin 600 mg PO TID 07/31/19 Ropinirole HCl 4 mg PO DAILY 08/01/19 Sennosides [Senna] 17.2 mg PO BID 08/01/19 polyethylene glycoL 3350 [Polyethylene Glycol 3350] 17 gm PO DAILY 08/01/19 Baclofen 5 mg PO DAILY PRN 10/31/19 Baclofen 10 mg PO DAILY 10/31/19 Brinzolamide/Brimonidine Tart [Simbrinza 1%-0.2% Eye Drops] 1 drops EACHEYE BID 10/31/19 Dorzolamide HCl 1 drops EACHEYE BID 10/31/19 Objective - Vital Signs/Intake & Output Reviewed Vital Signs: Yes Vital Signs: Vital Signs x48h Temp Pulse Resp BP BP Pulse Ox 11/03/19 06:29 37.6 C H 11/03/19 04:30 38.2 C H 115 H 34 H 124/55 L 92 11/03/19 02:08 37.1 C 11/03/19 01:45 102/54 L 11/03/19 00:27 111 H 99/42 L 96 Intake & Output: Intake & Output 10/31/19 11/01/19 11/02/19 11/03/19 23:59 23:59 23:59 23:59 Intake Total 3354.444 3355.556 850.4 1082.333 Output Total 750 600 650 225 Balance 2604.444 2755.556 200.4 857.333 - Objective General Appearance: positive: Lethargic (with gasping respiration) Eyes Bilateral: positive: EOMI, Other (pupils getting smaller) ENT: positive: Dry mucous membranes Neck: positive: No JVD. negative: Stiff neck, Carotid bruit Respiratory: positive: Chest non-tender, Rhonchi, Other (gasping for breath with NC on nose) Cardiovascular: positive: Regular rate & rhythm, Tachycardia, Systolic murmur. negative: Gallop/S4, Friction rub Abdomen: positive: Non-tender, Nml bowel sounds, No distention Skin: positive: Warm, Dry, Pallor Extremities: positive: Non-tender, No pedal edema Neurologic/Psychiatric: positive: Other (unresponsive to voice or pain, struggling to breath) - Lab Results Fish Bones: 11/03/19 05:44 11/03/19 05:44 Other Labs: Lab Results x24hrs 11/03/19 11/03/19 11/03/19 Range/Units 05:44 05:44 05:44 WBC (4.8-10.8) x10^3/uL RBC (4.70-6.10) 10^6/uL Hgb (14.0-18.0) g/dL Hct (42.0-52.0) % MCV (80.0-94.0) fL MCH (27.0-31.0) pg MCHC (32.0-36.0) g/dL RDW (12.0-15.0) % Plt Count (130-450) 10^3/uL MPV (7.4-11.4) fL Neut # (Auto) (1.5-6.6) 10^3/uL Lymph # (Auto) (1.5-3.5) 10^3/uL Latimer # (Auto) (0.0-1.0) 10^3/uL Eos # (Auto) (0.0-0.7) 10^3/uL Baso # (Auto) (0.0-0.1) 10^3/uL Absolute Nucleated RBC x10^3/uL Nucleated RBC % /100WBC Manual Slide Review Platelet Estimate (NORMAL) Platelet Morphology (NORMAL) RBC Morph Micro Appear (NORMAL) PT (9.9-12.6) secs INR (0.8-1.2) Bld Gas Analysis Time Sample Site ABG pH (7.35-7.45) ABG pCO2 (34-45) mmHg ABG pO2 (80-100) mmHg ABG HCO3 (22.0-26.0) mmol/L ABG Total CO2 (21.0-29.0) MMOL/L ABG O2 Saturation (94-98) % ABG Base Excess (-2.0-3.0) mmol/L Darin Test O2 Delivery Device O2 Liters/Min LPM Sodium (135-145) mmol/L Potassium (3.5-5.0) mmol/L Chloride (101-111) mmol/L Carbon Dioxide (21-32) mmol/L Anion Gap (6-13) BUN (6-20) mg/dL Creatinine (0.6-1.2) mg/dL Estimated GFR (MDRD) (>89) Glucose (70-100) mg/dL Lactic Acid 1.1 (0.5-2.2) mmol/L Calcium (8.5-10.3) mg/dL Phosphorus (2.5-4.6) mg/dL Magnesium (1.7-2.8) mg/dL Troponin I High Sens 26.3 H* (2.3-19.7) ng/L Prostate Specific Ag > 1210.000 H (0.000-2.000) ng/mL 11/03/19 11/03/19 11/03/19 Range/Units 05:44 05:44 01:32 WBC 27.5 H (4.8-10.8) x10^3/uL RBC 2.80 L (4.70-6.10) 10^6/uL Hgb 8.6 L (14.0-18.0) g/dL Hct 29.7 L (42.0-52.0) % MCV 106.1 H (80.0-94.0) fL MCH 30.7 (27.0-31.0) pg MCHC 29.0 L (32.0-36.0) g/dL RDW 20.3 H (12.0-15.0) % Plt Count 202 (130-450) 10^3/uL MPV 9.6 (7.4-11.4) fL Neut # (Auto) 12.8 H (1.5-6.6) 10^3/uL Lymph # (Auto) 7.7 H (1.5-3.5) 10^3/uL Latimer # (Auto) 3.3 H (0.0-1.0) 10^3/uL Eos # (Auto) 0.3 (0.0-0.7) 10^3/uL Baso # (Auto) 0.5 H (0.0-0.1) 10^3/uL Absolute Nucleated RBC 3.71 x10^3/uL Nucleated RBC % 13.5 /100WBC Manual Slide Review Indicated Platelet Estimate NORMAL (130-450,000) (NORMAL) Platelet Morphology NORMAL APPEARANCE (NORMAL) RBC Morph Micro Appear 1+ ANISOCYTOSIS (NORMAL) PT 14.4 H (9.9-12.6) secs INR 1.3 H (0.8-1.2) Bld Gas Analysis Time Sample Site ABG pH (7.35-7.45) ABG pCO2 (34-45) mmHg ABG pO2 (80-100) mmHg ABG HCO3 (22.0-26.0) mmol/L ABG Total CO2 (21.0-29.0) MMOL/L ABG O2 Saturation (94-98) % ABG Base Excess (-2.0-3.0) mmol/L Darin Test O2 Delivery Device O2 Liters/Min LPM Sodium 146 H (135-145) mmol/L Potassium 3.8 (3.5-5.0) mmol/L Chloride 114 H (101-111) mmol/L Carbon Dioxide 19 L (21-32) mmol/L Anion Gap 13.0 (6-13) BUN 10 (6-20) mg/dL Creatinine 0.6 (0.6-1.2) mg/dL Estimated GFR (MDRD) 131 (>89) Glucose 203 H (70-100) mg/dL Lactic Acid (0.5-2.2) mmol/L Calcium 9.3 (8.5-10.3) mg/dL Phosphorus (2.5-4.6) mg/dL Magnesium (1.7-2.8) mg/dL Troponin I High Sens (2.3-19.7) ng/L Prostate Specific Ag (0.000-2.000) ng/mL 11/03/19 11/03/19 11/03/19 Range/Units 00:34 00:34 00:10 WBC 13.4 H (4.8-10.8) x10^3/uL RBC 2.77 L (4.70-6.10) 10^6/uL Hgb 8.4 L (14.0-18.0) g/dL Hct 28.1 L (42.0-52.0) % MCV 101.4 H (80.0-94.0) fL MCH 30.3 (27.0-31.0) pg MCHC 29.9 L (32.0-36.0) g/dL RDW 19.9 H (12.0-15.0) % Plt Count 121 L (130-450) 10^3/uL MPV 9.0 (7.4-11.4) fL Neut # (Auto) 9.2 H (1.5-6.6) 10^3/uL Lymph # (Auto) 1.6 (1.5-3.5) 10^3/uL Latimer # (Auto) 1.2 H (0.0-1.0) 10^3/uL Eos # (Auto) 0.1 (0.0-0.7) 10^3/uL Baso # (Auto) 0.1 (0.0-0.1) 10^3/uL Absolute Nucleated RBC 0.78 x10^3/uL Nucleated RBC % 5.8 /100WBC Manual Slide Review Platelet Estimate (NORMAL) Platelet Morphology (NORMAL) RBC Morph Micro Appear (NORMAL) PT (9.9-12.6) secs INR (0.8-1.2) Bld Gas Analysis Time 0025 Sample Site LEFT RADIAL ABG pH 7.28 L (7.35-7.45) ABG pCO2 40 (34-45) mmHg ABG pO2 90 (80-100) mmHg ABG HCO3 18.1 L (22.0-26.0) mmol/L ABG Total CO2 19.3 L (21.0-29.0) MMOL/L ABG O2 Saturation 95 (94-98) % ABG Base Excess -8.1 L (-2.0-3.0) mmol/L Darin Test POSITIVE O2 Delivery Device NASAL CANNULA O2 Liters/Min 5.00 LPM Sodium 142 (135-145) mmol/L Potassium 3.3 L (3.5-5.0) mmol/L Chloride 115 H (101-111) mmol/L Carbon Dioxide 17 L (21-32) mmol/L Anion Gap 10.0 (6-13) BUN 11 (6-20) mg/dL Creatinine 0.5 L (0.6-1.2) mg/dL Estimated GFR (MDRD) 162 (>89) Glucose 158 H (70-100) mg/dL Lactic Acid (0.5-2.2) mmol/L Calcium 9.1 (8.5-10.3) mg/dL Phosphorus 2.8 (2.5-4.6) mg/dL Magnesium 2.4 (1.7-2.8) mg/dL Troponin I High Sens (2.3-19.7) ng/L Prostate Specific Ag (0.000-2.000) ng/mL ABX Reporting Has patient been on IV antibiotics over the past 48 hours?: Yes Assessment/Plan - Problem List (1) Aspiration pneumonia Impression: Patient presented with several days of a cough and bilateral infiltrates on CXR, which were first considered to be community-acquired pneumonia but as his history unraveled and we witnessed aspiration, this is more likely an aspiration pneumonia. He is not doing well and is less and less responsive. Analytical Data Scientist no magnolia document a patient who may be dying. Family notified and they will be here today. Blood cultures are negative to date. His empiric IV Cefepime, Vanco and Flagyl was to be changed to IV Unasyn for aspiration pneumonia coverage but he is till on the former. Sputum culture shows yeast. With discussion noted with family, they will visit him today and then we transition to comfort measures only once they feel they are ready. He is DNR right now as well. (2) Dysphagia causing pulmonary aspiration with swallowing Assessment/Plan: Speech therapy saw the patient today for a bedside swallow eval. He cannot transfer a food or liquid bolus adequately into the esophagus, and has laryngeal abnormality and pharyngeal abnormality, therefore he indeed has risk for aspiration. The diet that was advised is: moist pured food, not thick pured food. Spoon thick liquids. Meds crushed in applesauce. Strict aspiration precautions. These will be ordered. Palliative Care consult was done 11/01 and there will be no PEG tube because of deterioration. (3) Severe protein-calorie malnutrition Assessment/Plan: This patient has nutrition intake of less than 50% of recommended for 2 weeks or more, weight loss of 20% in the last 12 months and is bedridden. Continue IV fluids for hydration and for some calories with the D5. Palliative Care consult done 11/01 and he will not get a PEG tube. 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 The UA was abnormal and culture was indicated. This may have been a colonized urine sample however the current antibiotics will cover (5) Chronic indwelling Echevarria catheter Assessment/Plan: As above (6) Severe anemia Assessment/Plan: He needed 1 unit of PRBCs at admission for hemoglobin of 6.9 which increased to 7.6 and plateaued. He was already on oral Iron supplements, on his home med list. B12 and folate levels were checked because of high MCV. He was folate deficient. 10/31 we started folate 1 mg daily, via IV and iron replacement was continued, if it can be crushed. H/H followed daily. Will stop labs once he transitons to comfort later today. 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 The daughter had told me that there was no prognosis discussed with him or the family, by the Oncologist. Palliative care consult was offered to he and the daughter and she wanted it. iAleen Carney NP will met with the daughter and the patient (and Speech Therapist, after his poor result in the swallowing eval) today. (10) Hx of coronary artery disease Assessment/Plan: Stable. Continue his aspirin. Statin was discontinued because of his very poor nutrition, low-fat intake already. (11) Hyperlipidemia Assessment/Plan: Statin was discontinued because of his very poor nutrition, low-fat intake already. (12) Hypotension Assessment/Plan: Resolved after iv hydration started.
[2019-11-03] MEDS: ENOXAPARIN 40 MG/0.4 ML SYRINGE SUBQ SCH (08:32)
[2019-11-03] MEDS ORDERED: SODIUM CHLORIDE 0.9% 500 ML IV ONE (08:55)
[2019-11-03] MEDS: FERROUS SULFATE 325 MG TABLET PO SCH (09:34)
[2019-11-03] MEDS: CHOLECALCIFEROL 25 MCG TABLET PO SCH (09:34)
[2019-11-03] MEDS: CALCIUM CARBONATE CHEW 500 MG TABLET PO SCH (09:34)
[2019-11-03] MEDS: GABAPENTIN 300 MG CAPSULE PO SCH (09:34)
[2019-11-03] MEDS: ASPIRIN CHEW 81 MG TABLET PO SCH (09:34)
[2019-11-03] MEDS: SENNA 8.6 MG TABLET PO SCH (09:34)
[2019-11-03] MEDS: BRIMONIDINE TART EACHEYE SCH (09:34)
[2019-11-03] MEDS: BRINZOLAMIDE EACHEYE SCH (09:34)
[2019-11-03] MEDS: SACCHAROMYCES BOULARDII 250 MG CAPSULE PO SCH (09:34)
[2019-11-03] MEDS: DORZOLAMIDE 2% OPHTH DROPS EACHEYE SCH (09:34)
[2019-11-03] MEDS: FOLIC ACID INJ 1 MG in SODIUM CHLORIDE 0.9% 50 ML IV SCH (11:36)
--- NOTE | 2019-11-03 11:40 | PHARMACY PROGRESS NOTE ---
- Therapy Status Vancomycin regimen day #: 1 Therapy status: Awaiting steady state Basis for treatment: Empirical Trough goal: 15-20 Concurrent antibiotics: CEFEPIME, FLAGYL - NOY Risk Risk level for Acute Kidney Injury: Moderate Acute Kidney Injury risk factors: Goal trough >15, Acute hypotensive event, Sepsis - Monitoring and Recommendation Clinical response to treatment: I&O Previous 24 hours 11/01/19 11/02/19 11/03/19 23:59 23:59 23:59 Intake Total 3355.556 850.4 1350.000 Output Total 600 650 225 Balance 2755.556 200.4 1125.000 Lab Results 11/03/19 11/03/19 11/02/19 05:44 00:34 05:22 BUN 10 11 11 Creatinine 0.6 0.5 L 0.4 L Estimated GFR (MDRD) 131 162 209 11/01/19 10/31/19 10/30/19 06:00 05:40 16:00 BUN 16 21 H 24 H Creatinine 0.4 L 0.4 L 0.5 L Estimated GFR (MDRD) 209 209 162 Cultures 10/30/19 19:10 Sputum Respiratory Culture - Final YEAST 10/30/19 16:05 Urine,Catheterized Urine Culture - Final Klebsiella Pneumoniae Enterobacter Cloacae Complex Enterococcus Faecalis. 10/30/19 16:04 Blood - Left Hand Blood Culture - Preliminary NO GROWTH AFTER 2 DAYS 10/30/19 16:00 Blood - Right Arm Blood Culture - Preliminary NO GROWTH AFTER 2 DAYS 10/31/19 20:20 Stool Occult Blood - Final Monitoring plan: Daily serum creatinine Next trough due prior to maintenance dose #: 4 Next trough due (date/time): 11/03 AT 1530 Areas for additional monitoring: IV to PO when appropriate, Therapy de- escalation based on culture results
[2019-11-03] MEDS ORDERED: LORazepam 2 MG/ML VIAL IVP PRN (11:49)
[2019-11-03] MEDS ORDERED: ATROPINE 1% OPHTH DROPS 2 ML SL PRN (11:49)
[2019-11-03] MEDS ORDERED: ACETAMINOPHEN 650 MG SUPP PR PRN (11:49)
[2019-11-03 13:08] VITALS: BP 78/32
--- NOTE | 2019-11-03 13:23 | CONSULTATION NOTE ---
Palliative Care Follow Up - Referral Referring Provider: Dr. Kayleigh Llamas Time of Visit: [id number] Referral setting: Hospitalized patient Referral Reason: FTT/Goals of Care - Information Sources Records reviewed: Previous records reviewed Exam limitations: Clinical condition (patient unresponsive) - History of Present Illness Update Brief HPI Update: Please see previous HPI for more extensive hx. Patient had continued to have poor cognitive response, continued to deteriorate through the evening and into the night. Was seen by windows infrastructure engineer, as patient was having more respiratory distress, had spiked a temp, and was evaluated acutely. Decision to either transfer to intensive care with intubation or focus on comfort, at this point ti me daughter had made decision to pursue comfort measures, and have him be a DO NOT RESUSCITATE. They did continue treatment through the night, with fluids and antibiotics and supportive care. Patient currently on exam appears to be imminently dying, with shallow breaths, respiratory effort but no distress, weak tacky pulse, very pale in color. His labs from earlier, do show a worsening white count of 27.5, as well as we had had a PSA done to help establish goals of care, and this was greater than 12,00. Patient does not respond to verbal or physical stimulation. Does have scattered rhonchi and wheezing, though does not appear in respiratory distress. He had received some morphine earlier this a.m. for comfort. Social History - Living Situation Living arrangement: At home Living Situation: With family Support System: Patient has been living with daughter since 2005, he did have an acute spinal cord injury in February 2019, with increased care needs. He is cared for by his daughter, and son-in-law is well supported by his 3 grandsons. Medications/Allergies - Medications Active Medication List: Active Medications Acetaminophen (Tylenol) 650 mg PO Q4HR PRN PRN Reason: Pain 1 to 4 Acetaminophen (Tylenol) 650 mg MN Q4H PRN PRN Reason: Fever >101 Atropine Sulfate (Isopto Atropine 1% Ophth Drops) 1 - 4 drops SL Q2H PRN PRN Reason: Excessive secretions Acetaminophen (Ofirmev) 100 mls @ 400 mls/hr IV Q6HR PRN PRN Reason: Pain or Fever > 38C (100.4F) Last Infusion: 11/03/19 06:28 Dose: Infused Documented by: Lorazepam (Ativan Inj (Vial)) 1 mg IVP Q6H PRN PRN Reason: Anxiety/Agitation Morphine Sulfate (Morphine (Carpuject)) 2 mg IVP Q1HR PRN PRN Reason: NEEDED PER PROVIDER ORDERS Last Admin: 11/03/19 08:32 Dose: 2 mg Documented by: Atorvastatin [Lipitor] 40 mg PO QPM 09/03/16 Aspirin 81 mg PO DAILY 07/31/19 Gabapentin 600 mg PO TID 07/31/19 Ropinirole HCl 4 mg PO DAILY 08/01/19 Sennosides [Senna] 17.2 mg PO BID 08/01/19 polyethylene glycoL 3350 [Polyethylene Glycol 3350] 17 gm PO DAILY 08/01/19 Baclofen 5 mg PO DAILY PRN 10/31/19 Baclofen 10 mg PO DAILY 10/31/19 Brinzolamide/Brimonidine Tart [Simbrinza 1%-0.2% Eye Drops] 1 drops EACHEYE BID 10/31/19 Dorzolamide HCl 1 drops EACHEYE BID 10/31/19 - Allergies Allergies/Adverse Reactions: Allergies Allergy/AdvReac Type Severity Reaction Status Date / Time No Known Drug Allergies Allergy Verified 10/30/19 15:59 Review of Systems - Constitutional Constitutional: reports: Fever, Weight loss - Ears, Nose & Throat Ears, Nose & Throat: reports: Dry mouth, Other (edentulous) - Respiratory Respiratory: reports: Wheezing - Genitourinary Genitourinary: reports: Other (burns catheter/chronic) - Musculoskeletal Musculoskeletal: reports: Other (bedbound) - Integumentary Integumentary: reports: Dryness - Neurological Neurological: reports: General weakness, Other (unresponsive) - Psychiatric Psychiatric: denies: Aggitation - Hematologic/Lymphatic Hematologic/Lymphatic: reports: Recurrent infections (aspiration pneumonia/UTIs) - All Other Systems All Other Systems: reports: Other (limited ROS) Physical Exam - Vital Signs Vital Signs: Vital Signs x48h Temp Pulse Resp BP Pulse Ox 11/03/19 13:00 37.4 C 94 22 78/32 L 82 L 11/03/19 06:29 37.6 C H - Physical Exam General Appearance: positive: Nonresponsive Eyes Bilateral: positive: Other (drifts off to sleep) ENT: positive: Hearing loss, Dry mouth Neck: positive: Trachea midline Respiratory: positive: Wheezes, Rhonchi. negative: No respiratory distress (respiratory effort; irregular breathing patterns) Abdomen: positive: Soft Skin: positive: Pallor, Dryness Extremities: positive: No pedal edema (has scds on) Neurologic/Psychiatric: positive: Other (nonresponsive) Palliative Care - POLST POLST Status: DNR, Comfort Measures Pain: Comment (pateint with known LE pain and neuropathy; will benefit from regular medication for discomfort) - Palliative Care Discussion: Discussion with daughter,, she reports that she had talked it over with her , regarding question about transitioning to comfort measures. She feels they are ready to transition to take off the fluids and IV antibiotics. We discussed that there was anyone else that needs to come and say sethe, she and her and 3 kids are at bedside. He does have a grandson that will be co papo and flying in tomorrow. He is estranged from his other 2 children. She reports that he is quite clear does not want them contacted, she will notify them of the time of . Patient has communicated he wants to be cremated, he does want a , though this may be problematic given COVID-19, these have been on hold. Did provide information on [facility], as well as list of homes for them to explore, explained will need a home at time of . Keyur her , will make the calls and let staff know. Psychosocial support given for transitioning to end-of-life, reviewed she had given significant support over the last several years, in particular over the last several months, acknowledged just the difficulty of same lamar. Results - Lab Results Lab results reviewed: Yes Fish Bones: 11/03/19 05:44 11/03/19 05:44 Lab and Imaging Results: Lab Results x24hrs 11/03/19 11/03/19 11/03/19 Range/Units 05:44 05:44 05:44 WBC (4.8-10.8) x10^3/uL RBC (4.70-6.10) 10^6/uL Hgb (14.0-18.0) g/dL Hct (42.0-52.0) % MCV (80.0-94.0) fL MCH (27.0-31.0) pg MCHC (32.0-36.0) g/dL RDW (12.0-15.0) % Plt Count (130-450) 10^3/uL MPV (7.4-11.4) fL Neut # (Auto) (1.5-6.6) 10^3/uL Lymph # (Auto) (1.5-3.5) 10^3/uL Deuel # (Auto) (0.0-1.0) 10^3/uL Eos # (Auto) (0.0-0.7) 10^3/uL Baso # (Auto) (0.0-0.1) 10^3/uL Absolute Nucleated RBC x10^3/uL Nucleated RBC % /100WBC Manual Slide Review Platelet Estimate (NORMAL) Platelet Morphology (NORMAL) RBC Morph Micro Appear (NORMAL) PT (9.9-12.6) secs INR (0.8-1.2) Bld Gas Analysis Time Sample Site ABG pH (7.35-7.45) ABG pCO2 (34-45) mmHg ABG pO2 (80-100) mmHg ABG HCO3 (22.0-26.0) mmol/L ABG Total CO2 (21.0-29.0) MMOL/L ABG O2 Saturation (94-98) % ABG Base Excess (-2.0-3.0) mmol/L Darin Test O2 Delivery Device O2 Liters/Min LPM Sodium (135-145) mmol/L Potassium (3.5-5.0) mmol/L Chloride (101-111) mmol/L Carbon Dioxide (21-32) mmol/L Anion Gap (6-13) BUN (6-20) mg/dL Creatinine (0.6-1.2) mg/dL Estimated GFR (MDRD) (>89) Glucose (70-100) mg/dL Lactic Acid 1.1 (0.5-2.2) mmol/L Calcium (8.5-10.3) mg/dL Phosphorus (2.5-4.6) mg/dL Magnesium (1.7-2.8) mg/dL Troponin I High Sens 26.3 H* (2.3-19.7) ng/L Prostate Specific Ag > 1210.000 H (0.000-2.000) ng/mL 11/03/19 11/03/19 11/03/19 Range/Units 05:44 05:44 01:32 WBC 27.5 H (4.8-10.8) x10^3/uL RBC 2.80 L (4.70-6.10) 10^6/uL Hgb 8.6 L (14.0-18.0) g/dL Hct 29.7 L (42.0-52.0) % MCV 106.1 H (80.0-94.0) fL MCH 30.7 (27.0-31.0) pg MCHC 29.0 L (32.0-36.0) g/dL RDW 20.3 H (12.0-15.0) % Plt Count 202 (130-450) 10^3/uL MPV 9.6 (7.4-11.4) fL Neut # (Auto) 12.8 H (1.5-6.6) 10^3/uL Lymph # (Auto) 7.7 H (1.5-3.5) 10^3/uL Deuel # (Auto) 3.3 H (0.0-1.0) 10^3/uL Eos # (Auto) 0.3 (0.0-0.7) 10^3/uL Baso # (Auto) 0.5 H (0.0-0.1) 10^3/uL Absolute Nucleated RBC 3.71 x10^3/uL Nucleated RBC % 13.5 /100WBC Manual Slide Review Indicated Platelet Estimate NORMAL (130-450,000) (NORMAL) Platelet Morphology NORMAL APPEARANCE (NORMAL) RBC Morph Micro Appear 1+ ANISOCYTOSIS (NORMAL) PT 14.4 H (9.9-12.6) secs INR 1.3 H (0.8-1.2) Bld Gas Analysis Time Sample Site ABG pH (7.35-7.45) ABG pCO2 (34-45) mmHg ABG pO2 (80-100) mmHg ABG HCO3 (22.0-26.0) mmol/L ABG Total CO2 (21.0-29.0) MMOL/L ABG O2 Saturation (94-98) % ABG Base Excess (-2.0-3.0) mmol/L Darin Test O2 Delivery Device O2 Liters/Min LPM Sodium 146 H (135-145) mmol/L Potassium 3.8 (3.5-5.0) mmol/L Chloride 114 H (101-111) mmol/L Carbon Dioxide 19 L (21-32) mmol/L Anion Gap 13.0 (6-13) BUN 10 (6-20) mg/dL Creatinine 0.6 (0.6-1.2) mg/dL Estimated GFR (MDRD) 131 (>89) Glucose 203 H (70-100) mg/dL Lactic Acid (0.5-2.2) mmol/L Calcium 9.3 (8.5-10.3) mg/dL Phosphorus (2.5-4.6) mg/dL Magnesium (1.7-2.8) mg/dL Troponin I High Sens (2.3-19.7) ng/L Prostate Specific Ag (0.000-2.000) ng/mL 11/03/19 11/03/19 11/03/19 Range/Units 00:34 00:34 00:10 WBC 13.4 H (4.8-10.8) x10^3/uL RBC 2.77 L (4.70-6.10) 10^6/uL Hgb 8.4 L (14.0-18.0) g/dL Hct 28.1 L (42.0-52.0) % MCV 101.4 H (80.0-94.0) fL MCH 30.3 (27.0-31.0) pg MCHC 29.9 L (32.0-36.0) g/dL RDW 19.9 H (12.0-15.0) % Plt Count 121 L (130-450) 10^3/uL MPV 9.0 (7.4-11.4) fL Neut # (Auto) 9.2 H (1.5-6.6) 10^3/uL Lymph # (Auto) 1.6 (1.5-3.5) 10^3/uL Deuel # (Auto) 1.2 H (0.0-1.0) 10^3/uL Eos # (Auto) 0.1 (0.0-0.7) 10^3/uL Baso # (Auto) 0.1 (0.0-0.1) 10^3/uL Absolute Nucleated RBC 0.78 x10^3/uL Nucleated RBC % 5.8 /100WBC Manual Slide Review Platelet Estimate (NORMAL) Platelet Morphology (NORMAL) RBC Morph Micro Appear (NORMAL) PT (9.9-12.6) secs INR (0.8-1.2) Bld Gas Analysis Time 0025 Sample Site LEFT RADIAL ABG pH 7.28 L (7.35-7.45) ABG pCO2 40 (34-45) mmHg ABG pO2 90 (80-100) mmHg ABG HCO3 18.1 L (22.0-26.0) mmol/L ABG Total CO2 19.3 L (21.0-29.0) MMOL/L ABG O2 Saturation 95 (94-98) % ABG Base Excess -8.1 L (-2.0-3.0) mmol/L Darin Test POSITIVE O2 Delivery Device NASAL CANNULA O2 Liters/Min 5.00 LPM Sodium 142 (135-145) mmol/L Potassium 3.3 L (3.5-5.0) mmol/L Chloride 115 H (101-111) mmol/L Carbon Dioxide 17 L (21-32) mmol/L Anion Gap 10.0 (6-13) BUN 11 (6-20) mg/dL Creatinine 0.5 L (0.6-1.2) mg/dL Estimated GFR (MDRD) 162 (>89) Glucose 158 H (70-100) mg/dL Lactic Acid (0.5-2.2) mmol/L Calcium 9.1 (8.5-10.3) mg/dL Phosphorus 2.8 (2.5-4.6) mg/dL Magnesium 2.4 (1.7-2.8) mg/dL Troponin I High Sens (2.3-19.7) ng/L Prostate Specific Ag (0.000-2.000) ng/mL Impression and Recommendations - Palliative Care Impression: This is a 78-year-old gentleman with failure to thrive, multifocal pneumonia attributed to aspiration, known weight loss, and functional and cognitive decline. Patient is acutely changed, and goals have been realigned for comfort measures. Patient does appear to be imminently transitioning, will continue to provide support for end-of-life. Recommendations/Counseling Done: 1. Advanced care planning. Follow-up with daughter, does perceive father is transitioning, does not want his suffering prolonged and wants to honor his wishes and will transition at this point to comfort measures and withdraw antibiotics and fluids. Patient is imminently transitioning, would not be appropriate at this point in time to transfer. Counseling provided regarding need for identification of home, resources given. Acknowledged difficulty given their history of ongoing support, of impending grief and loss. Declined any kind of communications lead/spiritual support for patient, did not feel this would be of benefit or helpful. 2. Failure to thrive. Patient continues to decline, is acutely changing, comfort meds have been ordered by hospitalist, will depend on nursing staff to evaluate and medicate appropriately to minimize suffering. Time Spent: 30 minutes with greater than 50% of this done in counseling regarding end-of-life, what to expect, as well as planning, coordination of care with hospital list and clinical care team.
--- NOTE | 2019-11-03 20:12 | DISCHARGE SUMMARY ---
Discharge Summary Admit Date: 10/30/19 Discharge Date: 11/03/19 Discharging Provider: Leonidas Tierney Primary Care Provider: Ty Tejeda Code Status: Do Not Attempt Resuscitation Condition at Discharge: Serious Discharge Disposition: 20 - DIAGNOSES Admission Diagnoses: 1. Community-acquired pneumonia 2. UTI 3. Transient hypotension 4. Severe anemia 5. Chronic indwelling Echevarria catheter 6. Hemiplegia 7. Prostate cancer metastatic to bone Discharge Diagnoses with Status of Each Condition: 1. Aspiration pneumonia: Patient 2. Prostate cancer metastatic to bone: Patient 3. Severe Protein-calorie malnutrition: Patient 4. Dysphagia causing pulmonary aspiration with swallowing: Patient 5. Transient hypotension: Patient 6. Severe anemia: Patient 7. Chronic indwelling Echevarria catheter: Patient 8. Hemiplegia: Patient 9. UTI: Patient - HPI History of Present Illness: Per HPI: Mr Miguel Negrete is a 78-year old gentleman with a history significant for metastatic prostate cancer who has been receiving chemotherapy for his prostate cancer and followup oncologist , hemiplegia/spinal cord injury Brown- Squard syndrome, indwelling Echevarria, hypertension and hypercholesterolemia, CAD, restless leg syndrome, chronic anemia who present ER complain of cough, and weakness. pt seems very sick and profound weakness but pt is alert and oriented. pt reports he had productive cough, increased weakness, decreased oral intake, and decreased urinary output for about 5 days. Pt has been bed bound. pt had indwelling catheter. Pt denies chest pain, abdominal pain, nausea and vomiting, fever, chills. pt Had low blood pressure at the outset in ER but he was responded to fluid perfusion. CXR reveals Evidence of right greater than left- sided pneumonia. Urinalysis also revealed pyuria and UTI. he has a chronic indwelling Echevarria so it may be colonization. Routine lab reveal pt has HGB 6.9. pt has hx of chronic anemia. Blood cultures were obtained in ER. ER ordered Covid 19 test and the test is pending. pt was admitted in medical floor now for further evaluation and treatment. Discussed the care goal with pt, pt request full code for his code status now. At the time, nurse is at the bedside. - HOSPITAL COURSE Hospital Course: Patient was treated with broad-spectrum antibiotics which included vancomycin, cefepime and Flagyl. It was subsequently suspected that the patient had aspiration pneumonia at which point antibiotics were de-escalated to unasyn only He was seen by speech therapy and found to be unable to transfer food or liquid bolus adequately into his esophagus. He also had laryngeal and pharyngeal abnormalities making him very susceptible to aspirations. Moist pure food diet was recommended. Spoon thick liquids and medications crushed in applesauce. Prior to admission the patient had less than 50% of daily recommended nutritional intake for the past 2 weeks, a 20% weight loss in the past 12 months and is bedridden. In the night on November 02 2019 the patient became less responsive and required 3 L of oxygen via nasal cannula. He was also tachycardic with a heart rate in the 110s. Repeat chest x-ray showed worsening bilateral infiltrates and concerns for possible pulmonary vascular congestion. He also spiked a low-grade fever with a temperature of 38.2. His white blood cell count increased from 9 to 13.4. At this point he is antibiotics were again broadened. The patient became even more lethargic and required even more oxygen. The night physician had a conversation with the patient's daughter and updated her about the patient's declining condition. Patient was transitioned to comfort measures only on November 03, 2019. In the evening on November 03, 2019 I was asked to evaluate the patient because he was unresponsive. His family was at bedside at time of my evaluation. Patient was non-responsive to verbal or tactile stimuli. There were no spontaneous breath sounds. There were no heart sounds or breath sounds upon auscultation. Carotid and radial pulses were absent bilaterally. Pupils were fixed and dilated and unresponsive to light. Patient was pronounced with the time of that being 7:48 PM. - ALLERGIES Allergies/Adverse Reactions: Allergies Allergy/AdvReac Type Severity Reaction Status Date / Time No Known Drug Allergies Allergy Verified 10/30/19 15:59 - MEDICATIONS Home Medications: Ambulatory Orders Medication Instructions Recorded Confirmed Atorvastatin [Lipitor] 40 mg PO QPM 09/03/16 10/31/19 Calcium Carbonate [Tums (Calcium 500 mg PO BID #60 tablet 09/05/18 10/31/19 Carbonate 500mg)] Cholecalciferol (Vitamin D3) 1,000 unit PO DAILY #30 capsule 09/05/18 10/31/19 [Vitamin D3] Aspirin 81 mg PO DAILY 07/31/19 10/31/19 Gabapentin 600 mg PO TID 07/31/19 10/31/19 Ropinirole HCl 4 mg PO DAILY 08/01/19 10/31/19 Sennosides [Senna] 17.2 mg PO BID 08/01/19 10/31/19 polyethylene glycoL 3350 17 gm PO DAILY 08/01/19 10/31/19 [Polyethylene Glycol 3350] Ferrous Sulfate 325 mg PO DAILY #30 tablet 08/02/19 10/31/19 Baclofen 5 mg PO DAILY PRN 10/31/19 10/31/19 Baclofen 10 mg PO DAILY 10/31/19 10/31/19 Brinzolamide/Brimonidine Tart 1 drops EACHEYE BID 10/31/19 10/31/19 [Simbrinza 1%-0.2% Eye Drops] Dorzolamide HCl 1 drops EACHEYE BID 10/31/19 10/31/19 - LABS Result Diagrams: 11/03/19 05:44 11/03/19 05:44 - TIME SPENT Time Spent in Discharge (Minutes): 30
--- NOTE | 2019-11-03 20:13 | Discharge Plan ---
Discharge Plan Problem Reviewed?: Yes Disposition: 20 Condition: Serious Instruction Topics: Fosfomycin powder for oral solution No Smoking: If you smoke, Please STOP! Call for help. Follow-up with: Ty Tejeda MD [Primary Care Provider] -
== END 2019-11-03 19:48 | disposition expired | DRG 177 ==
LOC: EDUNIT# → ED 15:38 → MS2 17:08
PROVIDERS: ADMIT Nurse Practitioner Gerontology; ATTEND Internal Medicine
DX: J18.9 Pneumonia, unspecified organism (principal); J69.0 Pneumonitis due to inhalation of food and vomit; E43 Unspecified severe protein-calorie malnutrition; T14.8XXS Other injury of unspecified body region, sequela; T83.518A Infection and inflammatory reaction due to other urinary catheter, initial encounter; R82.81 Pyuria; N39.0 Urinary tract infection, site not specified; E78.00 Pure hypercholesterolemia, unspecified; G81.91 Hemiplegia, unspecified affecting right dominant side; C79.51 Secondary malignant neoplasm of bone; C61 Malignant neoplasm of prostate; G83.81 Brown-Sequard syndrome; N31.9 Neuromuscular dysfunction of bladder, unspecified; N40.1 Benign prostatic hyperplasia with lower urinary tract symptoms; R35.0 Frequency of micturition; N39.498 Other specified urinary incontinence; R13.10 Dysphagia, unspecified; I95.9 Hypotension, unspecified; Z68.23 Body mass index [BMI] 23.0-23.9, adult; R62.7 Adult failure to thrive; I25.10 Atherosclerotic heart disease of native coronary artery without angina pectoris; E87.6 Hypokalemia; Z20.828 Contact with and (suspected) exposure to other viral communicable diseases; E78.5 Hyperlipidemia, unspecified; D52.9 Folate deficiency anemia, unspecified; B95.2 Enterococcus as the cause of diseases classified elsewhere; B96.1 Klebsiella pneumoniae [K. pneumoniae] as the cause of diseases classified elsewhere; G25.81 Restless legs syndrome; G62.9 Polyneuropathy, unspecified; K59.09 Other constipation; H91.90 Unspecified hearing loss, unspecified ear; Z74.01 Bed confinement status; Z66 Do not resuscitate; Z51.5 Encounter for palliative care; Z79.82 Long term (current) use of aspirin; Z79.899 Other long term (current) drug therapy; Z95.5 Presence of coronary angioplasty implant and graft; Z95.1 Presence of aortocoronary bypass graft; Z87.440 Personal history of urinary (tract) infections
CPT/HCPCS: 36415; 36600; 70450; 71045; 80048; 80053; 81001; 81599; 82272; 82607; 82746; 82803; 83540; 83605; 83690; 83735; 84100; 84153; 84466; 84484; 85025; 85610; 86850; 86900; 86901; 86920; 87040; 87070; 87077; 87086; 87181; 87205; 87640; 92610; 96361; 96365; 96367; 99285; A9270; J0131; J1650; J3370; J7040; P9016; 80202; 81003; 99223